=== PATIENT | female | born 1975 | race Caucasian/White ===

== ENCOUNTER 2022-03-31 12:33 | Outpatient (CLI) | payer OTHER, SELFPAY | END 2022-03-31 12:34 | disposition home or self-care (01) | LOC: NFLDREF 12:38 | PROVIDERS: PCP Family Medicine; Visit Provider Obstetrics & Gynecology | DX: Z01.419 Encounter for gynecological examination (general) (routine) without abnormal findings (principal); N39.46 Mixed incontinence; N95.2 Postmenopausal atrophic vaginitis | CPT/HCPCS: 87086 ==

== ENCOUNTER 2022-04-23 12:04 | Outpatient (CLI) | payer OTHER, SELFPAY | END 2022-04-23 12:05 | disposition home or self-care (01) | LOC: OP CLINIC 12:05 | PROVIDERS: PCP Family Medicine; Visit Provider Surgery | DX: Z12.11 Encounter for screening for malignant neoplasm of colon (principal); K63.5 Polyp of colon; Z83.71 Family history of colonic polyps | CPT/HCPCS: 45385; 88305; 99153; J1200; J2250; J2405; J3010 ==

== ENCOUNTER 2022-05-11 11:00 | Outpatient (RCR) | payer OTHER, SELFPAY | END 2022-08-24 15:25 | disposition home or self-care (01) | PROVIDERS: PCP Family Medicine; Visit Provider Obstetrics & Gynecology | DX: N39.46 Mixed incontinence (principal); Z51.89 Encounter for other specified aftercare | CPT/HCPCS: 97112; 97140; 97161; 97162; 97535 ==

== ENCOUNTER 2022-05-13 14:52 | Outpatient (CLI) | payer OTHER, SELFPAY ==
--- NOTE | 2022-05-13 15:00 | CRLHL7_ITS ---
For Patients: As a result of the Century Cures Act, medical imaging exams and procedure reports are released immediately into your electronic medical record. You may view this report before your referring provider. If you have questions, please contact your health care provider. BILATERAL SCREENING MAMMOGRAM WITH COMPUTER-AIDED DETECTION AND TOMOSYNTHESIS TECHNIQUE: CC, MLO and Implant displaced views were obtained. These mammographic images have been obtained using full-field digital technique. These mammographic images were interpreted with the benefit of computer-aided detection. Breast Tomosynthesis was used in this interpretation. COMPARISON FILM: 05/06/21, 03/28/20, 03/30/19. FINDINGS: There are scattered areas of fibroglandular density IMPRESSION: There is no radiographic evidence for malignancy. ASSESSMENT: BI-RADS Category 2: Benign RECOMMENDATION: Routine screening mammogram in 1 year. A lay language report of this examination will be provided to the patient. Han Mathis M.D. Diagnostic Radiologist [email or web address] DARNELL/Dictated by: Han Mathis MD @ 05/14/2022 12:41:00 PM (Electronically Signed)
== END 2022-05-13 14:53 | disposition home or self-care (01) ==
LOC: MAMMO 14:53
PROVIDERS: PCP Family Medicine; Visit Provider Obstetrics & Gynecology
DX: Z12.31 Encounter for screening mammogram for malignant neoplasm of breast (principal)
CPT/HCPCS: 77063; 77067

== ENCOUNTER 2022-10-16 09:45 | Outpatient (CLI) | payer OTHER, SELFPAY | END 2022-10-16 09:46 | disposition home or self-care (01) | LOC: NFLDREF 09:46 | PROVIDERS: PCP Family Medicine; Visit Provider Family Medicine | DX: I10 Essential (primary) hypertension (principal) | CPT/HCPCS: 80048 ==

== ENCOUNTER 2023-04-21 10:22 | Outpatient (CLI) | payer OTHER, SELFPAY | END 2023-04-21 10:23 | disposition home or self-care (01) | PROVIDERS: PCP Family Medicine; Visit Provider Physician Assistant | DX: Z01.419 Encounter for gynecological examination (general) (routine) without abnormal findings (principal); I10 Essential (primary) hypertension; Z13.1 Encounter for screening for diabetes mellitus; Z13.6 Encounter for screening for cardiovascular disorders | CPT/HCPCS: 80061; 82947 ==

== ENCOUNTER 2023-05-04 07:55 | Outpatient (CLI) | payer OTHER, SELFPAY ==
--- OUTSIDE RECORDS SUMMARY | 2023-05-04 07:57 | XMS_ITS | Continuity of Care Document ---
Author Name Unknown Organization [facility] Address [address] [place] [address] Phone Care Team Providers Care Php Web Developer Name Role Phone Lteicia Anne MD Unavailable Unavailable Allergies, Adverse Reactions, Alerts Substance Reaction Status Criticality PENICILLIN Rash Active No Information Medications Medication Instructions Dosage Effective Dates (start - stop) Status Comments prednisone 5 mg tablet Take 3 tablets twice daily x 5 days; take 2 tablets twice daily x 5 days; take 1 tablet twice daily x 5 days - Active LISINOPRIL (unknown strength) Not Available - Active OMEPRAZOLE (unknown strength) Not Available - Active Procedures Procedure Date Office/Outpatient Visit,Est, Mod 2021 Office/Outpatient Visit,Est, Mod 2018 Office/Outpatient Visit,Est, Mod 2018 X-Ray Exam Of Neck Spine2-3 Views Office/Outpatient Visit,Est, Mod 2017 Office/Outpatient Visit,Est, Mod 2017 X-Ray Exam Of Spine, Single View 2017 Office/Outpatient Visit,Est, Mod 2017 Office/Outpatient Visit,Est, Mod 2017 X-Ray Exam Of Neck Spine2-3 Views Postop Followup Visit X-Ray Exam Of Spine, Single View 2016 Postop Followup Visit Pa Assist Neck Spine Fusion (Cerv,Below C2) Pa Assist Insert Spine Fixation, Posteri or Neck Spine Fusion (Cerv,Below C2) Insert Spine Fixation, Posterior 2016 Allograft, Spine Surg, Morselized Autograft, Spine Surgery, Local 017 Office/Outpatient Visit,Est, Mod 2016 Office/Outpatient Visit,Est, Mod 2016 X-Ray Exam Of Neck Spine, 4+ Views Feb-08 19-2016 Office/Outpatient Visit,Est, Mod 2016 X-Ray Exam Of Spine, Single View 2016 Office/Outpatient Visit,Est, Mod 2014 X-Ray Exam Of Neck Spine2-3 Views Office/Outpatient Visit,Est, Mod 2014 X-Ray Exam Of Spine, Single View 2014 Postop Followup Visit X-Ray Exam Of Spine, Single View 2014 Postop Followup Visit X-Ray Exam Of Spine, Single View 2013 Neck Spine Fuse & Removal Addl 14 Addl Neck Spine Fusion Insert Spine Fix Dev, Ant, 2-3 Seg Allograft, Spine Surg, Structural Pa Neck Spine Fuse & Removal Addl Pa Addl Neck Spine Fusion Pa Assist Insert Spine Fix Dev, Ant, 2-3 Seg Pre Op Office/Outpatient Visit, 014 Office/Outpatient Visit,Est, Mod 2013 Office/Outpatient Visit,Est, Mod 2013 Office/Outpatient Visit,New, Mod 2013 Advance Directives Directive Yes / No Effective Date File Name No Information Encounters Encounter Description Practice Location Reason(s) For Visit Diagnoses Date Provider Providers Copied on Encounter [facility], [address], [place], [place], [id number], [place] tel:[phone] [facility] No Information 2 Omid Kelly. [facility], [address], [address], [place], [address], [place]. tel:[phone] Office/Outpa tient Visit,Est, Mod [facility], [address], [place], [place], [id number], [place] tel:[phone] [facility] Other spondylosis, cervical region 2 Omid Kelly. [facility], [address] [place] [address], [address], [place], [place], [facility], [place]. tel:[phone] Referring Provider: Thom Márquez, [facility] [address], [place], [address]. tel:[phone] Office/Outpa tient Visit,Est, Mod [facility], [address], [place], [place], [id number], [place] tel:[phone] [facility] Cervicalgia 9 Castanonlyudmila Diggsoph er. [facility] [place], [address] [place] [address], [address], [place], [place], [address] , [place]. tel:[phone] Referring Provider: Thom Márquez, [facility] [address], [place], [address]. tel:[phone] Office/Outpa tient Visit,Est, Mod [facility], [address], [place], [place], [address], [place] tel:[phone] [facility] Encounter for other specified surgical aftercare 9 Kina Mcnamara er. [facility] [place], [address] [place] [address], [address], [place], [place], [address] , [place]. tel:[phone] Referring Provider: Thom Márquez, [facility] [address], [place], [address]. [phone] Office/Outpa tient Visit,Est, Mod [facility], [address] [place] [address], [id number], [place] tel:[phone] [facility] Encounter for other specified surgical aftercare 5201 8 [facility] [place], [address] [place] [address], [address], [place], [place], [address] , [place]. tel:[phone] Referring Provider: Thom Márquez, [facility] [address], [place], [address]. tel:[phone] Office/Outpa tient Visit,Est, Mod [facility], [address] [place] [address], [id number], [place] tel:[phone] [facility] Encounter for other specified surgical aftercare 0- 8 [facility]. [facility] [place], [address], [address], [place], [place], [address] , [place]. [phone] Referring Provider: Thom Márquez, [facility] [address], [place], [address]. tel:[phone] Office/Outpa tient Visit,Est, Mod [facility], [address] [place] [address], [id number], [place] tel:[phone] [facility] - [facility] Encounter for other specified surgical aftercareLow back pain 2 8 [facility]. [facility], [address], [address], [place], [place], [address] , [place]. [phone] Referring Provider: Thom Márquez, [facility] [address], [place], [address]. tel:[phone] Office/Outpa tient Visit,Est, Mod [facility], [address], [place], [place], [id number], [place] tel:[phone] [facility] Encounter for other specified surgical aftercare 6 8 [facility]. [facility], [address], [address], [place], [place], [address] , . [phone] Referring Provider: Thom Márquez, [facility] [address], [place], [address]. tel:[phone] [facility], [address] [place] [address], [id number], [place] tel:[phone] [facility] - [facility] Encounter for other specified surgical aftercare May-3 [facility] . [facility], [address], [address], [place], [place], [address] , [place]. tel:[phone] Referring Provider: Thom Márquez, [facility] [address], [place], [address]. tel:[phone] [facility], [address], [place], [id number], [place] tel:[phone] [facility] - [facility] Encounter for other specified surgical aftercare May-0 [facility]. [facility], [address], [address], [place], [place], [address] , [place]. tel:[phone] Referring Provider: Thom Márquez, [facility] [address], [place], [address]. tel:[phone] [facility], [address], [place], [place], [id number], [place] tel:[phone] [facility] No Information Apr- Chelsea Potter. [facility] [place], [address] [place] [address], [place], [address], [place]. [phone] Referring Provider: Thom Márquez, [facility] [address], [place], [address]. tel:[phone] [facility], [address], [place], [address], [place] tel:[phone] [facility] No Information Apr- [facility]. [facility], [address], [address], [place], [address] , [place]. tel:[phone] Referring Provider: Thom Márquez, [facility] [address], [place], [address]. 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 [facility], [address], [address], [place], [place], [address] , [place]. tel:[phone] Referring Provider: Thom Márquez, [facility] [address], [place], [address]. tel:[phone] Office/Outpa tient Visit,Est, Mod [facility], [address], [place], [place], [address], [place] tel:[phone] [facility] Spinal stenosis, cervical regionPseudar throsis after fusion or arthrodesis 7 [facility], [address], [address], [place], [place], [address] , [place]. tel:[phone] Referring Provider: Thom Márquez, [facility] [address], [place], [address]. tel:[phone] Office/Outpa tient Visit,Est, Mod [facility], [address], [place], [place], [address], [place] tel:[phone] [facility] Cervicalgia 7 [facility], [address], [address], [place], [place], [address] , [place]. tel:[phone] Referring Provider: Thom Márquez, [facility] [address], [place], [address]. tel:[phone] Office/Outpa tient Visit,Est, Mod [facility], [address], [place], [place], [address], [place] tel:[phone] [facility] Other intervertebra l disc degeneration, lumbar regionArthrod esis statusOverwei ght 5 Castanonlyudmila Mcnamara er. [facility], [address] [place] [address], [address], [place], [place], [address] , [place]. [phone] Referring Provider: Thom Márquez, [facility] [address] [facility] [address], [place], [address]. tel:[phone] Office/Outpa tient Visit,Est, Mod [facility], [address], [place], [place], [address], [place] tel:[phone] [facility] Displacement of intervertebra l disc, site unspecified, without myelopathyOVE RWEIGHTHypert ension, UnspecifiedLu mbar spondylosisLu mbar radiculopathy Shoulder joint painPatient who has had a surgical fusion of a joint 5 Kina Anders er. [facility], [address], [address], [place], [place], [address] , [place]. [phone] Referring Provider: Thom Márquez, [facility] [address] [facility] [address], [place], [address]. [phone] [facility], [address], [place], [id number], [place] [phone] [facility] - [facility] Patient who has had a surgical fusion of a joint 5 Kina Mcnamara er. [facility], [address], [address], [place], [place], [address] , [place]. [phone] Referring Provider: Pancho Castanon, [facility] [address], [address], [place], [address]. [phone] [facility], [address], [place], [id number], [place] [phone] [facility] No Information 4 Kina Mcnamara er. [facility], [address] [place] [address], [address], [place], [place], [address] , [place]. tel:[phone] Referring Provider: Pancho Castanon [facility] [address] [place], [address], [place], [address]. tel:[phone] Z [facility], [address], [place], [address], [place] tel:[phone] [facility] No Information 4 Kina Mcnamara er. [facility], [address], [address], [place], [place], [address] , [place]. tel:[phone] Referring Provider: Pancho Castanon [facility] [address] [place], [address], [place], [address]. tel:[phone] Pre Op Office/Outpa tient Visit, Z [facility] [place], [address], [place], [address], [place] tel:[phone] [facility] - [place] Hypertension, UnspecifiedDi splacement of intervertebra l disc, site unspecified, without myelopathy 4 Kina Mcnamara er. [facility], [address] [place], [address], [place], [place], [address] , [place]. tel:[phone] Referring Provider: Same As Referring. Office/Outpa tient Visit,Est, Mod Z [facility], [address], [place], [address], [place] tel:[phone] [facility] [place] No Information 4 Kina Mcnamara er. [facility], [address], [address], [place], [place], [address] , [place]. tel:[phone] Referring Provider: Pancho Castanon [facility] [address], [address], [place], [address]. tel:[phone] Office/Outpa tient Visit,Est, Mod Z [facility], [address], [place], [address], [place] tel:[phone] [facility] Neck and right arm pain (chief complaint) No Information 4 Kina Anders er. [facility], [address], [address], [place], [address] , . tel:[phone] Referring Provider: Pancho Csatanon, [facility] [address] [place], [address], [place], [address]. tel:[phone] Office/Outpa tient Visit,[facility], [facility] Z [facility], [address] [facility], [place], [facility], tel:[phone] [facility] - [facility] Cervical pain (chief complaint) No Information 4 Castanonlyudmila Mcnamara er. [facility] [place], [address] [place] [address], [address], [place], [place], [address] , . tel:[phone] Referring Provider: Pancho Castanon, [facility] [address], [address], [address]. tel:[phone] Family History Family Member Type Diagnosis Age At Onset Problem (finding) Problem (finding) Payers Payer name Insurance type Covered constitution party ID Authoriza tion(s) [employer] Family [employer] [id number] Social History Type Description Quantity Date Captured Comments Sex Female Smoking Status No Information Chief Complaint And Reason For Visit No Information Reason For Referral Reason For Referral No Information Plan Of Treatment Date Type Action Status Future Order: Radiology Order AP Lateral Cervical (APlatcerv), Ordered on: Ordered Future Order: Radiology Order F/ E Cervical (F/Ecervical), Ordered on: Ordered Future Order: Radiology Order La teral Cervical (LatCerv), Ordered on: Ordered Future Order: Radiology Order AP Lateral Cervical (APlatcerv), Ordered on: Ordered History Of Present Illness Encounter Date Complaint History Of Prese nt Illness Cervical pain Functional Status Date Functional Assessmen t No Information Instructions Date Instruction Yves coombs Weight management: R efer to Referral to General Practitioner timeframe: 1 Month. Related to Overweight Weight Management Related to Ove rweight Refer to Referral to General Practitioner timeframe: 1 Month. Related to Unspecified Essential Hypertension Exercise education Related to Un specified Essential Hypertension Assessments Type Assessment Date No Information Patient Care Teams Name Effective Dates (start - stop) Status Members No Information
--- NOTE | 2023-05-04 08:00 | CRLHL7_ITS ---
Patient: BELLE GARNICA Facility:?[facility] Patient ID:?[id number] Site Patient ID:?[id number]. Site :?[id number] Study:?CT-Abdomen/Pelvis W/ ISOVUE 370 57CC-05/04/2023 8:47:11 AM Ordering Physician:Erasto Blankenship Final Report: ADDENDUM: The endocervix remains with small nabothian cysts. The patient appears to be status post partial hysterectomy. Han Mathis M.D. Diagnostic Radiologist [employer] [employer]. [email or web address] D& Transcribed: 10:06 a.m. Indication: ABD SWELLING, LT SIDED Technique: Postcontrast CT abdomen and pelvis. 57 cc Isovue 370 intravenous contrast. Please note that all CT scans at this facility use dose modulation, iterative reconstruction, and/or weight-based dosing when appropriate to reduce radiation dose to as low as reasonably achievable. Comparison: None Findings: Mild dependent atelectasis noted within both lower lobes. No pleural effusion. Incidental calcified granuloma within the right middle lobe. No intrahepatic mass. Mild hepatic steatosis. Spleen is normal. Normal adrenal glands. Normal pancreas. The gallbladder is incompletely distended. No calcified gallstones or biliary obstruction. Kidneys are within normal limits. No aortic aneurysm. No adenopathy. Small left ovarian cysts are present measuring up to 1.6 cm. Uterus appears normal. Normal bladder. No bowel obstruction. No free air. No free fluid or abscess. There is no abdominal wall hernia or subcutaneous fluid collection/mass. The appendix is normal. No inflammatory changes. Incidental bone island in the right femoral neck. Rightward curvature lumbar spine. Disc space narrowing and spurring on the left at L1-2. Impression: No hernia defect. No fluid collection or mass. No bowel obstruction. No ascites. Please note that all CT scans at this facility use dose modulation, iterative reconstruction, and/or weight-based dosing when appropriate to reduce radiation dose to as low as reasonably achievable. Dictated by Han Mathis MD @ 05/04/2023 10:57:12 AM Signed by: Han Mathis @ 05/04/2023 10:57:12 AM (Electronic Signature) Signed by:?Han Mathis MD @05/05/2023 12:35:59 PM (Electronic Signature)
== END 2023-05-04 07:56 | disposition home or self-care (01) ==
LOC: CT 07:55
PROVIDERS: PCP Family Medicine; Visit Provider Surgery
DX: R19.00 Intra-abdominal and pelvic swelling, mass and lump, unspecified site (principal)
CPT/HCPCS: 74177; Q9967

== ENCOUNTER 2023-05-14 08:13 | Outpatient (CLI) | payer OTHER, SELFPAY ==
--- NOTE | 2023-05-14 08:15 | CRLHL7_ITS ---
For Patients: As a result of the Cures Act, medical imaging exams and procedure reports are released immediately into your electronic medical record. You may view this report before your referring provider. If you have questions, please contact your health care provider. BILATERAL SCREENING MAMMOGRAM WITH COMPUTER-AIDED DETECTION AND TOMOSYNTHESIS TECHNIQUE: CC and MLO views were obtained. These mammographic images have been obtained using full-field digital technique. These mammographic images were interpreted with the benefit of computer-aided detection. Breast Tomosynthesis was used in this interpretation. COMPARISON FILM: 05/13/22, 05/06/21, 03/28/20. FINDINGS: There are scattered areas of fibroglandular density IMPRESSION: There is no radiographic evidence for malignancy. ASSESSMENT: BI-RADS Category 2: Benign RECOMMENDATION: Routine screening mammogram in 1 year. A lay language report of this examination will be provided to the patient. Han Mathis M.D. Diagnostic Radiologist [email or web address] RAIN/day Transcribed: 6:10 p.yuni bernstein/Dictated by: Han Mathis MD @ 05/14/2023 11:51:00 AM (Electronically Signed)
--- OUTSIDE RECORDS SUMMARY | 2023-05-14 08:16 | XMS_ITS | Continuity of Care Document ---
Author Name Unknown Organization [facility] Address [address] [place] [address] Phone Care Team Providers Care Customer Facilities Supervisor Name Role Phone Leticia Anne MD Unavailable Unavailable Allergies, Adverse Reactions, Alerts Substance Reaction Status Criticality PENICILLIN Rash Active No Information Medications Medication Instructions Dosage Effective Dates (start - stop) Status Comments prednisone 5 mg tablet Take 3 tablets twice daily x 5 days; take 2 tablets twice daily x 5 days; take 1 tablet twice daily x 5 days - Active OMEPRAZOLE (unknown strength) Not Available - Active LISINOPRIL (unknown strength) Not Available - Active Procedures [...] Providers Copied on Encounter [facility], [address], [place], [place], [id number], [place] tel:[phone] [facility] No Information 2 Omid Kelly. [facility], [address], [address], [place], [address], [place]. tel:[phone] Office/Outpa tient Visit,Est, Mod [facility], [address], [place], [place], [id number], [place] tel:[phone] [facility] Other spondylosis, cervical region 2 Omid Kelly. [facility], [address] [place] [address], [address], [place], [place], [facility], [place]. tel:[phone] Referring Provider: Thom Márquez, [facility] [address], [place], [address]. tel:[phone] Office/Outpa tient Visit,Est, Mod [facility], [address], [place], [place], [id number], [place] tel:[phone] [facility] Cervicalgia 9 Castanonlyudmila Diggsoph er. [facility], [address] [place] [address], [address], [place], [place], [address] , [place]. tel:[phone] Referring Provider: Thom Márquez, [facility] [address], [place], [address]. tel:[phone] Office/Outpa tient Visit,Est, Mod [facility], [address], [place], [place], [address], [place] tel:[phone] [facility] Encounter for other specified surgical aftercare 9 Kina Mcnamara er. [facility], [address] [place] [address], [address], [place], [place], [address] , [place]. tel:[phone] Referring Provider: Thom Márquez, [facility] [address], [place], [address]. [phone] Office/Outpa tient Visit,Est, Mod [facility], [address] [place] [address], [id number], [place] tel:[phone] [facility] Encounter for other specified surgical aftercare 5201 8 [facility], [address] [place] [address], [address], [place], [place], [address] , [place]. tel:[phone] Referring Provider: Thom Márquez, [facility] [address], [place], [address]. tel:[phone] Office/Outpa tient Visit,Est, Mod [facility], [address] [place] [address], [id number], [place] tel:[phone] [facility] Encounter for other specified surgical aftercare 0- 8 [facility]. [facility], [address], [address], [place], [place], [address] , [place]. [phone] Referring Provider: Thom Márquez, [facility] [address], [place], [address]. tel:[phone] Office/Outpa tient Visit,Est, Mod [facility], [address] [place] [address], [id number], [place] tel:[phone] [facility] Encounter for other specified surgical aftercareLow back pain 2 8 [facility]. [facility], [address], [address], [place], [place], [address] , [place]. [phone] Referring Provider: Thom Márquez, [facility] [address], [place], [address]. tel:[phone] Office/Outpa tient Visit,Est, Mod [facility], [address], [place], [place], [id number], [place] tel:[phone] [facility] Encounter for other specified surgical aftercare 6 8 [facility]. [facility], [address], [address], [place], [place], [address] , . [phone] Referring Provider: Thom Márquez, [facility] [address], [place], [address]. tel:[phone] [facility], [address] [place] [address], [id number], [place] tel:[phone] [facility] - [facility] Encounter for other specified surgical aftercare May-3 [facility], [address], [address], [place], [place], [address] , [place]. tel:[phone] Referring Provider: Thom Márquez, [facility] [address], [place], [address]. tel:[phone] [facility], [address], [place], [id number], [place] tel:[phone] [facility] - [facility] Encounter for other specified surgical aftercare May-0 [facility]. [facility], [address], [address], [place], [place], [address] , [place]. tel:[phone] Referring Provider: Thom Márquez, [facility] [address], [place], [address]. tel:[phone] [facility], [address], [place], [place], [id number], [place] tel:[phone] [facility] No Information Apr- Chelsea Potter. [facility], [address], [place], [address], [place]. [phone] Referring Provider: Thom Márquez, [facility] [address], [place], [address]. tel:[phone] [facility], [address], [place], [address], [place] tel:[phone] [facility] No Information Apr- [facility]. [facility], [address], [address], [place], [address] , [place]. tel:[phone] Referring Provider: Thom Márquez, [facility] [address], [place], [address]. 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 [facility], [address], [address], [place], [place], [address] , [place]. tel:[phone] Referring Provider: Thom Márquez, [facility] [address], [place], [address]. tel:[phone] Office/Outpa tient Visit,Est, Mod [facility], [address], [place], [place], [id number], [place] tel:[phone] [facility] Spinal stenosis, cervical regionPseudar throsis after fusion or arthrodesis 7 [facility], [address], [address], [place], [place], [address] , [place]. tel:[phone] Referring Provider: Thom Márquez, [facility] [address], [place], [address]. tel:[phone] Office/Outpa tient Visit,Est, Mod [facility], [address], [place], [place], [address], [place] tel:[phone] [facility] Cervicalgia 7 [facility]. [facility], [address], [address], [place], [place], [address] , [place]. tel:[phone] Referring Provider: Thom Márquez, [facility] [address], [place], [address]. tel:[phone] Office/Outpa tient Visit,Est, Mod [facility], [address], [place], [place], [id number], [place] tel:[phone] [facility] Other intervertebra l disc degeneration, lumbar regionArthrod esis statusOverwei ght 5 Castanonlyudmila Mcnamara er. [facility], [address] [place] [address], [address], [place], [place], [address] , [place]. [phone] Referring Provider: Thom Márquez, [facility] [address], [place], [address]. tel:[phone] Office/Outpa tient Visit,Est, Mod [facility], [address], [place], [place], [address], [place] tel:[phone] [facility] Displacement of intervertebra l disc, site unspecified, without myelopathyOVE RWEIGHTHypert ension, UnspecifiedLu mbar spondylosisLu mbar radiculopathy Shoulder joint painPatient who has had a surgical fusion of a joint 5 Kina Anders er. [facility], [address], [address], [place], [place], [address] , [place]. [phone] Referring Provider: Thom Márquez, [facility] [address], [place], [address]. [phone] [facility], [address], [place], [id number], [place] [phone] [facility] Patient who has had a surgical fusion of a joint 5 Kina Mcnamara er. [facility], [address], [address], [place], [place], [address] , [place]. [phone] Referring Provider: Pancho Castanon, [facility] [address], [address], [place], [address]. [phone] [facility], [address], [place], [id number], [place] [phone] [facility] No Information 4 Kina Mcnamara er. [facility], [address] [place] [address], [address], [place], [place], [address] , [place]. tel:[phone] Referring Provider: Pancho Castanon [facility] [address], [address], [place], [address]. tel:[phone] Z [facility], [address], [place], [address], [place] tel:[phone] [facility] No Information 4 Kina Mcnamara er. [facility], [address], [address], [place], [place], [address] , [place]. tel:[phone] Referring Provider: Pancho Castanon [facility] [address] [place], [address], [place], [address]. tel:[phone] Pre Op Office/Outpa tient Visit, Z [facility], [address], [place], [address], [place] tel:[phone] [facility] [place] Hypertension, UnspecifiedDi splacement of intervertebra l disc, site unspecified, without myelopathy 4 Kina Mcnamara er. [facility], [address] [place], [address], [place], [place], [address] , [place]. tel:[phone] Referring Provider: Same As Referring. Office/Outpa tient Visit,Est, Mod [facility], [address], [place], [address], [place] tel:[phone] [facility] [place] No Information 4 Kina Mcnamara er. [facility], [address], [address], [place], [place], [address] , [place]. tel:[phone] Referring Provider: Pancho Castanon [facility] [address], [address], [place], [address]. tel:[phone] Office/Outpa tient Visit,Est, Mod [facility], [address], [place], [address], [place] tel:[phone] [facility] Neck and right arm pain (chief complaint) No Information 4 Kina Anders er. [facility], [address], [address], [place], [address] , . tel:[phone] Referring Provider: Pancho Castanon, [facility] [address] [place], [address], [place], [address]. tel:[phone] Office/Outpa tient Visit,[facility], [facility], [address] [facility], [place], [place], [facility], tel:[phone] [facility] - [facility] Cervical pain (chief complaint) No Information 4 Castanonlyudmila Mcnamara er. [facility], [address] [place] [address], [address], [place], [place], [address] , . tel:[phone] Referring Provider: Pancho Castanon, [facility] [address], [address], [address]. tel:[phone] Family History Family Member Type Diagnosis Age At Onset Problem (finding) Problem (finding) Payers Payer name Insurance type Covered libertarian ID Authoriza tion(s) [employer] Family [employer] [id number] Social History Type Description Quantity Date [...]
== END 2023-05-14 08:14 | disposition home or self-care (01) ==
LOC: MAMMO 08:14
PROVIDERS: PCP Family Medicine; Visit Provider Obstetrics & Gynecology
DX: Z12.31 Encounter for screening mammogram for malignant neoplasm of breast (principal)
CPT/HCPCS: 77063; 77067

== ENCOUNTER 2023-10-19 09:49 | Outpatient (CLI) | payer OTHER, SELFPAY | END 2023-10-19 09:50 | disposition home or self-care (01) | LOC: FBOREF 09:50 | PROVIDERS: PCP Family Medicine; Visit Provider Family Medicine | DX: I10 Essential (primary) hypertension (principal) | CPT/HCPCS: 80048 ==

== ENCOUNTER 2024-01-21 09:22 | Outpatient (CLI) | payer OTHER, SELFPAY ==
--- OUTSIDE RECORDS SUMMARY | 2024-01-21 09:26 | XMS_ITS | Encounter Summary ---
Author Organization [facility] Address [address] [place] [address] Care Team Providers Care Fire Ranger Name Role Phone Thom Ovalles MD Unavailable Han Jackson MD Primary Care Provider Ruben Frey MD Unavailable Reason for Referral * Diagnostic Imaging XR (Routine) - Pending Review Specialty Diagnoses / Procedures Referred By Contac t Referred To Contact Radiology. Diagnoses S/P fusion of sacroiliac joint Procedures XR Pelvis G/E 3 Views Ruben Frey MD [address] [place] [address] Referral ID Status Reason Start Date Expiration Date V isits Requested Visits Authorized [id number] Pending Review 01/20/2024 01/19/2025 1 1 Encounter Details Date Type Department Care Team (Late st Contact Info) Description 01/20/2024 Orders Only [facility] [id number] [facility] [address] [place] [address] Ruben Frey MD [address] [place], [place] [id number] S/P fusion of sacroiliac joint (Primary Dx) Social History Tobacco Use Types Packs/Day Years Used Date Smoking Tobacco: Never Smokeless Tobacco: Never Comments:no second hand smok e at home or work, 01/01/05 Alcohol Use Standard Drinks/Week Comments Yes 0 (1 standard drink = 0.6 oz pur e alcohol) 3-4 wk PHQ-2 Answer Date Recorded PHQ-2 Score 0 12/27/2023 Adolescent Education Answer Date Record ed Getting School Help Needed Not on file 05/11 Sex and Gender Information Value Date Recorded Sex Assigned at Not on file Gender Identity Not on file Sexual Orientation Not on file documented as of this encounter Plan of Treatment Upcoming Encounters Date Type Department Care Team (Late st Contact Info) Description 02/10/2024 2:40 PM CDT Ancillary Procedure [facility] [address] [id number] Ruben Frey MD [address] [place] [address] 02/10/2024 3:00 PM CDT Office Visit [facility] [address] [id number] Ruben Frey MD [address] [place] [address] Scheduled Orders Name Type Priority Associated Diagnoses Orde r Schedule XR Pelvis G/E 3 Views Imaging Routine S/P fusion of sacroiliac joint Expected: 01/20/2024 (Approximate), Expires: 02/19/2024 documented as of this encounter Visit Diagnoses Diagnosis S/P fusion of sacroiliac joint- Primary documented in this encounter Care Teams Fire Ranger Relationship Specialty Start Date End Date Thom Ovalles MD [address] [place] [address] PCP - Orthopaedics Orthopedics 04/08/11 Han Jackson MD [facility] [address] [facility] [place] [address] PCP - General Family Medicine 10/23/21 Ruben Frey MD [address] [facility] [address] [place] [address] Assigned Musculoskeletal Provider 04/17/23 documented as of this encounter
--- OUTSIDE RECORDS SUMMARY | 2024-01-21 09:26 | XMS_ITS | Referral Summary ---
Author Organization [facility] Address [address] [place] [address]. [place] [address] Care Team Providers Care Carbon Furnace Operator Helper Name Role Phone Thom Ovalles MD Unavailable Han Jackson MD Primary Care Provider Ruben Frey MD Unavailable Encounters Date Type Department Care Team Description 01/20/2024 Orders Only [facility] [place] [address] [facility] [address] 4[address] [place] [address] Ruben Frey MD S/P fusion of sacroiliac joint (Primary Dx) 01/19/2024 PRE VISIT [facility] Preoperative Assessment Center [place] [address] [facility] [address] 5th [place] [address] Naomi Simmons, IMPORT MANAGER HAND II TUBE BENDER 01/03/2024 Travel 01/03/2024 9:45 AM CDT - 01/03/2024 11:30 AM CDT Surgery [facility] PeriOp Services [address] [place], [place] [address] [phone] Ruben Frey MD Minimally invasive FUSION, LEFT SACROILIAC JOINT, USING OPTICAL TRACKING SYSTEM 01/03/2024 10:40 AM CDT Anesthesia Event [facility] [address] [place] [address] [place] [phone] Charles Simons DO [place], Janet E, APRN BRAILLE PROOFREADER 01/03/2024 6:56 AM CDT - 01/03/2024 3:37 PM CDT Hospital Encounter [facility] PACU [address] [place] [phone] Ruben Frey MD Sacroiliac joint pain (Primary Dx) Discharge Disposition: Home or Self Care 12/31/2023 Telephone [facility] Orthopedic [address] [phone] Ruben Frey MD Call Back (Prior auth ); Clinic Care Coordination - Follow-up 12/29/2023 Telephone [facility] Orthopedic [address] [phone] Ruben Frey MD Question about Prior Auth 12/28/2023 Travel 12/28/2023 11:30 AM CDT Office Visit [facility] Orthopedic [address] [phone] Vanessa Fierro PA-C Chronic left SI joint pain (Primary Dx); S/P fusion of sacroiliac joint 12/27/2023 Telephone [facility] Orthopedic [address] [phone] Ruben Frey MD Call Back (Pt pre op today ); Clinic Care Coordination - Follow-up 12/27/2023 PRE VISIT [facility] Preoperative Assessment Center [address] [phone] Carmela Iglesias APRN CNP 12/27/2023 1:00 PM CDT Office Visit [facility] Preoperative Assessment Center [address] [phone] Carmela Iglesias APRN CNP Pre-op evaluation (Primary Dx) 12/26/2023 Travel 12/22/2023 Telephone [facility] Orthopedic Clinic [address] [phone] Vania Murillo, MAYLIN Clinic Care Coordination - Follow-up 12/16/2023 Telephone [facility] Orthopedic Clinic [address] [phone] Ruben Frey MD Schedule Surgery (Dr. Frey ); Clinic Care Coordination - Follow-up 12/14/2023 1:00 PM CDT Virtual Visit [facility] Orthopedic Clinic [address] [phone] Ruben Frey MD Chronic left SI joint pain (Primary Dx) 12/13/2023 8:52 AM CDT - 12/13/2023 11:59 PM CDT Hospital Encounter [facility] Imaging [address] [place] [phone] Ruben Frey MD Non-Fv Credentialed Provider, Radiology Chronic left SI joint pain; S/P fusion of sacroiliac joint Discharge Disposition: Home or Self Care 12/13/2023 8:52 AM CDT - 12/13/2023 4:55 PM CDT Hospital Encounter [facility] [address] [place] [phone] Non-Fv Credentialed Provider, Radiology Xavier Richards PA-C Discharge Disposition: Home or Self Care 12/09/2023 Telephone [facility] Orthopedic Clinic [address] [phone] Ruben Frey MD Call Back (Pt records coming in from [place]); Clinic Care Coordination - Follow-up 12/08/2023 Travel 12/07/2023 Travel 12/07/2023 12:10 PM CDT Ancillary Procedure [facility] Orthopedic Xray [address] [phone] Vanessa Fierro, CHIQUITAC S/P fusion of sacroiliac joint 12/06/2023 Telephone [facility] [address] [place] [phone] Monica Deluca, RN Pt. Information/instru ction 11/29/2023 8:37 AM CDT - 11/29/2023 11:59 PM CDT Hospital Encounter [facility] [address] [place] [phone] Ruben Frey MD Non-Fv Credentialed Provider, Radiology Chronic left SI joint pain; S/P fusion of sacroiliac joint Discharge Disposition: Home or Self Care 11/29/2023 8:36 AM CDT - 11/29/2023 10:15 AM CDT Hospital Encounter [facility] [address] [place] [phone] Non-Fv Credentialed Provider, Radiology Xavier Richards PA-C Discharge Disposition: Home or Self Care 11/22/2023 Travel 11/22/2023 Telephone [facility] [address] [place] [phone] Monica Deluca, MAYLIN Pt. Information/instru ction 11/17/2023 Telephone [facility] Orthopedic [address] [phone] Ruben Frey MD Pt. Information/instru ction; Clinic Care Coordination - Follow-up 11/16/2023 Telephone [facility] Orthopedic [address] [phone] Ruben Frey MD Call Back; Clinic Care Coordination - Follow-up 11/12/2023 Orders Only [facility] Orthopedic [address] [phone] Vanessa Fierro PA-C S/P fusion of sacroiliac joint (Primary Dx) 11/12/2023 Orders Only [facility] Orthopedic [address] [phone] Vanessa Fierro PA-C S/P fusion of sacroiliac joint (Primary Dx) 11/10/2023 MyC Medical Advice [facility] Orthopedic [address] [phone] Ruben Frey MD Chronic left SI joint pain (Primary Dx); S/P fusion of sacroiliac joint 11/05/[address] [phone] Ruben Frey MD Call Back (Requesting call back RE reports findings before next appt); Clinic Care Coordination - Follow-up 11/02/2023 Travel 11/02/2023 1:44 PM CDT - 11/02/2023 1:46 PM CDT Hospital Encounter [facility] Imaging [address] [place] [phone] Sofía Kraft PA-C Chronic left SI joint pain Discharge Disposition: Home or Self Care 11/02/2023 1:47 PM CDT - 11/02/2023 11:59 PM CDT Hospital Encounter [facility] Interventional Radiology [address] [place] [phone] Non- Credentialed Provider, Radiology Discharge Disposition: Home or Self Care 10/26/2023 Travel 10/26/2023 Telephone [facility] Orthopedic [address] [phone] Ruben Frey MD 10/22/2023 Telephone [facility] Orthopedic [address] [phone] Ruben Frey MD Call Back (Per Patient requesting for care team/ nurse to call back) from Last 3 Months Allergies Active Allergy Reactions Criticality Noted Date Comments Penicillins Rash Medium 03/23/2003 Tramadol Rash Low 10/02/2021 Medications Medication Sig Dispensed Refills Start Date End Date Status SUMAtriptan (IMITREX) 100 MG tablet Take 1 tablet by mouth at onset of headache Active Multiple Vitamins-Minerals (MULTIVITAMIN PO) Take 1 tablet by mouth every morning Active omeprazole 20 MG tablet Take 20 mg by mouth every morning Active acetaminophen (TYLENOL) 325 MG tabletIndications:In stability of internal left knee prosthesis, initial encounter (H24) Take 2 tablets (650 mg) by mouth every 4 hours as needed for other (mild pain) 100 tablet 10/28/2021 Active clindamycin (CLEOCIN) 300 MG capsule Take 300 mg by mouth as needed (FOR DENTAL PROCEDURE'S) 12/30/2022 Active lisinopril (ZESTRIL) 20 MG tablet Take 20 mg by mouth every morning Active traZODone (DESYREL) 100 MG tablet Take 100 mg by mouth nightly as needed for sleep 11/16/2023 Active acetaminophen (TYLENOL) 325 MG tabletIndications:Sa croiliac joint pain Take 2 tablets (650 mg) by mouth every 4 hours as needed for mild pain 50 tablet 01/03/2024 Active oxyCODONE (ROXICODONE) 5 MG tabletIndications:Sa croiliac joint pain Take 1-2 tablets (5-10 mg) by mouth every 4 hours as needed for moderate to severe pain 20 tablet 01/03/2024 Active senna-docusate (SENOKOT-S/PERICOLAC E) 8.6-50 MG tabletIndications:Sa croiliac joint pain Take 1-2 tablets by mouth 2 times daily 30 tablet 01/03/2024 Active ondansetron (ZOFRAN ODT) 4 MG ODT tabIndications:Sacro iliac joint pain Take 1 tablet (4 mg) by mouth every 8 hours as needed for nausea 4 tablet 01/03/2024 Active Active Problems Problem Noted Date Diagnosed Date Instability of internal left knee prosthesis, 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 Problem list name updated by automated process. Provider to review Premenstrual tension syndrome 04/30/2003 Overview: Problem list name updated by automated process. Provider to review Immunizations Name Administration Dates Next Due TD,PF 7+ (Tenivac) 04/14/2002,08/16/1991 TDAP Vaccine (Adacel) 04/05/2012 Social History Tobacco Use Types Packs/Day Years [...] on file Sexual Orientation Not on file Last Filed Vital Signs Vital Sign Reading Time Taken Comments Blood Pressure 133/85 01/03/2024 3:15 PM CDT Pulse 81 01/03/2024 1:30 PM CDT Temperature 36.5 ??C (97.7 ??F) 01/03/2024 3:15 PM CD T Respiratory Rate 14 01/03/2024 3:15 PM CDT Oxygen Saturation 95% 01/03/2024 3:15 PM CDT Inhaled Oxygen Concentration - - Weight 51.5 kg (113 lb 8.6 oz) 01/03/2024 7:54 A M CDT Height 152.4 cm (5') 01/03/2024 7:54 AM CDT Body Mass Index 22.17 01/03/2024 7:54 AM CDT Plan of Treatment Upcoming Encounters Date Type Department Care Team (Late st Contact Info) Description 02/10/2024 2:40 PM CDT Ancillary Procedure [facility] Orthopedic Xray [address] 4th [place] [phone] Ruben Frey MD [address] [place] [address] 02/10/2024 3:00 PM CDT Office Visit [facility] Orth[facility] [place] [address] [facility] [address] 4th [place] [phone] Ruben Frey MD [address] [place] [address] Medical Devices Implanted Type Area Travel Attendants Device Identifier Shelf Expiration Date Model / Serial / Lot Imp Spinal Ifuse Torq [id number] Strl Lf [id number] - [id number] Implanted:Qty : 1 on 06/09/2023 by Ruben Frey MD at [facility] Metallic Hardware/An chor Right: Spine Lumbar [employer] [id number] 02/26/2028 [id number] / / [id number] Imp Spinal Ifuse Torq [id number] Strl Lf [id number] - [id number] Implanted:Qty : 1 on 06/09/2023 by Ruben Frey MD at [facility] Metallic Hardware/An chor Right: Iliac Crest [employer] [id number] 12/31/2027 [id number] / / [id number] Imp Spinal Fx Ifuse Torq [id number] Strl Lf 64870c - [id number] Implanted:Qty : 1 on 01/03/2024 by Ruben Frey MD at [facility] Metallic Hardware/An chor Left: Sacrum [employer] [id number] 12/20/2027 [id number] / / [id number] Imp Spinal Ifuse Torq [id number] Strl Lf 93766z - [id number] Implanted:Qty : 1 on 01/03/2024 by Ruben Frey MD at [facility] Metallic Hardware/An chor Left: Sacrum [employer] [id number] 05/31/2028 [id number] / / [id number] Imp Spinal Ifuse Torq [id number] Strl Lf [id number] - [id number] Implanted:Qty : 1 on 01/03/2024 by Ruben Frey MD at [facility] Metallic Hardware/An chor Left: Sacrum [employer] [id number] 08/18/2028 [id number] / / [id number] Imp Insert Jj Attune Ps Rp Sz3 7mm [id number] - [id number] Implanted:Qty : 1 on 10/28/2021 by Gary Russell MD at [facility] Total Joint Component/I nsert Left: Knee [employer]- [id number] 03/15/2026 [id number] / / [id number] 10.0mm X75mm Ifuse-Torq Implanted:Qty : 1 on 06/09/2023 by Ruben Frey MD at [facility] Right: Sacrum [employer] 02/20/2028 [id number] / / Procedures Procedure Name Priority Date/Time Associated Diagnosis Comments XR SURGERY BRADEN FLUORO LESS THAN 5 MIN Routine 01/03/2024 12:02 PM CDT ANE AIRWAY ETT PERFORMABLE Routine 01/03/2024 10:57 AM CDT FUSION, SACROILIAC JOINT, USING OPTICAL TRACKING SYSTEM 01/03/2024 10:42 AM CDT Chronic left SI joint pain Special Needs PAC 12/27/23 GLUCOSE BY METER Routine 01/03/2024 7:[address] SACROILIAC DIAGNOSTIC JOINT INJECTION Routine 12/13/2023 9:54 AM CDT Chronic left SI joint pain S/P fusion of sacroiliac joint IMAGING PROCEDURE NOTE Routine 12/13/2023 9:49 AM CDT XR PELVIS G/E 3 VIEWS Routine 12/07/2023 12:09 PM CDT S/P fusion of sacroiliac joint CT SACROILIAC DIAGNOSTIC JOINT INJECTION Routine 11/29/2023 10:12 AM CDT Chronic left SI joint pain S/P fusion of sacroiliac joint CT SACROILIAC THERAPEUTIC JOINT INJECTION Routine 11/02/2023 2:38 PM CDT Chronic left SI joint pain PAP SMEAR - HIM PATIENT REPORTED Routine 08/16/2015 ABSTRACT HPV (HIM EXTERNAL RESULT) Routine 08/29/2014 COLONOSCOPY Routine 07/12/2012 from Last 3 Months or Most Recently Relevant to Health Maintenance Results * XR Surgery BRADEN L/T 5 Min Fluoro (01/03/2024 12:02 PM CDT) Narrative RADIANT - 01/03/2024 12:04 PM CDT This exam was marked as non-reportable because it will not be read by a radiologist or a [facility] non-radiologist provider. Ruben Frey MD IMG DIAGNOSTI C IMAGING ORDERABLES [facility] * ANE AIRWAY ETT PERFORMABLE (01/03/2024 10:57 AM CDT) Narrative Nereida Gutierres APRN ORNAMENTAL IRONWORKER - 01/03/2024 10:57 AM CDT Nereida Gutierres APRN CRNA ? 01/03/2024 11:19 AM Airway ? Patient location during procedure: OR ? Procedure Start/Stop Times: 01/03/2024 10:57 AM Staff - ? ORNAMENTAL IRONWORKER: Nereida Gutierres APRN CRNA ? Performed By: ORNAMENTAL IRONWORKER Consent for Airway ? Urgency: elective Indications and Patient Condition ? Indications for airway management: zhen-procedural ? Induction type:intravenous ? Mask difficulty assessment: 1 - vent by mask Final Airway Details ? Final airway type: endotracheal airway ? Successful airway: ETT - single Endotracheal Airway Details ? ETT size (mm): 7.0 ? Cuffed: yes ? Successful intubation technique: flexible bronchoscopy (for educational purposes) ? Grade View of Cords: 1 ? Position: Right ? Measured from: gums/teeth ? Secured at (cm): 22 ? Bite block used: None Post intubation assessment ? Placement verified by: capnometry, equal breath sounds and chest rise ? Number of attempts at approach: 1 ? Number of other approaches attempted: 0 ? Secured with: tape ? Ease of procedure: easy Medication(s) Administered Medication Administration Time: 01/03/2024 10:57 AM Charles Kristyn DO [place] ANESTHESIA * Glucose by meter (01/03/2024 7:59 AM CDT) GLUCOSE BY METER POCT 97 70 - 99 mg/dL 01/03/2024 8:07 AM CDT UR LABORATORY POC Blood, Capillary BLOOD SPECIMEN / Unknown 01/03/2024 7:59 AM CDT 01/03/2024 8:07 AM CDT Ruben Frey MD [facility] POCT UR LABORATORY POC [facility] Acute Care Lab [address] [facility] [place] [phone] * CT Sacroiliac Diagnostic Joint Injection (12/13/2023 9:54 AM CDT) Only the most recent of2 resultswithin the time period is included. Anatomical Region Laterality Modality Abdomen/Pelvis, SUBRAD MSK PROCEDURE Computed Tomography Narrative 12/13/2023 4:[address] SACROILIAC DIAGNOSTIC JOINT INJECTION ? 12/13/2023 9:54 AM ?? History: ??CT guided left sacroiliac joint injection Local only NO steroid. Request for right diagnostic injection under CT guidance. Sacroiliitis. PROCEDURE: The procedure, indications, risks (including the risk of infection, bleeding, and reaction to contrast material and medications), and alternative therapies were discussed with the patient and informed consent was obtained before the procedure. ??The low back was prepped and draped in the usual sterile fashion. Lidocaine 1% was used for local anesthesia. ??Under CT guidance a #22 gauge spinal needle was advanced into posterior inferior aspect of the left SI sacroiliac joint. Small amount of contrast was injected to confirm no vascular uptake. Subsequently 2 mL of ropivacaine 0.5% was injected. The needle was removed. ??Estimated blood loss during the procedure was less than 5 mL. No specimens collected. The patient tolerated the procedure well and there were no immediate complications. ?? Total DLP: 168 mGycm Images Obtained: 11 Medications used: 10mL Lidocaine 1%, 2mL Ropivacaine 0.5%, 0.5mL IsovueM-200 The patient's pain levels (1-10 scale) are as follows: ?? PRE INJECTION ?? 7 POST INJECTION 0 FINDINGS: Technically successful right SI joint injection. Favorable initial pain relief. XAVIER RICHARDS PA-C Procedure Note Xavier Richards PA-C - 12/13/2023 CT SACROILIAC DIAGNOSTIC JOINT INJECTION 12/13/2023 9:54 AM History: CT guided left sacroiliac joint injection Local only NO steroid. Request for right diagnostic injection under CT guidance. Sacroiliitis. PROCEDURE: The procedure, indications, risks (including the risk of infection, bleeding, and reaction to contrast material and medications), and alternative therapies were discussed with the patient and informed consent was obtained before the procedure. The low back was prepped and draped in the usual sterile fashion. Lidocaine 1% was used for local anesthesia. Under CT guidance a #22 gauge spinal needle was advanced into posterior inferior aspect of the left SI sacroiliac joint. Small amount of contrast was injected to confirm no vascular uptake. Subsequently 2 mL of ropivacaine 0.5% was injected. The needle was removed. Estimated blood loss during the procedure was less than 5 mL. No specimens collected. The patient tolerated the procedure well and there were no immediate complications. Total DLP: 168 mGycm Images Obtained: 11 Medications used: 10mL Lidocaine 1%, 2mL Ropivacaine 0.5%, 0.5mL IsovueM-200 The patient's pain levels (1-10 scale) are as follows: PRE INJECTION 7 POST INJECTION 0 FINDINGS: Technically successful right SI joint injection. Favorable initial pain relief. XAVIER RICHARDS PA-C Ruben Frey MD IMG CT ORDERA BLES * Left SI joint anesthetic injection (12/13/2023 9:49 AM CDT) Narrative Xavier Richards PA-C - 12/13/2023 9:49 AM CDT Xavier Richards PA-C ? 12/13/2023 ??9:50 AM [facility] Procedure: Left SI joint anesthetic injection Date/Time: 12/13/2023 9:49 AM Performed by: Xavier Richards PA-C Authorized by: Xavier Richards PA-C ?? UNIVERSAL PROTOCOL Site Marked: Yes Prior Images Obtained and Reviewed: ??Yes Required items: Required blood products, implants, devices and special equipment available ?? Patient identity confirmed: ??Verbally with patient Patient was reevaluated immediately before administering moderate or deep sedation or anesthesia Confirmation Checklist: ??Patient's identity using two indicators, relevant allergies, procedure was appropriate and matched the consent or emergent situation and correct equipment/implants were available Time out: Immediately prior to the procedure a time out was called ?? [place] Protocol: the Joint Commission [place] Protocol was followed ?? Preparation: Patient was prepped and draped in usual sterile fashion ?? ANESTHESIA Local Anesthetic: ??Lidocaine 1% without epinephrine (ropivacaine also used) SEDATION Patient Sedated: No ?? See dictated procedure note for full details. PROCEDURE Describe Procedure: Left SI diagnostic injection Patient Tolerance: ??Patient tolerated the procedure well with no immediate complications Length of time physician/provider present for 1:1 monitoring during sedation: 0 Xavier Richards PA-C PROCEDURE/MINOR SURGICAL ORDERABLES * XR Pelvis G/E 3 Views (12/07/2023 12:09 PM CDT) Anatomical Region Laterality Modality Abdomen/Pelvis Computed Radiogr aphy Impressions 12/07/2023 12:31 PM CDT IMPRESSION: Stable postsurgical changes of fusion instrumentation at the right sacroiliac joint. FAWN HUBER MD Narrative 12/07/2023 12:31 PM CDT Exam: 3 views of the pelvis dated 12/07/2023. COMPARISON: CT. Radiographs dated 08/31/2023. CLINICAL HISTORY: Status post fusion of sacroiliac joints. FINDINGS: 3 views of the pelvis were obtained. Redemonstration of fusion instrumentation at the right sacroiliac joint with [address] The hardware appears intact and unchanged since the comparison radiographs. The left sacroiliac joint is unremarkable. No significant joint space narrowing in either hip joints. Unchanged probable bone island right femoral neck. Procedure Note Fawn Huber MD - 12/07/2023 Exam: 3 views of the pelvis dated 12/07/2023. COMPARISON: CT. Radiographs dated 08/31/2023. CLINICAL HISTORY: Status post fusion of sacroiliac joints. FINDINGS: 3 views of the pelvis were obtained. Redemonstration of fusion instrumentation at the right sacroiliac joint with [address] The hardware appears intact and unchanged since the comparison radiographs. The left sacroiliac joint is unremarkable. No significant joint space narrowing in either hip joints. Unchanged probable bone island right femoral neck. IMPRESSION: Stable postsurgical changes of fusion instrumentation at the right sacroiliac joint. FAWN HUBER MD Vanessa Fierro PA-C [facility] DIAGNOSTIC IMAGI NG ORDERABLES * CT Sacroiliac Therapeutic Joint Injection (11/02/2023 2:38 PM CDT) Anatomical Region Laterality Modality Abdomen/Pelvis, SUBRAD MSK PROCEDURE Computed Tomography, Computed Tomography Impressions 11/10/2023 8:44 AM CDT Impression: Completed CT-guided therapeutic left sacroiliac joint injection Plan: Follow-up per primary team. YENNY MCKEON PA-C Narrative 11/10/2023 8:44 AM CDT Diagnosis: Chronic left SI joint pain; Chronic left SI joint pain Procedure: CT SACROILIAC THERAPEUTIC JOINT INJECTION Indication: Chronic left SI joint pain tilting saw operator: Aziza Mckeon PA-C Anesthesia: Local only Medications: 1. 5 mL 1% lidocaine subcutaneous 2. 1 mL 0.25% bupivacaine intra-articular 3. 1 mL (40 mg) triamcinolone intra-articular Total DLP 116 mGy*cm Description: With the patient's understanding and consent, a computed tomography guided injection of the left SI joint was performed. The patient was placed in the prone position, and the skin was prepared in usual fashion. A 22-gauge 3.5 inch spinal needle was advanced into the posterior inferior aspect of the left SI joint under CT guidance. A mixture of 1 mL 0.25% bupivacaine and 1 mL (40 mg) of triamcinolone was injected with minimal resistance. The patient tolerated the procedure well, without immediate complication. Pain prior to procedure: back 8/10, left leg 5/10 Pain following procedure: back 1/10, left leg 0/10 Procedure Note Yenny Mckeon PA-C - 11/10/2023 Diagnosis: Chronic left SI joint pain; Chronic left SI joint pain Procedure: CT SACROILIAC THERAPEUTIC JOINT INJECTION Indication: Chronic left SI joint pain tilting saw operator: Aziza Mckeon PA-C Anesthesia: Local only Medications: 1. 5 mL 1% lidocaine subcutaneous 2. 1 mL 0.25% bupivacaine intra-articular 3. 1 mL (40 mg) triamcinolone intra-articular Total DLP 116 mGy*cm Description: With the patient's understanding and consent, a computed tomography guided injection of the left SI joint was performed. The patient was placed in the prone position, and the skin was prepared in usual fashion. A 22-gauge 3.5 inch spinal needle was advanced into the posterior inferior aspect of the left SI joint under CT guidance. A mixture of 1 mL 0.25% bupivacaine and 1 mL (40 mg) of triamcinolone was injected with minimal resistance. The patient tolerated the procedure well, without immediate complication. Pain prior to procedure: back 8/10, left leg 5/10 Pain following procedure: back 1/10, left leg 0/10 Impression: Completed CT-guided therapeutic left sacroiliac joint injection Plan: Follow-up per primary team. YENNY MCKEON PA-C Sofía Kraft PA-C IMG CT ORDERABLES * PAP Smear - HIM Patient Reported (08/16/2015) PAP Smear - HIM Patient Reported Negative EXTERNAL LAB 08/16/2015 Narrative EXTERNAL LAB - 08/16/2015 Please abstract the following data from this visit with this patient into the appropriate field in Epic: Pap smear done on this date: Aug 2015 (approximately), by this group: [facility], results were NIL. Patient Reported LABORATORY EXTERNAL LAB External Lab * ABSTRACT HPV-NO CHARGE (08/29/2014) HPV Abstract See Scanned Document [facility] 08/29/2014 Narrative [facility] - 08/29/2014 See Care Every Where - [facility] Provider Outside LAB - HIM EXTERNAL R ESULT [facility] [address] [phone] * COLONOSCOPY (07/12/2012) L.C. Director Dental Services PROCEDURES from Last 3 Months or Most Recently Relevant to Health Maintenance Advance Directives For more information, please contact: [phone] * Full Code (Latest Code Status on File) Date Activated Date Inactivated Comments 10/28/2021 1:39 PM 10/29/2021 3:08 PM All basic an d advanced life-sustaining interventions are performed as appropriate Question Answer Comments Code status determined by: Discussion with patie nt/ legal decision maker Care Teams Carbon Furnace Operator Helper Relationship Specialty Start Date End Date Thom Ovalles MD [facility] [place] [address] [place] [address] PCP - Orthopaedics Orthopedics 04/08/11 Han Jackson MD [facility] [place] [address] [place] [address] PCP - General Family Medicine 10/23/21 Ruben Frey MD [facility] [address] [place] [address] Assigned Musculoskeletal Provider 04/17/23
--- OUTSIDE RECORDS SUMMARY | 2024-01-21 09:26 | XMS_ITS | Continuity of Care Document ---
Author Organization [facility] Address [address] [place] [address] Phone Care Team Providers Care Grain Cleaner Name Role Phone Leticia Anne MD Unavailable [...] Providers Copied on Encounter [facility], [address], [place], [place], [id number], [place] tel:[phone] [facility] [place] No Information 2 Omid Kelly. [facility], [address], [address], [place], [address], [place]. tel:[phone] Office/Outpa tient Visit,Est, Mod [facility], [address], [place], [place], [id number], [place] tel:[phone] [facility] Other spondylosis, cervical region 2 Omid Kelly. [facility], [address] [place] [address], [address], [place], [address], [place]. tel: [phone] Referring Provider: Thom Márquez, [facility] [address], [address]. tel:[phone] Office/Outpa tient Visit,Est, Mod [facility], [address], [place], [place], [address], [place] tel:[phone] [facility] Cervicalgia 9 Kina Mcnamara . [facility], [address] [place] [address], [address], [place], [place], [address] , [place]. tel: [phone] Referring Provider: Thom Márquez, [facility] [address], [address]. tel:[phone] Office/Outpa tient Visit,Est, Mod [facility], [address], [place], [address], [place] tel:[phone] [facility] Encounter for other specified surgical aftercare 9 Castanon Anders . [facility], [address] [place] [address], [address], [place], [place], [address] , [place]. tel:[phone] Referring Provider: Thom Márquez, [facility] [address], [address]. tel:[phone] Office/Outpa tient Visit,Est, Mod [facility], [address], [place], [address], [place] tel:[phone] [facility] Encounter for other specified surgical aftercare [phone] [facility] . [facility], [address] [place] [address], [address], [place], [place], [address] , [place]. tel:[phone] Referring Provider: Thom Márquez, [facility] [address], [place], [address]. tel:[phone] Office/Outpa tient Visit,Est, Mod [facility], [address], [place], [place], [address], [place] tel:[phone] [facility] Encounter for other specified surgical aftercare 0 8 [facility] er. [facility], [address], [address], [place], [place], [address] , [place]. [phone] Referring Provider: Thom Márquez, [facility] [address], [address]. tel:[phone] Office/Outpa tient Visit,Est, Mod [facility], [address], [place], [place], [address], [place] tel:[phone] [facility] Encounter for other specified surgical aftercareLow back pain 2 8 [facility] er. [facility], [address], [address], [place], [place], [address] , . [phone] Referring Provider: Thom Márquez, [facility] [address], [place], [address]. tel:[phone] Office/Outpa tient Visit,Est, Mod [facility], [address], [place], [place], [address], [place] tel:[phone] [facility] Encounter for other specified surgical aftercare 8 [facility]. [facility], [address], [address], [place], [place], [address] , . [phone] Referring Provider: Thom Márquez, [facility] [address], [place], [address]. tel:[phone] [facility], [address], [place], [address], [place] tel:[phone] [facility] Encounter for other specified surgical aftercare May-3 [facility], [address], [address], [place], [address] , [place]. tel:[phone] Referring Provider: Thom Márquez, [facility] [address], [place], [address]. tel:[phone] [facility], [address], [place], [address], [place] tel:[phone] [facility] Encounter for other specified surgical aftercare May-0 [facility]. [facility], [address], [address], [place], [place], [address] , [place]. [phone] Referring Provider: Thom Márquez, [facility] [address], [address]. tel:[phone] [facility], [address], [place], [place], [address], [place] [phone] [facility] No Information Sep-2 7 Lance Potter. [facility], [address] [facility] [address], [place], [facility], [place]. [phone] Referring Provider: Thom Márquez, [facility] [address], [place], [address]. tel:[phone] [facility], [address], [place], [place], [address], [place] tel:[phone] [facility] No Information Sep-2 [facility]. [facility], [address], [address], [place], [address] , [place]. tel:[phone] Referring Provider: Thom Márquez, [facility] [address], [place], [address]. 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 [facility], [address], [address], [place], [place], [address] , [place]. tel:[phone] Referring Provider: Thom Márquez, [facility] [address], [place], [address]. tel:[phone] Office/Outpa tient Visit,Est, Mod [facility], [address], [place], [place], [address], [place] tel:[phone] [facility] Spinal stenosis, cervical regionPseudar throsis after fusion or arthrodesis 7 Castanon Anders er. [facility], [address], [address], [place], [place], [address] , [place]. tel:[phone] Referring Provider: Thom Márquez, [facility] [address], [place], [address]. tel:[phone] Office/Outpa tient Visit,Est, Mod [facility], [address], [place], [place], [address], [place] tel:[phone] [facility] Cervicalgia 7 Kina Mcnamara er. [facility], [address], [address], [place], [place], [address] , [place]. tel:[phone] Referring Provider: Thom Márquez, [facility] [address], [place], [address]. tel:[phone] Office/Outpa tient Visit,Est, Mod [facility], [address], [place], [place], [address], [place] tel:[phone] [facility] Other intervertebra l disc degeneration, lumbar regionArthrod esis statusOverwei ght 5 [facility]. [facility], [address], [address], [place], [place], [address] , [place]. [phone] Referring Provider: Thom Márquez, [facility] [address], [place], [address]. tel:[phone] Office/Outpa tient Visit,Est, Mod [facility], [address], [place], [place], [address], [place] [phone] [facility] Displacement of intervertebra l disc, site unspecified, without myelopathyOVE RWEIGHTHypert ension, UnspecifiedLu mbar spondylosisLu mbar radiculopathy Shoulder joint painPatient who has had a surgical fusion of a joint 5 Castanon Anders er. [facility], [address], [address], [place], [place], [address] , [place]. [phone] Referring Provider: Thom Márquez, [facility] [address] [facility] [address], [place], [address]. tel:[phone] [facility], [address], [place], [place], [address], [place] tel:[phone] [facility] Patient who has had a surgical fusion of a joint 5 [facility]. [facility], [address], [address], [place], [place], [address] , [place]. [phone] Referring Provider: Pancho Castanon, [facility] [address], [address], [place], [address]. [phone] [facility], [address], [place], [address], [place] [phone] [facility] [place] No Information 4 Castanon Anders er. [facility], [address], [address], [place], [place], [address] , [place]. tel:[phone] Referring Provider: Pancho Castanon [facility] [address], [address], [place], [address]. tel:[phone] Z [facility], [address], [place], [address], [place] tel:[phone] [facility] No Information 4 Kina Anders er. [facility], [address], [address], [place], [place], [address] , [place]. tel:[phone] Referring Provider: Pancho Castanon [facility] [address], [address], [place], [address]. tel:[phone] Pre Op Office/Outpa tient Visit, Z [facility], [address], [place], [address], [place] tel:[phone] [facility] Hypertension, UnspecifiedDi splacement of intervertebra l disc, site unspecified, without myelopathy 4 Kina Mcnamara er. [facility], [address], [address], [place], [place], [address] , [place]. tel:[phone] Referring Provider: Same As Referring. Office/Outpa tient Visit,Est, Mod Z [facility], [address], [place], [address], [place] tel:[phone] [facility] [place] No Information 4 Kina Mcnamara er. [facility], [address], [address], [place], [place], [address] , [place]. tel:[phone] Referring Provider: Pancho Castanon [facility] [address], [address], [place], [address]. tel:[phone] Office/Outpa tient Visit,Est, Mod Z [facility], [address] [facility] [place], [place], [address], [place] tel:[phone] [facility] [place] Neck and right arm pain (chief complaint) No Information Sep-2 9-201 4 Kina Diggsoph er. [facility], [address], [address], [place], [place], [address] , . tel:[phone] Referring Provider: Pancho Castanon, [facility] [address], [address], [place], [address]. tel:[phone] Office/Outpa tient Visit,[facility], [facility] Z [facility], [address], [place], [place], [facility], tel:[phone] [facility] Cervical pain (chief complaint) No Information 4 Kina Diggsoph er. [facility], [address], [address], [place], [place], [address] , [place]. tel:[phone] Referring Provider: Pancho Castanon, [facility] [address], [address], [place], [address]. tel:[phone] Family History Family Member Type Diagnosis Age At Onset Problem (finding) Problem (finding) Payers Payer name Insurance type Covered constitution party ID Authoriza tion(s) [employer] [id number] Social History Type Description Quantity Date [...] Assessmen t No Information Instructions Date Instruction Additional Infor corin Weight management: R efer to Referral to [...]
--- OUTSIDE RECORDS SUMMARY | 2024-01-21 09:26 | XMS_ITS | Encounter Summary ---
Author Organization [place] Address [address] [place] [address]. [place] [address] Care Team Providers Care Radio Tester Name Role Phone Thom Ovalles MD Unavailable Han Jackson MD Primary Care Provider Ruben Frey MD Unavailable [phone] Encounter Details Date Type Department Care Team (Late st Contact Info) Description 01/19/2024 PRE VISIT [facility] Preoperative Assessment Center [facility] [address] [facility] [address] [place] [address] Naomi Simmons, [facility] [address] [facility] [address] [place] [address] Social History Tobacco Use Types Packs/Day Years Used Date Smoking Tobacco: Never Smokeless Tobacco: Never Comments:no second hand smok e at home or work, 01/01/05 Alcohol Use Standard Drinks/Week Comments Yes 0 (1 standard drink = 0.6 oz pur e alcohol) 3-4 wk PHQ-2 Answer Date Recorded PHQ-2 Score 0 12/14/2023 Adolescent Education Answer Date Record ed Getting School Help Needed Not on file 05/11 Sex and Gender Information Value Date Recorded Sex Assigned at Not on file Gender Identity Not on file Sexual Orientation Not on file documented as of this encounter Miscellaneous Notes * Telephone Encounter - Leslie Menchaca - 12/20/2023 7:52 AM CDT FUTURE VISIT INFORMATION SURGERY INFORMATION: Date: 02/16/24 Location: ur or Surgeon: Ruben Frey MD Anesthesia Type: general Procedure: Minimally invasive FUSION, SACROILIAC JOINT, USING OPTICAL TRACKING SYSTEM Consult: virtual visit 12/14/23 RECORDS REQUESTED FROM: Primary Care Provider: [facility] Most recent EKG+ Tracin10/28/21 Most recent Cardiac Stress Test: 03/04/21 documented in this encounter Plan of Treatment Upcoming Encounters Date Type Department Care Team (Late st Contact Info) Description 02/10/2024 2:40 PM CDT Ancillary Procedure [facility] Orthopedic Xray [address] [phone] Ruben Frey MD [address] [place] [address] 02/10/2024 3:00 PM CDT Office Visit [facility] [address] [phone] Ruben Frey MD [address] [place] [address] documented as of this encounter Visit Diagnoses Not on filedocumented in this encounter Care Teams Radio Tester Relationship Specialty Start Date End Date Thom Ovalles MD [facility] [place] [address] [place] [address] PCP - Orthopaedics Orthopedics 04/08/11 Han Jackson MD [facility] [place] [address] [place] [address] PCP - General Family Medicine 10/23/21 Ruben Frey MD [id number] [place] [address] Assigned Musculoskeletal Provider 04/17/23 documented as of this encounter
--- OUTSIDE RECORDS SUMMARY | 2024-01-21 09:26 | XMS_ITS | Clinical Summary ---
Author Organization [place] Address [address] [place] [address] Care Team Providers Care Social Work Administrator Name Role Phone Thom Ovalles MD Unavailable Han [place] MD Primary Care Provider Ruben Frey MD Unavailable [phone] Allergies Active Allergy Reactions Criticality Noted Date [...] updated by automated process. Provider to review Encounters Date Type Department Care Team Description 01/20/2024 Orders Only [facility] [place] [address] [place] [address] 4th [place] [phone] Ruben Frey MD S/P fusion of sacroiliac joint (Primary Dx) 01/19/2024 PRE VISIT [facility] [place] [address] [facility] 5th [place] [phone] Naomi Simmons APRN VALET 01/03/2024 10:40 AM CDT Anesthesia Event [facility] [address] [place] [phone] Charles Simons DO [place], Janet E, APRN DIRECTOR OF SECURITIES AND REAL ESTATE 01/03/2024 9:45 AM CDT - 01/03/2024 11:30 AM CDT Surgery [facility] [address] [place] [phone] Ruben Frey MD Minimally invasive FUSION, LEFT SACROILIAC JOINT, USING OPTICAL TRACKING SYSTEM 01/03/2024 6:56 AM CDT - 01/03/2024 3:37 PM CDT Hospital Encounter [facility]U [address] [place] [phone] Ruben Frey MD Sacroiliac joint pain (Primary Dx) Discharge Disposition: Home or Self Care 01/03/2024 Travel 12/31/2023 Telephone [facility] [address] [phone] Ruben Frey MD Call Back (Prior auth ); Clinic Care Coordination - Follow-up 12/29/2023 Telephone [facility] [address] [phone] Ruben Frey MD Question about Prior Auth 12/28/2023 11:30 AM CDT Office Visit [facility] [address] [phone] Vanessa Fierro, PAJosemanuelC Chronic left SI joint pain (Primary Dx); S/P fusion of sacroiliac joint 12/28/2023 Travel 12/27/2023 1:00 PM CDT Office Visit [facility] [address] [place] [address] Carmela Iglesias APRN DIRECTOR OF SECURITIES AND REAL ESTATE Pre-op evaluation (Primary Dx) 12/27/2023 Telephone [facility] [address] [phone] Ruben Frey MD Call Back (Pt pre op today ); Clinic Care Coordination - Follow-up 12/27/2023 PRE VISIT [facility] [place] [address] [facility] [address]th [place] [phone] Carmela Iglesias APRN DIRECTOR OF SECURITIES AND REAL ESTATE 12/26/2023 Travel 12/22/2023 Telephone [facility] [address] [place] [phone] Vania Murillo RN Clinic Care Coordination - Follow-up 12/16/2023 Telephone [facility] [address] [place] [address] Ruben Frey MD Schedule Surgery (Dr. Frey ); Clinic Care Coordination - Follow-up 12/14/2023 1:00 PM CDT Virtual Visit [facility] [address] [place] [phone] Ruben Frey MD Chronic left SI joint pain (Primary Dx) 12/13/2023 8:52 AM CDT - 12/13/2023 11:59 PM CDT Hospital Encounter [facility] [address] [place] [phone] Ruben Frey MD Non-Fv Credentialed Provider, Radiology Chronic left SI joint pain; S/P fusion of sacroiliac joint Discharge Disposition: Home or Self Care 12/13/2023 8:52 AM CDT - 12/13/2023 4:55 PM CDT Hospital Encounter [facility] [address] [place] [phone] Non-Fv Credentialed Provider, Radiology Xavier Richards PA-C Discharge Disposition: Home or Self Care 12/09/2023 Telephone [facility] [address] [place] [phone] Ruben Frey MD Call Back (Pt records coming in from [place]); Clinic Care Coordination - Follow-up 12/08/2023 Travel 12/07/2023 12:10 PM CDT Ancillary Procedure [facility] [place] [address] [facility] 4th [place] [phone] Vanessa Fierro PA-C S/P fusion of sacroiliac joint 12/07/2023 Travel 12/06/2023 Telephone [facility] [address] [phone] Monica Deluca, RN Pt. Information/instru ction 11/29/2023 8:37 AM CDT - 11/29/2023 11:59 PM CDT Hospital Encounter [facility] [address] [phone] Ruben Frey MD Non-Fv Credentialed Provider, Radiology Chronic left SI joint pain; S/P fusion of sacroiliac joint Discharge Disposition: Home or Self Care 11/29/2023 8:36 AM CDT - 11/29/2023 10:15 AM CDT Hospital Encounter [facility] [address] [phone] Non-Fv Credentialed Provider, Radiology Xavier Richards, STONE Discharge Disposition: Home or Self Care 11/22/2023 Travel 11/22/2023 Telephone [facility] [address] [phone] Monica Deluca RN Pt. Information/instru ction 11/17/2023 Telephone [facility] [place] [address] [phone] Ruben Frey MD Pt. Information/instru ction; Clinic Care Coordination - Follow-up 11/16/2023 Telephone [facility] [place] [address] [facility] [address] [place] [phone] Ruben Frey MD Call Back; Clinic Care Coordination - Follow-up 11/12/2023 Orders Only [facility] [address] [phone] Vanessa Fierro PA-C S/P fusion of sacroiliac joint (Primary Dx) 11/12/2023 Orders Only [facility] [address] [phone] Vanessa Fierro PA-C S/P fusion of sacroiliac joint (Primary Dx) 11/10/2023 MyC Medical Advice [facility] [address] [phone] Ruben Frey MD Chronic left SI joint pain (Primary Dx); S/P fusion of sacroiliac joint 11/05/2023 Telephone [facility] [address] [phone] Ruben Frey MD Call Back (Requesting call back RE reports findings before next appt); Clinic Care Coordination - Follow-up 11/02/2023 1:47 PM CDT - 11/02/2023 11:59 PM CDT Hospital Encounter [facility] [address] [place] [phone] Non- Credentialed Provider, Radiology Discharge Disposition: Home or Self Care 11/02/2023 1:44 PM CDT - 11/02/2023 1:46 PM CDT Hospital Encounter [facility] [address] [place] [phone] Sofía Kraft PA-C Chronic left SI joint pain Discharge Disposition: Home or Self Care 11/02/2023 Travel 10/26/2023 Travel 10/26/2023 Telephone [facility] [address] [phone] Ruben Frey MD 10/22/2023 Telephone [facility] [address] 4th [place] [address] Ruben Frey MD Call Back (Per Patient requesting for care team/ nurse to call back) from Last 3 Months Immunizations Name Administration Dates Next Due TD,PF 7+ (Tenivac) 04/14/2002,08/16/1991 TDAP Vaccine (Adacel) 04/05/2012 Family History Medical History Relation Comments C.A.D. Father Cancer Father throat Heart Disease Father aneurysm Hypertension Father Lipids Father Respiratory Father COPD Diabetes Maternal Grandmother Cardiovascular Mother mother of a heart attack Eye Disorder Mother GLC Hypertension Mother Osteoporosis Mother osteopenia Heart Disease Other Grandparents - h eart disease Eye Disorder Sister 4 GLC Thyroid Disease Sister 5 thyroid cancer Anesthesia Reaction No family hx of Blood Disease No family hx of Breast Cancer No family hx of Neurologic Disorder No family hx of Thrombosis No family hx of Relation Status Comments Daughter 1 Alive Daughter 2 Alive Father Maternal Grandfather Maternal Grandmother Mother Other Paternal Grandfather Paternal Grandmother Sister 1 Alive 1 full Sister 2 Alive 2 1/2 sisters Sister 3 Alive Sister 4 Sister 5 Son Alive Social History Tobacco Use Types Packs/Day Years [...] Description 02/10/2024 2:40 PM CDT Ancillary Procedure [facility] [address] [place] [phone] Ruben Frey MD [address] [place] [phone] 02/10/2024 3:00 PM CDT Office Visit [facility] [address] [phone] Ruben Frey MD [address] [place] [phone] Health Maintenance Due Date Last Done Comments ADVANCE CARE PLANNING 1973 ANNUAL REVIEW OF HM ORDERS 1973 CT COLONOGRAPHY 1973 FIT 1973 FLEX SIG 1973 MAMMO SCREENING 1973 MIGRAINE ACTION PLAN 1973 sDNA (Cologuard) 1973 Pneumococcal Vaccine: Pediatrics (0 to 5 Years) and At-Risk Patients (6 to 64 Years) (1 of 2 - PCV) 12/25/1979 HIV SCREENING 1988 HEPATITIS C SCREENING 12/25/1991 HEPATITIS B IMMUNIZATION (1 of 3 - 19+ 3-dose series) 1992 ZOSTER IMMUNIZATION (1 of 2) 1992 LIPID 2013 YEARLY PREVENTIVE VISIT 03/30/2020 03/30/20 19, 03/30/2018, 07/18/2013, Additional history exists HPV TEST 08/16/2020 08/29/2014 PAP 08/16/2020 08/16/2015, 08/16, 08/29/2014, Additional history exists COVID-19 Vaccine (3 - Pfizer risk series) 01/21/2021 2020, 11/28/2020 COLONOSCOPY 07/12/2022 07/12/2012 COLORECTAL CANCER SCREENING 07/12/2022 INFLUENZA VACCINE (Season Ended) 2024 09/30/2018 GLUCOSE 01/02/2027 01/03/2024, 04/17, 10/29/2021, Additional history exists DTAP/TDAP/TD IMMUNIZATION (4 - Td or Tdap) 03/31/2032 03/31/2022, 04/05/2012, 04/14/2002, Additional history exists PHQ-2 (once per calendar year) Completed 12/27/2023, 12/14/2023, 08/31/2023, Additional history exists HPV IMMUNIZATION Aged Out No longer e ligible based on patient's age to complete this topic IPV IMMUNIZATION Aged Out No longer e ligible based on patient's age to complete this topic MENINGITIS IMMUNIZATION Aged Out No l onger eligible based on patient's age to complete this topic RSV MONOCLONAL ANTIBODY Aged Out No l onger eligible based on patient's age to complete this topic Medical Devices Implanted Type Area Package Delivery Driver Device Identifier Shelf Expiration Date Model / Serial / Lot Imp Spinal Ifuse Torq [id number] Strl Lf [id number] - [id number] Implanted:Qty : 1 on 06/09/2023 by Ruben Frey MD at [facility] Metallic Hardware/An chor Right: Spine Lumbar [employer] [id number] 02/26/2028 [id number] / / [id number] Imp Spinal Ifuse Torq 10.8rzy47pi Strl Lf 10501n - [id number] Implanted:Qty : 1 on 06/09/2023 by Ruben Frey MD at [facility] Metallic Hardware/An chor Right: Iliac Crest [employer] [id number] 12/31/2027 [id number] / / [id number] Imp Spinal Fx Ifuse Torq 10.2lql86bm Strl Lf 40622c - [id number] Implanted:Qty : 1 on 01/03/2024 by Ruben Frey MD at [facility] Metallic Hardware/An chor Left: Sacrum [employer] [id number] 12/20/2027 [id number] / / [id number] Imp Spinal Ifuse Torq 10.4otq33me Strl Lf 09926b - [id number] Implanted:Qty : 1 on 01/03/2024 by Ruben Frey MD at [facility] Metallic Hardware/An chor Left: Sacrum [employer] [id number] 05/31/2028 [id number] / / [id number] Imp Spinal Ifuse Torq 10.3gri49qu Strl Lf 11421f - [id number] Implanted:Qty : 1 on 01/03/2024 by Ruben Frey MD at [facility] Metallic Hardware/An chor Left: Sacrum [employer] [id number] 08/18/2028 [id number] / / [id number] Imp Insert Jj Attune Ps Rp Sz3 7mm [id number] - [id number] Implanted:Qty : 1 on 10/28/2021 by Gary Russell MD at [facility] Total Joint Component/I nsert Left: Knee [employer]- [id number] 03/15/2026 [id number] / / [id number] 10.0mm X75mm Ifuse-Torq Implanted:Qty : 1 on 06/09/2023 by Ruben Frey MD at [facility] Right: Sacrum [employer] 02/20/2028 [id number] / / Procedures Procedure Name Priority Date/Time [...] left SI joint pain PAP SMEAR - [facility] PATIENT REPORTED Routine 08/16/2015 ABSTRACT HPV ([facility] EXTERNAL RESULT) Routine 08/29/2014 COLONOSCOPY Routine 07/12/2012 from Last 3 Months or Most Recently Relevant to Health Maintenance Results * XR Surgery BRADEN L/T 5 Min Fluoro (01/03/2024 12:02 PM CDT) Narrative RADIANT - 01/03/2024 12:04 PM CDT This exam was marked as non-reportable because it will not be read by a radiologist or a [facility] non-radiologist provider. Ruben Frey MD IMG DIAGNOSTI C IMAGING ORDERABLES RADIANT * ANE AIRWAY ETT PERFORMABLE (01/03/2024 10:57 AM CDT) Narrative Nereida Gutierres APRN LOOM CLEANER - 01/03/2024 10:57 AM CDT Nereida Gutierres APRN LOOM CLEANER ? 01/03/2024 11:19 AM Airway ? Patient location during procedure: OR ? Procedure Start/Stop Times: 01/03/2024 10:57 AM Staff - ? LOOM CLEANER: Nereida Gutierres APRN CRNA ? Performed By: LOOM CLEANER Consent for Airway ? Urgency: elective Indications [...] Medication Administration Time: 01/03/2024 10:57 AM Charles Ibrahimkylahjarvis DO [place] ANESTHESIA * Glucose by meter (01/03/2024 7:59 AM CDT) GLUCOSE BY METER POCT 97 70 - 99 mg/dL 01/03/2024 8:07 AM CDT UR LABORATORY POC Blood, Capillary BLOOD SPECIMEN / Unknown 01/03/2024 7:59 AM CDT 01/03/2024 8:07 AM CDT Ruben KENNEDY POCT UR LABORATORY POC [facility] Acute Care Lab [address] [facility] [place] [address] * CT Sacroiliac Diagnostic Joint Injection [...] Xavier Richards PA-C ? 12/13/2023 ??9:50 AM [facility] Procedure: Left SI joint anesthetic [...] procedure a time out was called ?? [place] Protocol: the Joint Commission [place] Protocol was followed ?? Preparation: Patient was [...] right sacroiliac joint. FAWN HUBER MD Vanessa M Vadim RITTER IMG DIAGNOSTIC IMAGI NG ORDERABLES * CT Sacroiliac [...] INJECTION Indication: Chronic left SI joint pain set up operator: Aziza Mckeon PA-C Anesthesia: Local only [...] INJECTION Indication: Chronic left SI joint pain set up operator: Aziza Mckoen PA-C Anesthesia: Local only Medications: 1. 5 [...] team. YENNY MCKEON PA-C Sofía Kraft PA-C [facility] CT ORDERABLES * PAP Smear - HIM Patient Reported (08/16/2015) PAP Smear - HIM Patient Reported Negative EXTERNAL LAB 08/16/2015 Narrative EXTERNAL LAB - 08/16/2015 Please abstract the following data from this visit with this patient into the appropriate field in Epic: Pap smear done on this date: Aug 2015 (approximately), by this group: [facility], results were NIL. Patient Reported LABORATORY EXTERNAL LAB External Lab * ABSTRACT HPV-NO CHARGE (08/29/2014) HPV Abstract See Scanned Document [facility] 08/29/2014 Narrative [facility] - 08/29/2014 See Care Every Where - [facility] Provider Outside LAB - HIM EXTERNAL R ESULT [address] [address], [facility] [phone] * COLONOSCOPY (07/12/2012) [employer] PROCEDURES from Last 3 Months or Most Recently Relevant to Health Maintenance Advance Directives For more information, please contact: [phone] * Full Code (Latest Code Status on File) Date Activated Date Inactivated Comments 10/28/2021 1:39 PM 10/29/2021 3:08 PM All basic an d advanced life-sustaining interventions are performed as appropriate Question Answer Comments Code status determined by: Discussion with abdirahmane nt/ legal decision maker Care Teams Social Work Administrator Relationship Specialty Start Date End Date Thom Ovalles MD [facility] [address] [facility] [address] [place] [address] PCP - Orthopaedics Orthopedics 04/08/11 Han [place] MD [facility] [address] [facility] [address] [place] [address] PCP - General Family Medicine 10/23/21 Ruben Frey MD [facility] [facility] [address] [place] [address] Assigned Musculoskeletal Provider 04/17/23
--- OUTSIDE RECORDS SUMMARY | 2024-01-21 09:27 | XMS_ITS | Encounter Summary ---
Author Organization [place] Address [address] [place] [address]. [place] [address] Care Team Providers Care Monogram And Letter Paster Name Role Phone Thom Ovalles MD Unavailable Han [place] MD Primary Care Provider Ruben Frey MD Unavailable [phone] Encounter Details Date Type Department Care Team (Latest Contact Info) Description 01/03/2024 Travel Social History Tobacco Use Types Packs/Day Years [...] Description 02/10/2024 2:40 PM CDT Ancillary Procedure [facility] Orthopedic Xray [place] [phone] [facility] [address] [address] 4th [place] [address] Ruben Frey MD [address] [place], [place] [address] 02/10/2024 3:00 PM CDT Office Visit [facility] Orthopedic Clinic [place] [phone] [facility] [address] 4th [place] [phone] Ruben Frey MD [address] [place] [address] documented as of this encounter Visit Diagnoses Not on filedocumented in this encounter Care Teams Monogram And Letter Paster Relationship Specialty Start Date End Date Thom Ovalles MD [facility] [address] [place] [address] PCP - Orthopaedics Orthopedics 04/08/11 Han [place] MD [facility] [address] [place] [address] PCP - General Family Medicine 10/23/21 Ruben Frey MD [address] [place] [address] Assigned Musculoskeletal Provider 04/17/23 documented as of this encounter
--- OUTSIDE RECORDS SUMMARY | 2024-01-21 09:27 | XMS_ITS | Encounter Summary ---
Author Organization [place] Address [address] [place] [address]. [place] [address] Care Team Providers Care Line Maintenance Supervisor Name Role Phone Thom Ovalles MD Unavailable Han [place] MD Primary Care Provider Ruben Frey MD Unavailable Encounter Details Date Type Department Care Team (Latest Contact Info) Description 12/07/2023 Travel Social History Tobacco Use Types Packs/Day Years Used Date Smoking Tobacco: Never Smokeless Tobacco: Never Comments:no second hand smok e at home or work, 01/01/05 Alcohol Use Standard Drinks/Week Comments Yes 0 (1 standard drink = 0.6 oz pur e alcohol) 3-4 wk PHQ-2 Answer Date Recorded PHQ-2 Score 0 08/31/2023 Adolescent Education Answer Date Record ed Getting School Help Needed Not on file 05/11 Sex and Gender Information Value Date Recorded Sex Assigned at Not on file Gender Identity Not on file Sexual Orientation Not on file documented as of this encounter Plan of Treatment Upcoming Encounters Date Type Department Care Team (Late st Contact Info) Description 02/10/2024 2:40 PM CDT Ancillary Procedure [facility] Orthopedic Xray [place] [id number] [facility] [address] 4th [place] [address] Ruben Frey MD [address] [place] [address] 02/10/2024 3:00 PM CDT Office Visit [facility] [place] [address] [facility] [address] 4th [place] [phone] Ruben Frey MD [address] [place] [address] documented as of this encounter Visit Diagnoses Not on filedocumented in this encounter Care Teams Line Maintenance Supervisor Relationship Specialty Start Date End Date Thom Ovalles MD [facility] [place] [address] [place] [address] PCP - Orthopaedics Orthopedics 04/08/11 Han [place] MD [facility] [place] [address] [place] [address] PCP - General Family Medicine 10/23/21 Ruben Frey MD [address] [place] [address] Assigned Musculoskeletal Provider 04/17/23 documented as of this encounter
--- OUTSIDE RECORDS SUMMARY | 2024-01-21 09:27 | XMS_ITS | Encounter Summary ---
Author Organization [place] Address [address] [place] [address]. [place] [address] Care Team Providers Care Panel Beater Name Role Phone Thom Ovalles MD Unavailable Han [place] MD Primary Care Provider [phone] Ruben Frey MD Unavailable Encounter Details Date Type Department Care Team (Latest Contact Info) Description 12/26/2023 Travel Social History Tobacco Use Types Packs/Day [...] Description 02/10/2024 2:40 PM CDT Ancillary Procedure [facility] Orth[facility] Xray [place] [address] [facility] [address] 4th [place] [address] Ruben Frey MD [address] [place], [place] [address] 02/10/2024 3:00 PM CDT Office Visit [facility] [place] [address] [facility] [address] 4th [place] [phone] Ruben Frey MD [address] [place] [address] documented as of this encounter Visit Diagnoses Not on filedocumented in this encounter Care Teams Panel Beater Relationship Specialty Start Date End Date Thom Ovalles MD [facility] [place] [address] [place] [address] PCP - Orthopaedics Orthopedics 04/08/11 Han [place] MD [facility] [place] [address] [place] [address] PCP - General Family Medicine 10/23/21 Ruben Frey MD [address] [place] [address] Assigned Musculoskeletal Provider 04/17/23 documented as of this encounter
--- OUTSIDE RECORDS SUMMARY | 2024-01-21 09:27 | XMS_ITS | Encounter Summary ---
Author Organization [place] Address [address] [place] [address] Care Team Providers Care Hooker Laster Name Role Phone Thom Ovalles MD Unavailable Han [place] MD Primary Care Provider Ruben Frey MD Unavailable [phone] Reason for Visit * Reason Onset Date Comments Call Back 12/09/2023 Pt records comin g in from [facility] Care Coordination - Follow-up 12/09/2023 Encounter Details Date Type Department Care Team (Late st Contact Info) Description 12/09/2023 [facility] [address] [facility] [address] 4th [place] [address] Ruben Frey MD [facility] [place], [place] [phone] Call Back (Pt records coming in from [facility]); Clinic Care Coordination - Follow-up Social History Tobacco Use Types Packs/Day Years [...] encounter Miscellaneous Notes * Telephone Encounter - Vania Murillo RN - 12/09/2023 12:24 PM CDT See phone message from pt. I called pt back & told pt that the PT notes from [facility] were received & scanned into chart & confirmed pt will be keeping RTN appt next week 12-14-23 after injection Wednesday. Call back prn. Pt agreed. Vania Murillo RN. * Telephone Encounter - Sylwia Madera - 12/09/2023 9:14 AM CDT Other: Patient is calling in with and fyi for Dr Frey - Patient's therapy records are coming infrom [facility] via fax and patient is having her last injection on Wednesday. Patient doesn'tneed call back unless anything else is needed to be discussed. Could we send this information to you in [facility] or would you prefer to receive a phone call?: Patient would prefer a phone call Okay to leave a detailed message?: Yes at Cell number on file: Telephone Information: documented in this encounter Plan of Treatment Upcoming Encounters Date Type Department Care Team (Late st Contact Info) Description 02/10/2024 2:40 PM CDT Ancillary Procedure [facility] Orthopedic Xray [address] [phone] Ruben Frey MD [address] [place] [phone] 02/10/2024 3:00 PM CDT Office Visit [facility] Clinic [address] [phone] Ruben Frey MD [address] [place] [address] documented as of this encounter Visit Diagnoses Not on filedocumented in this encounter Care Teams Hooker Laster Relationship Specialty Start Date End Date Thom Ovalles MD [facility] [place] [address] [place] [address] PCP - Orthopaedics Orthopedics 04/08/11 Han [place] MD [facility] [place] [address] [place] [address] PCP - General Family Medicine 10/23/21 Ruben Frey MD [address] [facility] [address] [place] [address] Assigned Musculoskeletal Provider 04/17/23 documented as of this encounter
--- OUTSIDE RECORDS SUMMARY | 2024-01-21 09:27 | XMS_ITS | Encounter Summary ---
Author Organization [facility] Address [address] [place] [address]. [place] [address] Care Team Providers Care Skiving Machine Operator Name Role Phone Thom Ovalles MD Unavailable Han Jackson MD Primary Care Provider Ruben Frey MD Unavailable Reason for Visit * Reason Onset Date Comments Question about Prior Auth 12/29/2023 Encounter Details Date Type Department Care Team (Late st Contact Info) Description 12/29/2023 Telephone [facility] [place] [address] [facility] [address] [place] [address] Ruben Frey MD [address] [place] [address] Question about Prior Auth Social History Tobacco Use Types Packs/Day Years [...] encounter Miscellaneous Notes * Telephone Encounter - Russel Corey MA - 12/29/2023 4:10 PM CDT Called Pt and told her that Vanessa submitted yesterdays visit to the [facility] dept and that we wouldalso know soon and let her know, also told she could call her insurance company. Pt is good with this. Russel Mcduffie * Telephone Encounter - Leia Swenson - 12/29/2023 3:55 PM CDT Other: Pt needs to know if she has received the clearance from her insurance company for this procedure next week. Could we send this information to you in [employer] or would you prefer to receive a phone call?: Patient would prefer a phone call Okay to leave a detailed message?: Yes at Cell number on file: Telephone Information: documented in this encounter Plan of Treatment Upcoming Encounters Date Type Department Care Team (Late st Contact Info) Description 02/10/2024 2:40 PM CDT Ancillary Procedure [facility] [address] [phone] Rubne Frey MD [address] [place] [phone] 02/10/2024 3:00 PM CDT Office Visit [facility] [address] [phone] Ruben Frey MD [address] [place] [phone] documented as of this encounter Visit Diagnoses Not on filedocumented in this encounter Care Teams Skiving Machine Operator Relationship Specialty Start Date End Date Thom Ovalles MD [facility] [place] [address] [facility] [address] [place] [address] PCP - Orthopaedics Orthopedics 04/08/11 Han Jackson MD [facility] [place] [address] [facility] [address] [place] [address] PCP - General Family Medicine 10/23/21 Ruben Frey MD [address] [place] [address] Assigned Musculoskeletal Provider 04/17/23 documented as of this encounter
--- OUTSIDE RECORDS SUMMARY | 2024-01-21 09:27 | XMS_ITS | Encounter Summary ---
Author Organization [facility] Address [address] [place] [address]. [place] [address] Care Team Providers Care Fisher Net Name Role Phone Thom Ovalles MD Unavailable Han Jackson MD Primary Care Provider Ruben Frey MD Unavailable Encounter Details Date Type Department Care Team (Latest Contact Info) Description 12/08/2023 Travel Social History Tobacco Use Types Packs/Day [...] Description 02/10/2024 2:40 PM CDT Ancillary Procedure [facility] [place] [address] [facility] [address] 4th [place] [address] Ruben Frey MD [address] [place] [address] 02/10/2024 3:00 PM CDT Office Visit [facility] [place] [address] [facility] [address] 4th [place] [phone] Ruben Frey MD [address] [place] [address] documented as of this encounter Visit Diagnoses Not on filedocumented in this encounter Care Teams Fisher Net Relationship Specialty Start Date End Date Thom Ovalles MD [facility] [place] [address] [place] [address] PCP - Orthopaedics Orthopedics 04/08/11 Han Jackson MD [facility] [place] [address] [place] [address] PCP - General Family Medicine 10/23/21 Ruben Frey MD [address] [place] [address] Assigned Musculoskeletal Provider 04/17/23 documented as of this encounter
--- OUTSIDE RECORDS SUMMARY | 2024-01-21 09:27 | XMS_ITS | Encounter Summary ---
Author Organization [facility] Address [address] [place] [address]. [place] [address] Care Team Providers Care City Carrier Name Role Phone Thom Ovalles MD Unavailable Han Jackson MD Primary Care Provider [phone] Ruben Frey MD Unavailable Encounter Details Date Type Department Care Team (Latest Contact Info) Description 12/28/2023 Travel Social History Tobacco Use Types Packs/Day [...] Description 02/10/2024 2:40 PM CDT Ancillary Procedure [facility] [place] [address] [facility] [address] 4[address] [place] [address] Ruben Frey MD [address] [place], [place] [phone] 02/10/2024 3:00 PM CDT Office Visit [facility] [place] [address] [facility] [address] 4[address] [place] [phone] Ruben Frey MD [address] [place] [address] documented as of this encounter Visit Diagnoses Not on filedocumented in this encounter Care Teams City Carrier Relationship Specialty Start Date End Date Thom Ovalles MD [facility] [place] [address] [place] [address] PCP - Orthopaedics Orthopedics 04/08/11 Han Jackson MD [facility] [place] [address] [place] [address] PCP - General Family Medicine 10/23/21 Ruben Frey MD [address] [place] [address] Assigned Musculoskeletal Provider 04/17/23 documented as of this encounter
--- OUTSIDE RECORDS SUMMARY | 2024-01-21 09:27 | XMS_ITS | Encounter Summary ---
Author Organization [facility] Address [address] [place] [address]. [place] [address] Care Team Providers Care Nailing Machine Feeder Name Role Phone Thom Ovalles MD Unavailable [phone] Han Jackson MD Primary Care Provider Ruben Frey MD Unavailable [phone] Reason for Visit * Auth/Cert Specialty Diagnoses / Procedures Referred By Contac t Referred To Contact Surgery Diagnoses Chronic left SI joint pain Chronic left SI joint pain [M53.3, G89.29] Procedures C COMPUTER ASSISTED MUSCULOSKELETAL SURGICAL NAVIGATIONAL ORTHO PROC, IMAGE-GUIDED, FLUORO C COMPUTER ASSISTED MUSCULOSKELETAL SURGICAL NAVIGATIONAL ORTHO PROC, IMAGE-GUIDED, CT/MRI OH CPTR-ASST SURGICAL NAVIGATION IMAGE-LESS OH ARTHRODESIS SI JT, PRQ W/O TRANSFIX DEVICE OH ARTHRODESIS SACROILIAC JOINT PERCUTANEOUS OH ARTHRODESIS SACROILIAC JOINT W/OBTAINING GRAFT Minimally invasive FUSION, SACROILIAC JOINT, USING OPTICAL TRACKING SYSTEM Ur [facility] [address] [facility] [place] [address] Referral ID Status Reason Start Date Expiration Date Visits Re quested Visits Authorized [id number] 1 1 Encounter Details Date Type Department Care Team (Late st Contact Info) Description 01/03/2024 10:40 AM CDT Anesthesia Event [facility] [address] [facility] [place] [address] Charles Simons, DO [address] [place] [address] Nereida Gutierres APRN [facility] [id number] [place] [address] Anesthesia Record Procedure Summary Procedure Name Responsible Anesthesiologist Anesthesia Start Time Anesthesia Stop Time Minimally invasive FUSION, LEFT SACROILIAC JOINT, USING OPTICAL TRACKING SYSTEM (Left: Sacrum) Charles Simons, 01/03/24 1040 01/03/24 1222 Events Date Time Event Comment 01/03/2024 1027 PROPERTY COORDINATOR Ready for Procedure 1040 An Start 1042 An Start Data 1043 AN REASSESS I attest that I have identified and re-evaluated the patient immediately before the induction of anesthesia and I am satisfied that the anesthetic plan is suitable for the patient's condition and procedure. The first vital signs recorded are pre- induction. Nereida Gutierres APRN PROPERTY COORDINATOR 1054 An Induction 1057 An Intubation 1111 Anesthesia Ready for Procedu re 1210 AN Extubation All extubation criteria met prior to removal. 1214 an stop data 1222 An Stop Electronically signed by Nereida Gutierres APRN CRNA on January 03, 2024 12:22 PM Meds Name Total midazolam 1 mg/mL 2 mg fentaNYL 50 mcg/mL 100 mcg HYDROmorphone 1 mg/mL 0.5 mg ketorolac 30 mg/mL 15 mg lidocaine 2% 100 mg propofol 10 mg/mL 150 mg propofol drip mcg/kg/min 61.8 mg ketamine 10 mg/mL 50 mg rocuronium 10 mg/mL 50 mg phenylephrine (MADHAVI-SYNEPHRINE) injection 600 mcg dexamethasone (DECADRON) 4 mg/mL 8 mg ondansetron 2 mg/mL 4 mg sugammadex (BRIDION) 200mg/2mL 100 mg ceFAZolin Sodium (ANCEF) injection 2 g 2 g dexmedeTOMIDine (PRECEDEX) 4 mcg/mL bolu s 8 mcg LR 1,100 mL * Agents Name O2 N2O Air Exp Sevoflurane Exp Isoflurane Exp Desflurane Ins Sevoflurane Ins Isoflurane Ins Desflurane * Blood No blood administrations on file. Lines, Drains, and Airways Type Details Placement Removal Incision/Surgical Site 10/28/21; 1240; L eft; Knee; EXOFIN, CRINKLE AND RON WRAP 10/28/21 1240 by Caren Cast RN Incision/Surgical Site 01/03/24; 1128; R ight, Lower; Back; Pin Site 01/03/24 1128 by Esteban Meng RN Incision/Surgical Site 01/03/24; 1128; L eft, Lower; Back; Pin Site 01/03/24 1128 by Esteban Meng RN Incision/Surgical Site 01/03/24; 1129; L eft, Lateral; Buttocks 01/03/24 1129 by Esteban Meng RN Peripheral IV 01/03/24; 0825; 20 G ; Right; Lower forearm; Chlorhexidine; 2; Tolerated well 01/03/24 0825 by Vania Blair RN 01/03/24 1536 by Halle Phillips RN ETT Placement Date: 12/15 ; Placement Time: 1057 (created via procedure documentation); Mask Ventilation: 1; Induction Type: Intravenous; Ease of Intubation: Easy; Technique: Flexible bronchoscopy (for educational purposes); Tube Size: 7 mm; Grade View: 1; Placement Person: PROPERTY COORDINATOR; Attempts: 1 01/03/24 1057 by Nereida Gutierres APRN PROPERTY COORDINATOR 01/03/24 1213 by Nereida Gutierres APRN PROPERTY COORDINATOR Gastric Tube 01/03/24; 1100; Decompression 01/03/24 1100 by Nereida Gutierres APRN PROPERTY COORDINATOR 01/03/24 1102 by Nereida Gutierres APRN PROPERTY COORDINATOR documented in this encounter Social History Tobacco Use Types Packs/Day Years [...] on file documented as of this encounter OR Notes * Anesthesia Postprocedure Evaluation - Charles Simons DO - 01/03/2024 12:59 PM CDT Patient: Kristie Kirkland Procedure: Procedure(s): Minimally invasive FUSION, SACROILIAC JOINT, USING OPTICAL TRACKING SYSTEM Anesthesia Type: General Note: Postop Pain Control: Uneventful Sign Out: Well controlled pain PONV: No Neuro/Psych: Uneventful Sign Out: Acceptable/Baseline neuro status Airway/Respiratory: Uneventful Sign Out: Acceptable/Baseline resp. status CV/Hemodynamics: Uneventful Sign Out: Acceptable CV status; No obvious hypovolemia; No obvious fluid overload Other NRE: NONE DID A NON-ROUTINE EVENT OCCUR? No Last vitals: Vitals Value Taken Time BP 129/83 01/03/24 1251 Temp Pulse 78 01/03/24 1259 Resp 9 01/03/24 1259 SpO2 98 % 01/03/24 1259 Vitals shown include unfiled device data. Electronically Signed By: Charles Simons DO January 03, 2024 12:59 PM * Anesthesia Procedure Notes - Nereida Gutierres APRN PROPERTY COORDINATOR - 01/03/2024 11:18 AM CDTAssociated Order(s): Airway Airway Patient location during procedure: OR Procedure Start/Stop Times: 01/03/2024 10:57 AM Staff - PROPERTY COORDINATOR: Nereida Gutierres APRN PROPERTY COORDINATOR Performed By: PROPERTY COORDINATOR Consent for Airway Urgency: elective Indications and Patient Condition Indications for airway management: zhen-procedural Induction type:intravenous Mask difficulty assessment: 1 - vent by mask Final Airway Details Final airway type: endotracheal airway Successful airway: ETT - single Endotracheal Airway Details ETT size (mm): 7.0 Cuffed: yes Successful intubation technique: flexible bronchoscopy (for educational purposes) Grade View of Cords: 1 Position: Right Measured from: gums/teeth Secured at (cm): 22 Bite block used: None Post intubation assessment Placement verified by: capnometry, equal breath sounds and chest rise Number of attempts at approach: 1 Number of other approaches attempted: 0 Secured with: tape Ease of procedure: easy Medication(s) Administered Medication Administration Time: 01/03/2024 10:57 AM * Anesthesia Preprocedure Evaluation - Charles Simons, - 01/03/2024 9:16 AM CDT Anesthesia Pre-Procedure Evaluation Patient: Kristie Kirkland : 1975 Procedure : Procedure(s): Minimally invasive FUSION, SACROILIAC JOINT, USING OPTICAL TRACKING SYSTEM Past Medical History: Diagnosis Date Arthritis Chronic constipation Heart murmur, systolic Hypertension Leukopenia 07/10-07/12/12 mild and thrombocytopenia following IV hydration Migraines Other ascites Pneumonia, organism unspecified(486) 06/17 Post term , delivered with or without mention of antepartum condition Childbirth X 3 Rectal ulcer 07/10-07/12/12 @ [facility], causing hematochezia with acute blood loss anemia leading to syncopal episode Unspecified intestinal obstruction 07/20/11 Hospitalized Past Surgical History: Procedure Laterality Date EXCHANGE POLY COMPONENT ARTHROPLASTY KNEE Left 10/28/2021 Procedure: LEFT TOTAL KNEE REVISION, POLYETHYLENE EXCHANGE; Surgeon: Gary Russell MD; Location: [facility] Main OR EXC BENIGN SKIN LESION FACE/EARS 0.6-1.0 CM 1997 Cyst removed under chin HC HYSTEROSCOPY, SURGICAL; W/ ENDOMETRIAL ABLATION, ANY METHOD 01/28/10 KNEE SCOPE,MED/LAT MENISECTOMY 10/22/10 LT HC LAP,FULGURATE/EXCISE LESIONS 10/15/04 HC LAP,TUBAL CAUTERY 01/19/01 Tubal ligation, laparoscopic HC REMOVAL OF TONSILS,12+ Y/O HC REVISE MEDIAN N/CARPAL TUNNEL SURG 08/13/11 RT HC STRABISUMS RECESS/RESECT 1 HORIZ MUSCLE 1989 Eye muscle resection, strabismus, one horizontal muscle OPTICAL TRACKING SYSTEM FUSION SACRAL ILIAC Right 06/09/2023 Procedure: FUSION, SACROILIAC JOINT, USING OPTICAL TRACKING SYSTEM RIGHT; Surgeon: Ruben Frey MD; Location: OR [facility] AFF NECK/CHEST PROCEDURE UNLISTED 1991 Neck cyst surgery Z LAP, SUPRACERVIAL HYSTERECTOMY, <250G 07/02/11 Allergies Allergen Reactions Penicillins Rash Tramadol Rash Social History Tobacco Use Smoking status: Never Smokeless tobacco: Never Tobacco comments: no second hand smoke at home or work, 01/01/05 Substance Use Topics Alcohol use: Yes Comment: 3-4 wk Wt [place] from Last 1 Encounters: 01/03/24 51.5 kg (113 lb 8.6 oz) Anesthesia Evaluation ROS/MED HX ENT/Pulmonary: Neurologic: (+) migraines, Cardiovascular: (+) hypertension- - - - - valvular problems/murmurs METS/Exercise Tolerance: Hematologic: Musculoskeletal: GI/Hepatic: Renal/Genitourinary: Endo: Psychiatric/Substance Use: Infectious Disease: Malignancy: Other: Physical Exam Airway Mallampati: II TM distance: > 3 FB Neck ROM: full Respiratory Devices and Support Dental (+) Modest Abnormalities - crowns, retainers, 1 or 2 missing teeth Cardiovascular cardiovascular exam normal Rhythm and rate: regular and normal Pulmonary pulmonary exam normal OUTSIDE LABS: CBC: Lab Results Component Value Date WBC 6.5 05/12/2023 WBC 5.1 07/21/2012 HGB 13.4 05/12/2023 HGB 11.4 (L) 10/29/2021 HCT 39.1 05/12/2023 HCT 32.0 (L) 07/21/2012 PLT 343 05/12/2023 PLT 260 07/21/2012 BMP: Lab Results Component Value Date NA 137 05/12/2023 NA 137 07/10/2012 POTASSIUM 3.7 05/12/2023 POTASSIUM 3.8 07/10/2012 CHLORIDE 97 (L) 05/12/2023 CHLORIDE 110 (H) 07/10/2012 CO2 29 05/12/2023 CO2 22 07/10/2012 BUN 12.4 05/12/2023 BUN 18 07/10/2012 CR 0.69 05/12/2023 CR 0.76 10/29/2021 GLC 97 01/03/2024 GLC 100 (H) 05/12/2023 COAGS: Lab Results Component Value Date PTT 24 07/10/2012 INR 1.24 (H) 07/10/2012 POC: No results found for: BGM, HCG, HCGS HEPATIC: Lab Results Component Value Date ALBUMIN 2.6 (L) 07/10/2012 PROTTOTAL 4.6 (L) 07/10/2012 ALT 35 07/10/2012 AST 19 07/10/2012 ALKPHOS 46 07/10/2012 BILITOTAL <0.1 (L) 07/10/2012 OTHER: Lab Results Component Value Date JESSICA 9.3 05/12/2023 LIPASE 78 04/14/2012 AMYLASE 54 07/18/2011 TSH 2.58 04/14/2012 Anesthesia Plan ASA Status: 2 Anesthesia Type: General. - Airway: ETT Induction: Intravenous. Maintenance: Balanced. Consents Anesthesia Plan(s) and associated risks, benefits, and realistic alternatives discussed. Questions answered and patient/healthcare sales representative(s) expressed understanding. - Discussed: - Discussed with: Patient Postoperative Care Pain management: IV analgesics, Oral pain medications. PONV prophylaxis: Ondansetron (or other 5HT-3), Dexamethasone or Solumedrol Comments: Chalres Simons DO I have reviewed the pertinent notes and labs in the chart from the past 30 days and (re)examined the patient. Any updates or changes from those notes are reflected in this note. documented in this encounter Miscellaneous Notes * Anesthesia Care Transfer Note - Nereida Gutierres, CABLE INSPECTOR PROPERTY COORDINATOR - 01/03/2024 12:22 PM CDT Patient: Kristie Kirkland Procedure: Procedure(s): Minimally invasive FUSION, SACROILIAC JOINT, USING OPTICAL TRACKING SYSTEM Diagnosis: Chronic left SI joint pain [M53.3, G89.29] Diagnosis Additional Information: No value filed. Anesthesia Type: General Note: Oropharynx: oropharynx clear of all foreign objects Level of Consciousness: drowsy Oxygen Supplementation: face mask Level of Supplemental Oxygen (L/min / FiO2): 6 Independent Airway: airway patency satisfactory and stable Dentition: dentition unchanged Vital Signs Stable: post-procedure vital signs reviewed and stable Report to RN Given: handoff report given Patient transferred to: PACU Handoff Report: Identifed the Patient, Identified the Reponsible Provider, Reviewed the pertinent medical history, Discussed the surgical course, Reviewed Intra-OP anesthesia mangement and issues during anesthesia, Set expectations for post-procedure period and Allowed opportunity for questions andacknowledgement of understanding Vitals: Vitals Value Taken Time BP Temp Pulse 84 01/03/24 1221 Resp 0 01/03/24 1221 SpO2 100 % 01/03/24 1221 Vitals shown include unfiled device data. Electronically Signed By: Nereida Gutierres APRN CRNA January 03, 2024 12:22 PM documented in this encounter Plan of Treatment Upcoming Encounters Date Type Department Care Team (Late st Contact Info) Description 02/10/2024 2:40 PM CDT Ancillary Procedure [facility] Orthopedic Xray [address] [phone] Ruben Frey MD [address] [place] [phone] 02/10/2024 3:00 PM CDT Office Visit [facility] [address] [phone] Ruben Frey MD [address] [place] [address] documented as of this encounter Procedures Procedure Name Priority Date/Time Associated Diagnosis Comments ANE AIRWAY ETT PERFORMABLE Routine 01/03/2024 10:57 AM CDT documented in this encounter Results * ANE AIRWAY ETT PERFORMABLE (01/03/2024 10:57 AM CDT) Narrative Nereida Gutierres APRN CRNA - 01/03/2024 10:57 AM CDT Nereida Gutierres APRN CRNA ? 01/03/2024 11:19 AM Airway ? Patient location during procedure: OR ? Procedure Start/Stop Times: 01/03/2024 10:57 AM Staff - ? PROPERTY COORDINATOR: Nereida Gutierres APRN CRNA ? Performed By: PROPERTY COORDINATOR Consent for Airway ? Urgency: elective Indications [...] Medication Administration Time: 01/03/2024 10:57 AM Charles Simons DO [place] ANESTHESIA documented in this encounter Visit Diagnoses Not on filedocumented in this encounter Administered Medications Inactive Administered Medications - up to 3 most recent administrations Medication Order MAR Action Action Date Dose Rate Site ceFAZolin Sodium (ANCEF) injection 2 g Routine, 2 g, Intravenous, PRE-OP/PRE-PROCEDURE, Starting on Wed01/03/24 at 0823, For 1 dose, Give first dose within 1 hour PRIOR to incision. If patient weight is greater than or equal to 120 kg increase dose to 3 g., Indications: Perioperative Pharmacoprophylaxis, Pre-procedure $Given 01/03/2024 11:13 AM CDT 2 g dexAMETHasone (DECADRON) injection Intravenous, PRN, Administer over 1 Minutes, Starting on Wed01/03/24 at 1113, Anesthesia Intra-op $Given 01/03/2024 11:13 AM CDT 8 mg dexmedeTOMIDine (PRECEDEX) 4 mcg/mL bolus Intravenous, CONTINUOUS PRN, Starting on Wed01/03/24 at 1129, Anesthesia Intra-op $New Bag 01/03/2024 11:29 AM CDT 8 mcg fentaNYL (PF) (SUBLIMAZE) injection Intravenous, PRN, Administer over 3-5 Minutes, Starting on Wed01/03/24 at 1054, Anesthesia Intra-op $Given 01/03/2024 10:54 AM CDT 100 mcg HYDROmorphone (DILAUDID) injection Intravenous, PRN, Starting on Wed01/03/24 at 1129, Anesthesia Intra-op $Given 01/03/2024 11:29 AM CDT 0.5 mg ketamine (KETALAR) injection Intravenous, PRN, Administer over 2-5 Minutes, Starting on Wed01/03/24 at 1113, Anesthesia Intra-op $Given 01/03/2024 11:13 AM CDT 50 mg ketorolac (TORADOL) injection Intravenous, PRN, Administer over 2 Minutes, Starting on Wed01/03/24 at 1153, Anesthesia Intra-op $Given 01/03/2024 11:53 AM CDT 15 mg lactated ringers infusion Intravenous, CONTINUOUS PRN, Anesthesia Intra-op, Starting on Wed01/03/24 at 1040, Until Wed01/03/24 at 1222 $New Bag 01/03/2024 11:54 AM CDT $New Bag 01/03/2024 10:40 AM CDT lidocaine 2% injection (MDV) Intravenous, PRN, Starting on Wed01/03/24 at 1054, Anesthesia Intra-op $Given 01/03/2024 10:54 AM CDT 100 mg midazolam (VERSED) injection Intravenous, Administer over 2 Minutes, PRN, Starting on Wed01/03/24 at 1040, Anesthesia Intra-op $Given 01/03/2024 10:40 AM CDT 2 mg ondansetron (ZOFRAN) injection Intravenous, PRN, Administer over 2-5 Minutes, Starting on Wed01/03/24 at 1040, Anesthesia Intra-op $Given 01/03/2024 10:40 AM CDT 4 mg phenylephrine (MADHAVI-SYNEPHRINE) injection Intravenous, CONTINUOUS PRN, Starting on Wed01/03/24 at 1107, Anesthesia Intra-op $Bolus 01/03/2024 11:56 AM CDT 200 mcg $Bolus 01/03/2024 11:43 AM CDT 150 mcg $Bolus 01/03/2024 11:37 AM CDT 100 mcg propofol (DIPRIVAN) infusion Intravenous, CONTINUOUS PRN, Starting on Wed01/03/24 at 1113, Anesthesia Intra-op $New Bag 01/03/2024 11:13 AM CDT 30 mcg/kg/min 9.27 mL/hr propofol (DIPRIVAN) injection 10 mg/mL vial Intravenous, PRN, Starting on Wed01/03/24 at 1054, Anesthesia Intra-op $Given 01/03/2024 10:54 AM CDT 150 mg rocuronium injection Intravenous, PRN, Starting on Wed01/03/24 at 1054, Anesthesia Intra-op $Given 01/03/2024 10:54 AM CDT 50 mg sugammadex (BRIDION) injection Intravenous, PRN, Starting on Wed01/03/24 at 1154, Anesthesia Intra-op $Given 01/03/2024 11:54 AM CDT 100 mg documented in this encounter Care Teams Nailing Machine Feeder Relationship Specialty Start Date End Date Thom Ovalles MD [address] [address] PCP - Orthopaedics Orthopedics 04/08/11 Han Jackson MD [address] [address] PCP - General Family Medicine 10/23/21 Ruben Frey MD [facility] [address] [place] [address] Assigned Musculoskeletal Provider 04/17/23 documented as of this encounter
--- OUTSIDE RECORDS SUMMARY | 2024-01-21 09:27 | XMS_ITS | Encounter Summary ---
Author Organization [facility] Address [address] [place] [id number] Care Team Providers Care Varsity Baseball Coach Name Role Phone Thom Ovalles MD Unavailable Han Jackson MD Primary Care Provider Ruben Frey MD Unavailable Reason for Visit * Reason Onset Date Comments Schedule Surgery 12/16/2023 Dr[facility] Care Coordination - Follow-up 12/16/2023 Encounter Details Date Type Department Care Team (Late st Contact Info) Description 12/16/2023 [facility] [place] [address] [place] [address] Ruben Frey MD [address] [place] [address] Schedule Surgery (Dr. Frey ); Clinic Care Coordination - Follow-up Social History [...] Telephone Encounter - Vania Murillo RN - 12/21/2023 2:53 PM CDT [facility] POP appt. Vania Murillo RN,. * Telephone Encounter - Namrata Morales I - 12/21/2023 1:14 PM CDT Rescheduled Patient is scheduled for surgery with Dr. Frey Spoke with: Kristie Date of Surgery: 01/03/24 Location: [facility] OR Informed patient they will need an adult cart driver Yes Pre op with Provider PAC Additional imaging/appointments: Unable to reschedule; no post ops available. Will route to team. Additional comments: Rescheduled per cancellation list; from 02/16/24 to 01/03/24. Namrata Morales on 12/21/2023 at 1:14 PM * Telephone Encounter - Namrata Morales I - 12/17/2023 12:51 PM CDT Patient is scheduled for surgery with Dr. Frey Spoke with: Kristie Date of Surgery: 02/16/24 Location: [facility] OR Informed patient they will need an adult cart driver Yes Pre op with Provider PAC, 01/19/24 at 9AM Additional imaging/appointments: PO Made Surgery packet: Mailed Additional comments: Added to waiting list per patient. Namrata Morales on 12/17/2023 at 12:51 PM' * Telephone Encounter - Yennifer Weber - 12/16/2023 3:04 PM CDT Other: Patient would like to schedule surgery with Dr. Frey. Please call back. Could we send this information to you in [employer] or would you prefer to receive a phone call?: Patient would prefer a phone call Okay to leave a detailed message?: Yes at Cell number on file: Telephone Information: documented in this encounter Plan of Treatment Upcoming Encounters Date Type Department Care Team (Late st Contact Info) Description 02/10/2024 2:40 PM CDT Ancillary Procedure [facility] Orthopedic Xray [address] [phone] Ruben Frey MD [address] [place] [address] [id number] 02/10/2024 3:00 PM CDT Office Visit [facility] [address] [phone] Ruben Frey MD [address] [place] [address] documented as of this encounter Visit Diagnoses Not on filedocumented in this encounter Care Teams Varsity Baseball Coach Relationship Specialty Start Date End Date Thom Ovalles MD [facility] [place] [address] [place] [address] PCP - Orthopaedics Orthopedics 04/08/11 Han Jackson MD [facility] [place] [address] [place] [address] PCP - General Family Medicine 10/23/21 Ruben Frey MD [address] [place] [address] Assigned Musculoskeletal Provider 04/17/23 documented as of this encounter
--- OUTSIDE RECORDS SUMMARY | 2024-01-21 09:27 | XMS_ITS | Encounter Summary ---
Author Organization [facility] Address [address] [place] [address] Care Team Providers Care Aerial Photograph Interpreter Name Role Phone Thom Ovalles MD Unavailable Han Jackson MD Primary Care Provider Ruben Frey MD Unavailable Reason for Visit * Reason Onset Date Comments Call Back 12/27/2023 Pt pre op today Clinic Care Coordination - Follow-up 12/27/2023 Encounter Details Date Type Department Care Team (Late st Contact Info) Description 12/27/2023 [facility]opedic [facility] [place] [address] [facility] [address] 4[address] [place] [address] Ruben Frey MD [address] [place] [address] Call Back (Pt pre op today ); Clinic Care Coordination - Follow-up Social [...] Miscellaneous Notes * Telephone Encounter - Vania Murillo, MAYLIN - 12/27/2023 3:52 PM CDT See phone message from pt. Russel NATHALIE called pt this am & advised to keep todays preop appt. Jessi CARLISLE. * Telephone Encounter - Sylwia Madera - 12/27/2023 9:42 AM CDT Other: Patient is calling in because she has a pre op today at 12:30, but is wondering if surgery is being rescheduled due to insurance and when that would be, or if she should still attend pre op appointment. Please call patient as soon as able. Could we send this information to you in [facility] or would you prefer to receive a phone call?: Patient would prefer a phone call Okay to leave a detailed message?: Yes at Cell number on file: Telephone Information: documented in this encounter Plan of Treatment Upcoming Encounters Date Type Department Care Team (Late st Contact Info) Description 02/10/2024 2:40 PM CDT Ancillary Procedure [facility] Orthopedic Xray [address] [phone] Ruben Frey MD [address] [place] [address] 02/10/2024 3:00 PM CDT Office Visit [facility] [address] [phone] Ruben Frey MD [address] [place] [address] documented as of this encounter Visit Diagnoses Not on filedocumented in this encounter Care Teams Aerial Photograph Interpreter Relationship Specialty Start Date End Date Thom Ovalles MD [facility] [place] [address] [place] [address] PCP - Orthopaedics Orthopedics 04/08/11 Han Jackson MD [facility] [place] [address] [place] [address] PCP - General Family Medicine 10/23/21 Ruben Frey MD [facility] [address] [place] [address] Assigned Musculoskeletal Provider 04/17/23 documented as of this encounter
--- OUTSIDE RECORDS SUMMARY | 2024-01-21 09:27 | XMS_ITS | Encounter Summary ---
Author Organization [facility] Address [address] [place] [address]. [place] [address] Care Team Providers Care College Athlete Name Role Phone Thom Ovalles MD Unavailable [phone] Han Jackson MD Primary Care Provider Ruben Frey MD Unavailable Reason for Referral * Diagnostic Imaging CT Scan (Routine) - Closed Specialty Diagnoses / Procedures Referred By Hussein t Referred To Contact Radiology. Diagnoses Chronic left SI joint pain S/P fusion of sacroiliac joint Procedures CT Sacroiliac Diagnostic Joint Injection Ruben Frey MD [address] [facility] [address] [place] [address] Referral ID Status Reason Start Date Expiration Date Visits Re quested Visits Authorized [id number] Closed 11/15/2023 11/14/2024 1 1 Reason for Visit * Auth/Cert Specialty Diagnoses / Procedures Referred By Hussein t Referred To Contact Med Surg Diagnoses UNKNOWN [facility] [address] [facility] [place] [phone] Referral ID Status Reason Start Date Expiration Date Visits Re quested Visits Authorized [id number] 1 1 Encounter Details Date Type Department Care Team ([facility] st Contact Info) Description 12/13/2023 8:52 AM CDT - 12/13/2023 11:59 PM CDT Hospital Encounter [facility] [address] [place] [phone] Ruben rFey MD [address] [place] [address] Non-Fv Credentialed Provider, Radiology Chronic left SI joint pain; S/P fusion of sacroiliac joint Discharge Disposition: Home or Self Care Social History Tobacco Use Types Packs/Day Years [...] on file documented as of this encounter Last Filed Vital Signs Vital Sign Reading Time Taken Comments Blood Pressure 122/88 12/13/2023 9:00 AM CDT Pulse - - Temperature - - Respiratory Rate - - Oxygen Saturation 99% 12/13/2023 9:00 AM CDT Inhaled Oxygen Concentration - - Weight - - Height - - Body Mass Index - - documented in this encounter Discharge Instructions * Discharge Instructions* Stephanie Tapia - 12/13/2023 9:56 AM CDT Orthopedic Discharge Instructions: After Your Injection or Aspiration Patient Name: Kristie Kirkland Today's Date: December 13, 2023 The doctor who performed your Joint Injection was Xavier Richards PA-C at [facility]) in the CT Department Care of needle site If you have new numbness down your leg, this may last up to 6 hours, but it should go away. You mayneed help with walking until your leg feels normal. Over the next 24 to 48 hours, pain at the needle site may increase before it gets better. For the next 48 hours, use ice packs for 15 minutes, three to four times a day for pain. If you have a bandage, you may remove it the next morning. No tub baths, hot tubs or swimming for 48 hours. You may shower the next day. Activity Do not drive until morning. Limit your activity based on your pain level. Follow your doctor???s orders for activity. You may eat a normal diet. If you had sedation, - You may feel sleepy, forgetful or unsteady. - Do not drink alcohol for 24 hours. Medicines If you take aspirin or platelet inhibitors, you can restart them tomorrow. Restart all other medicines today at your regular dose, including Coumadin (warfarin). If you are restarting Coumadin, talk to your doctor about having your INR checked. If you had a steroid shot The medicine should help reduce swelling and pain. This may take from 7 to 10 days. Side effects from the shot will be mild and go away in 2 to 3 days. Common side effects may include: - Insomnia (trouble sleeping). - Heartburn. - Flushed face. - Water retention (bloating or fluid build-up). - Increased appetite (feeling more hungry than usual). - Increased blood sugar. If you have diabetes, watch your blood sugar closely. If needed, call your doctor to help you control your blood sugar. Some patients will get lasting relief from a single shot. Others may require up to three shots to get results. If you have more than one steroid shot, they should be given two weeks apart. Some patients do not have relief of symptoms. Follow-up: No follow-up needed Call your doctor or go to the Emergency Room if you have severe pain, fever or problems with bowel or bladder control. 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, initial encounter (H24) Take 2 tablets (650 mg) by mouth every 4 hours as needed for other (mild pain) 100 tablet 10/28/2021 clindamycin (CLEOCIN) 300 MG capsule Take 300 mg by mouth as needed (FOR DENTAL PROCEDURE'S) 12/30/2022 lisinopril (ZESTRIL) 20 MG tablet Take 20 mg by mouth every morning Multiple Vitamins-Minerals (MULTIVITAMIN PO) Take 1 tablet by mouth every morning omeprazole 20 MG tablet Take 20 mg by mouth every morning SUMAtriptan (IMITREX) 100 MG tablet Take 1 tablet by mouth at onset of headache traZODone (DESYREL) 100 MG tablet Take 100 mg by mouth nightly as needed for sleep 11/16/2023 documented as of this encounter Procedure Notes * Xavier Richards PA-C - 12/13/2023 9:50 AM CDTAssociated Order(s): Left SI joint anesthetic injection [facility] Procedure: Left SI joint anesthetic injection Date/Time: 12/13/2023 9:49 AM Performed by: Xavier Richards PA-C Authorized by: Xavier Richards PA-C [employer] Site Marked: Yes Prior Images Obtained and Reviewed: Yes Required items: Required blood products, implants, devices and special equipment available Patient identity confirmed: Verbally with patient Patient was reevaluated immediately before administering moderate or deep sedation or anesthesia Confirmation Checklist: Patient's identity using two indicators, relevant allergies, procedure was appropriate and matched the consent or emergent situation and correct equipment/implants were available Time out: Immediately prior to the procedure a time out was called Pengilly Protocol: the Joint Commission Peng[place] Protocol was followed Preparation: Patient was prepped and draped in usual sterile fashion ANESTHESIA Local Anesthetic: Lidocaine 1% without epinephrine (ropivacaine also used) SEDATION Patient Sedated: No See dictated procedure note for full details. PROCEDURE Describe Procedure: Left SI diagnostic injection Patient Tolerance: Patient tolerated the procedure well with no immediate complications Length of time physician/provider present for 1:1 monitoring during sedation: 0 documented in this encounter Plan of Treatment Upcoming Encounters Date Type Department Care Team (Late st Contact Info) Description 02/10/2024 2:40 PM CDT Ancillary Procedure [facility] Orthopedic Xray [address] [place] [phone] Ruben Frey MD [address] [place] [address] 02/10/2024 3:00 PM CDT Office Visit [facility] [place] [address] [phone] Ruben Frey MD [address] [place] [address] documented as of this encounter Procedures Procedure Name Priority Date/Time Associated Diagnosis Comments CT SACROILIAC DIAGNOSTIC JOINT INJECTION Routine 12/13/2023 9:54 AM CDT Chronic left SI joint pain S/P fusion of sacroiliac joint IMAGING PROCEDURE NOTE Routine 12/13/2023 9:49 AM CDT documented in this encounter Results * CT Sacroiliac Diagnostic Joint Injection (12/13/2023 9:54 AM CDT) Anatomical Region Laterality Modality Abdomen/Pelvis, SUBRAD [...] Xavier Richards PA-C ? 12/13/2023 ??9:50 AM [facility] Procedure: Left SI joint anesthetic injection Date/Time: [...] procedure a time out was called ?? Pengilly Protocol: the Joint Commission [place] Protocol was followed ?? Preparation: Patient was [...] 0 Xavier Richards PA-C PROCEDURE/MINOR SURGICAL ORDERABLES documented in this encounter Visit Diagnoses Diagnosis Chronic left SI joint pain Disorders of sacrum S/P fusion of sacroiliac joint documented in this encounter Administered Medications Inactive Administered Medications - up to 3 most recent administrations Medication Order MAR Action Action Date Dose Rate Site iopamidol (ISOVUE-M 200) solution 10 mL 10 mL, INTRA-ARTICULAR, ONCE, On Wed12/13/23 at 1000, For 1 dose $Given 12/13/2023 9:51 AM CDT 0.5 mLs lidocaine (PF) (XYLOCAINE) 1 % injection 10 mL 10 mL, Intradermal, ONCE, On Wed12/13/23 at 1000, For 1 dose $Given 12/13/2023 9:52 AM CDT 10 mLs ropivacaine (NAROPIN) injection 0.5% 2 mL, Other, ONCE, On 12/13/23 at 1000, For 1 dose, Intra-articular $Given 12/13/2023 9:51 AM CDT 2 mLs documented in this encounter Care Teams College Athlete Relationship Specialty Start Date End Date Thom Ovalles MD [facility] [address] [place] [address] [address] [place] [address] PCP - Orthopaedics Orthopedics 04/08/11 Han Jackson MD [facility] [address] [facility] [place] [address] PCP - General Family Medicine 10/23/21 Ruben Frey MD [address] [place] [address] [address] [place] [address] Assigned Musculoskeletal Provider 04/17/23 documented as of this encounter
--- OUTSIDE RECORDS SUMMARY | 2024-01-21 09:27 | XMS_ITS | Encounter Summary ---
Author Organization [facility] Address [address] [place] [address]. [place] [address] Care Team Providers Care Shipsmith Name Role Phone Thom Ovalles MD Unavailable Han Jackson MD Primary Care Provider Ruben Frey MD Unavailable Reason for Visit * Auth/Cert Specialty Diagnoses / Procedures Referred By Contshahzad t Referred To Contact Surgery Diagnoses Chronic left SI joint pain Chronic left SI joint pain [M53.3, G89.29] Procedures C COMPUTER ASSISTED MUSCULOSKELETAL SURGICAL NAVIGATIONAL ORTHO PROC, IMAGE-GUIDED, FLUORO C COMPUTER ASSISTED MUSCULOSKELETAL SURGICAL NAVIGATIONAL ORTHO PROC, IMAGE-GUIDED, CT/MRI NV CPTR-ASST SURGICAL NAVIGATION IMAGE-LESS NV ARTHRODESIS SI JT, PRQ W/O TRANSFIX DEVICE NV ARTHRODESIS SACROILIAC JOINT PERCUTANEOUS NV ARTHRODESIS SACROILIAC JOINT W/OBTAINING GRAFT Minimally invasive FUSION, SACROILIAC JOINT, USING OPTICAL TRACKING SYSTEM Ur Periop [address] [facility] [place] [id number] Referral ID Status Reason Start Date Expiration Date Visits Re quested Visits Authorized [id number] 1 1 Encounter Details Date Type Department Care Team (Late st Contact Info) Description 01/03/2024 9:45 AM CDT - 01/03/2024 11:30 AM CDT Surgery [facility] [address] [facility] [phone] Ruben Frey MD [address] [place] [address] Minimally invasive FUSION, LEFT SACROILIAC JOINT, USING OPTICAL TRACKING SYSTEM Surgery Details Date/Time Status Location OR Service Patient Class Case Class Case Type Trauma Case? 01/03/24 9:45 AM Posted UR OR UR OR 17 Orthopedics Surgery Admit Elective Panel 1 Procedure LRB Anes Op Region Wound Class Comments Minimally invasive FUSION, L EFT SACROILIAC JOINT, USING OPTICAL TRACKING SYSTEM Left General Sacrum I-Clean Surgeon Surgeon Role Service Panel Mc Adkins MD Fellow - Assisting Orthopedics 1 Ruben Frey MD Primary Orthopedics 1 Special Needs PAC 12/27/23 documented in this encounter Social History Tobacco [...] Sign Reading Time Taken Comments Blood Pressure 125/78 01/03/2024 7:54 AM CDT Pulse 65 01/03/2024 7:54 AM CDT Temperature 36.6 ??C (97.9 ??F) 01/03/2024 7:54 AM CD T Respiratory Rate 16 01/03/2024 7:54 AM CDT Oxygen Saturation 100% 01/03/2024 7:54 AM CDT Inhaled Oxygen Concentration - - Weight 51.5 kg (113 lb 8.6 oz) 01/03/2024 7:54 A M CDT Height 152.4 cm (5') 01/03/2024 7:54 AM CDT Body Mass Index 22.17 01/03/2024 7:54 AM CDT documented in this encounter Discharge Instructions * Discharge Instructions* Fabiano Girard RN - 01/03/2024 12:44 PM CDT * Attachments The following attachments cannot be sent through Care Everywhere. * (s) After Anesthesia (Sleep Medicine) ([place]) documented in this encounter Medications at Time of Discharge Medication Sig Dispensed Refills Start Date End Date acetaminophen (TYLENOL) 325 MG tabletIndications:Sacro iliac joint pain Take 2 tablets (650 mg) by mouth every 4 hours as needed for mild pain 50 tablet 01/03/2024 acetaminophen (TYLENOL) 325 MG tabletIndications:Insta bility of [...] Take 20 mg by mouth every morning ondansetron (ZOFRAN ODT) 4 MG ODT tabIndications:Sacroili ac joint pain Take 1 tablet (4 mg) by mouth every 8 hours as needed for nausea 4 tablet 01/03/2024 oxyCODONE (ROXICODONE) 5 MG tabletIndications:Sacro iliac joint pain Take 1-2 tablets (5-10 mg) by mouth every 4 hours as needed for moderate to severe pain 20 tablet 01/03/2024 senna-docusate (SENOKOT-S/PERICOLACE) 8.6-50 MG tabletIndications:Sacro iliac joint pain Take 1-2 tablets by mouth 2 times daily 30 tablet 01/03/2024 SUMAtriptan (IMITREX) 100 MG tablet Take 1 tablet by mouth at onset of headache traZODone (DESYREL) 100 MG tablet Take 100 mg by mouth nightly as needed for sleep 11/16/2023 documented as of this encounter Progress Notes * Halle Phillips RN - 01/03/2024 3:[address] Simons arrived to bedside to assess patient readiness for discharge. It was decided upon by Dr. Levy and patient/patient's that she is ready to safely discharge home. Patient is now satting 89-90% on room air when asleep and 97% when awake. * Halle Phillips RN - 01/03/2024 2:30 PM CDT 1430: Patient satting 83%-86% on room air while asleep. Upon arousing patient, she would sat 99% onroom air. Pulse oximeter probe was repositioned to a different finger. RN gave patient an incentivespirometer and educated them on how to properly use it. She was given coffee to try to help with arousal. 1435: Dr. Simons was notified and arrived to bedside. He would like her to stay with us in phase 2 until she is closer to her baseline. documented in this encounter Miscellaneous Notes * Op Note - uRben Frey MD - 01/03/2024 11:13 AM CDT Date of Service: 01/03/2024 Surgeon: Ruben Frey MD Assistants: (1) Mc Adkins MD, Spine Fellow. No qualified resident available. Dr. Adkins's assistance was deemed necessary given case complexity, and for all parts of the procedure, including positioning, exposure, performing the surgical procedure, and closure. (2) Cristofer Flower MS4. Preoperative Diagnosis: 1. 6 mos s/p MIS R SIJ fusion (06/09/23), doing well. 2. Left sacroiliac joint pain, with positive response to CT-guided Left SIJ dxtic injections x2 (11/29/23 and 12/13/23 Xavier Richards PA-C) and CT-guided Left SIJ injection with steroid (11/02/23 Franchesca DORSEY. Postoperative Diagnosis: Same Procedure: 1. Minimally-invasive left sacroiliac joint fusion using ingrowth titanium implants. 2. Computer navigation using O-arm and Stealth. Anesthesia: General endotracheal. Local anesthetic: 0.25% marcaine + epinephrine = 60 mL. Estimated Blood Loss: 10 mL. Complications: None apparent. Implants: SI-Bone iFuse Torq screws: Superior implant = 10 x 65 mm Middle implant = 10 x 45 mm Inferior implant = 10 x 45 mm Indications: 48 year old female who presented with chronic left buttock pain. Physical examination findings suggestive of sacroiliac joint pain. Intra- articular SI joint injection provided significant temporary symptom relief. Had tried and failed nonoperative treatment. I thus offered surgery in form of MIS SI joint fusion. Consented after thorough discussion of rationale, risks, benefits and alternatives. Details: Properly identified in preop area, site marked, informed consent signed. Wheeled to OR. Brief earlier performed. General anesthesia administered. Antibiotic given: Ancef IV. No Ell[place]. Positioned prone on Trios table with combo hip-thigh pads. Squared off left buttock region, prepped with chlorhexidine scrub, ChloraPrep and draped in sterile fashion. Surgical timeout performed. Right PSIS palpated, stab incision made, short perc pin inserted into bone, attached navigation frame. O-arm brought in. 3D scan obtained. Using giuseppe probe, I marked ideal skin entry points for 3 implant fixation of the left SI joint. Local anesthetic injected. Stab skin incisions made. I pierced through fascia and muscle using giuseppe drill guide, docked against lateral ilium. Using Stealth navigation, I selected trajectory for 1st (superior) implant - directed medially and anteriorly into S1 vertebral body, like a transiliac S1 pedicle screw; drilled Steinmann pin thru the guide. Selected trajectory for 2nd (middle) implant - directed medially at level of S1 foramen; drilled pin thru guide. Santa ected trajectory for 3rd (inferior) implant - directed medially between S1 and S2 foramina, similartrajectory to an S2 transiliac transsacral screw; drilled pin thru guide. Used Stealth to select implant lengths. Checked pin position on outlet view image; noted acceptable pin placement. Inserted pins deeper. I elected to use ingrowth titanium screws for implants. Passed dilator and protective sheath over the first Steinmann pin. Drilled over the pin using navigation, to a depth just beyond the SI joint. Screw inserted over the pin using giuseppe lokie driver. This sequence was repeated for the 2nd and 3rd implants. Final inlet, outlet, and lateral x-rays and check 3D scan showed good placement of all three implants. Giuseppe frame removed. Layered closure: deep fascia with 2-0 Vicryl and 3-0 Monocryl. Skin glue and sterile dressing applied. Tolerated procedure well. Turned supine, taken off general anesthetic, transferred to recovery in satisfactory condition. Postoperative: Plan for same day discharge after short PACU observation. 50% partial weightbearing on affected LE using crutches or walker x 4 weeks. No lifting > 10 pounds, no excessive bending or twisting activities. Return to clinic in 6 weeks with pelvis inlet, outlet, and lateral x-rays. documented in this encounter Plan of Treatment Upcoming Encounters Date Type Department Care Team (Late st Contact Info) Description 02/10/2024 2:40 PM CDT Ancillary Procedure [facility] Orthopedic Xray [address] [phone] Ruben Frey MD [address] [place] [phone] 02/10/2024 3:00 PM CDT Office Visit [facility] [address] [phone] Ruben Frey MD [address] [place] [phone] documented as of this encounter Procedures Procedure Name Priority Date/Time Associated Diagnosis Comments XR SURGERY BRADEN FLUORO LESS THAN 5 MIN Routine 01/03/2024 12:02 PM CDT FUSION, SACROILIAC JOINT, USING OPTICAL TRACKING SYSTEM 01/03/2024 10:42 AM CDT Chronic left SI joint pain Special Needs PAC 5/13/24 GLUCOSE BY METER Routine 01/03/2024 7:59 AM CDT documented in this encounter Results * XR Surgery BRADEN L/T 5 Min Fluoro (01/03/2024 12:02 PM CDT) Narrative RADIANT - 01/03/2024 12:04 PM CDT This exam was marked as non-reportable because it will not be read by a radiologist or a [facility] non-radiologist provider. Ruben Frey MD IMG DIAGNOSTI C IMAGING ORDERABLES RADIANT * Glucose by meter (01/03/2024 7:59 AM CDT) GLUCOSE BY METER POCT 97 70 - 99 mg/dL 01/03/2024 8:07 AM CDT UR LABORATORY POC Blood, Capillary BLOOD SPECIMEN / Unknown 01/03/2024 7:59 AM CDT 01/03/2024 8:07 AM CDT Ruben Frey MD LAB - BEAKER POCT UR LABORATORY POC [facility] Acute [facility] Lab [address] [facility] [place] [phone] documented in this encounter Visit Diagnoses Diagnosis Sacroiliac joint pain- Primary Disorders of sacrum Chronic left SI joint pain Disorders of sacrum documented in this encounter Administered Medications Inactive Administered Medications - up to 3 most recent administrations Medication Order MAR Action Action Date Dose Rate Site acetaminophen (TYLENOL) tablet 650 mg 650 mg, Oral, ONCE PRN, mild pain, to moderate pain, Starting on Wed01/03/24 at 1222, One time prior to discharge. Maximum acetaminophen dose from all sources = 75 mg/kg/day not to exceed 4 grams/day., PACU/Phase II acetaminophen (TYLENOL) tablet 975 mg 975 mg, Oral, ONCE, On Wed01/03/24 at 0830, For 1 dose, Maximum acetaminophen dose from all sources = 75 mg/kg/day not to exceed 4 grams/day., Pre-procedure $Given 01/03/2024 8:46 AM CDT 975 mg BUPivacaine 0.5 % - EPINEPHrine 1:200,000 injection PRN, Starting on Wed01/03/24 at 1127, Intra-procedure $Given 01/03/2024 11:27 AM CDT 30 mLs Operative Site/Surgical Site dexAMETHasone (DECADRON) injection 4 mg 4 mg, Intravenous, ONCE PRN, vomiting, nausea, Administer over 1 Minutes, Starting on Wed01/03/24 at 1222, For 1 dose, Administer ONLY if dexamethasone (DECADRON) NOT given in the OR. This is Step 2 of nausea and vomiting management. IF nausea vomiting NOT resolved within 30 minutes or dexamethasone (DECADRON) was given in the OR go to Step 3 prochlorperazine (COMPAZINE)., PACU fentaNYL (PF) (SUBLIMAZE) injection 25 mcg 25 mcg, Intravenous, EVERY 5 MIN PRN, moderate pain, Give fentaNYL (SUBLIMAZE) first if HYDROmorphone (DILAUDID) also ordered., Starting on Wed01/03/24 at 1222, Administer fentaNYL (SUBLIMAZE) for acute pain control. Move to HYDROmorphone (DILAUDID): - IF patient has received up to 200 mcg of fentaNYL (SUBLIMAZE) OR - IF patient has received 2 doses of fentaNYL (SUBLIMAZE) AND continues to have pain score greater than or equal to six (6) or is unable to participate in post op recovery due to pain. Wait 5 minutes AFTER last fentaNYL (SUBLIMAZE) dose before administering HYDROmorphone (DILADUDID). Postop Anesthesia Phase I only. Notify Provider to assess for uncontrolled pain or analgesic side effects. DO NOT revert back to fentanyl (SUBLIMAZE) after administering HYDROmorphone (DILAUDID)., PACU fentaNYL (PF) (SUBLIMAZE) injection 50 mcg 50 mcg, Intravenous, EVERY 5 MIN PRN, severe pain, Give fentaNYL (SUBLIMAZE) first if HYDROmorphone (DILAUDID) also ordered., Starting on Wed01/03/24 at 1222, Administer fentaNYL (SUBLIMAZE) for acute pain control. Move to HYDROmorphone (DILAUDID): - IF patient has received up to 200 mcg of fentaNYL (SUBLIMAZE), OR - IF patient has received 2 doses of fentaNYL (SUBLIMAZE) AND continues to have severe pain (pain score greater than or equal to seven (7) or is unable to participate in post op recovery due to pain. Wait 5 minutes AFTER last fentaNYL (SUBLIMAZE) dose before administering HYDROmorphone (DILADUDID). Postop Anesthesia Phase I only. Notify Provider to assess for uncontrolled pain or analgesic side effects. DO NOT revert back to fentanyl (SUBLIMAZE) after administering HYDROmorphone (DILAUDID)., PACU $Given 01/03/2024 12:40 PM CDT 50 mcg $Given 01/03/2024 12:25 PM CDT 50 mcg HYDROmorphone (PF) (DILAUDID) injection 0.2 mg 0.2 mg, Intravenous, EVERY 5 MIN PRN, moderate pain, Starting on Wed01/03/24 at 1250, MAX dose OF 2 MG including the 0.4 mg doses, PACU HYDROmorphone (PF) (DILAUDID) injection 0.4 mg 0.4 mg, Intravenous, EVERY 5 MIN PRN, severe pain, Starting on Wed01/03/24 at 1250, MAX dose of 2 mg including 0.2 mg doses, PACU $Given 01/03/2024 1:02 PM CDT 0. 4 mg $Given 01/03/2024 12:51 PM CDT 0.4 mg lactated ringers infusion at 100 mL/hr, Intravenous, CONTINUOUS, Continue until IV catheter is weaned, PACU, Starting on Wed01/03/24 at 1230, Until Wed01/03/24 at 1737 methocarbamol (ROBAXIN) tablet 750 mg 750 mg, Oral, ONCE PRN, muscle spasms, Starting on Wed01/03/24 at 1222, For 1 dose, One time prior to discharge., PACU/Phase II naloxone (NARCAN) injection 0.1 mg 0.1 mg, Intravenous, EVERY 2 MIN PRN, opioid reversal, Starting on Wed01/03/24 at 1222, Notify Anesthesia Provider when administering naloxone (NARCAN) for unintended sedation or respiratory depression IF all three of the following criteria are met: 1. Respiratory rate LESS than or EQUAL to 8. 2. SaO2 is LESS than 92% and/or end-tidal CO2 is GREATER than 50. 3. Patient is receiving an opioid, has unintended sedation assessed as RASS (-4) or (-5) and patient is NOT currently on mechanical ventilation. RASS scale (-4) is deep sedation with no response to voice but movement or eye opening to physical stimulation. RASS scale (-5) is unarousable. Notify Anesthesia Provider PRIOR to administering additional opioids if naloxone (NARCAN) given. Monitor in Phase I for 2 hours after last naloxone (NARCAN) dose PRIOR to transfer to Patient Care Unit or Phase II., PACU ondansetron (ZOFRAN ODT) ODT tab 4 mg 4 mg, Oral, EVERY 30 MIN PRN, nausea, Starting on Wed01/03/24 at 1222, For 2 doses, Administer if NO vascular access present. This is Step 1 of nausea and vomiting management. If nausea/vomiting not resolved in 15 minutes, go to Step 2 dexamethasone (DECADRON) IV. MAX total dose = 8 mg, including OR dosing. With dry hands, peel back foil backing and gently remove tablet. Do not push oral disintegrating tablet through foil backing. Administer immediately on tongue and oral disintegrating tablet dissolves in seconds, then swallow with saliva. Liquid not required., PACU ondansetron (ZOFRAN ODT) ODT tab 4 mg 4 mg, Oral, ONCE PRN, nausea, vomiting, post-operative, Starting on Wed01/03/24 at 1222, For 1 dose, One time prior to discharge. With dry hands, peel back foil backing and gently remove tablet. Do not push oral disintegrating tablet through foil backing. Administer immediately on tongue and oral disintegrating tablet dissolves in seconds, then swallow with saliva. Liquid not required., PACU/Phase II ondansetron (ZOFRAN) injection 4 mg 4 mg, Intravenous, EVERY 30 MIN PRN, nausea, Administer over 2-5 Minutes, Starting on Wed01/03/24 at 1222, For 2 doses, This is Step 1 of nausea and vomiting management. If nausea/vomiting not resolved in 15 minutes, then go to Step 2 dexamethasone (DECADRON) IV. MAX total dose = 8 mg, including OR dosing. Irritant., PACU oxyCODONE (ROXICODONE) tablet 5 mg 5 mg, Oral, ONCE, On Wed01/03/24 at 1330, For 1 dose, PACU/Phase II $Given 01/03/2024 1:10 PM CDT 5 mg oxyCODONE IR (ROXICODONE) tablet 10 mg 10 mg, Oral, ONCE PRN, other, pain control or improvement in physical function.??, Starting on Wed01/03/24 at 1222, For 1 dose, Notify provider to assess for uncontrolled pain or analgesic side effects., PACU/Phase II documented in this encounter Active and Recently Administered Medications Times are shown in CDT. Scheduled Medication Order 01/01/2024 01/02/2024 01/03/2024 acetaminophen (TYLENOL) tablet 975 mg (COMPLETED) 975 mg, Oral, ONCE, On Wed01/03/24 at 0830, For 1 dose, Maximum acetaminophen dose from all sources = 75 mg/kg/day not to exceed 4 grams/day., Pre-procedure 0846 ($Given - Provi carlie: Jocelyn Tejeda RN) ceFAZolin Sodium (ANCEF) injection 2 g (COMPLETED) Routine, 2 g, Intravenous, PRE-OP/PRE-PROCEDURE, Starting on Wed01/03/24 at 0823, For 1 dose, Give first dose within 1 hour PRIOR to incision. If patient weight is greater than or equal to 120 kg increase dose to 3 g., Indications: Perioperative Pharmacoprophylaxis, Pre-procedure 1113 ($Given - Provi carlie: Nereida Gutierres, STOCK COUNTER PREP MANAGER) oxyCODONE (ROXICODONE) tablet 5 mg (COMPLETED) 5 mg, Oral, ONCE, On Wed01/03/24 at 1330, For 1 dose, PACU/Phase II 1310 ($Given - Provi carlie: Fabiano Girard RN) Continuous Medication Order 01/01/2024 01/02/2024 01/03/2024 lactated ringers infusion at 100 mL/hr, Intravenous, CONTINUOUS, Continue until IV catheter is weaned, PACU, Starting on Wed01/03/24 at 1230, Until Wed01/03/24 at 1737 1230 (Canceled Entry - Provider: Orders Generic Provider - Comment: Automatically canceled at discontinue of medication order) PRN Medication Order 01/01/2024 01/02/2024 01/03/2024 acetaminophen (TYLENOL) tablet 650 mg 650 mg, Oral, ONCE PRN, mild pain, to moderate pain, Starting on Wed01/03/24 at 1222, One time prior to discharge. Maximum acetaminophen dose from all sources = 75 mg/kg/day not to exceed 4 grams/day., PACU/Phase II BUPivacaine 0.5 % - EPINEPHrine 1:200,000 injection (CANCELED) PRN, Starting on Wed01/03/24 at 1127, Intra-procedure 1127 ($Given - Provi carlie: Ruben Frey MD - Comment: Dilute with 30mL of 0.9% NaCllot [id number] 09/15/2026) dexAMETHasone (DECADRON) injection 4 mg 4 mg, Intravenous, ONCE PRN, vomiting, nausea, Administer over 1 Minutes, Starting on Wed01/03/24 at 1222, For 1 dose, Administer ONLY if dexamethasone (DECADRON) NOT given in the OR. This is Step 2 of nausea and vomiting management. IF nausea vomiting NOT resolved within 30 minutes or dexamethasone (DECADRON) was given in the OR go to Step 3 prochlorperazine (COMPAZINE)., PACU fentaNYL (PF) (SUBLIMAZE) injection 25 mcg 25 mcg, Intravenous, EVERY 5 MIN PRN, moderate pain, Give fentaNYL (SUBLIMAZE) first if HYDROmorphone (DILAUDID) also ordered., Starting on Wed01/03/24 at 1222, Administer fentaNYL (SUBLIMAZE) for acute pain control. Move to HYDROmorphone (DILAUDID): - IF patient has received up to 200 mcg of fentaNYL (SUBLIMAZE) OR - IF patient has received 2 doses of fentaNYL (SUBLIMAZE) AND continues to have pain score greater than or equal to six (6) or is unable to participate in post op recovery due to pain. Wait 5 minutes AFTER last fentaNYL (SUBLIMAZE) dose before administering HYDROmorphone (DILADUDID). Postop Anesthesia Phase I only. Notify Provider to assess for uncontrolled pain or analgesic side effects. DO NOT revert back to fentanyl (SUBLIMAZE) after administering HYDROmorphone (DILAUDID)., PACU fentaNYL (PF) (SUBLIMAZE) injection 50 mcg 50 mcg, Intravenous, EVERY 5 MIN PRN, severe pain, Give fentaNYL (SUBLIMAZE) first if HYDROmorphone (DILAUDID) also ordered., Starting on Wed01/03/24 at 1222, Administer fentaNYL (SUBLIMAZE) for acute pain control. Move to HYDROmorphone (DILAUDID): - IF patient has received up to 200 mcg of fentaNYL (SUBLIMAZE), OR - IF patient has received 2 doses of fentaNYL (SUBLIMAZE) AND continues to have severe pain (pain score greater than or equal to seven (7) or is unable to participate in post op recovery due to pain. Wait 5 minutes AFTER last fentaNYL (SUBLIMAZE) dose before administering HYDROmorphone (DILADUDID). Postop Anesthesia Phase I only. Notify Provider to assess for uncontrolled pain or analgesic side effects. DO NOT revert back to fentanyl (SUBLIMAZE) after administering HYDROmorphone (DILAUDID)., PACU 1225 ($Given - Provi carlie: Fabiano Girard RN)1240 ($Given - Provider: Fabiano Girard RN) HYDROmorphone (PF) (DILAUDID) injection 0.2 mg 0.2 mg, Intravenous, EVERY 5 MIN PRN, moderate pain, Starting on Wed01/03/24 at 1250, MAX dose OF 2 MG including the 0.4 mg doses, PACU HYDROmorphone (PF) (DILAUDID) injection 0.4 mg 0.4 mg, Intravenous, EVERY 5 MIN PRN, severe pain, Starting on Wed01/03/24 at 1250, MAX dose of 2 mg including 0.2 mg doses, PACU 1251 ($Given - Provi carlie: Fabiano Girard RN)1302 ($Given - Provider: Fabiano Girard RN) methocarbamol (ROBAXIN) tablet 750 mg 750 mg, Oral, ONCE PRN, muscle spasms, Starting on Wed01/03/24 at 1222, For 1 dose, One time prior to discharge., PACU/Phase II naloxone (NARCAN) injection 0.1 mg 0.1 mg, Intravenous, EVERY 2 MIN PRN, opioid reversal, Starting on Wed01/03/24 at 1222, Notify Anesthesia Provider when administering naloxone (NARCAN) for unintended sedation or respiratory depression IF all three of the following criteria are met: 1. Respiratory rate LESS than or EQUAL to 8. 2. SaO2 is LESS than 92% and/or end-tidal CO2 is GREATER than 50. 3. Patient is receiving an opioid, has unintended sedation assessed as RASS (-4) or (-5) and patient is NOT currently on mechanical ventilation. RASS scale (-4) is deep sedation with no response to voice but movement or eye opening to physical stimulation. RASS scale (-5) is unarousable. Notify Anesthesia Provider PRIOR to administering additional opioids if naloxone (NARCAN) given. Monitor in Phase I for 2 hours after last naloxone (NARCAN) dose PRIOR to transfer to Patient Care Unit or Phase II., PACU ondansetron (ZOFRAN ODT) ODT tab 4 mg(Linked Group 1) 4 mg, Oral, EVERY 30 MIN PRN, nausea, Starting on Wed01/03/24 at 1222, For 2 doses, Administer if NO vascular access present. This is Step 1 of nausea and vomiting management. If nausea/vomiting not resolved in 15 minutes, go to Step 2 dexamethasone (DECADRON) IV. MAX total dose = 8 mg, including OR dosing. With dry hands, peel back foil backing and gently remove tablet. Do not push oral disintegrating tablet through foil backing. Administer immediately on tongue and oral disintegrating tablet dissolves in seconds, then swallow with saliva. Liquid not required., PACU ondansetron (ZOFRAN ODT) ODT tab 4 mg 4 mg, Oral, ONCE PRN, nausea, vomiting, post-operative, Starting on Wed01/03/24 at 1222, For 1 dose, One time prior to discharge. With dry hands, peel back foil backing and gently remove tablet. Do not push oral disintegrating tablet through foil backing. Administer immediately on tongue and oral disintegrating tablet dissolves in seconds, then swallow with saliva. Liquid not required., PACU/Phase II ondansetron (ZOFRAN) injection 4 mg(Linked Group 1) 4 mg, Intravenous, EVERY 30 MIN PRN, nausea, Administer over 2-5 Minutes, Starting on Wed01/03/24 at 1222, For 2 doses, This is Step 1 of nausea and vomiting management. If nausea/vomiting not resolved in 15 minutes, then go to Step 2 dexamethasone (DECADRON) IV. MAX total dose = 8 mg, including OR dosing. Irritant., PACU oxyCODONE IR (ROXICODONE) tablet 10 mg 10 mg, Oral, ONCE PRN, other, pain control or improvement in physical function.??, Starting on Wed01/03/24 at 1222, For 1 dose, Notify provider to assess for uncontrolled pain or analgesic side effects., PACU/Phase II Linked Groups Order Group 1: ondansetron (ZOFRAN ODT) ODT tab 4 mgJump to med 4 mg, Oral, EVERY 30 MIN PRN, nausea, Starting on Wed01/03/24 at 1222, For 2 doses, Administer if NO vascular access present. This is Step 1 of nausea and vomiting management. If nausea/vomiting not resolved in 15 minutes, go to Step 2 dexamethasone (DECADRON) IV. MAX total dose = 8 mg, including OR dosing. With dry hands, peel back foil backing and gently remove tablet. Do not push oral disintegrating tablet through foil backing. Administer immediately on tongue and oral disintegrating tablet dissolves in seconds, then swallow with saliva. Liquid not required., PACU Or ondansetron (ZOFRAN) injection 4 mgJump to med 4 mg, Intravenous, EVERY 30 MIN PRN, nausea, Administer over 2-5 Minutes, Starting on Wed01/03/24 at 1222, For 2 doses, This is Step 1 of nausea and vomiting management. If nausea/vomiting not resolved in 15 minutes, then go to Step 2 dexamethasone (DECADRON) IV. MAX total dose = 8 mg, including OR dosing. Irritant., PACU documented in this encounter Care Teams Shipsmith Relationship Specialty Start Date End Date Thom Ovalles MD [facility] [place] [address] [place] [address] PCP - Orthopaedics Orthopedics 04/08/11 Han Jackson MD [facility] [place] [address] [place] [address] PCP - General Family Medicine 10/23/21 Ruben Frey MD [address] [place], [place] [id number] [place] [address] Assigned Musculoskeletal Provider 04/17/23 documented as of this encounter
--- OUTSIDE RECORDS SUMMARY | 2024-01-21 09:27 | XMS_ITS | Encounter Summary ---
Author Organization [place] Address [address] [place] [address] Care Team Providers Care Post Secondary Professional Name Role Phone Thom Ovalles MD Unavailable [phone] Han Jackson MD Primary Care Provider Ruben Frey MD Unavailable Reason for Visit * Reason Onset Date Comments Call Back 12/31/2023 Prior auth Clinic Care Coordination - Follow-up 12/31/2023 Encounter Details Date Type Department Care Team (Late st Contact Info) Description 12/31/2023 Telephone [facility] Orthopedic [facility] [place] [address] 4th [place] [address] Ruben Frey MD [address] [place] [address] Call Back (Prior auth ); Clinic Care Coordination - Follow-up Social [...] Telephone Encounter - Vania Murillo RN - 12/31/2023 3:05 PM CDT See previous message & reply. I called pt back again & told pt that [place] dept just replied surgery is approved for Wed. Pt stated PA dept did just call her. Vania Murillo RN. * Telephone Encounter - Vania Murillo RN - 12/31/2023 2:52 PM CDT See phone message from pt. I called back & pt stated was checking to see if we heard if surgery is approved for Wednesday? See dictation of appt by Vanessa GASTELUM & I told pt that PA dept had sent a message on 12-28-23 that they submitted dictation to insurance. I told pt I sent message to our PA dept to review & I also asked pt to call her insurance to verify & advised pt to check again upon arrival Mon am & not to do surgery if not approved & pt agreed. Call back prn. Vania Murillo RN. * Telephone Encounter - Dragan Starkey - 12/31/2023 1:28 PM CDT Other: Pt is calling again regarding the prior auth wanting to know if it been approved, please call regarding this Could we send this information to you in [facility] or would you prefer to receive a phone call?: Patient would prefer a phone call Okay to leave a detailed message?: Yes at Cell number on file: Telephone Information: documented in this encounter Plan of Treatment Upcoming Encounters Date Type Department Care Team (Late st Contact Info) Description 02/10/2024 2:40 PM CDT Ancillary Procedure [facility] Orthopedic [address] 4th [place] [address] Ruben Frey MD [address] [place] [address] 02/10/2024 3:00 PM CDT Office Visit [facility] Orthopedic [place] [address] [facility] [address] 4th [place] [phone] Ruben Frey MD [address] [place] [address] documented as of this encounter Visit Diagnoses Not on filedocumented in this encounter Care Teams Post Secondary Professional Relationship Specialty Start Date End Date Thom Ovalles MD [facility] [place] [address] [place] [address] PCP - Orthopaedics Orthopedics 04/08/11 Han Jackson MD [facility] [place] [address] [place] [address] PCP - General Family Medicine 10/23/21 Ruben Frey MD [address] [place] [address] Assigned Musculoskeletal Provider 04/17/23 documented as of this encounter
--- OUTSIDE RECORDS SUMMARY | 2024-01-21 09:27 | XMS_ITS | Encounter Summary ---
Author Organization [place] Address [address] [place] [address]. [place] [address] Care Team Providers Care [facility] Office Supervisor Name Role Phone Thom Ovalles MD Unavailable Han Jackson MD Primary Care Provider Ruben Frey MD Unavailable Reason for Visit * Reason Comments RECHECK RETURN SURGICAL SPIN E Encounter Details Date Type Department Care Team (Late st Contact Info) Description 12/28/2023 11:30 AM CDT Office Visit [facility] Orthopedic Clinic [address] [place] [address] Vanessa Fierro, PA-C [address] [place] [address] Chronic left SI joint pain (Primary Dx); S/P fusion of sacroiliac joint Social History Tobacco Use Types Packs/Day Years [...] on file documented as of this encounter Progress Notes * Vanessa Fierro PA-C - 12/28/2023 11:30 AM CDT Spine Surgical Hx: 06/09/2023 - MIS Right SIJ fusion (Kar[place]). [Implants: SI-Bone TORQ screws x3]. I have reviewed and updated the patient's Past Medical History, Social History, Family History and Medication List. ALLERGIES Penicillins and Tramadol Spine Surgery Follow Up REFERRING PHYSICIAN: No ref. provider found PRIMARY CARE PHYSICIAN: Han Jackson Chief Complaint: No chief complaint on file. History of Present Illness: Symptom Profile Including: location of symptoms, onset, severity, exacerbating/alleviating factors,previous treatments: Kristie Kirkland is a 47 year old female who presents today for routine follow up on left SI joint pain. She is now > 6 months s/p R MIS SI joint fusion (DOS 06/09/[address] Frey). Today, patient presents for follow-up on left sacroiliac joint pain. Please see previous note for full details. Pain continues to be debilitating for patient. She is limping due to the pain. She is still interested in pursuing the left MIS SI joint fusion. She has had 3 SI joint injections on the left. 2 diagnostic injections both provided her with almost 100% relief for 2 hours each. The steroid injection also provided temporary relief but no long-term effects from the steroid. She has also already undergone left SI joint focused physical therapy at [facility]. At this time, she could already be considered to have failed at least 6 months of conservative treatment, including physical therapy, injections, anti- inflammatory medication, home exercises, activity modification, etc. SAVANNA Scores: Oswestry (SAVANNA) Questionnaire 12/13/2023 1:52 PM OSWESTRY DISABILITY INDEX Count 10 Sum 18 Oswestry Score (%) 36 % SAVANNA preop 44% 6wk 22% 3mo 20% 6mo 36% Physical Exam: Constitutional - Patient is healthy, well-nourished and appears stated age Respiratory - Patient is breathing normally and in no respiratory distress. Skin - No suspicious rashes or lesions. Psychiatric - Normal mood and affect. Cardiovascular - Extremities warm and well perfused. Eyes - Visual acuity is normal to the written word. ENT - Hearing intact to the spoken word. GI - No abdominal distention. Musculoskeletal -antalgic gait without use of assistive devices. Lumbar Spine: Appearance - Normal. Localizes pain to left PSIS Palpation - nontender to palpation quadratus lumborum, piriformis, greater trochanters, midline right PSIS. Tender to palpation of left PSIS, ROM - limited, painful flexion and extension Motor - LOWER EXTREMITY Left Right Hip flexion 5/5 5/5 Knee flexion 5/5 5/5 Knee extension 5/5 5/5 Ankle dorsiflexion 5/5 5/5 Ankle plantarflexion 5/5 5/5 Great toe extension 5/5 5/5 Special tests - Straight leg raise - negative ELVIA - positive left Pain with hip ROM - negative Neurologic - Sensation intact to light touch bilaterally. SI provocation tests: Right Left Fabienne Finger Test - + ELVIA - + Thigh Thrust: + left PSIS pain + Pelvic Compression Test - + Palpation - + Pelvic Gapping - + Gaenslen???s Test - + Sacral Thrust (SI) - - Imaging: No new imaging reviewed today. Assessment and Plan: Assessment: 47 year old female with 1. 6 mos s/p MIS R SIJ fusion (06/09/23), doing well. 2. Left sacroiliac joint pain, with positive response to CT-guided Left SIJ dxtic injections x2 (11/29/23 and 12/13/23 Xavier Richards PA-C) and CT-guided Left SIJ injection with steroid (11/02/23 Franchesca RITTER); Positive physical exam findings (+ fabienne finger, + palpation left PSIS, and 5/5 positive provocative maneuvers) Plan: Patient today again presenting with signs and symptoms of left sacroiliac joint pain with significant debilitation on her usual quality of life. She has exhausted nonoperative treatment options as previously noted in previous clinic notes. Positive response to diagnostic injections x 2 and therapeutic injection. Positive Fabienne finger test, positive pain with palpation of left PSIS, +5/5 sacroiliac provocative maneuvers today. We will continue with plan for left MIS SI joint fusion as previously requested by Dr. Frey. - continue with plan for upcoming surgery: Left MIS SI joint fusion Respectfully, Vanessa Fierro (a.k.fabian Ocasio PA-C Orthopaedic Spine Surgery Dept Orthopaedic Surgery, [facility] 10 minutes spent on the date of the encounter doing chart review, review of outside records, reviewof test results, my own interpretation of tests, documentation, patient history, physical exam & discussion of plan with patient and family. Dictation Disclaimer: Some of this Note has been completed with voice- recognition dictation software. Although errors are generally corrected real- time, there is the potential for a rare error to be present in the completed chart. documented in this encounter Plan of Treatment Upcoming Encounters Date Type Department Care Team (Late st Contact Info) Description 02/10/2024 2:40 PM CDT Ancillary Procedure [facility] Orthopedic Xray [address] [phone] Ruben Frey MD [address] [place] [address] 02/10/2024 3:00 PM CDT Office Visit [facility] Orthopedic Clinic [address] [phone] Ruben Frey MD [address] [place] [address] documented as of this encounter Visit Diagnoses Diagnosis Chronic left SI joint pain- Primary Disorders of sacrum S/P fusion of sacroiliac joint documented in this encounter Care Teams [facility] Office Supervisor Relationship Specialty Start Date End Date Thom Ovalles MD [facility] [place] [address] [place] [address] PCP - Orthopaedics Orthopedics 04/08/11 Han Jackson MD [facility] [place] [address] [place] [address] PCP - General Family Medicine 10/23/21 Ruben Frey MD [address] [address] Assigned Musculoskeletal Provider 04/17/23 documented as of this encounter
--- OUTSIDE RECORDS SUMMARY | 2024-01-21 09:27 | XMS_ITS | Encounter Summary ---
Author Organization [facility] Address [address] [place] [address] Care Team Providers Care Pricing Coordinator Name Role Phone hTom Ovalles MD Unavailable Han Jackson MD Primary Care Provider Ruben Frey MD Unavailable Reason for Visit * Diagnostic Imaging XR (Routine) - Pending Review Specialty Diagnoses / Procedures Referred By Contac t Referred To Contact Radiology. Diagnoses S/P fusion of sacroiliac joint Procedures XR Pelvis G/E 3 Views Vanessa Fierro PA-C [address] [place] [address] Referral ID Status Reason Start Date Expiration Date V isits Requested Visits Authorized [id number] Pending Review 11/12/2023 11/11/2024 1 1 Encounter Details Date Type Department Care Team (Latest Contact Info) Description 12/07/2023 12:10 PM CDT Ancillary Procedure [facility] Orthopedic Xray [address] 4th [place] [address] Vanessa Fierro PA-C [address] [place] [address] S/P fusion of sacroiliac joint Social History [...] Description 02/10/2024 2:40 PM CDT Ancillary Procedure [facility] Orthopedic Xray [address] [phone] Ruben Frey MD [address] [place] [address] 02/10/2024 3:00 PM CDT Office Visit [facility] Orthopedic Clinic [address] [phone] Ruben Frey MD [address] [place] [phone] documented as of this encounter Procedures Procedure Name Priority Date/Time Associated Diagnosis Comments XR PELVIS G/E 3 VIEWS Routine 12/07/2023 12:09 PM CDT S/P fusion of sacroiliac joint documented in this encounter Results * XR Pelvis G/E 3 Views (12/07/2023 12:09 PM CDT) Anatomical Region Laterality Modality Abdomen/Pelvis Computed Radiogr aphy Impressions 12/07/2023 12:31 PM CDT IMPRESSION: Stable postsurgical changes of fusion instrumentation at the right sacroiliac joint. FAWN ALFARO MD Narrative 12/07/2023 12:31 PM CDT Exam: [...] island right femoral neck. Procedure Note Fawn Alfaro MD - 12/07/2023 Exam: 3 views of [...] instrumentation at the right sacroiliac joint. FAWN ALFARO MD Vanessa Fierro PA-C IMG DIAGNOSTIC IMAGI NG ORDERABLES documented in this encounter Visit Diagnoses Diagnosis S/P fusion of sacroiliac joint documented in this encounter Care Teams Pricing Coordinator Relationship Specialty Start Date End Date Thom Ovalles MD [facility] [address] [place] [address] PCP - Orthopaedics Orthopedics 04/08/11 Han Jackson MD [facility] [place] [address] [place] [address] PCP - General Family Medicine 10/23/21 Ruben Frey MD [address] [place] [address] Assigned Musculoskeletal Provider 9/2/23 documented as of this encounter
--- OUTSIDE RECORDS SUMMARY | 2024-01-21 09:27 | XMS_ITS | Encounter Summary ---
Author Organization [facility] Address [address] [place] [address]. [place] [address] Care Team Providers Care Signal Maintainer Name Role Phone Thom Ovalles MD Unavailable [...] MUSCULOSKELETAL SURGICAL NAVIGATIONAL ORTHO PROC, IMAGE-GUIDED, CT/MRI ME CPTR-ASST SURGICAL NAVIGATION IMAGE-LESS ME ARTHRODESIS SI JT, PRQ W/O TRANSFIX DEVICE ME ARTHRODESIS SACROILIAC JOINT PERCUTANEOUS ME ARTHRODESIS SACROILIAC JOINT W/OBTAINING GRAFT Minimally invasive FUSION, SACROILIAC JOINT, USING OPTICAL TRACKING SYSTEM [facility] [address] [place] [address] Referral ID Status Reason Start Date Expiration Date Visits Re quested Visits Authorized [id number] 1 1 Encounter Details Date Type Department Care Team (Latest Contact Info) Description 01/03/2024 6:56 AM CDT - 01/03/2024 3:37 PM CDT Hospital Encounter [facility] PACU [address] [place] [address] Ruben Frey MD [address] [facility] [address] [place] [address] Sacroiliac joint pain (Primary Dx) Discharge Disposition: Home or Self Care Social [...] Everywhere. * (s) After Anesthesia (Sleep Medicine) (Lao) documented in this encounter Medications at Time [...] encounter Miscellaneous Notes * Op Note - Ruben Frey MD - 01/03/2024 11:13 AM CDT [...] Left SIJ injection with steroid (11/02/23 Franchesca RITTER). Postoperative Diagnosis: Same Procedure: 1. Minimally-invasive left [...] Screw inserted over the pin using giuseppe electric screw driver operator. This sequence was repeated for the 2nd [...] Description 02/10/2024 2:40 PM CDT Ancillary Procedure [facility] Orthopedic Xray [address] [phone] Ruben Frey MD [address] [place] [address] 02/10/2024 3:00 PM CDT Office Visit [facility] Orthopedic Clinic [address] [phone] Ruben Frey MD [address] [place] [address] documented as of this encounter Procedures Procedure [...] be read by a radiologist or a [facility] non-radiologist provider. Ruben Frey MD IMG DIAGNOSTI [...] [facility] Acute Care Lab [address] [facility], [address] [place] [address] documented in this encounter Visit Diagnoses Diagnosis Sacroiliac joint pain- Primary Disorders of sacrum documented in this encounter [...] $Given 01/03/2024 8:46 AM CDT 975 mg dexAMETHasone (DECADRON) injection 4 mg 4 mg, [...] Pre-procedure 0846 ($Given - Provi carlie: Jocelyn Tejeda, RN) ceFAZolin Sodium (ANCEF) injection 2 g (COMPLETED) Routine, 2 g, Intravenous, PRE-OP/PRE-PROCEDURE, Starting on Wed01/03/24 at 0823, For 1 dose, Give first dose within 1 hour PRIOR to incision. If patient weight is greater than or equal to 120 kg increase dose to 3 g., Indications: Perioperative Pharmacoprophylaxis, Pre-procedure 1113 ($Given - Provi carlie: Nereida Gutierres, ELECTRICAL PARTS RECONDITIONER CONSTRUCTION TECH) oxyCODONE (ROXICODONE) tablet 5 mg (COMPLETED) 5 [...] Comment: Dilute with 30mL of 0.9% NaCllot [id number] 09/15/2026) dexAMETHasone (DECADRON) injection 4 mg 4 [...] PACU documented in this encounter Care Teams Signal Maintainer Relationship Specialty Start Date End Date Thom Ovalles MD [facility] [address] [place] [address] PCP - Orthopaedics Orthopedics 04/08/11 Han Jackson MD [facility] [place] [address] [place] [address] PCP - General Family Medicine 10/23/21 Ruben Frey MD [facility] [address] [place] [address] Assigned Musculoskeletal Provider 04/17/23 documented as of this encounter
--- OUTSIDE RECORDS SUMMARY | 2024-01-21 09:27 | XMS_ITS | Encounter Summary ---
Author Organization [facility] Address [address] [place] [address]. [place] [address] Care Team Providers Care Physical Therapy Coordinator Name Role Phone Thom Ovalles MD Unavailable Han Jackson MD Primary Care Provider [phone] Ruben Frey MD Unavailable Reason for Visit * Reason Onset Date Comments Clinic Care Coordination - Follow-up 12/22/2023 Encounter Details Date Type Department Care Team (Late st Contact Info) Description 12/22/2023 Telephone [facility] Orthopedic Clinic [address] 4th [place] [address] Vania Murillo RN Clinic Care Coordination - Follow-up Social History [...] Telephone Encounter - Vania Murillo RN - 12/22/2023 2:37 PM CDT I called & told pt that we got referral message from Do in [place] dept. Trying to get insurance approval for SI Joint Fusion scheduled for 01-03-24. I had Bishop GASTELUM review chart who ordered pt needs RTN appt in person to document provacative exam for the LEFT side. I called pt & offered appt tomorrow but pt is in [place] so I scheduled for 12-28-23. I informed pt there is a possibility that surgery date might have to be changed if there is not enough time to hear about approval from Insurance. Call back prn. Pt agreed. Vania Murillo RN. documented in this encounter Plan of Treatment Upcoming Encounters Date Type Department Care Team (Late st Contact Info) Description 02/10/2024 2:40 PM CDT Ancillary Procedure [facility] Orthopedic Xray [address] [phone] Ruben Frey MD [address] [place] [address] 02/10/2024 3:00 PM CDT Office Visit [facility] Orthopedic Clinic [address] [phone] Ruben Frey MD [address] [place] [address] documented as of this encounter Visit Diagnoses Not on filedocumented in this encounter Care Teams Physical Therapy Coordinator Relationship Specialty Start Date End Date Thom Ovalles MD [facility] [place] [address] [place] [address] PCP - Orthopaedics Orthopedics 04/08/11 Han Jackson MD [facility] [place] [address] [place] [address] PCP - General Family Medicine 10/23/21 Ruben Frey MD [address] [address] Assigned Musculoskeletal Provider 04/17/23 documented as of this encounter
--- OUTSIDE RECORDS SUMMARY | 2024-01-21 09:27 | XMS_ITS | Encounter Summary ---
Author Organization [place] Address [address] [place] [address]. [place] [address] Care Team Providers Care Ship'S Cook Name Role Phone Thom Ovalles MD Unavailable Han Jackson MD Primary Care Provider Ruben Frey MD Unavailable Encounter Details Date Type Department Care Team (Late st Contact Info) Description 12/27/2023 PRE VISIT [facility] Preoperative Assessment Center [address] 5th [place] [address] Carmela Iglesias APRN [address] [address] Social History Tobacco Use Types Packs/Day [...] * Telephone Encounter - Leslie Menchaca - 12/21/2023 2:13 PM CDT FUTURE VISIT INFORMATION SURGERY INFORMATION: Date: 01/03/24 Location: ur or Surgeon: Ruben Frey MD Anesthesia Type: general Procedure: Minimally invasive FUSION, SACROILIAC JOINT, USING OPTICAL TRACKING SYSTEM Consult: virtual visit 12/14/23 RECORDS REQUESTED FROM: Primary Care Provider: MHealzoey Most recent EKG+ Tracin10/28/21 Most recent Cardiac Stress Test: 03/04/21 documented in this encounter Plan of Treatment Upcoming Encounters Date Type Department Care Team (Late st Contact Info) Description 02/10/2024 2:40 PM CDT Ancillary Procedure [facility] Orthopedic Xray [address] [phone] Ruben Frey MD [address] [place] [address] 02/10/2024 3:00 PM CDT Office Visit [facility] Orthopedic Clinic [address] [phone] Ruben Frey MD [address] [place] [address] documented as of this encounter Visit Diagnoses Not on filedocumented in this encounter Care Teams Ship'S Cook Relationship Specialty Start Date End Date Thom Ovalles MD [facility] [place] [address] [place] [address] PCP - Orthopaedics Orthopedics 04/08/11 Han Jackson MD [facility] [place] [address] [place] [address] PCP - General Family Medicine 10/23/21 Ruben Frey MD [address] [place] [address] [place] [address] Assigned Musculoskeletal Provider 04/17/23 documented as of this encounter
--- OUTSIDE RECORDS SUMMARY | 2024-01-21 09:27 | XMS_ITS | Encounter Summary ---
Author Organization [facility] Address [address] [place] [address] Care Team Providers Care Principal Administrative Clerk Name Role Phone Thom Ovalles MD Unavailable [phone] Han Jackson MD Primary Care Provider Ruben Frey MD Unavailable Reason for Visit * Reason Comments Pre-Op Exam Encounter Details Date Type Department Care Team (Latest Contact Info) Description 12/27/2023 1:00 PM CDT Office Visit [facility] [address] [place] [address] Carmela Iglesias APRN [address] [address] Pre-op evaluation (Primary Dx) Anesthesia Record Procedure Summary Procedure Name Responsible Anesthesiologist Anesthesia Start Time Anesthesia Stop Time Minimally invasive FUSION, LEFT SACROILIAC JOINT, USING OPTICAL TRACKING SYSTEM (Left: Sacrum) Charles Simons, DO 01/03/24 1040 01/03/24 1222 Events Date Time Event Comment 01/03/2024 1027 RENAL CASE MANAGER Ready for Procedure 1040 An Start 1042 An Start Data 1043 AN REASSESS I attest that I have identified and re-evaluated the patient immediately before the induction of anesthesia and I am satisfied that the anesthetic plan is suitable for the patient's condition and procedure. The first vital signs recorded are pre- induction. Nereida M Shirilla, STATEMENT REQUEST CLERK RENAL CASE MANAGER 1054 An Induction 1057 An Intubation 1111 Anesthesia Ready for Procedu re 1210 AN Extubation All extubation criteria met prior to removal. 1214 an stop data 1222 An Stop Electronically signed by Nereida Gutierres APRN CRNA on January 03, 2024 12:22 PM Meds * Agents No agents on file. * Blood No blood administrations on file. [...] 7 mm; Grade View: 1; Placement Person: CLAUDIA; Attempts: 1 01/03/24 1057 by Nereida Gutierres APRN CRNA 01/03/24 1213 by Nereida Gutierres APRN CRNA Gastric Tube 01/03/24; 1100; Decompression 01/03/24 1100 by Nereida Gutierres APRN CRNA 01/03/24 1102 by Nereida Gutierres APRN CRNA documented in this encounter Social History Tobacco [...] Sign Reading Time Taken Comments Blood Pressure 134/88 12/27/2023 12:44 PM CDT Pulse 85 12/27/2023 12:44 PM CDT Temperature 36.6 ??C (97.9 ??F) 12/27/2023 12:44 PM C DT Respiratory Rate 16 12/27/2023 12:44 PM CDT Oxygen Saturation 98% 12/27/2023 12:44 PM CDT Inhaled Oxygen Concentration - - Weight 51.7 kg (114 lb) 12/27/2023 12:44 PM CDT Height 152.4 cm (5') 12/27/2023 12:44 PM CDT Body Mass Index 22.26 12/27/2023 12:44 PM CDT documented in this encounter Patient Instructions * Patient Instructions* Vania Davis RN - 12/27/2023 1:00 PM CDT Preparing for Your Surgery Name: Kristie Kirkland : 1975 Today's Date: 12/27/2023 Arriving for surgery: Surgery date: 01/03/2024 Arrival time: 7:15 AM Please come to: Please come to: [facility] [address] [place], [place] [address]. [place] [address] The Green Ramp for patients and visitors is beneath the [facility]. The parking facility entrance is at the intersection of [address] [place] [address] [address] [place] [address]. Patients and visitors who self-park will receive the reduced hospital parking rate (no ticket v alidation needed). [employer] parking, located at the [facility] main entrance on [address] [place] [address], is available Wednesday - Wednesday from 7 am to 3:30 pm. Discounted parking pass options can be purchased from personal financial counselor attendants during business hours. -Check in at the security desk in the [facility]'s [facility] ([facility]) Lobby. They willdirect you to the correct elevators. -Proceed to the 3rd floor, Adult Surgery Waiting Lounge. [phone] If you need directions, a wheelchair or escort please stop at the Information Desk in the lobby. Inform the information person you are here for surgery; a wheelchair and escort to [address] will be provided. An escort to the Adult Surgery Waiting Lounge will be provided. . What can I eat or drink? - You may eat and drink normally up to 8 hours prior to arrival time. (Until 11:15 PM 01/01) - You may have clear liquids until 2 hours prior to arrival time. (Until 5:15 AM) Examples of clear liquids: Water Clear broth Juices (apple, white grape, white cranberry and cider) without pulp Noncarbonated, powder based beverages (lemonade and Adolph-Aid) Sodas (Sprite, 7-Up, taya guicho and seltzer) Coffee or tea (without milk or cream) Gatorade - No Alcohol or cannabis products for at least 24 hours before surgery. Which medicines can I take? Hold Aspirin for 7 days before surgery. Hold Multivitamins for 7 days before surgery. Hold Supplements for 7 days before surgery. Hold Ibuprofen (Advil, Motrin) for 3 day(s) before surgery--unless otherwise directed by surgeon. Hold Naproxen (Aleve) for 4 days before surgery. Hold Imitrex for 24 hours before surgery. - DO NOT take these medications the day of surgery: Lisinopril - PLEASE TAKE these medications the day of surgery: Tylenol if needed Omeprazole if needed Can take evening medications as scheduled. (Trazadone) How do I prepare myself? - Please take 2 showers (one the night prior to surgery and one the morning of surgery) using Scrubcare or Hibiclens soap. Use this soap only from the neck to your toes. Leave the soap on your skin for one minute--then rinse thoroughly. You may use your own shampoo and conditioner. No other hair products. - Please remove all jewelry and body piercings. - No lotions, deodorants or fragrance. - No makeup or fingernail tamazight. - Bring your ID and insurance card. -If you use a CPAP machine, please bring the CPAP machine, tubing, and mask to hospital. -If you have a Deep Brain Stimulator, Spinal Cord Stimulator, or any Neuro Stimulator device---you must bring the remote control to the hospital. ALL PATIENTS GOING HOME THE SAME DAY OF SURGERY ARE REQUIRED TO HAVE A RESPONSIBLE ADULT TO DRIVE AND BE IN ATTENDANCE WITH THEM FOR 24 HOURS FOLLOWING SURGERY. Covid testing policy as of 07/21/2022 Your surgeon will notify and schedule you for a COVID test if one is needed before surgery--please direct any questions or COVID symptoms to your surgeon Questions or Concerns: - For any questions regarding the day of surgery or your hospital stay, please contact the Pre Admission Nursing Office at [phone]. - If you have health changes between today and your surgery, please call your surgeon. - For questions after surgery, please call your surgeons office. Current Visitor Guidelines You may have 2 visitors in the pre op area. Visiting hours: 8 a.m. to 8:30 p.m. Patients confirmed or suspected to have symptoms of COVID 19 or flu: No visitors allowed for adult patients. Children (under age 18) can have 1 named visitor. People who are sick or showing symptoms of COVID 19 or flu: Are not allowed to visit patients--we can only make exceptions in special situations. Please follow these guidelines for your visit: Please maintain social distance Masking is optional--however at times you may be asked to wear a mask for the safety of yourself and others Clean your hands with alcohol hand cafeteria helper. Do this when you arrive at and leave the building andpatient room, And again after you touch your mask or anything in the room. Go directly to and from the room you are visiting. Stay in the patient???s room during your visit. Limit going to other places in the hospital as muchas possible Leave bags and jackets at home or in the car. For everyone???s health, please don???t come and go during your visit. That includes for smoking during your visit. documented in this encounter H&P Notes * Carmela Iglesias APRN INSTRUMENTATION CHEMIST - 12/27/2023 1:00 PM CDT Images from the original note were not included. Pre-Operative H & P CC: Preoperative exam to assess for increased cardiopulmonary risk while undergoing surgery and anesthesia. Date of Encounter: 12/27/2023 Primary Care Physician: Han Jackson Reason for visit: Pre-operative evaluation HPI Kristie Kirkland is a 48 year old female who presents for pre-operative H & P in preparation for Procedure Information Case: [id number] Date/Time: 01/03/24 0945 Procedure: Minimally invasive FUSION, SACROILIAC JOINT, USING OPTICAL TRACKING SYSTEM (Left: Sacrum) Anesthesia type: General Diagnosis: Chronic left SI joint pain [M53.3, G89.29] Pre-op diagnosis: Chronic left SI joint pain [M53.3, G89.29] Location: [facility] OR 15 / [facility] OR Providers: Ruben Frey MD Kristie Kirkland is a 48-year-old female with hypertension, migraines and GERD that has bilateral chronic SI joint pain. She is 6 months post-op Right MIS SI joint fusion with Dr. Frey and doing well. Her left SIJ has continued to give her ongoing pain, and she feels has gotten even more painful.As before she has attempted several non-surgical interventions that have only given her limited relief. She has consulted with Dr. Frey and the above-listed procedure has been recommended for treatment. History is obtained from the patient and chart review Hx of abnormal bleeding or anti-platelet use: denies Menstrual history: Patient's last menstrual period was 11/14/2009.: Past Medical History Past Medical History: Diagnosis Date Arthritis Chronic constipation Heart murmur, systolic Hypertension Leukopenia 07/10-07/12/12 mild and thrombocytopenia following IV hydration Migraines Other ascites Pneumonia, organism unspecified(486) 06/17 Post term , delivered with or without mention of antepartum condition Childbirth X 3 Rectal ulcer 07/10-07/12/12 @ [place], causing hematochezia with acute blood loss anemia leading to syncopal episode Unspecified intestinal obstruction 07/20/11 Hospitalized Past Surgical History Past Surgical History: Procedure Laterality Date EXCHANGE POLY COMPONENT ARTHROPLASTY KNEE Left 10/28/2021 Procedure: LEFT TOTAL KNEE REVISION, POLYETHYLENE EXCHANGE; Surgeon: Gary Russell MD; Location: [facility] Main OR HC EXC BENIGN SKIN LESION FACE/EARS 0.6-1.0 CM 1997 Cyst removed under chin HC HYSTEROSCOPY, SURGICAL; W/ ENDOMETRIAL ABLATION, ANY METHOD 01/28/10 HC KNEE SCOPE,MED/LAT MENISECTOMY 10/22/10 LT HC LAP,FULGURATE/EXCISE [...] SYSTEM RIGHT; Surgeon: Ruben Frey MD; Location: [facility] OR [facility] AFF NECK/CHEST PROCEDURE UNLISTED 1991 Neck cyst surgery [facility] LAP, SUPRACERVIAL HYSTERECTOMY, <250G 07/02/11 Prior to Admission Medications Current Outpatient Medications Medication Sig Dispense Refill acetaminophen (TYLENOL) 325 MG tablet Take 2 tablets (650 mg) by mouth every 4 hours as needed for other (mild pain) 100 tablet 0 clindamycin (CLEOCIN) 300 MG capsule Take 300 mg by mouth as needed (FOR DENTAL PROCEDURE'S) lisinopril (ZESTRIL) 20 MG tablet Take 20 mg by mouth every morning Multiple Vitamins-Minerals (MULTIVITAMIN PO) Take 1 tablet by mouth every morning omeprazole 20 MG tablet Take 20 mg by mouth every morning SUMAtriptan (IMITREX) 100 MG tablet Take 1 tablet by mouth at onset of headache traZODone (DESYREL) 100 MG tablet Take 100 mg by mouth nightly as needed for sleep Allergies Allergies Allergen Reactions Penicillins Rash Tramadol Rash Social History Social History Socioeconomic History Marital status: Spouse name: Kip Number of children: 3 Years of education: Not on file Highest education level: Not on file Occupational History 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 Employer: [employer] Tobacco Use Smoking status: Never Smokeless tobacco: Never Tobacco comments: no second hand smoke at home or work, 5/19/05 Substance and Sexual Activity Alcohol use: Yes Comment: 3-4 wk Drug use: No Sexual activity: Yes Partners: Male control/protection: Female Surgical Comment: tubal ligation Other Topics Concern Service Not Asked Blood Transfusions No Caffeine Concern Yes Comment: 5 coffee q week Occupational Exposure Not Asked Hobby Hazards Not Asked Sleep Concern No Stress Concern No Weight Concern No Special Diet No Back Care Not Asked Exercise Yes Bike Helmet Not Asked Seat Belt Yes Self-Exams Yes Comment: once in awhile Parent/sibling w/ CABG, [place] or angioplasty before 65F 55M? Not Asked Social History Narrative Not on file Social Determinants of Health Financial Resource Strain: Not on file Food Insecurity: Not on file Transportation Needs: Not on file Physical Activity: Not on file Stress: Not on file Social Connections: Not on file Interpersonal Safety: Not on file Housing Stability: Not on file Family History Family History Problem Relation Age of Onset Eye Disorder Mother GLC Hypertension Mother Osteoporosis Mother osteopenia Cardiovascular Mother mother of a heart attack Cancer Father throat Heart Disease Father aneurysm Hypertension Father Lipids Father C.A.D. Father Respiratory Father COPD Eye Disorder Sister GLC Thyroid Disease Sister thyroid cancer Diabetes Maternal Grandmother Heart Disease Other Grandparents - heart disease Blood Disease No family hx of Neurologic Disorder No family hx of Breast Cancer No family hx of Anesthesia Reaction No family hx of Thrombosis No family hx of Review of Systems The complete review of systems is negative other than noted in the HPI or here. Anesthesia Evaluation Pt has had prior anesthetic. No history of anesthetic complications ROS/MED HX ENT/Pulmonary: - neg pulmonary ROS (-) tobacco use Neurologic: (+) migraines, Cardiovascular: (+) hypertension- - - - - Previous cardiac testing Echo: Date: Results: Stress Test: Date: 2020 Results: Final Impressions: 1. Maximum stress test with 89.1% of age predicted maximum heart rate achieved. 2. See separate report for EKG interpretation. 3. During stress exam the patient developed no significant symptoms. 4. Negative stress echo for ischemia. 5. Post stress, normal left ventricular size, normal global systolic function with an estimated EF of 65 to 70%. ECG Reviewed: Date: 2021 Results: Sinus bradycardia Cath: Date: Results: (-) ROBLES and orthopnea/PND METS/Exercise Tolerance: >4 METS Comment: Walks on her treadmill for 2 miles 6 days per week - moderate pace. Hematologic: - neg hematologic ROS Musculoskeletal: Comment: Bilateral chronic SI joint pain s/p Right MIS SI joint fusion 05/2023 left Total knee revision, polyethylene exchange 2020 C5-6 and C6-7 levels with intact anterior plate and screws. Bilateral posterior spinal fixation hardware at the C6-7 level.(2012) GI/Hepatic: (+) GERD, Asymptomatic on medication, Renal/Genitourinary: - neg Renal ROS Endo: - neg endo ROS Psychiatric/Substance Use: - neg psychiatric ROS Infectious Disease: - neg infectious disease ROS Malignancy: - neg malignancy ROS Other: - neg other ROS (+) , H/O Chronic Pain, BP 134/88 (BP Location: Right arm, Patient Position: Sitting, Cuff Size: Adult Regular) Pulse 85 Temp 97.9 ??F (36.6 ??C) (Oral) Resp 16 Ht 1.524 m (5') Wt 51.7 kg (114 lb) LMP 11/14/2009 SpO2 98% No BMI 22.26 kg/m?? Physical Exam Constitutional: Awake, alert, cooperative, no apparent distress, and appears stated age. Eyes: Pupils equal, round and reactive to light, extra ocular muscles intact, sclera clear, conjunctiva normal. HENT: Normocephalic, oral pharynx with moist mucus membranes, good dentition. No goiter appreciated. Respiratory: Clear to auscultation bilaterally, no crackles or wheezing. Cardiovascular: Regular rate and rhythm, normal S1 and S2, and no murmur noted. Carotids +2, no bruits. No edema. Palpable pulses to radial DP and PT arteries. GI: Normal bowel sounds, soft, non-distended, non-tender, no masses palpated, no hepatosplenomegaly. Surgical scars: healed Lymph/Hematologic: No cervical lymphadenopathy and no supraclavicular lymphadenopathy. Genitourinary: deferred Skin: Warm and dry. No rashes at anticipated surgical site. Musculoskeletal: limited ROM of neck. There is no redness, warmth, or swelling of the joints. Grossmotor strength is normal. Neurologic: Awake, alert, oriented to name, place and time. Cranial nerves II- XII are grossly intact. Gait is normal. Neuropsychiatric: Calm, cooperative. Normal affect. Prior Labs/Diagnostic Studies All labs and imaging personally reviewed Lab Results Component Value Date WBC 6.5 05/12/2023 WBC 5.1 07/21/2012 Lab Results Component Value Date RBC 4.14 05/12/2023 RBC 3.31 07/21/2012 Lab Results Component Value Date HGB 13.4 05/12/2023 HGB 13.0 02/14/2018 Lab Results Component Value Date HCT 39.1 05/12/2023 HCT 32.0 07/21/2012 No components found for: MCT Lab Results Component Value Date MCV 94 05/12/2023 MCV 97 07/21/2012 Lab Results Component Value Date MCH 32.4 05/12/2023 MCH 32.0 07/21/2012 Lab Results Component Value Date MCHC 34.3 05/12/2023 MCHC 33.1 07/21/2012 Lab Results Component Value Date RDW 12.0 05/12/2023 RDW 12.7 07/21/2012 Lab Results Component Value Date PLT 343 05/12/2023 PLT 260 07/21/2012 Last Comprehensive Metabolic Panel: Lab Results Component Value Date NA 137 05/12/2023 POTASSIUM 3.7 05/12/2023 CHLORIDE 97 (L) 05/12/2023 CO2 29 05/12/2023 ANIONGAP 11 05/12/2023 GLC 100 (H) 05/12/2023 BUN 12.4 05/12/2023 CR 0.69 05/12/2023 GFRESTIMATED >90 05/12/2023 JESSICA 9.3 05/12/2023 Lab Results Component Value Date AST 19 07/10/2012 Lab Results Component Value Date ALT 35 07/10/2012 Lab Results Component Value Date BILICONJ 0.0 04/14/2012 Lab Results Component Value Date BILITOTAL <0.1 07/10/2012 Lab Results Component Value Date ALBUMIN 2.6 07/10/2012 Lab Results Component Value Date PROTTOTAL 4.6 07/10/2012 Lab Results Component Value Date ALKPHOS 46 07/10/2012 EKG/ stress test - if available please see in ROS above No results found. The patient's records and results personally reviewed by this provider. Outside records reviewed from: Care Everywhere LAB/DIAGNOSTIC STUDIES TODAY: none Assessment Kristie Kirkland is a 48 year old female seen as a PAC referral for risk assessment and optimization for anesthesia. Plan/Recommendations Pt will be optimized for the proposed procedure. See below for details on the assessment, risk, andpreoperative recommendations NEUROLOGY - No history of TIA, CVA or seizure - Chronic Pain On chronic opiates, morphine equivilant = None -Post Op delirium risk factors: No risk identified - hx of migraines occurs in episodes of 2-3 in 1 week and then not again for months. ENT - No current airway concerns. Will need to be reassessed day of surgery. Mallampati: I TM: > 3 CARDIAC - No history of CAD and Afib No anginal symptoms, Denies palpitations, PND, dizziness or syncope. - Hypertension will hold lisinopril DOS Well controlled - METS (Metabolic Equivalents) Patient performs 4 or more METS exercise without symptoms Total Score: 0 RCRI-Very low risk: Class 1 0.4% complication rate Total Score: 0 PULMONARY Never smoked, denies SOB or any other pulmonary history. COMPA Low Risk Total Score: 1 COMPA: Hypertension - Denies asthma or inhaler use - Tobacco History History Smoking Status Never Smokeless Tobacco Never Comment: no second hand smoke at home or work, 01/01/05 GI - GERD Controlled on medications: Proton Pump Inhibitor PONV Medium Risk Total Score: 2 1 AN PONV: Pt is Female 1 AN PONV: Patient is not a current smoker /RENAL - Baseline Creatinine WNL ENDOCRINE - BMI: Estimated body mass index is 22.26 kg/m?? as calculated from the following: Height as of this encounter: 1.524 m (5'). Weight as of this encounter: 51.7 kg (114 lb). Healthy Weight (BMI 18.5-24.9) - No history of Diabetes Mellitus HEME VTE Low Risk 0.26% Total Score: 0 - No history of abnormal bleeding or antiplatelet use. MSK Patient is NOT Frail Total Score: 0 -Bilateral chronic SI joint pain Procedure scheduled as above. s/p Right MIS SI joint fusion 05/2023 -left Total knee revision, polyethylene exchange 2020 -C5-6 and C6-7 levels with intact anterior plate and screws. Bilateral posterior spinal fixation hardware at the C6-7 level.(2013) Different anesthesia methods/types have been discussed with the patient, but they are aware that the final plan will be decided by the assigned anesthesia provider on the date of service. The patient is optimized for their procedure. AVS with information on surgery time/arrival time, meds and NPO status given by nursing staff. No further diagnostic testing indicated. On the day of service: Prep time: 15 minutes Visit time: 15 minutes Documentation time: 10 minutes Total time: 40 minutes Carmela Iglesias APRN CNP Preoperative Assessment Center [facility] documented in this encounter Plan of Treatment Upcoming Encounters Date Type Department Care Team (Late st Contact Info) Description 02/10/2024 2:40 PM CDT Ancillary Procedure [facility] [address] [phone] Ruben Frey MD [facility] [address] [address] 02/10/2024 3:00 PM CDT Office Visit [facility] [address] [phone] Ruben Frey MD [address] [place] [phone] documented as of this encounter Visit Diagnoses Diagnosis Pre-op evaluation- Primary Preoperative examination, unspecified documented in this encounter Care Teams Principal Administrative Clerk Relationship Specialty Start Date End Date Thom Ovalles MD [facility] [address] [place] [address] PCP - Orthopaedics Orthopedics 04/08/11 Han Jackson MD [facility] [place] [address] [place] [address] PCP - General Family Medicine 10/23/21 Ruben Frey MD [address] [address] Assigned Musculoskeletal Provider 04/17/23 documented as of this encounter
--- OUTSIDE RECORDS SUMMARY | 2024-01-21 09:27 | XMS_ITS | Encounter Summary ---
Author Organization [facility] Address [address] [place] [address]. [place] [address] Care Team Providers Care Television Reporter Name Role Phone Thom Ovalles MD Unavailable [phone] Han Jackson MD Primary Care Provider Ruben Frey MD Unavailable Reason for Visit * Auth/Cert Specialty Diagnoses / Procedures Referred By Hussein t Referred To Contact Med Surg Diagnoses UNKNOWN Care Suit[facility] [phone] [phone] Referral ID Status Reason Start Date Expiration Date Visits Re quested Visits Authorized [id number] 1 1 Encounter Details Date Type Department Care Team (Late st Contact Info) Description 12/13/2023 8:52 AM CDT - 12/13/2023 4:55 PM CDT Hospital Encounter [facility] [address] [phone] Non-Fv Credentialed Provider, Radiology Xavier Richards PA-C [facility] RADIOLOGIC CONS [phone] [phone] Discharge Disposition: Home or Self Care Social [...] on file documented as of this encounter Medications at Time of Discharge [...] sleep 11/16/2023 documented as of this encounter Plan of Treatment Upcoming Encounters Date Type Department Care Team (Late st Contact Info) Description 02/10/2024 2:40 PM CDT Ancillary Procedure [facility] [address] [phone] Ruben Frey MD [address] [place] [address] 02/10/2024 3:00 PM CDT Office Visit [facility] [address] [phone] Ruben Frey MD [address] [place] [address] documented as of this encounter Visit Diagnoses Not on filedocumented in this encounter Care Teams Television Reporter Relationship Specialty Start Date End Date Thom Ovalles MD [facility] [place] [address] [place] [address] PCP - Orthopaedics Orthopedics 04/08/11 Han Jackson MD [facility] [place] [address] [place] [address] PCP - General Family Medicine 10/23/21 Ruben Frey MD [facility] [address] [place] [address] Assigned Musculoskeletal Provider 04/17/23 documented as of this encounter
--- OUTSIDE RECORDS SUMMARY | 2024-01-21 09:27 | XMS_ITS | Encounter Summary ---
Author Organization [facility] Address [address] [place] [address]. [place] [address] Care Team Providers Care Cash Crop Farmer Name Role Phone Thom Ovalles MD Unavailable Han Jackson MD Primary Care Provider Ruben Frey MD Unavailable [phone] Reason for Referral * Consultation (Routine) - Pending Review Specialty Diagnoses / Procedures Referred By Contac t Referred To Contact Diagnoses Chronic left SI joint pain Ruben Frey MD [address] [place] [address] Referral ID Status Reason Start Date Expiration Date V isits Requested Visits Authorized [id number] Pending Review 12/14/2023 12/13/2024 1 1 Question Answer Patient Has a History of: preivous R SIJ fusion Scheduling Instructions: [facility] will call you to coordinate your care as prescribed by your provider. If you don't hear from a patient registration representative within 2 business days, please call . Comments Does this visit require an Anesthesia consult? Procedure: MIS Left SIJ fusion NOT ERAS H&P done by: PAC Please be aware that coverage of these services is subject to the terms and limitations of your health insurance plan. Call member services at your health plan with any benefit or coverage questions. Please bring the following to your appointment: >> Any x-rays, CTs or MRIs which have been performed. Contact the facility where they were done to arrange for belt picker prior to your scheduled appointment. Any new CT, MRI or other procedures ordered by your specialist must be performed at a [facility] facility or coordinated by your clinic's referral office. >> List of current medications >> This referral request >> Any documents/labs given to you for this referral [facility] will call you to coordinate your care as prescribed by your provider. If you don't hear from a patient registration representative within 2 business days, please call . Reason for Visit * Reason Comments RECHECK Encounter Details Date Type Department Care Team (Late st Contact Info) Description 12/14/2023 1:00 PM CDT Virtual Visit [facility] [place] [address] 4th [place] [address] Ruben Frey MD [address] [place] [address] Chronic left SI joint pain (Primary Dx) Social History Tobacco Use Types [...] Reading Time Taken Comments Blood Pressure 122/88 12/14/2023 12:17 PM CDT Pulse - - Temperature - - Respiratory Rate - - Oxygen Saturation - - Inhaled Oxygen Concentration - - Weight 51.7 kg (114 lb) 12/14/2023 12:17 PM CDT Height 152.4 cm (5') 12/14/2023 12:17 PM CDT Body Mass Index 22.26 12/14/2023 12:17 PM CDT documented in this encounter Progress Notes * Ruben Frey MD - 12/14/2023 1:00 PM CDT Spine Surgical Hx: 06/09/2023 - MIS Right SIJ fusion ([place]). [Implants: SI-Bone TORQ screws x3]. VIRTUAL VISIT: Patient is evaluated today via billable virtual visit. The patient has been notified of following: This virtual visit will be conducted via a call between you and your physician/provider. We have found that certain health care needs can be provided without the need for an in-person physical exam.This service lets us provide the care you need with a virtual conversation. If a prescription is necessary we can send it directly to your pharmacy. If lab work is needed we can place an order for that and you can then stop by our lab to have the test done at a later time. If during the course of the call the physician/provider feels a virtual visit is not appropriate, you will not be charged for this service. Physician has received verbal consent for a Virtual Visit from the patient. Platform used: [employer] Video Time: 1:19pm to 1:28pm Originating Location (pt. Location): Home Distant Location (provider location): [facility] Chief Complaint Patient presents with RECHECK Last Visit Date: 08/31/23 (c/o Vanessa Fierro PA-C) Previous Impression: 47 year old female 3 months s/p right MIS SI joint fusion; progressing as expected. Previous Plan: - Follow up in 3 months with repeat XR pelvis inlet/outlet/lateral views. S> 47 year old female, 6 mos postop; last seen at 3 mos. Doing well from her MIS R SIJ fusion; however, reported that left side starting to become more sxtic. Per patient, her Left SIJ had always bothered, except that before her right side was hurting more. Thus, she had the R side treated first. Now, however, the left ahs continued to be a problem, and may have gotten even more bothersome/painful. Recent injections: 11/02/23 - CT-guided Left SIJ injection with steroid (Yenny Mckeon PA-C). Per report, back painimproved from 8/10 to 1; left leg pain improvedc from 5/10 to 0. Per patient, hit the right spot; however, no long-term relief. 11/29/23 - CT-guided Left SIJ dxtic injection, ropivacaine only (Xavier Vergara). Per report, painsignificantly improved from 7/10 to 1. Per patient, relieved ~90% of her pain, but only for ~ 2 hours. 12/13/23 - CT-guided Left SIJ dxtic injection, ropivacaine only (Xavier Vergara). Per report, paincompletely relieved from 7/10 to 0. Per patient, relieved ~100% of her pain but again only for ~ 2 hours. Had done PT both before and after her R SIJ fusion surgery. Has also recently done PT focusing mainly on the Left SIJ pain; at [facility] in [place].. Oswestry (SAVANNA) Questionnaire 12/13/2023 1:52 PM OSWESTRY DISABILITY INDEX Count 10 Sum 18 Oswestry Score (%) 36 % SAVANNA preop 44% 6wk 22% 3mo 20% 6mo 36% PROMIS-10 Scores Global Mental Health Score: (P) 14 Global Physical Health Score: (P) 11 PROMIS TOTAL - SUBSCORES: (P) 25 Physical Examination: This was a virtual visit, so very limited exam could be performed. Patient seemed alert, oriented x3, cooperative, with coherent speech, and not in distress. Able to respond to questions appropriately and follow instructions. Imaging: Pelvis Assessment: 1. 6 mos s/p MIS R SIJ fusion (06/09/23), doing well. 2. Left sacroiliac joint pain, with positive response to CT-guided Left SIJ dxtic injections x2 (11/29/23 and 12/13/23 Xavier Richards PA-C) and CT-guided Left SIJ injection with steroid (11/02/23 Franchesca RITTER). Plan: I do long discussion with patient. She feels that her current pain is again coming from her sacroiliac joint, but this time more on the left side. She has been quite happy with the SI joint fusion beperformed on her right side 6 months ago. She now would like to undergo the same procedure on her left side. She has had 3 SI joint injections on the left. 2 diagnostic injections both provided her with almost 100% relief for 2 hours each. The steroid injection also provided temporary relief but no long-term effects from the steroid. She has also already undergone left SI joint focused physical therapy at [facility]. At this time, she could already be considered to have failed at least 6 months of conservative treatment, including physical therapy, injections, anti- inflammatory medication, home exercises, activity modification, etc. We discussed surgery in the form of minimally invasive SI joint fusion using ingrowth implants. This is the same procedure she underwent on her right side. She is aware of the postoperative course and restrictions. Surgery will be approximately 1 hour, under general anesthesia. 50% partial weightbearing on the left lower extremity using bilateral axillary crutches for the next 4 weeks. - Case request: MIS left SI joint fusion using ingrowth implants. - PAC referral. The patient does not have any untreated, underlying mental health conditions or issues which are a major contributor to their chronic pain. Nonsmoker. 25 minutes spent on the date of the encounter doing chart review/review of outside records/review of test results/interpretation of tests/patient visit/documentation/discussion with other provider(s)/discussion with patient and family. Ruben Frey MD [facility] Sp[facility] Surgery Dept Orthopaedic Surgery, [facility] [phone] office, pager [email or web address] * Vania Murillo RN - 12/14/2023 1:00 PM CDT Teaching Flowsheet Relevant Diagnosis: SPINE Teaching Topic: PREOP Person(s) involved in teaching: Patient Motivation Level: Asks Questions: Yes Eager to Learn: Yes Cooperative: Yes Receptive (willing/able to accept information): Yes Any cultural factors/yazidism beliefs that may influence understanding or compliance? Patient demonstrates understanding of the following: Reason for the appointment, diagnosis and treatment plan: Yes Knowledge of proper use of medications and conditions for which they are ordered (with special attention to potential side effects or drug interactions): Yes Which situations necessitate calling provider and whom to contact: Yes Teaching Concerns Addressed: over phone Proper use and care of meds (medical equip, care aids, etc.): Yes Nutritional needs and diet plan: Yes Pain management techniques: Yes Wound Care: Yes How and/when to access community resources: Yes Instructional Materials Used/Given: preop pkt Time spent with patient: 15 minutes. documented in this encounter Nursing Notes * Yudy Lee - 12/14/2023 1:00 PM CDT Is the patient currently in the state of [place]? YES Visit mode:VIDEO If the visit is dropped, the patient can be reconnected by: VIDEO VISIT: Text to cell phone: Telephone Information: Will anyone else be joining the visit? NO (If patient encounters technical issues they should call [phone] :[phone]) How would you like to obtain your AVS? MyChart Are changes needed to the allergy or medication list? Pt stated no changes to allergies and Pt stated no med changes Are refills needed on medications prescribed by this physician? NO Reason for visit: RECHECK Yuyd Lee VVF documented in this encounter Plan of Treatment Upcoming Encounters Date Type Department Care Team (Late st Contact Info) Description 02/10/2024 2:40 PM CDT Ancillary Procedure [facility] Orthopedic Xray [address] [phone] Ruben Frey MD [address] [place] [address] 02/10/2024 3:00 PM CDT Office Visit [facility] [address] [phone] Ruben Frey MD [address] [place] [address] Scheduled Referrals Name Type Priority Associated Diagnoses Orde r Schedule Adult PAC Visit Referral Referral Routine Chronic left SI joint pain Ordered: 12/14/2023 documented as of this encounter Visit Diagnoses Diagnosis Chronic left SI joint pain- Primary Disorders of sacrum documented in this encounter Care Teams Cash Crop Farmer Relationship Specialty Start Date End Date Thom Ovalles MD [facility] [place] [address] [place] [address] PCP - Orthopaedics Orthopedics 04/08/11 Han Jackson MD [facility] [place] [address] [place] [address] PCP - General Family Medicine 10/23/21 Ruben Frey MD [address] [facility] [address] [place] [address] Assigned Musculoskeletal Provider 04/17/23 documented as of this encounter
--- OUTSIDE RECORDS SUMMARY | 2024-01-21 09:28 | XMS_ITS | Encounter Summary ---
Author Organization [facility] Address [address] [place] [address]. [place] [address] Care Team Providers Care Ladle Cleaner Name Role Phone Thom Ovalles MD Unavailable Han Jackson MD Primary Care Provider Ruben Frey MD Unavailable Reason for Referral * Diagnostic Imaging CT Scan (Routine) - Closed Specialty Diagnoses / Procedures Referred By Hussein t Referred To Contact Radiology. Diagnoses Chronic left SI joint pain S/P fusion of sacroiliac joint Procedures CT Sacroiliac Diagnostic Joint Injection Ruben Frey MD [address] [place] [address] Referral ID Status Reason Start Date Expiration Date Visits Re quested Visits Authorized [id number] Closed 11/15/2023 11/14/2024 1 1 Reason for Visit * Auth/Cert Specialty Diagnoses / Procedures Referred By Hussein t Referred To Contact Med Surg Diagnoses unknown Care [address] [facility] [place] [phone] Referral ID Status Reason Start Date Expiration Date Visits Re quested Visits Authorized [id number] 1 1 Encounter Details Date Type Department Care Team ([facility] st Contact Info) Description 11/29/2023 8:37 AM CDT - 11/29/2023 11:59 PM CDT Hospital Encounter [facility] [address] [place] [phone] Ruben Frey MD [address] [place] [address] Non-Fv Credentialed Provider, Radiology Chronic left SI [...] on file documented as of this encounter Discharge Instructions * Discharge Instructions* Carter Maloney, ARRT - 11/29/2023 9:57 AM CDT Orthopedic Discharge Instructions: After Your Injection or Aspiration Patient Name: Kristie Kirkland Today's Date: November 29, 2023 The doctor who performed your Joint Injection was Xavier Richards PA-C at [facility]) in the CT Department Care of needle [...] Description 02/10/2024 2:40 PM CDT Ancillary Procedure [facility] Orthopedic Xray [address] [phone] Ruben Frey MD [address] [place] [address] 02/10/2024 3:00 PM CDT Office Visit [facility] [address] [phone] Ruben Frey MD [address] [place] [address] documented as of this encounter Procedures Procedure Name Priority Date/Time Associated Diagnosis Comments CT SACROILIAC DIAGNOSTIC JOINT INJECTION Routine 11/29/2023 10:12 AM CDT Chronic left SI joint pain S/P fusion of sacroiliac joint documented in this encounter Results * CT Sacroiliac Diagnostic Joint Injection (11/29/2023 10:12 AM CDT) Anatomical Region Laterality Modality Abdomen/Pelvis, SUBRAD MSK PROCEDURE Computed Tomography Narrative 11/29/2023 10:[address] SACROILIAC DIAGNOSTIC JOINT INJECTION ? 11/29/2023 10:12 AM ?? History: ??CT guided left sacroiliac joint injection Local only NO steroid. Must be by at least 1 week from 2nd separate order; Chronic left SI joint pain; S/P right fusion of sacroiliac joint. Request for right diagnostic injection under CT [...] were no immediate complications. ?? Total DLP: 569 mGycm Images Obtained: 11 Medications used: 10 mL 1% lidocaine, 1 mL of Isovue-M 200, 2 mL of Marcaine 0.5% The patient's pain levels (1-10 scale) are as follows: ?? PRE INJECTION ?? 7 POST INJECTION 1 FINDINGS: Technically successful right SI joint injection. Favorable initial pain relief. XAVIER RICHARDS PA-C Procedure Note Xavier Richards PA-C - 11/29/2023 CT SACROILIAC DIAGNOSTIC JOINT INJECTION 11/29/2023 10:12 AM History: CT guided left sacroiliac joint injection Local only NO steroid. Must be by at least 1 week from 2nd separate order; Chronic left SI joint pain; S/P right fusion of sacroiliac joint. Request for right diagnostic injection under CT [...] there were no immediate complications. Total DLP: 569 mGycm Images Obtained: 11 Medications used: 10 mL 1% lidocaine, 1 mL of Isovue-M 200, 2 mL of Marcaine 0.5% The patient's pain levels (1-10 scale) are as follows: PRE INJECTION 7 POST INJECTION 1 FINDINGS: Technically successful right SI joint injection. Favorable initial pain relief. XAVIER RICHARDS PA-C Ruben Frey MD IMG CT ORDERA BLES documented in this encounter Visit Diagnoses Diagnosis Chronic left SI joint pain Disorders of sacrum S/P fusion of sacroiliac joint documented in this encounter Administered Medications Inactive Administered Medications - up to 3 most recent administrations Medication Order MAR Action Action Date Dose Rate Site (MARCAINE 0.5% 150 mg (30 mL), INTRA-ARTICULAR, ONCE, On Wed11/29/23 at 1000, For 1 dose $Given 11/29/2023 9:54 AM CDT 3 mg iopamidol (ISOVUE-M 200) solution 3 mL 3 mL, Intravenous, ONCE, On Wed11/29/23 at 1000, For 1 dose, Supplied and administered by Radiology. $Given 11/29/2023 9:53 AM CDT 3 mLs Left Hip lidocaine 1 % 3 mL 3 mL, INTRA-ARTICULAR, ONCE, On Wed11/29/23 at 1000, For 1 dose $Given 11/29/2023 9:53 AM CDT 3 mLs documented in this encounter Care Teams Ladle Cleaner Relationship Specialty Start Date End Date Thom Ovalles MD [facility] [place] [address] [place] [address] PCP - Orthopaedics Orthopedics 04/08/11 Han Jackson MD [facility] [place] [address] [facility] [place] [address] PCP - General Family Medicine 10/23/21 Ruben Frey MD [address] [facility] [address] [place] [address] Assigned Musculoskeletal Provider 04/17/23 documented as of this encounter
--- OUTSIDE RECORDS SUMMARY | 2024-01-21 09:28 | XMS_ITS | Encounter Summary ---
Author Organization [facility] Address [address] [place] [address]. [place] [address] Care Team Providers Care Director Of Architecture Name Role Phone Thom Ovalles MD Unavailable Han Jackson MD Primary Care Provider [phone] Ruben Frey MD Unavailable Reason for Visit * Auth/Cert Specialty Diagnoses / Procedures Referred By Hussein t Referred To Contact Med Surg Diagnoses unknown [address] [place] [phone] Referral ID Status Reason Start Date Expiration Date Visits Re quested Visits Authorized [id number] 1 1 Encounter Details Date Type Department Care Team (Late st Contact Info) Description 11/29/2023 8:36 AM CDT - 11/29/2023 10:15 AM CDT Hospital Encounter [facility] [address] [place] [phone] Non-Fv Credentialed Provider, Radiology Xavier Richards PA-C [facility] RADIOLOGIC CONS [address] [...] 2:40 PM CDT Ancillary Procedure [facility] Orthopedic Xray [address] [phone] Ruben Frey MD [address] [place] [address] 02/10/2024 3:00 PM CDT Office Visit [facility] [address] [phone] Ruben Frey MD [address] [place] [address] documented as of this encounter Visit Diagnoses Not on filedocumented in this encounter Care Teams Director Of Architecture Relationship Specialty Start Date End Date Thom Ovalles MD [facility] [place] [address] [place] [address] PCP - Orthopaedics Orthopedics 04/08/11 Han Jackson MD [facility] [place] [address] [place] [address] PCP - General Family Medicine 10/23/21 Ruben Frey MD [address] [place] [address] Assigned Musculoskeletal Provider 04/17/23 documented as of this encounter
--- OUTSIDE RECORDS SUMMARY | 2024-01-21 09:28 | XMS_ITS | Encounter Summary ---
Author Organization [facility] Address [address] [place] [address]. [place] [address] Care Team Providers Care Unified Communications Engineer Name Role Phone Thom Ovalles MD Unavailable Han Jackson MD Primary Care Provider [phone] Ruben Frey MD Unavailable Reason for Visit * Reason Onset Date Comments Pt. Information/instruction 12/06/2023 Encounter Details Date Type Department Care Team (Late st Contact Info) Description 12/06/2023 [facility] [address] [facility] [place] [address] Monica Deluca RN Pt. Information/instruction Social History Tobacco Use Types Packs/Day Years [...] encounter Miscellaneous Notes * Telephone Encounter - Monica Deluca RN - 12/06/2023 9:10 AM CDT Has CSE, no blood thinners in med list, no pertinent allergies. documented in this encounter Plan of Treatment Upcoming Encounters Date Type Department Care Team (Late st Contact Info) Description 02/10/2024 2:40 PM CDT Ancillary Procedure [facility] Orthopedic Xray [address] [phone] Ruben Frey MD [address] [place] [address] 02/10/2024 3:00 PM CDT Office Visit [facility] [address] [phone] Ruben Frey MD [address] [place] [phone] documented as of this encounter Visit Diagnoses Not on filedocumented in this encounter Care Teams Unified Communications Engineer Relationship Specialty Start Date End Date Thom Ovalles MD [facility] [address] [place] [address] PCP - Orthopaedics Orthopedics 04/08/11 Han Jackson MD [facility] [place] [address] [place] [address] PCP - General Family Medicine 10/23/21 Ruben Frey MD [address] [place] [phone] Assigned Musculoskeletal Provider 04/17/23 documented as of this encounter
--- OUTSIDE RECORDS SUMMARY | 2024-01-21 09:28 | XMS_ITS | Encounter Summary ---
Author Organization [facility] Address [address] [place] [address]. [place] [address] Care Team Providers Care Payroll Processor Name Role Phone Thom Ovalles MD Unavailable Han Jackson MD Primary Care Provider Rubne Frey MD Unavailable Encounter Details Date Type Department Care Team (Late st Contact Info) Description 10/26/2023 Telephone [facility] [address] 4th [place] [phone] Ruben Frey MD [facility] [place] [address] Social History Tobacco Use Types Packs/Day Years [...] Description 02/10/2024 2:40 PM CDT Ancillary Procedure [facility] Orthopedic Xray [address] [place] [phone] Ruben Frey MD [address] [place] [address] 02/10/2024 3:00 PM CDT Office Visit [facility] [address] [place] [phone] Ruben Frey MD [address] [place] [address] documented as of this encounter Visit Diagnoses Not on filedocumented in this encounter Care Teams Payroll Processor Relationship Specialty Start Date End Date Thom Ovalles MD [facility] [address] [place] [address] PCP - Orthopaedics Orthopedics 04/08/11 Han Jackson MD [facility] [address] [place] [address] PCP - General Family Medicine 10/23/21 Ruben Frey MD [address] [place] [address] Assigned Musculoskeletal Provider 04/17/23 documented as of this encounter
--- OUTSIDE RECORDS SUMMARY | 2024-01-21 09:28 | XMS_ITS | Encounter Summary ---
Author Organization [place] Address [address] [place] [address] Care Team Providers Care Distributor Operator Name Role Phone Ye Babb Charbel OD Unavailable Thom Ovalles MD Unavailable Frw, None Primary Care Provider Unavailabl Bri Rao MD Unavailable [phone] Ref-Primary, Physician Primary Care Provider José Miguel-Yasmine Antonio APRN VP CARE MANAGEMENT Unavailable José Miguel-Yasmine Antonio APRN VP CARE MANAGEMENT Unavailable Han Jackson MD Primary Care Provider [phone] Ruben Frey MD Unavailable Encounter Details Date Type Department Care Team (Late st Contact Info) Description 08/11/2013 MyC Medical Advice [facility] [place] GUIDE DOG INSTRUCTOR [address] [place] [address] Feli Pinto MD [facility] [address] [place] [address] Social History Tobacco Use Types Packs/Day Years Used Date Smoking Tobacco: Never Smokeless Tobacco: Never Comments:no second hand smok e at home or work, 01/01/05 Alcohol Use Standard Drinks/Week Comments Yes 0 (1 standard drink = 0.6 oz pur e alcohol) rare Sex and Gender Information Value Date Recorded Sex Assigned at Not on file Gender Identity Not on file Sexual Orientation Not on file documented as of this encounter Plan of Treatment Upcoming Encounters Date Type Department Care Team (Late st Contact Info) Description 02/10/2024 2:40 PM CDT Ancillary Procedure [facility] [address] [place] [phone] Ruben Frey MD [address] [place] [address] 02/10/2024 3:00 PM CDT Office Visit [facility] [address] [phone] Ruben Frey MD [address] [place] [address] documented as of this encounter Visit Diagnoses Not on filedocumented in this encounter Care Teams Distributor Operator Relationship Specialty Start Date End Date Ye Babb OD [facility] [address] [place] [address] PCP - Ophthalmology 06/29/05 10/29/21 Thom Ovalles MD [facility] [address] [facility] [address] [place] [address] PCP - Orthopaedics Orthopedics 04/08/11 Frw, None PCP - General Family Practice 04/28/11 04/15/17 [place] [address] PCP - Obstetrics/Gynecology power plant engineer 05/27/11 1 08/19/14 No Ref-Primary, Physician PCP - General 6/18/18 3/9/22 Yasmine Esqueda APRN VP CARE MANAGEMENT [address] [place] [address] [place]OW[place] [address] PCP - Assigned PCP 02/20/18 10/18/18 Han Jackson MD [address] [place] [address] [place] [address] PCP - General Family Medicine 10/23/21 Yasmine Esqueda APRN [facility] CARE MANAGEMENT [address] [place] [address] [place] [address] Assigned PCP 01/21/18 02/15/21 Ruben Frey MD [address] [place] [address] [address] [place] [address] Assigned Musculoskeletal Provider 04/17/23 documented as of this encounter
--- OUTSIDE RECORDS SUMMARY | 2024-01-21 09:28 | XMS_ITS | Encounter Summary ---
Author Organization [place] Address [address] [place] [address]. [place] [address] Care Team Providers Care Roofer Metal Name Role Phone Thom Ovalles MD Unavailable Han Jackson MD Primary Care Provider Ruben Frey MD Unavailable Encounter Details Date Type Department Care Team (Late st Contact Info) Description 07/01/2023 MyC Medical Advice [facility] [address] 4th [place] [address] Ruben Frey MD [facility] [place] [address] Social History Tobacco Use Types Packs/Day Years Used Date Smoking Tobacco: Never Smokeless Tobacco: Never Comments:no second hand smok e at home or work, 01/01/05 Alcohol Use Standard Drinks/Week Comments Yes 0 (1 standard drink = 0.6 oz pur e alcohol) 3-4 wk PHQ-2 Answer Date Recorded PHQ-2 Score 0 05/12/2023 Adolescent Education Answer Date Record ed Getting School Help Needed Not on file 05/11 Sex and Gender Information Value Date Recorded Sex Assigned at Not on file Gender Identity Not on file Sexual Orientation Not on file documented as of this encounter Plan of Treatment Upcoming Encounters Date Type Department Care Team (Late st Contact Info) Description 02/10/2024 2:40 PM CDT Ancillary Procedure [facility] Orthopedic Xray [address] [place] [phone] Ruben Frey MD [address] [place] [address] 02/10/2024 3:00 PM CDT Office Visit [facility] [address] [place] [phone] Ruben Frey MD [address] [place] [address] documented as of this encounter Visit Diagnoses Not on filedocumented in this encounter Care Teams Roofer Metal Relationship Specialty Start Date End Date Thom Ovalles MD [facility] [address] [place] [address] PCP - Orthopaedics Orthopedics 04/08/11 Han Jackson MD [facility] [address] [place] [address] PCP - General Family Medicine 10/23/21 Ruben Frey MD [address] [place] [address] Assigned Musculoskeletal Provider 04/17/23 documented as of this encounter
--- OUTSIDE RECORDS SUMMARY | 2024-01-21 09:28 | XMS_ITS | Encounter Summary ---
Author Organization [place] Address [address] [place] [address]. [place] [address] Care Team Providers Care Laser Beam Color Scanner Operator Name Role Phone Thom Ovalles MD Unavailable Han Jackson MD Primary Care Provider Ruben Frey MD Unavailable Reason for Visit * Diagnostic Imaging CT Scan (Routine) - Closed Specialty Diagnoses / Procedures Referred By Contshahzad t Referred To Contact Radiology. Diagnoses Chronic left SI joint pain Procedures CT Sacroiliac Therapeutic Joint Injection Sofía Kraft PA-C [address] [place] [address] Referral ID Status Reason Start Date Expiration Date Visits Re quested Visits Authorized [id number] Closed 10/22/2023 10/21/2024 1 1 Encounter Details Date Type Department Care Team (Late st Contact Info) Description 11/02/2023 1:44 PM CDT - 11/02/2023 1:46 PM CDT Hospital Encounter [facility] [address] [place] [phone] Sofía Kraft PA-C [address] [place] [address] Chronic left SI joint pain Discharge Disposition: Home or Self Care Social [...] this encounter Discharge Instructions * Discharge Instructions* Aura Martinez RN - 11/02/2023 3:00 PM CDT * Attachments The following attachments cannot be sent through Care Everywhere. * DC INSTRUCTIONS IR ORTHOPEDIC DISCHARGE INSTRUCTIONS documented in this encounter Medications at Time [...] tablet by mouth at onset of headache documented as of this encounter Plan of Treatment Upcoming Encounters Date Type Department Care Team (Late st Contact Info) Description 02/10/2024 2:40 PM CDT Ancillary Procedure [facility] Orthopedic Xray [address] [phone] Ruben Frey MD [address] [facility] [address] [place] [address] 02/10/2024 3:00 PM CDT Office Visit [facility] [address] [place] [address] Ruben Frey MD [address] [place] [address] documented as of this encounter Procedures Procedure Name Priority Date/Time Associated Diagnosis Comments CT SACROILIAC THERAPEUTIC JOINT INJECTION Routine 11/02/2023 2:38 PM CDT Chronic left SI joint pain documented in this encounter Results * CT Sacroiliac Therapeutic Joint Injection (11/02/2023 2:38 PM CDT) Anatomical Region Laterality Modality Abdomen/Pelvis, SUBRAD MSK PROCEDURE Computed Tomography, Computed Tomography Impressions 11/10/2023 8:44 AM CDT Impression: Completed CT-guided therapeutic left sacroiliac joint injection Plan: Follow-up per primary team. LETI MCKEON PA-C Narrative 11/10/2023 8:44 AM CDT Diagnosis: Chronic left SI joint pain; Chronic left SI joint pain Procedure: CT SACROILIAC THERAPEUTIC JOINT INJECTION Indication: Chronic left SI joint pain power plant operator: Aziza Mckeon PA-C Anesthesia: Local only [...] back 1/10, left leg 0/10 Procedure Note Leti Mckeon PA-C - 03/27/2024 Diagnosis: Chronic left SI joint pain; Chronic left SI joint pain Procedure: CT SACROILIAC THERAPEUTIC JOINT INJECTION Indication: Chronic left SI joint pain power plant operator: Aziza Mckeon PA-C Anesthesia: Local only [...] joint injection Plan: Follow-up per primary team. LETI MCKEON PA-C Sofía Kraft PA-C Gracy CT ORDERABLES documented in this encounter Visit Diagnoses Diagnosis Chronic left SI joint pain Disorders of sacrum documented in this encounter Administered Medications Inactive Administered Medications - up to 3 most recent administrations Medication Order MAR Action Action Date Dose Rate Site BUPivacaine (MARCAINE) 0.25 % injection 25 mg 25 mg (10 mL), INTRA-ARTICULAR, ONCE, On Wed11/02/23 at 1400, For 1 dose $Given 11/02/2023 2:18 PM CDT 1 mL lidocaine (PF) (XYLOCAINE) 1 % injection 5 mL 5 mL, Intradermal, ONCE, On Wed11/02/23 at 1400, For 1 dose $Given 11/02/2023 2:31 PM CDT 5 mLs triamcinolone (KENALOG-40) injection 40 mg 40 mg, INTRA-ARTICULAR, ONCE, On Wed11/02/23 at 1400, For 1 dose $Given 11/02/2023 2:18 PM CDT 40 mg documented in this encounter Care Teams Laser Beam Color Scanner Operator Relationship Specialty Start Date End Date Thom Ovalles MD [facility] [place] [address] [place] [address] PCP - Orthopaedics Orthopedics 04/08/11 Han Jackson MD [facility] [place] [address] [place] [address] PCP - General Family Medicine 10/23/21 Ruben Frey MD [facility] [address] [place] [address] Assigned Musculoskeletal Provider 04/17/23 documented as of this encounter
--- OUTSIDE RECORDS SUMMARY | 2024-01-21 09:28 | XMS_ITS | Encounter Summary ---
Author Organization [place] Address [address] [place] [address]. [place] [address] Care Team Providers Care Ice Guard Inspector Name Role Phone Thom Ovalles MD Unavailable Han Jackson MD Primary Care Provider Ruben Frey MD Unavailable Reason for Visit * Reason Onset Date Comments Call Back 11/16/2023 Clinic Care Coordination - Follow-up 11/16/2023 Encounter Details Date Type Department Care Team (Late st Contact Info) Description 11/16/2023 Telephone [facility] [place] [address] [facility] SE 4th [place] [address] Ruben Frey MD [address] [place] [address] Call Back; Clinic Care Coordination - Follow-up Social History [...] Telephone Encounter - Vania Murillo, MAYLIN - 11/16/2023 3:14 PM CDT See phone message from pt. I called & told pt that appt can be virtual sooner & pt agreed. Appt changed. Call back prn. Vania Murillo RN., * Telephone Encounter - Leia Swenson - 11/16/2023 11:21 AM CDT Appointment: Patient is scheduled for her CT guided SI joint injections on 11/28 and 12/12, she is supposed to talk with Dr. Shante flynn after the second injection. She is scheduled for the first available on 01/03. She would like to know if she can see one of Dr. Frey's associates on the team or if the appt has to be with him? She has been wait listed. Please call her to advise. Thank you. Could we send this information to you in [employer] or would you prefer to receive a phone call?: Patient would prefer a phone call Okay to leave a detailed message?: Yes at Cell number on file: Telephone Information: documented in this encounter Plan of Treatment Upcoming Encounters Date Type Department Care Team (Late st Contact Info) Description 02/10/2024 2:40 PM CDT Ancillary Procedure [facility] [address] [phone] Ruben Frey MD [address] [place] [address] 02/10/2024 3:00 PM CDT Office Visit [facility] [address] [phone] Ruben Frey MD [address] [place] [address] documented as of this encounter Visit Diagnoses Not on filedocumented in this encounter Care Teams Ice Guard Inspector Relationship Specialty Start Date End Date Thom Ovalles MD [facility] [place] [address] [place] [address] PCP - Orthopaedics Orthopedics 04/08/11 Han Jackson MD [facility] [place] [address] [place] [address] PCP - General Family Medicine 10/23/21 Ruben Frey MD [address] [place] [address] Assigned Musculoskeletal Provider 04/17/23 documented as of this encounter
--- OUTSIDE RECORDS SUMMARY | 2024-01-21 09:28 | XMS_ITS | Encounter Summary ---
Author Organization [place] Address [address] [place] [address]. [place] [address] Care Team Providers Care Lap Grinder Name Role Phone Thom Ovalles MD Unavailable [phone] Hna Jackson MD Primary Care Provider [phone] Ruben Frey MD Unavailable Encounter Details Date Type Department Care Team (Latest Contact Info) Description 11/22/2023 Travel Social History Tobacco Use Types Packs/Day [...] 02/10/2024 2:40 PM CDT Ancillary Procedure [facility] Orthopedic Xray [place] [address] [facility] SE 4th [place] [address] Ruben Frey MD [address] [place] [address] 02/10/2024 3:00 PM CDT Office Visit [facility] [place] [address] [facility] [address] 4th [place] [phone] Ruben Frey MD [address] [place] [address] documented as of this encounter Visit Diagnoses Not on filedocumented in this encounter Care Teams Lap Grinder Relationship Specialty Start Date End Date Thom Ovalles MD [facility] [place] [address] [place] [address] PCP - Orthopaedics Orthopedics 04/08/11 Han Jackson MD [facility] [place] [address] [place] [address] PCP - General Family Medicine 10/23/21 Ruben Frey MD [address] [place] [address] Assigned Musculoskeletal Provider 04/17/23 documented as of this encounter
--- OUTSIDE RECORDS SUMMARY | 2024-01-21 09:28 | XMS_ITS | Encounter Summary ---
Author Organization [place] Address [address] [place] [address] Care Team Providers Care Aerospace Project Manager Name Role Phone HolleyKei barronshar Barger OD Unavailable Thom Ovalles MD Unavailable No Ref-Primary, Physician Primary Care Provider Han Jackson MD Primary Care Provider Ruben Frey MD Unavailable Encounter Details Date Type Department Care Team (Late st Contact Info) Description 09/13/2021 Documentation Only INTERFACED REPORT Unknown, Provider Social History Tobacco Use Types Packs/Day Years Used Date Smoking Tobacco: Never Smokeless Tobacco: Never Comments:no second hand smok e at home or work, 01/01/05 Alcohol Use Standard Drinks/Week Comments Yes 0 (1 standard drink = 0.6 oz pur e alcohol) rare - less than 1 per month PHQ-2 Answer Date Recorded PHQ-2 Score 0 08/24/2018 Sex and Gender Information Value Date Recorded Sex Assigned at Not on file Gender Identity Not on file Sexual Orientation Not on file documented as of this encounter Plan of Treatment Upcoming Encounters Date Type Department Care Team (Late st Contact Info) Description 02/10/2024 2:40 PM CDT Ancillary Procedure [facility] Orthopedic Xray [place] [address] [facility] [address] 4th [place] [address] Ruben Frey MD [address] [place] [address] 02/10/2024 3:00 PM CDT Office Visit [facility] [place] [address] [facility] [address] 4th [place] [phone] Ruben Frey MD [address] [place] [address] documented as of this encounter Visit Diagnoses Not on filedocumented in this encounter Care Teams Aerospace Project Manager Relationship Specialty Start Date End Date Ye Babb OD [facility] [place] [address] [place] [address] PCP - Ophthalmology 06/29/05 10/29/21 Thom Ovalles MD [facility] [place] [address] [place] [address] PCP - Orthopaedics Orthopedics 04/08/11 No Ref-Primary, Physician PCP - General 01/31/18 10/22/21 Han Jackson MD PCP - General Family Medicine 10/23/21 Ruben Frey MD [address] [place], [place] [address] [place] [address] Assigned Musculoskeletal Provider 04/17/23 documented as of this encounter
--- OUTSIDE RECORDS SUMMARY | 2024-01-21 09:28 | XMS_ITS | Encounter Summary ---
Author Organization [place] Address [address] [place] [address] Care Team Providers Care Collection Development Librarian Name Role Phone Thom Ovalles MD Unavailable [phone] Han Jackson MD Primary Care Provider [phone] Ruben Frey MD Unavailable Reason for Referral * Diagnostic Imaging CT Scan (Routine) - Closed Specialty Diagnoses / Procedures Referred By Contac t Referred To Contact Radiology. Diagnoses Chronic left SI joint pain S/P fusion of sacroiliac joint Procedures CT Sacroiliac Diagnostic Joint Injection Ruben Frey MD [address] [place] [address] Referral ID Status Reason Start Date Expiration Date Visits Re quested Visits Authorized [id number] Closed 11/15/2023 11/14/2024 1 1 * Diagnostic Imaging CT Scan (Routine) - Closed Specialty Diagnoses / Procedures Referred By Contac t Referred To Contact Radiology. Diagnoses Chronic left SI joint pain S/P fusion of sacroiliac joint Procedures CT Sacroiliac Diagnostic Joint Injection Ruben Frey MD [address] [place] [address] Referral ID Status Reason Start Date Expiration Date Visits Re quested Visits Authorized [id number] Closed 11/15/2023 11/14/2024 1 1 Encounter Details Date Type Department Care Team (Late st Contact Info) Description 11/10/2023 MyC Medical Advice [facility] [address] [phone] Ruben Frey MD [address] [place] [address] [phone] Chronic left SI joint pain (Primary Dx); [...] CDT Ancillary Procedure [facility] [address] [phone] Ruben Frey MD [address] [place] [address] 02/10/2024 3:00 PM CDT Office Visit [facility] [address] [phone] Ruben Frey MD [address] [place] [address] documented as of this encounter Results * CT Sacroiliac Diagnostic [...] Frey MD IMG CT ORDERA BLES * CT Sacroiliac Diagnostic Joint Injection (11/29/2023 [...] of sacrum S/P fusion of sacroiliac joint Chronic left SI joint pain Disorders of sacrum S/P fusion of sacroiliac joint Chronic left SI joint pain Disorders of sacrum S/P fusion of sacroiliac joint documented in this encounter Care Teams Collection Development Librarian Relationship Specialty Start Date End Date Thom Ovalles MD [facility] [address] [place] [address] PCP - Orthopaedics Orthopedics 04/08/11 Han Jackson MD [facility] [address] [place] [address] PCP - General Family Medicine 10/23/21 Ruben Frey MD [address] [place] [address] Assigned Musculoskeletal Provider 04/17/23 documented as of this encounter
--- OUTSIDE RECORDS SUMMARY | 2024-01-21 09:28 | XMS_ITS | Encounter Summary ---
Author Organization [place] Address [address] [place] [address]. [place] [address] Care Team Providers Care School Cleaner Name Role Phone Thom Ovalles MD Unavailable Han Jackson MD Primary Care Provider Ruben Frey MD Unavailable Reason for Visit * Reason Onset Date Comments Pt. Information/instruction 11/17/2023 Clinic Care Coordination - Follow-up 11/17/2023 Encounter Details Date Type Department Care Team (Late st Contact Info) Description 11/17/2023 [facility] [place] [address] [facility] SE 4th [place] [address] Ruben Frey MD [address] [place] [address] Pt. Information/instruction ; Clinic Care Coordination - Follow-up Social History [...] Telephone Encounter - Vania Murillo, MAYLIN - 11/17/2023 4:21 PM CDT See phone message from pt just MAKENNA. Vania Murillo RN. * Telephone Encounter - Makenna Guerra - 11/17/2023 3:51 PM CDT [facility] Call Center Phone Message May a detailed message be left on voicemail: yes Reason for Call: Other: FYI - patient just wanted to give a heads up that more physical therapy records will be coming in from [facility]. No call back needed. Action Taken: Message routed to: [facility] Orthopedics Travel Screening: Not Applicable documented in this encounter Plan of Treatment Upcoming Encounters Date Type Department Care Team (Late st Contact Info) Description 02/10/2024 2:40 PM CDT Ancillary Procedure [facility] Orthopedic Xray [address] [phone] Ruben Frey MD [address] [place] [address] 02/10/2024 3:00 PM CDT Office Visit [facility] [address] [phone] Ruben Frey MD [address] [place] [address] documented as of this encounter Visit Diagnoses Not on filedocumented in this encounter Care Teams School Cleaner Relationship Specialty Start Date End Date Thom Ovalles MD [facility] [address] [facility] [address] [place] [address] PCP - Orthopaedics Orthopedics 04/08/11 Han Jackson MD [facility] [address] [facility] [address] [place] [address] PCP - General Family Medicine 10/23/21 Ruben Frey MD [address] [place], [place] [address] [place] [address] Assigned Musculoskeletal Provider 04/17/23 documented as of this encounter
--- OUTSIDE RECORDS SUMMARY | 2024-01-21 09:28 | XMS_ITS | Encounter Summary ---
Author Organization [place] Address [address] [place] [address]. [place] [address] Care Team Providers Care Concrete Puddler Name Role Phone Thom Ovalles MD Unavailable [phone] Han Jackson MD Primary Care Provider Ruben Frey MD Unavailable Reason for Visit * Reason Onset Date Comments Pt. Information/instruction 11/22/2023 Encounter Details Date Type Department Care Team (Late st Contact Info) Description 11/22/2023 [facility] [address] [facility] [facility] [place] [address] Monica Deluca RN Pt. Information/instruction [...] Telephone Encounter - Monica Deluca RN - 11/22/2023 9:05 AM CDT Has CSE no pertinent allergies, no blood thinners listed in med list. documented in this encounter Plan of Treatment Upcoming Encounters Date Type Department Care Team (Late st Contact Info) Description 02/10/2024 2:40 PM CDT Ancillary Procedure [facility] Xray [address] [phone] Ruben Frey MD [address] [place] [address] 02/10/2024 3:00 PM CDT Office Visit [facility] Clinic [address] [phone] Ruben Frey MD [address] [place] [phone] documented as of this encounter Visit Diagnoses Not on filedocumented in this encounter Care Teams Concrete Puddler Relationship Specialty Start Date End Date Thom Ovalles MD [facility] [address] [place] [address] PCP - Orthopaedics Orthopedics 04/08/11 Han Jackson MD [facility] [place] [address] [place] [address] PCP - General Family Medicine 10/23/21 Ruben Frey MD [address] [place] [address]424 Assigned Musculoskeletal Provider 04/17/23 documented as of this encounter
--- OUTSIDE RECORDS SUMMARY | 2024-01-21 09:28 | XMS_ITS | Encounter Summary ---
Author Organization [place] Address [address] [place] [address]. [place] [address] Care Team Providers Care Chief Maintenance Supervisor Name Role Phone Thom Ovalles MD Unavailable Han Jackson MD Primary Care Provider Ruben Frey MD Unavailable Encounter Details Date Type Department Care Team (Latest Contact Info) Description 11/02/2023 Travel Social History Tobacco Use Types Packs/Day [...] Description 02/10/2024 2:40 PM CDT Ancillary Procedure [facility] Orthopedic Xray [place] [id number] [facility] SE 4th [place] [address] Ruben Frey MD [address] [place] [address] 02/10/2024 3:00 PM CDT Office Visit [facility] Orthopedic Clinic [place] [id number] [facility] [address] 4th [place] [phone] Ruben Frey MD [address] [place] [address] documented as of this encounter Visit Diagnoses Not on filedocumented in this encounter Care Teams Chief Maintenance Supervisor Relationship Specialty Start Date End Date Thom Ovalles MD [facility] [place] [address] [place] [address] PCP - Orthopaedics Orthopedics 04/08/11 Han Jackson MD [facility] [place] [address] [place] [address] PCP - General Family Medicine 10/23/21 Ruben Frey MD [address] [place] [address] Assigned Musculoskeletal Provider 04/17/23 documented as of this encounter
--- OUTSIDE RECORDS SUMMARY | 2024-01-21 09:28 | XMS_ITS | Encounter Summary ---
Author Organization [place] Address [address] [place] [address]. [place] [address] Care Team Providers Care Blister Pack Operator Name Role Phone Thom Ovalles MD Unavailable Han Jackson MD Primary Care Provider Ruben Frey MD Unavailable [phone] Reason for Visit * (Routine) - Pending Review Specialty Diagnoses / Procedures Referred By Hussein winters Referred To Contact Radiology. [facility] Interventional Rad [address] [place] [phone] Referral ID Status Reason Start Date Expiration Date V isits Requested Visits Authorized [id number] Pending Review 10/26/2023 10/25/2024 2 2 Encounter Details Date Type Department Care Team (Late st Contact Info) Description 11/02/2023 1:47 PM CDT - 11/02/2023 11:59 PM CDT Hospital Encounter [facility] Interventional Radiology [address] [place] [phone] Non-Fv Credentialed Provider, Radiology Discharge Disposition: Home or Self Care Social [...] Description 02/10/2024 2:40 PM CDT Ancillary Procedure [facility] Orthopedic Xray [address] [phone] Ruben Frey MD [address] [place] [address] 02/10/2024 3:00 PM CDT Office Visit [facility] Orthopedic Clinic [address] [phone] Ruben Frey MD [address] [place] [address] documented as of this encounter Visit Diagnoses Not on filedocumented in this encounter Care Teams Blister Pack Operator Relationship Specialty Start Date End Date Thom Ovalles MD [facility] [address] [place] [address] PCP - Orthopaedics Orthopedics 04/08/11 Han Jackson MD [facility] [place] [address] [facility] [address] [place] [address] PCP - General Family Medicine 10/23/21 Ruben Frey MD [facility] [address] [place] [address] Assigned Musculoskeletal Provider 04/17/23 documented as of this encounter
--- OUTSIDE RECORDS SUMMARY | 2024-01-21 09:28 | XMS_ITS | Encounter Summary ---
Author Organization [place] Address [address] [place] [address] Care Team Providers Care Build Engineer Name Role Phone Thom Ovalles MD Unavailable [phone] Han Jackson MD Primary Care Provider [phone] Ruben Frey MD Unavailable Reason for Referral * Diagnostic Imaging XR (Routine) - Pending Review Specialty Diagnoses / Procedures Referred By Contac t Referred To Contact Radiology. Diagnoses S/P fusion of sacroiliac joint Procedures XR Pelvis G/E 3 Views Vanessa Fierro PA-C [address] [place] [address] Referral ID Status Reason Start Date Expiration Date V isits Requested Visits Authorized [id number] Pending Review 11/12/2023 11/11/2024 1 1 Encounter Details Date Type Department Care Team (Late st Contact Info) Description 11/12/2023 Vane Guillory [facility] Orthopedic Clinic [address] 4th [place] [address] Vanessa Fierro PA-C [address] [place] [address] S/P fusion of sacroiliac joint (Primary Dx) [...] Description 02/10/2024 2:40 PM CDT Ancillary Procedure [facility] Orthopedic Xray [address] [phone] Ruben Frey MD [address] [place] [address] 02/10/2024 3:00 PM CDT Office Visit [facility] Orth[facility] Clinic [address] [phone] Ruben Frey MD [address] [place] [phone] documented as of this encounter Results * XR Pelvis G/E [...] Diagnosis S/P fusion of sacroiliac joint- Primary S/P fusion of sacroiliac joint documented in this encounter Care Teams Build Engineer Relationship Specialty Start Date End Date Thom Ovalles MD [facility] [place] [address] [place] [address] PCP - Orthopaedics Orthopedics 04/08/11 Han Jackson MD [facility] [place] [address] [place] [address] PCP - General Family Medicine 10/23/21 Ruben Frey MD [address] [place] [address] Assigned Musculoskeletal Provider 04/17/23 documented as of this encounter
--- OUTSIDE RECORDS SUMMARY | 2024-01-21 09:28 | XMS_ITS | Encounter Summary ---
Author Organization [place] Address [address] [place] [address]. [place] [address] Care Team Providers Care Antique Dealer Name Role Phone Thom Ovalles MD Unavailable [phone] Han Jackson MD Primary Care Provider Ruben Christianson MD Unavailable Reason for Visit * Reason Onset Date Comments therapy reports 05/05/2023 Patient is reque sting a call back to confirm when they received therapy notes from [facility] Encounter Details Date Type Department Care Team (Late st Contact Info) Description 05/05/2023 [facility] Orthopedic Clinic [place] [id number] [facility] SE 4th [place] [address] Ruben Christianson MD [address] [place] [address] therapy reports (Patient is requesting a call back to confirm when they received therapy notes from [facility]) Social History Tobacco Use Types Packs/Day Years Used Date Smoking Tobacco: Never Smokeless Tobacco: Never Comments:no second hand smok e at home or work, 01/01/05 Alcohol Use Standard Drinks/Week Comments Yes 0 (1 standard drink = 0.6 oz pur e alcohol) 3-4 wk PHQ-2 Answer Date Recorded PHQ-2 Score 0 04/27/2023 Sex and Gender Information Value Date Recorded Sex Assigned at Not on file Gender Identity Not on file Sexual Orientation Not on file COVID-19 Exposure Response Date Recorded In the last 10 days, have yo u been in contact with someone who was confirmed or suspected to have Coronavirus/COVID-19? No / Unsure 04/29/2023 7:43 AM CDT documented as of this encounter Miscellaneous Notes * Telephone Encounter - Thom Mckinney ATC - 05/07/2023 12:58 PM CDT ATC returned patient call to let them know that PT notes from [place] were received on 05/05/23 and scanned into patient's chart. ATC will notify Vania Levy RN and send message to Prior Auth for follow up. Thom Mckinney ATC * Telephone Encounter - Kay Ontiveros - 05/05/2023 12:51 PM CDT [facility] Phone Message May a detailed message be left on voicemail: yes Reason for Call: Other: Patient is requesting a call back to confirm when they received therapy notes from [facility] Action Taken: Message routed to: [facility] abhijit christianson Travel Screening: Not Applicable documented in this encounter Plan of Treatment Upcoming Encounters Date Type Department Care Team (Late st Contact Info) Description 02/10/2024 2:40 PM CDT Ancillary Procedure [facility] Orthopedic Xray [address] [phone] Ruben Christianson MD [address] [facility] [address] [address] 02/10/2024 3:00 PM CDT Office Visit [facility] Orthopedic Clinic [address] [phone] Ruben Christianson MD [address] [place] [phone] documented as of this encounter Visit Diagnoses Not on filedocumented in this encounter Care Teams Antique Dealer Relationship Specialty Start Date End Date Thom Ovalles MD [facility] [address] [facility] [address] [place] [address] PCP - Orthopaedics Orthopedics 04/08/11 Han Jackson MD [facility] [address] [place] [address] [address] [place] [address] PCP - General Family Medicine 10/23/21 Ruben Christianson MD [address] [place] [address] Assigned Musculoskeletal Provider 04/17/23 documented as of this encounter
--- OUTSIDE RECORDS SUMMARY | 2024-01-21 09:28 | XMS_ITS | Encounter Summary ---
Author Organization [place] Address [address] [place] [address]. [place] [address] Care Team Providers Care Crane Engineer Name Role Phone Thom Ovalles MD Unavailable Han Jackson MD Primary Care Provider Ruben Frey MD Unavailable Encounter Details Date Type Department Care Team (Late st Contact Info) Description 11/12/2023 [facility] Orthopedic Clinic [address] 4th [place] [address] Vanessa Fierro PA-C [address] [place] [address] S/P fusion of sacroiliac joint (Primary [...] 02/10/2024 2:40 PM CDT Ancillary Procedure [facility] Orthopedic Xray [address] [place] [phone] Ruben Frey MD [address] [place] [address] 02/10/2024 3:00 PM CDT Office Visit [facility] Orthopedic Clinic [address] [phone] Ruben Frey MD [address] [place] [phone] documented as of this encounter Visit Diagnoses Diagnosis S/P fusion of sacroiliac joint- Primary documented in this encounter Care Teams Crane Engineer Relationship Specialty Start Date End Date Thom Ovalles MD [facility] [place] [address] [place] [address] PCP - Orthopaedics Orthopedics 04/08/11 Han Jackson MD [facility] [place] [address] [place] [address] PCP - General Family Medicine 10/23/21 Ruben Frey MD [address] [place] [address] Assigned Musculoskeletal Provider 04/17/23 documented as of this encounter
--- OUTSIDE RECORDS SUMMARY | 2024-01-21 09:28 | XMS_ITS | Encounter Summary ---
Author Organization [place] Address [address] [place] [address]. [place] [address] Care Team Providers Care Bath Mix Operator Name Role Phone Thom Ovallse MD Unavailable Han Jackson MD Primary Care Provider Ruben Frey MD Unavailable [phone] Encounter Details Date Type Department Care Team (Latest Contact Info) Description 10/26/2023 Travel Social History Tobacco Use Types Packs/Day [...] 02/10/2024 2:40 PM CDT Ancillary Procedure [facility] Orthopedic Xray [place] [address] [facility] SE 4th [place] [address] Ruben Frey MD [address] [place] [address] 02/10/2024 3:00 PM CDT Office Visit [facility] Orthopedic Clinic [place] [address] [facility] SE 4th [place] [phone] Ruben Frey MD [address] [place] [address] documented as of this encounter Visit Diagnoses Not on filedocumented in this encounter Care Teams Bath Mix Operator Relationship Specialty Start Date End Date Thom Ovalles MD [facility] [place] [address] [place] [address] PCP - Orthopaedics Orthopedics 04/08/11 Han Jackson MD [facility] [place] [address] [place] [address] PCP - General Family Medicine 10/23/21 Ruben Frey MD [address] [place] [address] Assigned Musculoskeletal Provider 04/17/23 documented as of this encounter
--- OUTSIDE RECORDS SUMMARY | 2024-01-21 09:28 | XMS_ITS | Encounter Summary ---
Author Organization [place] Address [address] [place] [address] Care Team Providers Care Activities Director Name Role Phone Thom Ovalles MD Unavailable Han Jackson MD Primary Care Provider Ruben Frey MD Unavailable Reason for Visit * Reason Onset Date Comments Call Back 11/05/2023 Requesting call back RE reports findings before next appt Clinic Care Coordination - Follow-up 11/05/2023 Encounter Details Date Type Department Care Team (Late st Contact Info) Description 11/05/2023 [facility] Orthopedic [facility] [address] [facility] [address] 4th [place] [address] Ruben Frey MD [facility] [place], [place] [phone] Call Back (Requesting call back RE reports findings before next appt); Clinic Care Coordination - Follow-up Social History [...] Telephone Encounter - Vania Murillo RN - 11/08/2023 3:16 PM CDT See phone message from Fri late 11-05-23 from pt. I called pt back today 11-08-23 & told pt that I called radiology IR staff this AM because report is not completed yet from CT Guided Left SI Joint injection done 11-02-23. They sent message toRadiologist to see if there is a computer issue to be able to read or complete report before RTC appt 12-07-23. . Pt stated was a very difficult injection taking 45 mins. Because it was difficult to get needle into correct area because space was small. I asked about pain response & pt stated got 100% relief of pain while numbing agent working immediately after & then pain returned after ride home same day. Rates pain 10 before & 1 after. Call back prn. Pt agreed. Vania Murillo RN. * Telephone Encounter - Mary Morton - 11/05/2023 3:20 PM CDT [facility] Call Center Phone Message May a detailed message be left on voicemail: yes Reason for Call: Other: Patient requesting a call back to discuss whether the care team will be able to see the report on the last injection before next appt scheduled on 12/06. Action Taken: Message routed to: [facility] ortho Travel Screening: Not Applicable documented in this encounter Plan of Treatment Upcoming Encounters Date Type Department Care Team (Late Contact Info) Description 02/10/2024 2:40 PM CDT Ancillary Procedure [facility] Orthopedic Xray [place] [address] [facility] [address] 4th [place] [address] Ruben Frey MD [address] [place], [place] [address] 02/10/2024 3:00 PM CDT Office Visit [facility] Orthopedic Clinic [address] 4th [place] [phone] Ruben Frey MD [address] [place] [address] documented as of this encounter Visit Diagnoses Not on filedocumented in this encounter Care Teams Activities Director Relationship Specialty Start Date End Date Thom Ovalles MD [facility] [place] [address] [place] [address] PCP - Orthopaedics Orthopedics 04/08/[address] [facility] [place] [address] [place] [address] PCP - General Family Medicine 10/23/21 Ruben Frey MD [facility] [place] [address] Assigned Musculoskeletal Provider 04/17/23 documented as of this encounter
--- OUTSIDE RECORDS SUMMARY | 2024-01-21 09:28 | XMS_ITS | Encounter Summary ---
Author Organization [place] Address [address] [place] [address]. [place] [address] Care Team Providers Care Nursing Unit Coordinator Name Role Phone Thom Ovalles MD Unavailable Han Jackson MD Primary Care Provider Ruben Frey MD Unavailable [phone] Reason for Referral * Diagnostic Imaging CT Scan (Routine) - Closed Specialty Diagnoses / Procedures Referred By Contshahzad t Referred To Contact Radiology. Diagnoses Chronic left SI joint pain Procedures CT Sacroiliac Therapeutic Joint Injection Sofía Kraft PA-C [address] [place] [address] Referral ID Status Reason Start Date Expiration Date Visits Re quested Visits Authorized [id number] Closed 10/22/2023 10/21/2024 1 1 R DELIVERY RN Reason for Visit * Reason Onset Date Comments Call Back 10/22/2023 Per Patient requ esting for care team/ nurse to call back Encounter Details Date Type Department Care Team (Late st Contact Info) Description 10/22/2023 Telephone [facility] [place] [address] [facility] [address] 4th [place] [address] Ruben Frey MD [address] [place] [address] Call Back (Per Patient requesting for care team/ nurse to call back) Social History Tobacco Use Types Packs/Day Years [...] encounter Miscellaneous Notes * Telephone Encounter - Sofía Kraft PA-C - 10/22/2023 2:46 PM CST Called patient, she is having increased L SI joint pain and discussed getting an injection with Vanessa at last appt. Feels similar to symptoms she had from R SI joint. Will place order for CT guided L SI joint injection with steroids. R DELIVERY RN * Telephone Encounter - Wilfrido Salazar - 10/22/2023 12:43 PM CST [facility] Call Center Phone Message May a detailed message be left on voicemail: yes Reason for Call: Other: Per Patient she is requesting care team/nurse to call her back Per Patient:I want to schedule an injection for my back soon before my f/up appt with Dr. Vanessa Fierro on 12-07-23. Can I do that and have it done. Please call me at [phone] ok lvm Action Taken: Other: [facility]opedics[facility] [[id number]] Travel Screening: Not Applicable R DELIVERY RN documented in this encounter Plan of Treatment Upcoming Encounters Date Type Department Care Team (Late st Contact Info) Description 02/10/2024 2:40 PM CDT Ancillary Procedure [facility] Orthopedic Xray [address] 4th [place] [address] Ruben Frey MD [address] [place] [address] 02/10/2024 3:00 PM CDT Office Visit [facility] [place] [address] [facility] [address] 4th [place] [phone] Ruben Frey MD [address] [place] [address] documented as of this encounter Results * CT Sacroiliac Therapeutic [...] INJECTION Indication: Chronic left SI joint pain blow mold operator: Aziza Mckeon PA-C Anesthesia: Local only [...] 0/10 Procedure Note Leti Mckeon PA-C - 11/10/2023 Diagnosis: Chronic left SI joint pain; Chronic left SI joint pain Procedure: CT SACROILIAC THERAPEUTIC JOINT INJECTION Indication: Chronic left SI joint pain blow mold operator: Aziza Mckeon PA-C Anesthesia: Local only [...] team. LETI MCKEON PA-C Sofía Kraft PA-C IM CT ORDERABLES documented in this encounter Visit Diagnoses Diagnosis Chronic left SI joint pain- Primary Disorders of sacrum Chronic left SI joint pain Disorders of sacrum documented in this encounter Care Teams Nursing Unit Coordinator Relationship Specialty Start Date End Date Thom Ovalles MD [facility] [place] [address] [place] [address] PCP - Orthopaedics Orthopedics 04/08/11 Han Jackson MD [facility] [place] [address] [place] [address] PCP - General Family Medicine 10/23/21 Ruben Frey MD [address] [facility] [address] [place] [address] Assigned Musculoskeletal Provider 04/17/23 documented as of this encounter
--- OUTSIDE RECORDS SUMMARY | 2024-01-21 09:29 | XMS_ITS | Encounter Summary ---
Author Organization [place] Address [address] [place] [address] Care Team Providers Care Vice Provost Name Role Phone Felix Hill MD Primary Care Provider [phone] Gely Taveras MD Unavailable [phone] Ye Babb OD Unavailable [phone] Encounter Details Date Type Department Care Team (Late st Contact Info) Description 01/02/2009 10:56 AM CDT [facility] in [address] [phone] Jesse May MD [address] [phone] Social History Tobacco Use Types Packs/Day Years Used Date Smoking Tobacco: Never Smokeless Tobacco: Never Comments:no second hand smok e at home or work, 01/01/05 Alcohol Use Standard Drinks/Week Comments Yes 0 (1 standard drink = 0.6 oz pur e alcohol) 3-4 wk Sex and Gender Information Value Date Recorded Sex Assigned at Not on file Gender Identity Not on file Sexual Orientation Not on file documented as of this encounter Progress Notes * Jesse May MD - 01/02/2009 2:10 PM CDT PROCEDURE/OPERATIVE REPORT Date of Procedure: 01/02/2009 PREOPERATIVE DIAGNOSES: Left knee lateral meniscus tear. POSTOPERATIVE DIAGNOSES: Left knee lateral meniscus tear. OPERATION: Left knee arthroscopy and partial lateral meniscectomy. SURGEON: Jesse May M.D. ANESTHESIA: Spinal anesthesia. ESTIMATED BLOOD LOSS: Minimal. INDICATIONS: Kristie is a 33-year-old woman who sustained an injury to her knee and subsequently had problems with persistent pain laterally. We discussed risks, benefits and alternatives to knee arthroscopy and meniscectomy was indicated with her. She understands these and desires to proceed with surgery. OPERATIVE SUMMARY: The patient was brought to the operating room and placed on the operating table in the seated position. Spinal anesthesia was smoothly induced. She was then placed in the supine position. A tourniquet was placed around her left thigh followed by a leg richards. The left leg was then prepped and draped in a sterile fashion. The leg was then exsanguinated. Tourniquet inflated to 300 millimeters of mercury. Injection of 1% Lidocaine with epinephrine was placed in the medial lateral joint line. A small incision was made laterally. A trocar was advanced through the incision into the knee joint. The knee joint was then filled with saline. The patellofemoral joint was first visualized and showed no significant degenerative changes. The patellofemoral joint at the medial compartment was then visualized. She was noted to have no significant degenerative changes. A small incision was made medially. There was no meniscal tearing seen medially. The notch was visualized. Her ACL and PCL were noted to be intact. The lateral compartment was then visualized. She was noted to have a radial and horizontal tear to the lateral and anterior aspect of the lateral meniscus. Once that was visualized, a punch was then used to remove this portion of the meniscus followed by a shaver to shave it to a smooth transition. We then used a back biter through the lateral portal as well to remove the anterior portion of the meniscus that appeared to be torn. This was followed by a shaver as well. Once that was completed, she was noted to have only some minimal early degenerative changes to the lateral femoral condyle and lateral tibial plateau. The knee was then suctioned out. The lateral gutter was visualized and there was no loose body seen. The knee was then suctioned out and filled with Marcaine. The incision was then closed using 4-0 Monocryl in an interrupted fashion followed by Steri-Strips, nonadherent dressing and an Tahir bandage. The tourniquet was let down. The patient was then transferred to the recovery room in good condition. Needle and sponge counts correct at the end of the case. Jesse May M.D. [facility]/claire cc: documented in this encounter Plan of Treatment Upcoming Encounters Date Type Department Care Team (Late st Contact Info) Description 02/10/2024 2:40 PM CDT Ancillary Procedure [facility] Orthopedic Xray [address] [phone] Ruben Frey MD [address] [place] [address] 02/10/2024 3:00 PM CDT Office Visit [facility] [address] [phone] Ruben Frey MD [address] [place] [address] documented as of this encounter Visit Diagnoses Not on filedocumented in this encounter Care Teams Vice Provost Relationship Specialty Start Date End Date Felix Hill MD [facility] [place] [address] [place] [address] PCP - General 11/27/08 04/27/11 Gely Taveras MD [facility] [address] [place] [address] PCP - Obstetrics/Gynecology 02/28/03 1 Ye Babb OD [facility] [place] [address] [place] [address] PCP - Ophthalmology 06/29/05 10/29/21 documented as of this encounter
--- OUTSIDE RECORDS SUMMARY | 2024-01-21 09:29 | XMS_ITS | Encounter Summary ---
Author Organization [place] Address [address] [place] [address] Care Team Providers Care All Round Logger Name Role Phone Ye Babb Charbel BUTLER Unavailable [phone] Thom Ovalles MD Unavailable Frw, None Primary Care Provider Unavailabl e Bri Valentine MD Unavailable [phone] Encounter Details Date Type Department Care Team (Late st Contact Info) Description 08/13/2011 1:35 PM RELIEF OPERATOR [facility] in [facility] [address] [place] [phone] Thom Ovalles MD [address] [place] [address] Social History Tobacco Use Types [...] as of this encounter Progress Notes * Thom Ovalles MD - 09/02/2011 10:16 AM RELIEF OPERATOR PROCEDURE/OPERATIVE REPORT Date of Procedure: 08/13/2011 PREOPERATIVE DIAGNOSES: Right carpal tunnel syndrome. POSTOPERATIVE DIAGNOSES: Right carpal tunnel syndrome. OPERATION: Right mini open carpal tunnel release. SURGEON: Thom Ovalles M.D. CHAIN HOOKER: Leola Armstrong PA-C. ANESTHESIA: Local only. ESTIMATED BLOOD LOSS: 5 cubic centimeters. TOURNIQUET TIME: 8 minutes. COMPLICATIONS: None. FINDINGS: The patient did have a thickened and completely released transverse carpal ligament on the right wrist. 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 Subsequently we discussed options of treatment. She desired a carpal tunnel injection initially which gave her about 3 months of relief. Subsequently she wanted to have her carpal tunnel released. We discussed risks and benefits of the procedure and she desired to proceed with the operative procedure. PROCEDURE: The patient was identified in the preoperative holding area. All of her questions were answered. Her right wrist was marked with an indelible marking pen. She was brought back to the operating theater where she was pre-prepped with Chlorhexidine and alcohol and then surgical time-out was done to identify the correct patient, correct limb and correct procedure. I then injected a total of 7 cubic centimeters of local analgesia into the proposed incision in the palm. The patient tolerated the injection well. We then placed a tourniquet on her right forearm and prepped and draped her in normal sterile fashion. Prior to surgical incision, a time-out was done once again. Pinch testing was done to make sure the patient was appropriately anesthetized and subsequently I made a standard palmar incision for a mini open carpal tunnel release. This was taken down through the palmar fascia. The transverse carpal ligament was identified. It was incised to allow for placement of a [place] elevator. This was placed proximal to distal and the residual distal ligament was incised under direct visualization. The deep palmar arch was identified but not cut. Then I moved proximally on the transverse carpal ligament with the [place] elevator in place again and incised through the transverse carpal ligament and finished the dissection of the transverse carpal ligament with a tenotomy scissors. The patient tolerated this well. The transverse carpal ligament was released in its entirety to both visual inspection as well as palpation. Subsequently, the wound was copiously irrigated with sterile saline and tourniquet was deflated. Superficial bleeding was cauterized with bipolar cautery. 4-0 nylon sutures were placed in the skin to close the incision in an interrupted fashion. Adaptic, 4 x 4's, Webril and a volar cock-up wrist splint was placed. She was then transferred to the PACU in stable condition. DISPOSITION: The patient will be discharged home with oral pain medications. She will keep her arm elevated over the next few days. A splint will remain in place for the next 48 - 72 hours. This can be removed at that point in time and Band-Aid to cover the incision to be placed. She will follow up with macie Leong PA, in about 7 days for suture removal and wound evaluation. All of her questions were answered and if she has any further concerns prior to that visit she can feel free to contact the clinic at any point in time. Thom Ovalles M.D. [facility]/claire cc: EF OPERATOR documented in this encounter Plan of Treatment Upcoming Encounters Date Type Department Care Team (Late st Contact Info) Description 02/10/2024 2:40 PM CDT Ancillary Procedure [facility] Orthopedic Xray [address] [phone] Ruben Frey MD [address] [place] [address] 02/10/2024 3:00 PM CDT Office Visit [facility] [address] [phone] Ruben Frey MD [address] [place] [address] documented as of this encounter Visit Diagnoses Not on filedocumented in this encounter Care Teams All Round Logger Relationship Specialty Start Date End Date Ye Babb OD [facility] [address] [facility] [address] [place] [address] PCP - Ophthalmology 06/29/05 10/29/21 Thom Ovalles MD [facility] [address] [facility] [address] [place] [address] PCP - Orthopaedics Orthopedics 04/08/11 Frw, None PCP - General Family Practice 04/28/11 04/15/17 [place] [address] PCP - Obstetrics/Gynecology jig and fixture repairer 05/27/11 1 08/19/14 documented as of this encounter
--- OUTSIDE RECORDS SUMMARY | 2024-01-21 09:29 | XMS_ITS | Encounter Summary ---
Author Organization [place] Address [address] [place] [address] Care Team Providers Care Poly Area Supervisor Name Role Phone Gely Taveras MD Unavailable [phone] Ye Babb OD Unavailable [phone] Thom Ovalles MD Unavailable Frw, None Primary Care Provider Unavailabl e Bri Valentine MD Unavailable [phone] Oralia Lozano Unavailable No Ref-Primary, Physician Primary Care Provider Yasmine Esqueda APRN BILL HIKER Unavailable José Miguel-Yasmine Antonio APRN BILL HIKER Unavailable Han Jackson MD Primary Care Provider Ruben Frey MD Unavailable [phone] Encounter Details Date Type Department Care Team (Late st Contact Info) Description 05/01/2011 MyC Medical Advice [facility] in [place] MASTER LAY OUT SPECIALIST [address] [place] [phone] Kerry Jackson Social History Tobacco Use Types Packs/Day Years [...] 02/10/2024 2:40 PM CDT Ancillary Procedure [facility] Orthopedic Xray [address] [place] [phone] Ruben Frey MD [address] [place] [address] [phone] 02/10/2024 3:00 PM CDT Office Visit [facility] Orth[facility] Clinic [address] [phone] Ruben Frey MD [address] [place] [address] documented as of this encounter Visit Diagnoses Not on filedocumented in this encounter Care Teams Poly Area Supervisor Relationship Specialty Start Date End Date Gely Taveras MD [facility] [address] [place] [address] PCP - Obstetrics/Gynecology 02/28/03 1 Ye Babb OD [facility] [address] [place] [address] PCP - Ophthalmology 06/29/05 10/29/21 Thom Ovalles MD [facility] [address] [place] [address] PCP - Orthopaedics Orthopedics 04/08/11 Frw, None PCP - General Family Practice 04/28/11 04/15/17 [place] [address] PCP - Obstetrics/Gynecology global supply chain director 05/27/11 1 08/19/14 Oralia Lozano [facility] [place] [address] [place] [address] PCP - Audiology Audiology 12/15/12 12/15/12 No Ref-Primary, Physician PCP - General 01/31/18 10/22/21 Yasmine Esqueda APRN BILL HIKER [address] [place] [address] [place] [address] PCP - Assigned PCP 02/20/18 10/18/18 Han Jackson MD [address] [place] [address] [place] [address] PCP - General Family Medicine 10/23/21 Yasmine Esqueda APRN BILL HIKER [address] [place] [address] [place] [address] Assigned PCP 01/21/18 02/15/21 Ruben Frey MD [facility] [facility] [address] [place] [address] Assigned Musculoskeletal Provider 04/17/23 documented as of this encounter
--- OUTSIDE RECORDS SUMMARY | 2024-01-21 09:29 | XMS_ITS | Encounter Summary ---
Author Organization [facility] Address [address] [place] [address] Care Team Providers Care Music Arranger Name Role Phone HolleyYe OD Unavailable [phone] Thom Ovalles MD Unavailable Frw, None Primary Care Provider Unavailabl Bri Rao MD Unavailable [phone] Oralia Lozano Unavailable No Ref-Primary, Physician Primary Care Provider Yasmine Esqueda APRN RN FIELD CASE MANAGER Unavailable Yasmine Esqueda APRN RN FIELD CASE MANAGER Unavailable Han Jackson MD Primary Care Provider Ruben Frey MD Unavailable Encounter Details Date Type Department Care Team (Late st Contact Info) Description 07/18/2011 [facility] in [place] Inpatient Dept [address] [place] [address] Frw, Inpatient Provider Pain following surgery or procedure (Primary Dx) Social History Tobacco Use Types [...] as of this encounter Progress Notes * Jason Veliz MD - 07/19/2011 1:18 PM CST SUBJECTIVE: Kristie is feeling about the same with nausea and vomiting at times and crampy abdominal pain. OBJECTIVE: BP 117/69 O2 Sat % 99.0% Pulse 60 Resp 16 Temp 98.0 Lungs: clear CVS: RRR no murmur Abd: bowel sounds absent, tender diffusely. ASSESSMENT: SBO PLAN: Per surgery. BURNER OPERATOR * Jason Veliz MD - 07/18/2011 10:04 AM CST ADMISSION HISTORY & PHYSICAL Kristie Kirkland : 1975 MR #: [id number] CC: Abdominal pain and bloating HPI: Kristie is a 35 year old female who presents with sudden onset abdominal pain and bloating associatedwith nausea and vomiting. The patient is 2 weeks post op from Laparoscopic supracervical hysterectomy with intraoperative cystoscopy. She had been recovering well and hasn't required any narcotic pain meds for 5 days. Her bowel movements were back to normal until 24 hours ago when they stopped. She denies any fever, bleeding or dysuria. She denies any cough or dyspnea. She is normally very healthy with few problems. She no prior history of abdominal surgery. . Location: abdomen all over Quality: cramping Severity: moderate Duration: 24 hours Timing: sudden onset Modifying Factors: a little better since NG placement. Associated Symptoms: nausea and vomiting. Patient Active Problem List Diagnoses Code ??? PREMENSTRUAL TENSION 625.4 ??? COMMON MIGRAINE W/O MENTN INTRACT 346.10 ??? EXCESSIVE MENSTRUATION 626.2 Past Medical History Diagnosis Date ??? Pneumonia, organism unspecified 06/17 ??? Post term -delivered Childbirth X 3 ??? Migraines Past Surgical History Procedure Date ??? Hc strabisums recess/resect 1 horiz muscle 1990 Eye muscle resection, strabismus, one horizontal muscle ??? Hc lap,tubal cautery 01/19/01 Tubal ligation, laparoscopic ??? Hc removal of tonsils,10+ y/o ??? C neck/chest procedure unlisted 1991 Neck cyst surgery ??? Hc exc benign skin lesion face/ears 0.6-1.0 cm 1997 Cyst removed under chin ??? Hc lap,fulgurate/excise lesions 10/15/04 ??? Hc hysteroscopy, surgical; w/ endometrial ablation, any method 01/28/10 ??? Hc knee scope,med/lat menisectomy 10/22/10 LT ? ? C lap, supracervial hysterectomy, <250g 07/02/11 Current outpatient prescriptions Medication Sig ??? sumatriptan (IMITREX) 50 MG tablet Take 1 tablet by mouth at onset of headache for migraine. May repeat dose in 2 hours. Do not exceed 200 mg in 24 hours History Substance Use Topics ??? Smoking status: Never Smoker ??? Smokeless tobacco: Never Used Comment: no second hand smoke at home or work, 01/01/05 ??? Alcohol Use: Yes rare Family History Problem Relation Age of Onset ??? Eye Mother GLC ??? Eye Sister GLC ??? Cancer Father throat ??? Heart Father aneurysm ??? Hypertension Mother ??? Hypertension Father ??? Osteoporosis Mother osteopenia ??? Blood Disease No family hx of ??? Neurological No family hx of ??? Diabetes Maternal Grandmother ??? Heart Grandparents - heart disease ??? Breast CA No family hx of ??? Lipids Father ??? Cardiovascular Mother mother of a heart attack ??? C.A.D. Father ??? Respiratory Father COPD ??? Thyroid Sister thyroid cancer ??? Anesthesia No family hx of REVIEW OF SYSTEMS: CONSTITUTIONAL: NEGATIVE for fever, chills, change in weight INTEGUMENTARY/SKIN: NEGATIVE for worrisome rashes, moles or lesions EYES: NEGATIVE for vision changes or irritation ENT/MOUTH: NEGATIVE for ear, mouth and throat problems RESP: NEGATIVE for significant cough or SOB CARDIOVASCULAR: NEGATIVE for chest pain, palpitations or peripheral edema GI: as above : NEGATIVE for frequency, dysuria, or hematuria MUSCULOSKELETAL: NEGATIVE for significant arthralgias or myalgia NEURO: NEGATIVE for weakness, dizziness or paresthesias HEME/ALLERGY/IMMUNE: NEGATIVE for bleeding problems PHYSICAL EXAM: There were no vitals taken for this visit. BP: 102/63 PULSE: 46 RESP: 16 TEMP: 97.4 SATS: 97 % GENERAL APPEARANCE: healthy, alert and no distress EYES: EOMI, fundi benign- PERRL HENT: head appears grossly normal, ear canals and TM's normal and nose and mouth without ulcers or lesions RESP: lungs clear to auscultation - no rales, rhonchi or wheezes CV: regular rates and rhythm, normal S1 S2, no S3 or S4 and no murmur, click or rub - ABDOMEN: not distended, bowel sounds absent, tender all over but no peritoneal signs or masses. MUSCULOSKELETAL: extremities normal- no gross deformities noted, no evidence of inflammation in joints, FROM in all extremities. SKIN: no suspicious lesions or rashes NEURO: Normal strength and tone, sensory exam grossly normal, mentation intact and speech normal DIAGNOSTICS: Component Latest Ref Rn 07/18/2011 07/18/2011 07/18/2011 2:50 AM 2:51 AM 2:51 AM Color Urine Yellow Appearance Urine Clear Glucose Urine Low: NEG mg/dL Negative Bilirubin Urine Low: NEG Negative Ketones Urine Low: NEG mg/dL Negative Specific [place] Urine 1.003 - 1.035 1.020 Blood Urine Low: NEG Trace (A) pH Urine 5.0 - 7.0 pH 5.0 Protein Albumin Urine Low: NEG mg/dL 10 (A) Urobilinogen mg/dL 0.0 - 2.0 mg/dL Normal Nitrite Urine Low: NEG Negative Leukocyte Esterase Urine Low: NEG Negative Source Midstream Urine WBC Urine 0 - 2 /HPF 1 RBC Urine 0 - 2 /HPF 1 Bacteria Urine Low: NEG /HPF Few (A) Squamous Epithelial /HPF Urine 0 - 1 /HPF 1 Mucous Urine Low: NEG /LPF Present (A) Amylase 30 - 110 U/L 54 Lipase 20 - 250 U/L 51 Component Latest Ref Rn 07/18/2011 2:51 AM WBC 4.0 - 11.0 10e9/L 14.1 (H) RBC Count 3.8 - 5.2 10e12/L 4.49 Hemoglobin 11.7 - 15.7 g/dL 14.5 Hematocrit 35.0 - 47.0 % 41.5 MCV 78 - 100 fl 92 MCH 26.5 - 33.0 pg 32.3 MCHC 31.5 - 36.5 g/dL 34.9 RDW 10.0 - 15.0 % 13.1 Platelet Count 150 - 450 10e9/L 219 Diff Method Automated Method % Neutrophils 40 - 75 % 83.3 (H) % Lymphocytes 20 - 48 % 7.4 (L) % Monocytes 0 - 12 % 8.6 % Eosinophils 0 - 6 % 0.4 % Basophils 0 - 2 % 0.2 % Immature Granulocytes 0 - 0.4 % 0.1 Absolute Neutrophil 1.6 - 8.3 10e9/L 11.8 (H) Absolute Lymphocytes 0.8 - 5.3 10e9/L 1.1 Absolute Monoctyes 0.0 - 1.3 10e9/L 1.2 Absolute Eosinophils 0.0 - 0.7 10e9/L 0.1 Absolute Basophils 0.0 - 0.2 10e9/L 0.0 Abs Immature Granulocytes 0 - 0.03 10e9/L 0.0 Component Latest Ref Rng 07/18/2011 2:51 AM Sodium 133 - 144 mmol/L 140 Potassium 3.4 - 5.3 mmol/L 4.3 Chloride 94 - 109 mmol/L 110 (H) Carbon Dioxide 20 - 32 mmol/L 19 (L) Anion Gap 6 - 17 mmol/L 11 Glucose 60 - 99 mg/dL 125 (H) Urea Nitrogen 5 - 24 mg/dL 12 Creatinine 0.52 - 1.04 mg/dL 0.74 GFR Estimate Low: >60 mL/min/1.7m2 88 GFR Estimate If Black Low: >60 mL/min/1.7m2 >90 Calcium 8.5 - 10.4 mg/dL 9.7 Bilirubin Total 0.2 - 1.3 mg/dL 0.9 Albumin 3.9 - 5.1 g/dL 4.7 Protein Total 6.8 - 8.8 g/dL 7.5 Alkaline Phosphatase 40 - 150 U/L 66 ALT 0 - 50 U/L 14 AST 0 - 45 U/L 19 CT abdomen showed dilated small bowel loops and some ascites. ASSESSMENT: 1. SBO postop hyterectomy PLAN: 1. Admit 2. General surgery consult and COMPUTER AIDE surgery consult. 3. NG as needed 4. NPO 5. IV pain medication and fluid support. Signed Electronically by: JASON VELIZ July 18, 2011 BURNER OPERATOR documented in this encounter Plan of Treatment Upcoming Encounters Date Type Department Care Team (Late st Contact Info) Description 02/10/2024 2:40 PM CDT Ancillary Procedure [facility] Orthopedic Xray [place] [address] [place] [address] [address] [place] [phone] Ruben Frey MD [address] [place] [address] [id number] 02/10/2024 3:00 PM CDT Office Visit [facility] Orthopedic Clinic [address] [place] [address] [place] [phone] Ruben Frey MD [address] [place] [phone] documented as of this encounter Visit Diagnoses Diagnosis Pain following surgery or procedure- Primary Other acute postoperative pain documented in this encounter Care Teams Music Arranger Relationship Specialty Start Date End Date Ye Babb OD [facility] [place] [address] [place] [address] PCP - Ophthalmology 06/29/05 10/29/21 Thom Ovalles MD [facility] [place] [address] [place] [address] PCP - Orthopaedics Orthopedics 04/08/11 Frw, None PCP - General Family Practice 04/28/11 04/15/17 Bri Valentine [place] [address] PCP - Obstetrics/Gynecology crown ceramist 05/27/11 1 08/19/14 Oralia Lozano [facility] [place] [address] [place] [address] PCP - Audiology Audiology 12/15/12 12/15/12 No Ref-Primary, Physician PCP - General 01/31/18 10/22/21 Yasmine Esqueda APRN RN FIELD CASE MANAGER [address] [place] [address] [place] [address] PCP - Assigned PCP 02/20/18 10/18/18 Han Jackson MD [address] [place] [address] [place] [address] PCP - General Family Medicine 10/23/21 Yasmine Esqueda APRN RN FIELD CASE MANAGER [address] [place] [address] [place] [address] Assigned PCP 01/21/18 02/15/21 Ruben rFey MD [facility] [address] [place] [address] Assigned Musculoskeletal Provider 04/17/23 documented as of this encounter
--- OUTSIDE RECORDS SUMMARY | 2024-01-21 09:29 | XMS_ITS ---
Author Organization [facility] Address [address] [place] [address] Care Team Providers Care Arc Cutter Name Role Phone Thom Ovalles MD Unavailable [phone] Han Jackson MD Primary Care Provider Ruben Frey MD Unavailable Transitional Care Management Status:Closed (Closed) Start date:01/04/2024 Enrollment date:01/04/2024 End date:01/18/2024 Close reason:Goals met Continued Care and Services Coordination
--- OUTSIDE RECORDS SUMMARY | 2024-01-21 09:29 | XMS_ITS | Encounter Summary ---
Author Organization [place] Address [address] [place] [address] Care Team Providers Care Log Check Scaler Name Role Phone Kei BabbSudha BUTLER Unavailable [phone] Thom Ovalles MD Unavailable Frw, None Primary Care Provider Unavailabl Bri Rao MD Unavailable [phone] Oralia Lozano Unavailable No Ref-Primary, Physician Primary Care Provider Yasmine Esqueda APRN SECONDARY SPANISH TEACHER Unavailable Yasmine Esqueda APRN SECONDARY SPANISH TEACHER Unavailable Han Jackson MD Primary Care Provider Ruben Frey MD Unavailable Encounter Details Date Type Department Care Team (Late st Contact Info) Description 07/12/2012 MyC Medical Advice [facility] in [place] [facility] [address] [place] [address] Aaliyah Navarrete, MAYLIN [address] [facility] [address] [place] [address] Social History Tobacco Use Types [...] 02/10/2024 2:40 PM CDT Ancillary Procedure [facility] Orthopedic Xray [address] [place] [phone] Ruben Frey MD [address] [place], [place] [id number] [place], [place] [address] 02/10/2024 3:00 PM CDT Office Visit [facility] [address] [phone] Ruben Frey MD [address] [place] [address] documented as of this encounter Visit Diagnoses Not on filedocumented in this encounter Care Teams Log Check Scaler Relationship Specialty Start Date End Date Ye Babb OD [facility] [place] [address] [place] [address] PCP - Ophthalmology 06/29/05 10/29/21 Thom Ovalles MD [facility] [place] [address] [place] [address] PCP - Orthopaedics Orthopedics 04/08/11 Frw, None PCP - General Family Practice 04/28/11 04/15/17 Bri [place] [address] PCP - Obstetrics/Gynecology greenhouse instructor 05/27/11 1 08/19/14 Oralia Lozano [facility] [place] [address] [place] [address] PCP - Audiology Audiology 12/15/12 12/15/12 No Ref-Primary, Physician PCP - General 01/31/18 10/22/21 Yasmine Esqueda APRN SECONDARY SPANISH TEACHER [address] [place] [address] [place] [address] PCP - Assigned PCP 02/20/18 10/18/18 Han Jackson MD [address] [place] [address] [place] [address] PCP - General Family Medicine 10/23/21 Yasmine Esqueda APRN SECONDARY SPANISH TEACHER [address] [place] [address] [place] [address] Assigned PCP 01/21/18 02/15/21 Ruben Frey MD [facility] [address] [place] [address] Assigned Musculoskeletal Provider 04/17/23 documented as of this encounter
--- OUTSIDE RECORDS SUMMARY | 2024-01-21 09:29 | XMS_ITS | Encounter Summary ---
Author Organization [place] Address [address] [place] [address] Care Team Providers Care Supervisor [employer] Name Role Phone Ye Babb OD Unavailable [phone] Thom Ovalles MD Unavailable Frw, None Primary Care Provider Unavailabl e Bri Valentine MD Unavailable [phone] Encounter Details Date Type Department Care Team (Late st Contact Info) Description 07/18/2011 5:00 AM [facility] in [facility] [address] [place] [phone] Daniela Robles MD [address] [place] [address] Social History Tobacco Use Types [...] as of this encounter Progress Notes * Fatimah Herbert MD - 07/27/2011 1:27 PM CSTCONSULTATION Date: 07/18/11 Reason for consult: I was asked to evaluate the patient by Dr. Maxwell for bloating, possible bowel obstruction. HISTORY OF PRESENT ILLNESS: 35 year old female who underwent a laparoscopic supracervical hysterectomy with intraoperative cystoscopy by Dr. Valentine on 07/02. She was assisted by Dr. Lockwood. The patient underwent the procedure as an outpatient procedure and went home that day feeling generally well. 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 Around Wednesday of this week, she began to notice some degree of bloating and spoke with Dr. Valentine about this on her postop. She then developed bloating and cramping mostly in the lower abdomen. This progressed quite a bit on Wednesday and she was unable to work. She had bilateral lower quadrant crampy abdominal pain that would comes in waves lasting about 5 minutes. Her appetite has generally been reasonable although depressed since surgery. She developed some nausea and vomiting yesterday and eventually came in to the emergency department around 2 in the morning. She had an NG tube on reaching the floor and this has helped quite a bit with her nausea. Her bowel movements are irregular and she normally has bowel movements every other day or so. She thinks she has been having intermittent bowel movements since surgery, but probably hasn't had a bowel movement or passed gas since Wednesday. She was not having any urinary symptoms until she had some bladder spasms yesterday while urinating. No hematuria. No previous bowel obstructions. PAST MEDICAL HISTORY: Migraine headaches. PAST SURGICAL HISTORY: Laparoscopic tubal ligation, laparoscopic cyst removal, neck cyst surgery, a panniculectomy and breast augmentation. CHRONIC MEDICATIONS: Imitrex. ALLERGIES: Penicillin. SOCIAL HISTORY: The patient lives in [place]; she is with 3 children ages 13, 12 and 10. She is a nonsmoker. She does use some alcohol socially. 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 FAMILY HISTORY: Reviewed in [place]. REVIEW OF SYSTEMS: Generally the patient has had good exercise tolerance since surgery. No fevers or chills. All other systems were reviewed by me and unremarkable. PHYSICAL EXAM: Awake, alert female, appropriate mood and affect in no acute distress currently. Temp: 97.4. Blood pressure: 102/63. Pulse: 46. Oxygen saturation: 97%. HEENT: Anicteric sclerae. Extraocular motions are intact. No jugular venous distention or cervical lymphadenopathy. No obvious thyromegaly. Lungs: Clear to auscultation bilaterally. Heart: Regular rate and rhythm without murmurs. Abdomen: Patient is thin, she is nondistended. There are hypoactive bowel sounds. There is diffuse tenderness to palpation more so in the lower quadrants bilaterally with some localized guarding. The incisions are healing well without erythema or infection. There is no evidence of hernia. She has a well healed panniculectomy incision. Extremities: No cyanosis, clubbing for edema. LABORATORY STUDIES included a mildly white blood cell count of 14.1 with a left shift. Hemoglobin was 14.5. Electrolytes were normal with a mildly elevated chloride of 110. BUN and creatinine were normal at 12/0.7. Amylase and lipase were normal. I personally reviewed the patient's CT scan. I would call it a moderate amount of acetic fluid in the abdomen and it does travel up from the pelvis to the right upper quadrant and around the liver. It doesn't appear to be blood by Hounsfield units. Other bowel is dilated without a clear transition zone. It is difficult to see the terminal ileum per se, but this does appear relatively more decompressed and there are some decompressed loops of bowel on the left side of the abdomen. IMPRESSION: Acetic fluid 2 weeks post laparoscopic supracervical hysterectomy with a degree of bowel dilation that could be ileus versus a mechanical obstruction. PLAN: I am most concerned about the acetic fluid which is present now in the abdomen. In my opinion, this is more than I would expect 2 weeks out from surgery. I would be worried about a possible urine leak from a ureter side injury. I will wait for the on-call overnight babysitter to see the patient, but I am leaning towards getting an IVP to rule out a ureter injury. I would then follow bowel dilation to see whether this goes on to progress to improve with conservative management. It may be reactive to the acetic fluid which is present. These above processes were discussed with the patient. All of her questions were answered. Will continue to follow along in her care. Thank you for allowing me to participate in her care. ADDENDUM: I have in the interim spoken with the covering overnight babysitter Dr. Lockwood and spoke with the radiologist on two occasions. In speaking with the radiologist project construction manager initially, we decided it would be a good idea to do a repeat CT of her abdomen and pelvis to look at the ureters and collecting system more closely as well as the bladder. We felt like we may be able to detect a ureter injury by seeing some change in the signal intensity of the fluid in the pelvis to suggest contrast was extravasating. So a repeat CT was done and I spoke with the radiologist. There does not seem to be any evidence of a urine or ureter leak by contrast extravasation. I am still not sure what this fluid is from. It seems to be a moderate amount of fluid, a water-type density. It is more than what I would expect from bowel transudate but with a relatively normal CT we are going to watch her and see how she does over the next day or so. I then may consider tapping the fluid to characterize it better over the next couple of days. NOTE: I spent over one hour with the patient in terms of speaking with the physicians, coordinating her care and reviewing studies. Fatimah Herbert M.D. JSS/mp2 cc: Sylvie Dhillon M.D. ISTRY LECTURER * Severino, Rojas Haney - 07/20/2011 1:55 PM CSTPROGRESS NOTES DATE OF VISIT: 07/20/2011 SUBJECTIVE: Patient says she is feeling better. Less abdominal pain and nausea. NG is out. She's drinking clear fluids. She's passed gas, not a bowel movement yet. OBJECTIVE: No distress, seen walking in the bliss and examined in her hospital bed. VITAL SIGNS: Blood pressure: 122/73. Pulse: 52. Temperature: 99.5 which is her maximum. 99% room air sat. Weight is down a few pounds at 110. LUNGS: Clear to auscultation. No respiratory distress. CARDIAC EXAM: Without murmur. ABDOMEN: Positive bowel sounds, mild right lower quadrant tenderness, but overall benign. LABORATORY DATA: Labs today show white count down to 7.7 from 14 on admission. Hemoglobin is stable actually improved a little bit at 12.6. Platelets 230, creatinine 0.8, potassium 4.1, glucose 60. Ultrasound today showed ascites and a hemorrhagic right ovarian follicle. ASSESSMENT AND PLAN: 1. Small bowel obstruction, clinically improving. I've advanced her diet a little further, Dr. Leon conferred. 2. Hemorrhagic ovarian follicle. I wonder if this could explain some of her pain, ileus and maybe even pelvic fluid. 3. Dr. Valentine has seen the patient today but I have not been able to speak with her yet. 4. Dr. Roman consulted regarding the pelvic fluid. I await his consult but with the patient getting better it was not thought that a urologic procedure would be needed to rule out perforation of bladder at this time. Dr. Leon had consulted from Surgery, since she is getting better he had decided today that the benefit/risk ratio of sampling the fluid was not favorable. 5. If patient continues to improve hopefully she might be able to be discharged home as soon as tomorrow. I'll coordinate this with the three consulting surgeons and I'll try to coordinate our care so that we can get her home when she is doing better. Rojas Severino M.D. ROBBIE/claire cc: ISTRY LECTURER * Oscar Roman MD - 07/20/2011 1:31 PM CSTCONSULTATION INPATIENT UROLOGY CONSULT I requested to see Mrs. Kirkland by Bri Valentine M.D., for evaluation of abdominal fluid collection. HISTORY OF PRESENT ILLNESS: Kristie is an extremely pleasant 35-year-old woman who underwent a laparoscopic supraclavicular hysterectomy by Dr. Valentine on 07/02/2011. This was performed on an outpatient basis, the patient went home later that day feeling generally well. She had an appropriate amount of incisional pain postoperatively and made a full recovery and went back to work. About 1 week ago, she noted some abdominal discomfort and bloating, this progressed to Wednesday of last week, and she was unable to work, and she presented to the emergency room very early on Wednesday morning with nausea and vomiting. A CT scan of the abdomen with contrast was obtained on 07/18/2011 at 4:00 in the morning. This showed distended small bowel consistent with possible partial small bowel obstruction. The colon was relatively decompressed at that time. IV contrast was utilized and contrast was in the nephrogram phase as far as the kidneys were concerned. There was some free fluid in the abdomen seen. There was a suspicion that possibly the free ascites fluid in the abdomen could have been from a urine leak. A repeat CT scan with IV contrast and oral contrast was obtained on 07/18/2011 at about 11:30 in the morning. This was actually done in the late expiratory phase. The bladder was filled with contrast. There is a scant contrast in bilateral intrarenal collecting symptoms and some contrasting to the proximal and midureter on the right as well. There is no evidence of hydronephrosis. There is no evidence of urinary system extravasation or communication to the ascites fluid. There was no evidence of bladder leak. The patient's small bowel obstruction was managed with nasogastric tube decompression, and this was removed within the last 24 hours, and she now is reporting less abdominal discomfort, resolution of her nausea this morning, she is passing small amounts of flatus and taking ice chips per mouth. I should also note that a flatplate of the abdomen on 07/18 and 07/19 did not show any extravasating contrast either. An ultrasound of the abdomen was obtained on 07/20/2011, this shows a relatively small amount of abdominal ascites fluid, normal appearing bilateral kidneys with very trace pelviectasis on the each side, consistent with a normal variant. PAST MEDICAL HISTORY: Significant for migraine headaches. PAST SURGICAL HISTORY: 1. Laparoscopic tubal ligation. 2. Laparoscopic cyst removal. 3. Neck cyst surgery. 4. Panniculectomy. 5. Breast augmentation. CHRONIC MEDICATIONS: Imitrex. ALLERGIES: PENICILLIN. SOCIAL HISTORY: The patient lives in [place], she is with 3 children between the ages of 10 and 13. She does not smoke, she does drink alcohol, no suspicion of abuse. 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 FAMILY HISTORY: Significant for a mother with osteoporosis, cardiovascular issues and hypertension. Her father had coronary artery disease, hypertension, chronic obstructive pulmonary disease, and throat cancer. There is no history of urologic issues in the family. REVIEW OF SYSTEMS: The patient has not had any vaginal fluid leakage or bleeding, she feels that her abdominal distention and discomfort are resolving, she has resolved her nausea. She has no fevers or chills, no flank pain. The remainder of systems are normal. ON EXAM: This is a very pleasant 35-year-old female in no apparent distress. Mood and affect are normal. Respiratory effort is normal and nonlabored. VITAL SIGNS: Respirations 18 ,T-current is 99.5, pulse 54, blood pressure 127/62, saturations 99% on room air. HEENT: Anicteric sclerae, extraocular muscles are intact, no jugular venous distention. NECK: Supple. ABDOMEN: Thin, nondistended, mildly uncomfortable. She moves all extremities, no lower extremity edema. LABORATORY: Reviewed her basic metabolic panel from today, this shows a creatinine of 0.76, which is normal, and her baseline. A CBC is reviewed that shows a normal white count and hemoglobin. ASSESSMENT: Postoperative ileus/partial small bowel obstruction of uncertain etiology. There is some free fluid in the abdomen, which I think that there is a relatively low suspicion that this could be urine, I would estimate that the CT scan would be about 90% sensitive for a urine leak, especially given the degree of fluid that was seen. PLAN: I discussed these findings with Dr. Valentine, as well as the patient. At this point, we certainly could perform other invasive tests to evaluate for urinary system injury, but as she is clinically improving and she had [address] scans recently, I think the risk for this is low and further studies to look for ureteral extravasation are not indicated necessarily at this point. The test of choice would be to perform cystoscopy with bilateral retrograde pyelograms. In discussion with the patient and Dr. Valentine, we will plan on holding off on further invasive studies as she is clinically improving, and the general suspicion is low, as stated above. If she were to get worse now that her nasogastric is out and persists with a prolonged ileus, especially with nausea and vomiting, then I think that we should proceed at that point with retrogrades. Oscar Roman M.D. MICHAEL/olivia cc: Bri Valentine M.D. ISTRY LECTURER documented in this encounter Plan of Treatment Upcoming Encounters Date Type Department Care Team (Late st Contact Info) Description 02/10/2024 2:40 PM CDT Ancillary Procedure [facility] ay [address] 4th [place] [address] Ruben Frey MD [address] [place] [address] 02/10/2024 3:00 PM CDT Office Visit [facility] Orthopedic [address] 4[address] [place] [phone] Ruben Frey MD [address] [place] [address] documented as of this encounter Visit Diagnoses Not on filedocumented in this encounter Care Teams Supervisor [employer] Relationship Specialty Start Date End Date Ye Babb OD [facility] [place] [address] [place] [address] PCP - Ophthalmology 06/29/05 10/29/21 Thom Ovalles MD [facility] [place] [address] [place] [address] PCP - Orthopaedics Orthopedics 04/08/11 Frw, None PCP - General Family Practice 04/28/11 04/15/17 Bri Valentine [place] [address] PCP - Obstetrics/Gynecology home day care provider 05/27/11 1 08/19/14 documented as of this encounter
--- OUTSIDE RECORDS SUMMARY | 2024-01-21 09:29 | XMS_ITS | Encounter Summary ---
Author Organization [place] Address [address] [place] [address] Care Team Providers Care Director Pharmacy Services Name Role Phone Felix Hill MD Primary Care Provider [phone] Gely Taveras MD Unavailable [phone] Ye Babb OD Unavailable [phone] Encounter Details Date Type Department Care Team (Late st Contact Info) Description 01/28/2010 6:33 AM CDT [facility] in [address] [phone] Bri Valentine [place] [address] Social History Tobacco Use Types Packs/Day Years [...] as of this encounter Progress Notes * Bri Valentine MD - 01/29/2010 9:17 AM CDT PROCEDURE/OPERATIVE REPORT Date of Procedure: 01/28/10 PREOPERATIVE DIAGNOSES: Menorrhagia. POSTOPERATIVE DIAGNOSES: Menorrhagia with an arcuate-shaped uterus. OPERATION: Hysteroscopy and hydrothermal endometrial ablation SURGEON: Dr. Valentine. ANESTHESIA: MAC and paracervical block. ESTIMATED BLOOD LOSS: 5 mL or less. DRAINS: None. COMPLICATIONS: None. FINDINGS: An arcuate shape to the uterus, otherwise normal endometrium and tubal ostia. INDICATIONS: Kristie is a 34-year-old 3, para 3, status post tubal ligation. She has had gradually increasing problems with menorrhagia. She had been on oral contraceptives without success and now would like treatment but would rather not have a hysterectomy at this time. We discussed the risks, benefits and alternatives and consents were obtained. PROCEDURE: The patient was taken to the operating room where she received IV sedation. She was then placed in lithotomy position using candy cane stirrups and prepped and draped in the usual fashion. Another pause was taken to identify the patient, date of , medical record number, allergy to penicillin and the procedure. A weighted speculum was placed in the posterior fourchette. A right angle retractor was used to expose the cervix. Approximately 3 cc of 1% Carbocaine was injected into the anterior lip of the cervix which was then grasped with a vulsellum tenaculum. Paracervical block was placed at the 3 and 9 o'clock position approximately 10 mL of the 1% Carbocaine was injected. The cervix was sounded to approximately 8 to 9 cm and was dilated to 8 mm. Hysteroscopy was performed with the above noted findings. At this point the hydrothermal ablation was undertaken, 90 degrees for a 10 minute period. Photodocumentation was obtained before and after the procedure. The hysteroscope was removed. The tenaculum was removed. Good hemostasis was noted. Bleeding was minimal. The vagina was inspected and was noted to be empty. All sponge, needle and instrument counts were correct. At this point the patient was undraped, awoke and transferred to recovery in good condition. Bri Valentine M.D. CHRISTIANO/john cc: documented in this encounter Plan of Treatment Upcoming Encounters Date Type Department Care Team (Late st Contact Info) Description 02/10/2024 2:40 PM CDT Ancillary Procedure [facility] Orthopedic [address] [phone] Ruben Frey MD [address] [place] [address] 02/10/2024 3:00 PM CDT Office Visit [facility] [place] [id number] [facility] [address] [place] [phone] Ruben Frey MD [address] [place] [address] documented as of this encounter Visit Diagnoses Not on filedocumented in this encounter Care Teams Director Pharmacy Services Relationship Specialty Start Date End Date Felix Hill MD [facility] [place] [address] [place] [address] PCP - General 11/27/08 04/27/[address] [facility] [address] [place] [address] PCP - Obstetrics/Gynecology 02/28/03 1 Ye Babb OD [facility] [place] [address] [place] [address] PCP - Ophthalmology 06/29/05 10/29/21 documented as of this encounter
--- OUTSIDE RECORDS SUMMARY | 2024-01-21 09:29 | XMS_ITS | Encounter Summary ---
Author Organization [place] Address [address] [place] [address] Care Team Providers Care Bag Making Machine Operator Name Role Phone Holley YeSudha BUTLER Unavailable [phone] Thom Ovalles MD Unavailable Frw, None Primary Care Provider Unavailabl Bri Rao MD Unavailable [phone] Oralia Lozano Unavailable No Ref-Primary, Physician Primary Care Provider Yasmine Esqueda APRN TOMOGRAPHIC TECH Unavailable Yasmine Esqueda APRN TOMOGRAPHIC TECH Unavailable Han Jackson MD Primary Care Provider Ruben Frey MD Unavailable Encounter Details Date Type Department Care Team (Late st Contact Info) Description 07/02/2011 [facility] [place] Inpatient Dept [address] [place] [address] Frw, Inpatient Provider Social History Tobacco Use Types Packs/Day [...] 02/10/2024 2:40 PM CDT Ancillary Procedure [facility] Orthopedic Xray [address] [place] [phone] Ruben Frey MD [address] [place] [address] 02/10/2024 3:00 PM CDT Office Visit [facility] Clinic [address] [place] [phone] Ruben Frey MD [address] [place] [address] documented as of this encounter Visit Diagnoses Not on filedocumented in this encounter Care Teams Bag Making Machine Operator Relationship Specialty Start Date End Date Ye Babb OD [facility] [place] [address] [place] [address] PCP - Ophthalmology 06/29/05 10/29/21 Thom Ovalles MD [facility] [place] [address] [place] [address] PCP - Orthopaedics Orthopedics 04/08/11 Frw, None PCP - General Family Practice 04/28/11 04/15/17 Bri [place] [address] PCP - Obstetrics/Gynecology battery loader 05/27/11 1 08/19/14 Oralia Lozano [facility] [place] [address] [place] [address] PCP - Audiology Audiology 12/15/12 12/15/12 No Ref-Primary, Physician PCP - General 01/31/18 10/22/21 Yasmine Esqueda APRN TOMOGRAPHIC TECH [facility] [place] [address] PCP - Assigned PCP 02/20/18 10/18/18 Han Jackson MD [address] [place] [address] [place] [address] PCP - General Family Medicine 10/23/21 Yasmine Esqueda APRN TOMOGRAPHIC TECH [address] [place] [address] [place] [address] Assigned PCP 01/21/18 02/15/21 Ruben Frey MD [facility] [place] [address] Assigned Musculoskeletal Provider 04/17/23 documented as of this encounter
--- OUTSIDE RECORDS SUMMARY | 2024-01-21 09:29 | XMS_ITS | Encounter Summary ---
Author Organization [place] Address [address] [place] [address] Care Team Providers Care Box Nailer Name Role Phone Felix Hill MD Primary Care Provider [phone] Gely Taveras MD Unavailable [phone] Ye Babb OD Unavailable [phone] Thom Ovalles MD Unavailable Frw, None Primary Care Provider Unavailabl e Bri Valentine MD Unavailable [phone] Oralia Lozano Unavailable No Ref-Primary, Physician Primary Care Provider Yasmine Esqueda APRN TRAFFIC OPERATIONS ENGINEER Unavailable José MiguelYasmine Antonio APRN TRAFFIC OPERATIONS ENGINEER Unavailable Han Jackson MD Primary Care Provider Ruben Frey MD Unavailable Encounter Details Date Type Department Care Team (Late st Contact Info) Description 01/28/2010 [facility] in [place] Inpatient Dept [address] [place] [address] Frw, Inpatient Provider Surgery Aftercare (Primary Dx) Social History Tobacco Use Types [...] Description 02/10/2024 2:40 PM CDT Ancillary Procedure [facility] Orthopedic Xray [address] [phone] Ruben Frey MD [address] [place] [address] 02/10/2024 3:00 PM CDT Office Visit [facility] Orth[facility] Clinic [address] [phone] Ruben Frey MD [address] [place] [address] documented as of this encounter Visit Diagnoses Diagnosis Surgery aftercare- Primary Other specified aftercare following surgery documented in this encounter Care Teams Box Nailer Relationship Specialty Start Date End Date Felix Hill MD [facility] [place] [address] [employer] [address] [place] [address] PCP - General 11/27/08 04/27/11 Gely Taveras MD [facility] [address] [place] [address] PCP - Obstetrics/Gynecology 02/28/03 1 Ye Babb OD [facility] [place] [address] [place] [address] PCP - Ophthalmology 06/29/05 10/29/21 Thom Ovalles MD [facility] [place] [address] [place] [address] PCP - Orthopaedics Orthopedics 04/08/11 Frw, None PCP - General Family Practice 04/28/11 04/15/17 Bri Valentine [place] [address] PCP - Obstetrics/Gynecology product manager 05/27/11 1 08/19/14 Oralia Lozano [facility] [place] [address] [place] [address] PCP - Audiology Audiology 12/15/12 12/15/12 No Ref-Primary, Physician PCP - General 01/31/18 10/22/21 José MiguelYasmine Antonio, RN LICENSED PRACTICAL TRAFFIC OPERATIONS ENGINEER [facility] [place] [id number] PCP - Assigned PCP 02/20/18 10/18/18 Han Jackson MD [facility] [place] [address] PCP - General Family Medicine 10/23/21 [facility] APRN TRAFFIC OPERATIONS ENGINEER [facility] [place] [address] Assigned PCP 01/21/18 02/15/21 Ruben Frey MD [facility] [address] [facility] [address] [place] [address] Assigned Musculoskeletal Provider 04/17/23 documented as of this encounter
--- OUTSIDE RECORDS SUMMARY | 2024-01-21 09:29 | XMS_ITS | Encounter Summary ---
Author Organization [place] Address [address] [place] [address] Care Team Providers Care Latin American Studies Professor Name Role Phone Felix Hill MD Primary Care Provider [phone] Gely Taveras MD Unavailable [phone] Ye Babb OD Unavailable [phone] Encounter Details Date Type Department Care Team (Late st Contact Info) Description 10/22/2010 11:46 AM [facility] in [address] [address] Jesse May MD [address] [phone] Social History Tobacco Use Types Packs/Day Years [...] Progress Notes * Jesse May MD - 10/22/2010 3:55 PM NEON INSTALLER PROCEDURE/OPERATIVE REPORT Date of Procedure: 10/22/2010 PREOPERATIVE DIAGNOSIS: Left knee lateral meniscus tear. POSTOPERATIVE DIAGNOSIS: Left knee lateral meniscus tear. OPERATION: Left knee arthroscopy, partial lateral meniscectomy. SURGEON: Jesse May M.D. ANESTHESIA: Spinal anesthesia. ESTIMATED BLOOD LOSS: Minimal. INDICATIONS: Kristie is a 34-year-old woman who has been suffering with lateral sided knee pain. An MRI was obtained which demonstrated a lateral meniscal tear. She is status post a previous knee arthroscopy and lateral meniscectomy. OPERATIVE SUMMARY: The patient was brought to the operating room and placed on the operating table in the seated position. Spinal anesthesia was smoothly induced. She was placed in the supine position. A tourniquet was placed around her left thigh followed by a leg richards. The left leg was then prepped and draped in a sterile fashion. The leg was then exsanguinated and tourniquet inflated to 275 mmHg. An injection of 1% lidocaine with epinephrine was placed in the medial lateral joint line. A small incision was made laterally. Trocar was advanced through this incision to the knee joint. The knee joint was then filled with saline. Patellofemoral joint was then visualized. She was noted to have no significant degenerative changes to the patellofemoral joint. The medial gutter was visualized and there were no loose bodies seen. The medial compartment was then visualized and she was noted to have no meniscal tearing and no degenerative changes. Medial incision was made. The notch was visualized. The ACL and PCL were noted to be intact. The lateral compartment was then visualized. She was noted to have horizontal tear to the far lateral and anterior aspect of the lateral meniscus. No significant degenerative changes, although very mild degenerative changes were noted. A punch was then used to remove this portion of the meniscus followed by a shaver to shave it to a smooth transition. Once that was completed notably the far lateral aspect of the meniscus did appear to be somewhat degenerative, but not further torn. The knee was then suctioned out and filled with Marcaine. The incision was then closed using 4-0 Monocryl in an interrupted fashion followed by Steri-Strips and a nonadherent dressing and Tahir bandage. Tourniquet was let down. The patient was then transferred to the recovery room in good condition. Needle and sponge counts were correct at the end of the case. Sylvie Pereira/dann cc: INSTALLER documented in this encounter Plan of Treatment Upcoming Encounters Date Type Department Care Team (Late st Contact Info) Description 02/10/2024 2:40 PM CDT Ancillary Procedure [facility] Orthopedic Xray [address] [place] [phone] Ruben Frey MD [address] [place], [place] [address] 02/10/2024 3:00 PM CDT Office Visit [facility] Orth[facility] Clinic [address] [place] [phone] Ruben Frey MD [address] [place] [address] documented as of this encounter Visit Diagnoses Not on filedocumented in this encounter Care Teams Latin American Studies Professor Relationship Specialty Start Date End Date Felix Hill MD [facility] [place] [address] [place] [address] PCP - General 11/27/08 04/27/11 Gely Taveras MD [facility] [address] [place] [address] PCP - Obstetrics/Gynecology 02/28/03 1 Ye Babb OD [facility] [place] [address] [place] [address] PCP - Ophthalmology 06/29/05 10/29/21 documented as of this encounter
--- OUTSIDE RECORDS SUMMARY | 2024-01-21 09:29 | XMS_ITS | Encounter Summary ---
Author Organization [place] Address [address] [place] [address] Care Team Providers Care Exhaust Machine Operator Name Role Phone Felix Hill MD Primary Care Provider [phone] Gely Taveras MD Unavailable [phone] Ye Babb OD Unavailable [phone] Encounter Details Date Type Department Care Team (Late st Contact Info) Description 09/30/2010 8:00 AM [facility] in [facility] [address] [place] [address] Manish Fisher PA-C [place] 701 [facility] [address] [place] [address] Social History Tobacco Use Types [...] Description 02/10/2024 2:40 PM CDT Ancillary Procedure [facility] Orthopedic Xray [address] 4th [place] [address] Ruben Frey MD [address] [place] [address] 02/10/2024 3:00 PM CDT Office Visit [facility] [place] [address] [facility] [address] 4th [place] [address] Ruben Frey MD [address] [place] [address] documented as of this encounter Visit Diagnoses Not on filedocumented in this encounter Care Teams Exhaust Machine Operator Relationship Specialty Start Date End Date Felix Hill MD [facility] [place] [address] [place] [address] PCP - General 11/27/08 04/27/11 Gely Taveras MD [facility] [address] [place] [address] PCP - Obstetrics/Gynecology 02/28/03 1 Ye Babb OD [facility] [place] [address] [place] [address] PCP - Ophthalmology 06/29/05 10/29/21 documented as of this encounter
--- OUTSIDE RECORDS SUMMARY | 2024-01-21 09:29 | XMS_ITS | Encounter Summary ---
Author Organization [place] Address [address] [place] [address] Care Team Providers Care Analysis Lead Name Role Phone Felix Hill MD Primary Care Provider Frw, None Primary Care Provider UnavailGely Goodwin MD Unavailable Ye Babb OD Unavailable [phone] Thom Ovalles MD Unavailable Frw, None Primary Care Provider UnavailBri [place] MD Unavailable [phone] Oralia Lozano Unavailable No Ref-Primary, Physician Primary Care Provider Yasmine Esqueda APRN PULL THROUGH HOOKER Unavailable Yasmine Esqueda APRN PULL THROUGH HOOKER Unavailable Han Jackson MD Primary Care Provider [phone] Ruben Frey MD Unavailable [phone] Encounter Details Date Type Department Care Team (Late st Contact Info) Description 06/17/2008 [facility] in [facility] [address] [place] [address] Gely Taveras MD [facility] [address] [place] [address] Social History Tobacco Use Types [...] Ancillary Procedure [facility] Orthopedic Xray [address] [place] [phone] Ruben Frey MD [address] [place] [address] 02/10/2024 3:00 PM CDT Office Visit [facility] Orthopedic Clinic [address] [phone] Ruben Frey MD [address] [place] [address] documented as of this encounter Visit Diagnoses Not on filedocumented in this encounter Care Teams Analysis Lead Relationship Specialty Start Date End Date Felix Hill MD [facility] [address] [place] [address] [address] [place] [address] PCP - General 11/27/08 04/27/11 Frw, None PCP - General 09/07/00 11/26/08 Gely Taveras MD [facility] 701 [facility] [address] PCP - Obstetrics/Gynecology 02/28/03 1 Ye Babb OD [facility] [place] [address] [place] [address] PCP - Ophthalmology 06/29/05 10/29/21 Thom Ovalles MD [facility] [place] [address] [place] [address] PCP - Orthopaedics Orthopedics 04/08/11 Frw, None PCP - General Family Practice 04/28/11 04/15/17 Bri [place] [address] PCP - Obstetrics/Gynecology coreroom foundry laborer 05/27/11 1 08/19/14 Oralia Lozano [facility] [place] [address] [place] [address] PCP - Audiology Audiology 12/15/12 12/15/12 No Ref-Primary, Physician PCP - General 01/31/18 10/22/21 José MiguelYasmine Antonio APRN PULL THROUGH HOOKER [address] [place] [address] [place] [address] PCP - Assigned PCP 02/20/18 10/18/18 Han Jackson MD [address] [place] [address] [place] [address] PCP - General Family Medicine 10/23/21 Yasmine Esqueda APRN PULL THROUGH HOOKER [address] [place] [address] [place] [address] Assigned PCP 01/21/18 02/15/21 Ruben Frey MD [address] [address] Assigned Musculoskeletal Provider 04/17/23 documented as of this encounter
--- OUTSIDE RECORDS SUMMARY | 2024-01-21 09:29 | XMS_ITS | Encounter Summary ---
Author Organization [place] Address [address] [place] [address] Care Team Providers Care Lead Material Handler Name Role Phone Felix Hill MD Primary Care Provider [phone] Gely Taveras MD Unavailable [phone] Ye Babb OD Unavailable [phone] Thom Ovalles MD Unavailable Frw, None Primary Care Provider Unavailabl e Bri Valentine MD Unavailable [phone] Oralia Lozano Unavailable No Ref-Primary, Physician Primary Care Provider Yasmine Esqueda APRN CERTIFIED TECHNICIAN SPECIALIST Unavailable José MiguelYasmine Antonio APRN CERTIFIED TECHNICIAN SPECIALIST Unavailable Han Jackson MD Primary Care Provider Ruben Frey MD Unavailable Encounter Details Date Type Department Care Team (Late st Contact Info) Description 10/22/2010 [facility] in [place] Inpatient Dept [address] [place] [address] Frw, Inpatient Provider Social History Tobacco Use [...] CDT Ancillary Procedure [facility] Orthopedic Xray [address] [place] [phone] Ruben Frey MD [address] [place] [address] 02/10/2024 3:00 PM CDT Office Visit [facility] Orth[facility] Clinic [address] [phone] Ruben Frey MD [address] [place] [address] documented as of this encounter Visit Diagnoses Not on filedocumented in this encounter Care Teams Lead Material Handler Relationship Specialty Start Date End Date Felix Hill MD [facility] [address] [facility] [address] [place] [address] PCP - General 11/27/08 04/27/11 Gely Taveras MD [facility] [address] [place] [address] PCP - Obstetrics/Gynecology 02/28/03 1 Ye Babb OD [facility] [place] [address] [facility] [address] [place] [address] PCP - Ophthalmology 06/29/05 10/29/21 Thom Ovalles MD [facility] [place] [address] [place] [address] PCP - Orthopaedics Orthopedics 04/08/11 Frw, None PCP - General Family Practice 04/28/11 04/15/17 Bri Valentine [place] [address] PCP - Obstetrics/Gynecology quality tester 05/27/11 1 08/19/14 Oralia Lozano [facility] [place] [address] [place] [address] PCP - Audiology Audiology 12/15/12 12/15/12 No Ref-Primary, Physician PCP - General 01/31/18 10/22/21 Yasmine Esqueda APRN CERTIFIED TECHNICIAN SPECIALIST [address] [facility] [place] [address] PCP - Assigned PCP 02/20/18 10/18/18 Han Jackson MD [facility] [place] [address] PCP - General Family Medicine 10/23/21 Yasmine Esqueda APRN CERTIFIED TECHNICIAN SPECIALIST [address] [facility] [place] [address] Assigned PCP 01/21/18 02/15/21 Ruben Frey MD [address] [place] [address] Assigned Musculoskeletal Provider 04/17/23 documented as of this encounter
--- OUTSIDE RECORDS SUMMARY | 2024-01-21 09:29 | XMS_ITS | Encounter Summary ---
Author Organization [place] Address [address] [place] [address] Care Team Providers Care Sludge Mill Operator Name Role Phone HolleyYe OD Unavailable hTom Ovalles MD Unavailable Frw, None Primary Care Provider Unavailabl e Mya Valentine MD Unavailable [phone] Encounter Details Date Type Department Care Team (Late st Contact Info) Description 07/02/2011 12:29 PM ELECTRONICS ASSEMBLER [facility] in [address] [address] Mya Valentine [place] [address] Social History Tobacco Use Types Packs/Day Years [...] as of this encounter Progress Notes * Mya Valentine MD - 07/07/2011 5:24 PM CSTQuick Note: We will review the results at her next visit. TRONICS ASSEMBLER * Mya Valentine MD - 07/06/2011 10:29 AM ELECTRONICS ASSEMBLER PROCEDURE/OPERATIVE REPORT Date of Procedure: 07/02/11 PREOPERATIVE DIAGNOSES: Menometrorrhagia. Arcuate-shaped uterus. Status post endometrial ablation. POSTOPERATIVE DIAGNOSES: Menometrorrhagia. Arcuate-shaped uterus. Status post endometrial ablation. OPERATION: Laparoscopic supracervical hysterectomy with intraoperative cystoscopy. SURGEON: Dr. Valentine. SECTION LEADER SCREEN PRINTING: Dr. Lockwood. ANESTHESIA: General. ESTIMATED BLOOD LOSS: 25 milliliters. DRAINS include Ellsworth Catheter. COMPLICATIONS: None. FINDINGS include irregular-shaped uterus without specifically heart-shape noted externally. Normal appearing ovaries with previously ligated tubes. Normal appearing appendix. TISSUES: Uterus. HISTORY: Kristie is a 35 year old with a previous tubal ligation. She also had a previous endometrial oblation and treatment of her menometrorrhagia. She this lasted for about 5 months but then continued to bleed quite heavily and now wants definitive treatment. We discussed the risks, benefits and alternatives to surgery prior to obtaining consent. PROCEDURE: The patient was taken to the operating room where she received general anesthesia. She was then placed in a lithotomy position using yellow fin stirrups, arms were tucked safely at the patient's side and shoulder bolsters were then placed. Pause was then taken at this point to identify the patient by date of and medical record number; medications, allergy and procedure was reviewed. The vaginal portion began by placing a bivalve speculum into the vagina. The cervix was then grasped with a single-toothed tenaculum and uterus sounded and a Airpoweredlka uterine manipulator was placed. The tenaculum and speculum was then able to be removed and the uterine manipulator was sterilely wrapped. The abdominal portion began by injecting 0.5% Marcaine laterally on the umbilicus as well as inferiorly. Approximately 10-12 millimeters incision was made, curvilinear, under the umbilicus and a Verres needle was placed. Intraabdominal status was confirmed using saline free flow and handing drop technique. Pneumoperitoneum as then created using C02. Once this was accomplished a 10 millimeter trocar was placed. Again intraabdominal status confirmed using laparoscopy. The patient was then placed in deep Trendelenburg position and the sites for the lateral trocars were located approximately 4 cm and 5 cm inferior and lateral to the umbilicus. Five millimeter ports were placed in a similar fashion using 0.5% Marcaine followed by a small stab incision with an 11 blade and trocars were placed under direct visualization. At this point the hysterectomy began after exploring the pelvis. The left cornu of the uterus was grasped and the halo cutting forceps for the Gyrus was used to ligate the round ligament, uteroovarian ligament and the fallopian tube. Anteriorly for the broad ligament was taken down using the halo and this was continued towards the midline over the lower uterine segment creating the left side of the bladder flap. The posterior leaf of the broad ligament was taken down until uterine vasculature could be isolated. This was then ligated X4 and cut. Approximately a 1 cm portion was then taken down along the cardinal ligament on this side. Good exposure of the cervicovaginal junction was noted. The bladder flap was taken down so this could be addressed directly. A similar procedure then carried out on the patient's right side using the halo cutting forceps to ligate the round ligament, fallopian tube, uteroovarian ligament, broad ligament and create the right side of the bladder flap. Uterine vasculature was also cross clamped, ligated and cut. An approximately 1 cm segment of the cardinal ligament was also taken down. The plasma spatula for the Gyrus was then used to cross cut between the lower uterine segment and the surgical stump. The uterus was tucked into the cul-de-sac and all pedicles were inspected. Any bleeding points were stopped with electrocautery and the cervical stump was also cauterized for hemostasis. The uterine manipulator was removed and the endocervical canal was cauterized. Bleeding was noted at the right corner of the cervical junction and vasculature. This had to be cross clamped and ligated several times. At this point good hemostasis was noted throughout. Indigo carmine was then given IV. The 10 millimeter trocar was removed from the umbilicus and the sword uterine manipulator was placed into the umbilical site. The Gyrus was then hooked up and the uterus was able to be morcellated and removed and sent for permanent sectioning. The pelvis was inspected and any remaining particles of the uterus were removed. It was irrigated and all pedicles were inspected and good hemostasis noted. Pneumoperitoneum was released and the patient was taken out of Trendelenburg position. Cystoscopy was performed and the bladder mucosa all appeared normal. There was brisk flow from the patient's left ureter orifice, however, none was noted on the right side. At this point, the patient was given IV Lasix and pneumoperitoneum was re-instilled. Using blunt probe, pressure was placed on the ureter intraabdominally and cystoscopy was continued. After approximately 2 to 3 minutes a brisk flow of blue urine was noted from the patient's right ureter orifice. The pressure against the left ureter was removed and there was brisk flow from both ureter orifices at this point. The cystoscopy was able to be concluded and the bladder was drained. The abdomen was again deflated and pneumoperitoneum released. The 10 millimeter trocar site infraumbilically was closed using 0 Vicryl in a runny locked stitch. Any subcutaneous tissue was inspected and electrocautery used for hemostasis. The 5 millimeters trocars were also removed and good hemostasis was noted. The skin edges of the umbilical site was closed using a 4-0 Vicryl in a subcuticular stitch and all skin edges were closed over using Dermabond skin glue. All sponge, needle and instrument counts were correct throughout the entire procedure. Nothing was retained in either the vaginal or abdominal operative field. At this point patient was undraped, washed, taken out of lithotomy position, awoke and transferred to recovery in good condition. Sylvie Soto/yeimi cc: TRONICS ASSEMBLER documented in this encounter Plan of Treatment Upcoming Encounters Date Type Department Care Team (Late st Contact Info) Description 02/10/2024 2:40 PM CDT Ancillary Procedure [facility] Orthopedic Xray [address] [phone] Ruben Frey MD [address] [place] [address] 02/10/2024 3:00 PM CDT Office Visit [facility] [address] [phone] Ruben Frey MD [address] [facility] [address] [place] [address] documented as of this encounter Procedures Procedure Name Priority Date/Time Associated Diagnosis Comments SURGICAL PATHOLOGY EXAM Routine 07/02/2011 4:10 PM ELECTRONICS ASSEMBLER documented in this encounter Results * Surgical pathology exam (07/02/2011 4:10 PM ELECTRONICS ASSEMBLER) Copath Report Patient Name: KRISTIE KIRKLAND MR#: [id number] Specimen #: [id number] Collected: 07/02/2011 Received: 07/03/2011 Reported: 07/07/2011 16:43 Ordering Phy(s): MYA VALENTINE SPECIMEN(S): Uterus FINAL DIAGNOSIS: Uterus, resected tissue: ? - ??Cervix: ??Not identified. ? - ??Endometrium: ??Benign inactive-weakly proliferative endometrium. ? - ??Myometrium: ??Intramural leiomyomas. ? - ??Benign fallopian tubes, one with an endometrial lining. Electronically signed out by: Keenan Meyer M.D. CLINICAL HISTORY: Specimen, uterus, menorrhagia. GROSS: The container is labeled with the patient's name, medical record number, date of , and is designated as uterus. ??The 71 gm specimen is multiple irregular morcellated fragments of gonzalez tissue aggregated to approximately 80 x 50 x 20 mm. ??Two portions of cylindrical tissue attached to gonzalez tissue appear to be proximal fallopian tubes. ??The tissues range from about 10 mm up to a maximum of 95 x 15 x 15 mm. ?? No cervix is identified. ??Sections of the two fallopian tubes are in blocks 1 and 2. ??The tissues are serially sectioned and where there appears to be endometrium it is flat, thin, and gonzalez. ??Calculus Professor sections in seven blocks. ??Two small apparent myomas that are considered intramural by default are submitted in block 7. (Keenan Meyer MD/ro ??07/06/2011) MICROSCOPIC: Slide 1 shows fallopian tube, and almost all of the lining is endometrium, and the lumen is somewhat dilated. ??These features can be seen with previous interruption. ??Slide 2 shows fallopian tube with a dilated lumen, and most of the lining appears tubal. ??There are focal small papillary structures, and these features can also be seen with previous interruption. ??Atypical features are not identified. ??The endometrium is inactive to weakly proliferative with no evidence of hyperplasia or malignancy. ??The myometrium shows focal endometrium, but I think this may represent intrauterine fallopian tube, and not adenomyosis. ??The two small myomas appear benign. Keenan Meyer MD/tv 07/07/2011 TESTING LAB LOCATION: [facility] [address] [place] [address] [place] [address] [place] [address] COLLECTION SITE: Client: [facility] Location: [facility] (W) COPATH 07/02/2011 4:10 PM ELECTRONICS ASSEMBLER 07/03/2011 8:37 AM ELECTRONICS ASSEMBLER Mya Valentine MD [facility] Organization Address City/State/[place]UST Co [facility] documented in this encounter Visit Diagnoses Not on filedocumented in this encounter Care Teams Sludge Mill Operator Relationship Specialty Start Date End Date Ye Babb OD [facility] [address] [place] [address] PCP - Ophthalmology 06/29/05 10/29/21 Thom Ovalles MD [facility] [address] [place] [address] PCP - Orthopaedics Orthopedics 04/08/11 Frw, None PCP - General Family Practice 04/28/11 04/15/17 [place] [address] PCP - Obstetrics/Gynecology breakdown person 05/27/11 1 08/19/14 documented as of this encounter
--- OUTSIDE RECORDS SUMMARY | 2024-01-21 09:29 | XMS_ITS | Encounter Summary ---
Author Organization [facility] Address [address] [place] [address] Care Team Providers Care Wet Wash Assembler Name Role Phone Gely Taveras MD Unavailable [phone] Ye Babb OD Unavailable Thom Ovalles MD Unavailable Frw, None Primary Care Provider Unavailabl e Encounter Details Date Type Department Care Team (Late st Contact Info) Description 05/04/2011 9:30 AM CDT [facility] in [facility] [address] [place] [address] Yudy Colón, PAJosemanuelC [facility] [address] [facility] [address] [place], [place] [id number] Social History Tobacco Use Types Packs/Day Years [...] 02/10/2024 2:40 PM CDT Ancillary Procedure [facility] Orthopedic Xray [address] [place] [address] Ruben Frey MD [address] [place] [address] 02/10/2024 3:00 PM CDT Office Visit [facility] [place] [address] [facility] [address] [place] [phone] Ruben Frey MD [address] [place] [address] documented as of this encounter Visit Diagnoses Not on filedocumented in this encounter Care Teams Wet Wash Assembler Relationship Specialty Start Date End Date Gely Taveras MD [facility] [address] [place] [address] PCP - Obstetrics/Gynecology 02/28/03 1 Ye Babb OD [facility] [place] [address] [place] [address] PCP - Ophthalmology 06/29/05 10/29/21 Thom Ovalles MD [facility] [place] [address] [place] [address] PCP - Orthopaedics Orthopedics 04/08/11 Frw, None PCP - General Family Practice 04/28/11 04/15/17 documented as of this encounter
== END 2024-01-21 09:23 | disposition home or self-care (01) ==
LOC: FBOREF 09:23
PROVIDERS: PCP Family Medicine; Visit Provider Family Medicine
DX: Z01.818 Encounter for other preprocedural examination (principal); I10 Essential (primary) hypertension
CPT/HCPCS: 80048; 85025

== ENCOUNTER 2024-05-05 09:06 | Outpatient (CLI) | payer OTHER, SELFPAY ==
--- OUTSIDE RECORDS SUMMARY | 2024-05-05 09:09 | XMS_ITS | Encounter Summary ---
Author Organization [place] Address [address] [place] [address]. [place] [address] Care Team Providers Care Boomboat Operator Name Role Phone Thom Ovalles MD Unavailable [phone] Han Jackson MD Primary Care Provider Ruben Frey MD Unavailable Encounter Details Date Type Department Care Team (Late st Contact Info) Description 04/21/2024 [facility] [address] 4[address] [place] [address] [place]an [place] Social History Tobacco Use Types Packs/Day Years [...] as of this encounter Plan of Treatment Not on file documented as of this encounter Visit Diagnoses Not on filedocumented in this encounter Care Teams Boomboat Operator Relationship Specialty Start Date End Date Thom Ovalles MD PCP - Orthopaedics Orthopedics 04/08/11 Han Jackson MD PCP - General Family Medicine 10/23/21 Ruben Frey MD [id number] [place] [address] Assigned Musculoskeletal Provider 04/17/23 documented as of this encounter
--- OUTSIDE RECORDS SUMMARY | 2024-05-05 09:09 | XMS_ITS | Referral Summary ---
Author Organization [facility] [facility] Address [address] [place] [address] Care Team Providers Care Boring And Filling Machine Operator Name Role Phone Thom Ovalles MD Unavailable [phone] Han Jackson MD Primary Care Provider Ruben Frey MD Unavailable Encounters Date Type Department Care Team Description 04/21/2024 Telephone [facility] Orthopedic [address] [phone] Vanessa Fierro PA-C 04/21/2024 MyC Medical Advice [facility] Orthopedic [address] [phone] Mychart, [place] 04/19/2024 Telephone [facility] Orthopedic [address] [phone] Vanessa Fierro PA-C 04/19/2024 MyC Medical Advice [facility] Orthopedic [address] [phone] Mychart, [place] 04/12/2024 Telephone [facility] Orthopedic [address] [phone] Vanessa Fierro PA-C 04/12/2024 MyC Medical Advice [facility] Clinic [address] [phone] Jay Wolff 03/21/2024 Travel 03/21/2024 1:40 PM CDT Ancillary Procedure [facility] Orthopedic Xray [address] [phone] Vanessa Fierro PA-C S/P fusion of sacroiliac joint 03/21/2024 2:00 PM CDT Office Visit [facility] [address] [phone] Vanessa Fierro PA-C S/P fusion of sacroiliac joint (Primary Dx) 02/29/2024 Orders Only [facility] [address] [phone] Vanessa Fierro PAJosemanuelC S/P fusion of sacroiliac joint (Primary Dx) 02/12/2024 Orders Only [facility] Eye Clinic - [address] [phone] Robyn Mendez MD Postoperative eye state (Primary Dx) 02/10/2024 Travel 02/10/2024 2:40 PM CDT Ancillary Procedure [facility] Orthopedic Xray [address] [phone] Ruben Frey MD S/P fusion of sacroiliac joint 02/10/2024 3:00 PM CDT Office Visit [facility] [address] [phone] Ruben Frey MD S/P fusion of sacroiliac joint (Primary Dx) 02/08/2024 Travel from Last 3 Months Allergies Active Allergy [...] every morning Active acetaminophen (TYLENOL) 325 MG tabletIndications:I nstability of internal left knee prosthesis, initial encounter [...] sleep 11/16/2023 Active acetaminophen (TYLENOL) 325 MG tabletIndications:S acroiliac joint pain Take 2 tablets (650 mg) by mouth every 4 hours as needed for mild pain 50 tablet 01/03/2024 Active oxyCODONE (ROXICODONE) 5 MG tabletIndications:S acroiliac joint pain Take 1-2 tablets (5-10 mg) by mouth every 4 hours as needed for moderate to severe pain 20 tablet 01/03/2024 Active senna-docusate (SENOKOT-S/PERICOLA CE) 8.6-50 MG tabletIndications:S acroiliac joint pain Take 1-2 tablets by mouth 2 times daily 30 tablet 01/03/2024 Active ondansetron (ZOFRAN ODT) 4 MG ODT tabIndications:Sacr oiliac joint pain Take 1 tablet (4 mg) by mouth every 8 hours as needed for nausea 4 tablet 01/03/2024 Active neomycin-polymixin- dexAMETHasone (MAXITROL) 0.1 % ophthalmic suspensionIndicatio ns:Postoperative eye state Please instill one drop into the operative eye(s) four times daily until the bottle is finished. 5 mL 02/12/2024 Active erythromycin (ROMYCIN) 5 MG/GM ophthalmic ointmentIndications :Postoperative eye state Apply antibiotic ointment to all sutures three times a day, and 1/2 inch strip into the operated eye(s) at night. Use until follow up. 3.5 g 1 02/12/2024 Active Active Problems Problem Noted Date Diagnosed [...] CDT Inhaled Oxygen Concentration - - Weight 50.8 kg (112 lb) 02/10/2024 2:43 PM CDT Height 154.9 cm (5' 1) 02/10/2024 2:43 PM CDT Body Mass Index 21.16 02/10/2024 2:43 PM CDT Plan of Treatment Not on file Medical Devices Implanted Type Area Doctor Of Medicine Device Identifier Shelf Expiration Date Model / Serial / Lot Imp Spinal Ifuse Torq [id number] Strl Lf [id number] - [id number] Implanted:Qty : 1 on 06/09/2023 by Ruben Frey MD at [facility] Metallic Hardware/An chor Right: Spine Lumbar [employer] [id number] 02/26/2028 [id number] / / [id number] Imp Spinal Ifuse Torq 10.1hfx10vz Strl Lf 33505d - [id number] Implanted:Qty : 1 on 06/09/2023 by Ruben Frey MD at [facility] Metallic Hardware/An chor Right: Iliac Crest [employer] [id number] 12/31/2027 [id number] / / [id number] Imp Spinal Fx Ifuse Torq 10.2jsa32hg Strl Lf 87695h - [id number] Implanted:Qty : 1 on 01/03/2024 by Ruben Frey MD at [facility] Metallic Hardware/An chor Left: Sacrum [employer] [id number] 12/20/2027 [id number] / / [id number] Imp Spinal Ifuse Torq 10.2kiq69xv Strl Lf 25087k - [id number] Implanted:Qty : 1 on 01/03/2024 by Ruben Frey MD at [facility] Metallic Hardware/An chor Left: Sacrum [employer] [id number] 05/31/2028 [id number] / / [id number] Imp Spinal Ifuse Torq 10.9ykk26ap Strl Lf 87834g - [id number] Implanted:Qty : 1 on 01/03/2024 by Ruben Frey MD at [facility] Metallic Hardware/An chor Left: Sacrum [employer] [id number] 08/18/2028 [id number] / / [id number] Imp Insert Jj Attune Ps Rp Sz3 7mm [id number] - [id number] Implanted:Qty : 1 on 10/28/2021 by Gary Russell MD at [facility] Total Joint Component/I nsert Left: Knee [employer]- [id number] 03/15/2026 [id number] / / [id number] 10.0mm X75mm Ifuse-Torq Implanted:Qty : 1 on 06/09/2023 by Ruben Frey MD at [facility] Right: Sacrum [employer] 02/20/2028 [id number] / / Procedures Procedure Name Priority Date/Time Associated Diagnosis Comments XR PELVIS G/E 3 VIEWS Routine 03/21/2024 2:39 PM CDT S/P fusion of sacroiliac joint XR PELVIS G/E 3 VIEWS Routine 02/10/2024 2:44 PM CDT S/P fusion of sacroiliac joint GLUCOSE BY METER Routine 01/03/2024 7:59 AM CDT BASIC METABOLIC PANEL Routine 05/12/2023 12:50 PM CDT Preop examination PAP SMEAR - HIM PATIENT REPORTED Routine 08/16/2015 ABSTRACT HPV (HIM EXTERNAL RESULT) Routine 08/29/2014 COLONOSCOPY Routine 07/12/2012 from Last 3 Months or Most Recently Relevant to Health Maintenance Results * XR Pelvis G/E 3 Views (03/21/2024 2:39 PM CDT) Only the most recent of2 resultswithin the time period is included. Anatomical Region Laterality Modality Abdomen/Pelvis Computed Radiogr aphy Impressions 03/21/2024 3:43 PM CDT IMPRESSION: Bilateral SI joint fusion instrumentation without complication. I have personally reviewed the examination and initial interpretation and I agree with the findings. ODELL MEYER Narrative 03/21/2024 3:43 PM CDT 3 views pelvis radiograph(s) 03/21/2024 2:39 PM History: S/P fusion of sacroiliac joint Comparison: Pelvis x-ray 02/10/2024, CT pelvis 12/12/2021 Findings: Outlet, inlet, and lateral views of the pelvis obtained. 3 fusion devices across the right and left SI joint. No evidence of hardware complication. Hip joint spaces are relatively preserved. Soft tissues unremarkable. Sclerosis of the right femoral neck, likely bone island. Pelvic phlebolith. Procedure Note Odell Meyer MD - 03/21/2024 3 views pelvis radiograph(s) 03/21/2024 2:39 PM History: S/P fusion of sacroiliac joint Comparison: Pelvis x-ray 02/10/2024, CT pelvis 12/12/2021 Findings: Outlet, inlet, and lateral views of the pelvis obtained. 3 fusion devices across the right and left SI joint. No evidence of hardware complication. Hip joint spaces are relatively preserved. Soft tissues unremarkable. Sclerosis of the right femoral neck, likely bone island. Pelvic phlebolith. IMPRESSION: Bilateral SI joint fusion instrumentation without complication. I have personally reviewed the examination and initial interpretation and I agree with the findings. ODELL MEYER Vanessa Fierro PA-C IMG DIAGNOSTIC IMAGI NG ORDERABLES * Glucose by meter (01/03/2024 7:59 AM CDT) GLUCOSE BY METER POCT 97 70 - 99 mg/dL 01/03/2024 8:07 AM CDT UR LABORATORY POC Blood, Capillary BLOOD SPECIMEN / Unknown 01/03/2024 7:59 AM CDT 01/03/2024 8:07 AM CDT Ruben VERNON - MARCIA POCT UR LABORATORY POC [facility] [address] [facility], [address] [place] [address]RUST * (ABNORMAL) Basic metabolic panel (05/12/2023 12:50 PM CDT) Sodium 137 135 - 145 mmol/L 05/12/2023 1:15 PM CDT [facility] Comment:Reference intervals for this test were updated on 05/11/2023 to more accurately reflect our healthy population. There may be differences in the flagging of prior results with similar values performed with this method. Interpretation of those prior results can be made in the context of the updated reference intervals. Potassium 3.7 3.4 - 5.3 mmol/L 05/12/2023 1:15 PM CDT [facility] Chloride 97(L) 98 - 107 mmol/L 05/12/2023 1:15 PM CDT [facility] Carbon Dioxide (CO2) 29 22 - 29 mmol/L 05/12/2023 1:15 PM CDT [facility] Anion Gap 11 7 - 15 mmol/L 05/12/2023 1:15 PM CDT [facility] Urea Nitrogen 12.4 6.0 - 20.0 mg/dL 05/12/2023 1:15 PM CDT [facility] Creatinine 0.69 0.51 - 0.95 mg/dL 05/12/2023 1:15 PM CDT [facility] GFR Estimate >90 >60 mL/min/1. 73m2 05/12/2023 1:15 PM CDT [facility] Calcium 9.3 8.6 - 10.0 mg/dL 05/12/2023 1:15 PM CDT [facility] Glucose 100(H) 70 - 99 mg/dL 05/12/2023 1:15 PM CDT [facility] Blood STRUCTURE OF LEFT UPPER LIMB / Unknown Venipuncture / Unknown 05/12/2023 12:50 PM CDT 05/12/2023 12:50 PM CDT Pattie Ovalles APRN BLOOD BANK LABORATORY TECHNOLOGIST LAB - BLOO D ORDERABLES [facility] [place] [address] [place] [address] 1st [place] [address] * PAP Smear - HIM Patient Reported (08/16/2015) PAP Smear - HIM Patient Reported Negative EXTERNAL LAB 08/16/2015 Narrative EXTERNAL LAB - 08/16/2015 Please abstract the following data from this visit with this patient into the appropriate field in Epic: Pap smear done on this date: Aug 2015 (approximately), by this group: [facility] [place], results were NIL. Patient Reported LABORATORY EXTERNAL LAB External Lab * ABSTRACT HPV-NO CHARGE (08/29/2014) HPV Abstract See Scanned Document [facility] 08/29/2014 Narrative [facility] - 08/29/2014 See Care Every Where - [facility] Provider Outside LAB - HIM EXTERNAL R ESULT [facility] [address] [phone] * COLONOSCOPY (07/12/2012) L.C. Aviation Survival Technician PROCEDURES from Last 3 Months or Most Recently Relevant to Health Maintenance Advance Directives For more information, please contact: [phone] * Full Code (Latest Code Status on File) Date Activated Date Inactivated Comments 10/28/2021 1:39 PM 10/29/2021 3:08 PM All basic an d advanced life-sustaining interventions are performed as appropriate Question Answer Comments Code status determined by: Discussion with patie nt/ legal decision maker Care Teams Boring And Filling Machine Operator Relationship Specialty Start Date End Date Thom Ovalles MD PCP - Orthopaedics Orthopedics 04/08/11 Han Jackson MD PCP - General Family Medicine 10/23/21 Ruben Frey MD [address] [address] Assigned Musculoskeletal Provider 04/17/23
--- OUTSIDE RECORDS SUMMARY | 2024-05-05 09:09 | XMS_ITS | Encounter Summary ---
Author Organization [facility] Address [address] [place] [address]. [place] [address] Care Team Providers Care Edge Cutter Name Role Phone Thom Ovalles MD Unavailable [phone] Han Jackson MD Primary Care Provider Ruben Frey MD Unavailable Encounter Details Date Type Department Care Team (Late st Contact Info) Description 04/19/[address] [facility] Clinic [address] 4th [place] [address] Vanessa Fierro PA-C [address] [place] [phone] Social History Tobacco Use Types Packs/Day Years [...] encounter Miscellaneous Notes * Telephone Encounter - Alessandra Jarquin P - 04/19/2024 10:12 AM CDT Left Voicemail (2nd Attempt) and Sent Mychart (2nd Attempt) for the patient to call back and schedule the following: Appointment type: POST OP MSK Provider: Vanessa Fierro Return date: 06/27/24 Reschedule to Next Available MAX attempts made to schedule documented in this encounter Plan of Treatment Not on file documented as of this encounter Visit Diagnoses Not on filedocumented in this encounter Care Teams Edge Cutter Relationship Specialty Start Date End Date Thom Ovalles MD PCP - Orthopaedics Orthopedics 04/08/11 Han Jackson MD PCP - General Family Medicine 10/23/21 Ruben Frey MD [facility] [address] [address] Assigned Musculoskeletal Provider 04/17/23 documented as of this encounter
--- OUTSIDE RECORDS SUMMARY | 2024-05-05 09:09 | XMS_ITS | Clinical Summary ---
Author Organization [facility] Address [address] [place] [address] Care Team Providers Care Store Hand Name Role Phone Thom Ovalles MD Unavailable [phone] Han Jackson MD Primary Care Provider Ruben Frey MD Unavailable Allergies Active Allergy Reactions Criticality Noted Date [...] Type Department Care Team Description 04/21/2024 Telephone [facility] Orthopedic [address] [phone] Vanessa Fierro PA-C 04/21/2024 MyC Medical Advice [facility] Orthopedic [address] [phone] Mychart, [place] 04/19/2024 Telephone [facility] Orthopedic [address] [phone] Vanessa Fierro PA-C 04/19/2024 MyC Medical Advice [facility] Orthopedic [address] [phone] Mychart, [place] 04/12/2024 Telephone [facility] Orthopedic [address] [phone] Vanessa Fierro PA-C 04/12/2024 MyC Medical Advice [facility] Orthopedic [address] [phone] Mychart, [place] 03/21/2024 2:00 PM CDT Office Visit [facility] Orthopedic [address] [phone] Vanessa Fierro, PA-C S/P fusion of sacroiliac joint (Primary Dx) 03/21/2024 1:40 PM CDT Ancillary Procedure [facility] Orthopedic [address] [phone] Vanessa Fierro, PA-C S/P fusion of sacroiliac joint 03/21/2024 Travel 02/29/2024 Orders Only [facility] Orthopedic [address] [phone] Vanessa Fierro, PA-C S/P fusion of sacroiliac joint (Primary Dx) 02/12/2024 Orders Only [facility] Clinic - [address] [phone] Robyn Mendez MD Postoperative eye state (Primary Dx) 02/10/2024 3:00 PM CDT Office Visit [facility] Orthopedic [address] [place] [phone] Ruben Frey MD S/P fusion of sacroiliac joint (Primary Dx) 02/10/2024 2:40 PM CDT Ancillary Procedure [facility] Orthopedic Xray [address] 4th [place] [phone] Ruben Frey MD S/P fusion of sacroiliac joint 02/10/2024 Travel 02/08/2024 Travel from Last 3 Months Immunizations Name Administration [...] 02/10/2024 2:43 PM CDT Plan of Treatment Health Maintenance Due Date Last Done Comments [...] 07/12/2012 COLORECTAL CANCER SCREENING 07/12/2022 INFLUENZA VACCINE (#1) 2024 09/30/2018 BMP 05/12/2024 05/12/2023, 06/17, 07/20/2011, Additional history exists GLUCOSE 01/02/2027 01/03/2024, 04/17, 10/29/2021, Additional history [...] this topic Medical Devices Implanted Type Area Tank Truck Milk Receiver Device Identifier Shelf Expiration Date Model / Serial / Lot Imp Spinal Ifuse Torq [id number] Strl Lf [id number] - [id number] Implanted:Qty : 1 on 06/09/2023 by Ruben Frey MD at [facility] Metallic Hardware/An chor Right: Spine Lumbar [employer] [id number] 02/26/2028 [id number] / / [id number] Imp Spinal Ifuse Torq 10.8nky30fb Strl Lf 91631g - [id number] Implanted:Qty : 1 on 06/09/2023 by Ruben Frey MD at [facility] Metallic Hardware/An chor Right: Iliac Crest [employer] [id number] 12/31/2027 [id number] / / [id number] Imp Spinal Fx Ifuse Torq 10.6abp74tc Strl Lf 62247e - [id number] Implanted:Qty : 1 on 01/03/2024 by Ruben Frey MD at [facility] Metallic Hardware/An chor Left: Sacrum [employer] [id number] 12/20/2027 [id number] / / [id number] Imp Spinal Ifuse Torq 10.8ywr03ab Strl Lf 88014h - [id number] Implanted:Qty : 1 on 01/03/2024 by Ruben Frey MD at [facility] Metallic Hardware/An chor Left: Sacrum [employer] [id number] 05/31/2028 [id number] / / [id number] Imp Spinal Ifuse Torq 10.7wva40uz Strl Lf 94502a - [id number] Implanted:Qty : 1 on 01/03/2024 by Ruben Frey MD at [facility] Metallic Hardware/An chor Left: Sacrum [employer] [id number] 08/18/2028 [id number] / / [id number] Imp Insert Jj Attune Ps Rp Sz3 7mm [id number] - [id number] Implanted:Qty : 1 on 10/28/2021 by Gary Russell MD at [facility] Total Joint Component/I nsert Left: Knee [employer]- [id number] 03/15/2026 [id number] / / [id number] 10.0mm X75mm Ifuse-Torq Implanted:Qty : 1 on 06/09/2023 by Ruben Frey MD at [facility] Right: Sacrum [employer] 02/20/2028 [id number] / / Procedures Procedure Name Priority Date/Time [...] 01/03/2024 8:07 AM CDT [facility] UR LAB[facility] POC [facility] Acute Care Lab [address] [facility], [address] [place] [address], [facility] * (ABNORMAL) Basic metabolic panel (05/12/2023 12:50 PM CDT) [facility] Sodium 137 135 - 145 mmol/L 05/12/2023 1:15 PM CDT [facility] Comment:Reference intervals for this test were updated on 05/11/2023 to more accurately reflect our healthy population. There may be differences in the flagging of prior results with similar values performed with this method. Interpretation of those prior results can be made in the context of the updated reference intervals. Potassium 3.7 3.4 - 5.3 mmol/L 05/12/2023 1:15 PM CDT [facility] Chloride 97(L) 98 - 107 mmol/L 05/12/2023 1:15 PM CDT [facility] Carbon Dioxide (CO2) 29 22 - 29 mmol/L 05/12/2023 1:15 PM CDT [facility] Anion Gap 11 7 - 15 mmol/L 05/12/2023 1:15 PM CDT [facility] Urea Nitrogen 12.4 6.0 - 20.0 mg/dL 05/12/2023 1:15 PM CDT [facility] Creatinine 0.69 0.51 - 0.95 mg/dL 05/12/2023 1:15 PM CDT [facility] GFR Estimate >90 >60 mL/min/1. 73m2 05/12/2023 1:15 PM CDT [facility] Calcium 9.3 8.6 - 10.0 mg/dL 05/12/2023 1:15 PM CDT [facility] Glucose 100(H) 70 - 99 mg/dL 05/12/2023 1:15 PM CDT [facility] Blood STRUCTURE OF LEFT UPPER LIMB / Unknown Venipuncture / Unknown 05/12/2023 12:50 PM CDT 05/12/2023 12:50 PM CDT Pattie Ovalles APRN HOSPICE CARE TRANSITIONS COORDINATOR LAB - BLOO D ORDERABLES [facility] - [address] 1st [place] [address] * PAP Smear - HIM Patient Reported (08/16/2015) PAP Smear - HIM Patient Reported Negative EXTERNAL LAB 08/16/2015 Narrative EXTERNAL LAB - 08/16/2015 Please abstract the following data from this visit with this patient into the appropriate field in Epic: Pap smear done on this date: Aug 2015 (approximately), by this group: [facility] [place], results were NIL. Patient Reported LABORATORY EXTERNAL LAB External Lab * ABSTRACT HPV-NO CHARGE (08/29/2014) HPV Abstract See Scanned Document [facility] 08/29/2014 Narrative [facility] - 08/29/2014 See Care Every Where - [facility] Provider Outside LAB - HIM EXTERNAL R ESULT [place] [id number] [place], [place] [address] [phone] * COLONOSCOPY (07/12/2012) L.C. Inspector Bullet Slugs PROCEDURES from Last 3 Months or Most Recently Relevant to Health Maintenance Advance Directives For more information, please contact: [phone] * Full Code (Latest Code Status on File) Date Activated Date Inactivated Comments 10/28/2021 1:39 PM 10/29/2021 3:08 PM All basic an d advanced life-sustaining interventions are performed as appropriate Question Answer Comments Code status determined by: Discussion with patie nt/ legal decision maker Care Teams Store Hand Relationship Specialty Start Date End Date Thom Ovalles MD PCP - Orthopaedics Orthopedics 04/08/11 Han Jackson MD PCP - General Family Medicine 10/23/21 Ruben Frey MD [address] [facility] [address] [place] [address] Assigned Musculoskeletal Provider 04/17/23
--- OUTSIDE RECORDS SUMMARY | 2024-05-05 09:09 | XMS_ITS | Encounter Summary ---
Author Organization [facility] Address [address] [place] [address]. [place] [address] Care Team Providers Care Striper Spray Gun Name Role Phone Thom Ovalles MD Unavailable [phone] Han Jackson MD Primary Care Provider Ruben Frey MD Unavailable Encounter Details Date Type Department Care Team (Late st Contact Info) Description 04/12/2024 Telephone [facility] [address] 4th [place] [address] Vanessa Fierro PA-C [address] [place] [address] [phone] Social History Tobacco Use Types Packs/Day Years [...] encounter Miscellaneous Notes * Telephone Encounter - Alexia Khan - 04/12/2024 8:09 AM CDT Left Voicemail (1st Attempt) and Sent Mychart (1st Attempt) for the patient to call back and reschedule the following: Appointment type: Return surgical spine Provider: Vanessa Fierro Return date: 06/27 r/s to next available documented in this encounter Plan of Treatment Not on file documented as of this encounter Visit Diagnoses Not on filedocumented in this encounter Care Teams Striper Spray Gun Relationship Specialty Start Date End Date Thom Ovalles MD PCP - Orthopaedics Orthopedics 04/08/11 Han Jackson MD PCP - General Family Medicine 10/23/21 Ruben Frey MD [facility] [address] [address] Assigned Musculoskeletal Provider 04/17/23 documented as of this encounter
--- OUTSIDE RECORDS SUMMARY | 2024-05-05 09:09 | XMS_ITS | Encounter Summary ---
Author Organization [facility] Address [address] [place] [address]. [place] [address] Care Team Providers Care Family Counselor Name Role Phone Thom Ovalles MD Unavailable [phone] Han Jackson MD Primary Care Provider Ruben Frey MD Unavailable Encounter Details Date Type Department Care Team (Late st Contact Info) Description 04/19/2024 [facility] [address]th [place] [address] Charan [place] Social History Tobacco [...] on filedocumented in this encounter Care Teams Family Counselor Relationship Specialty Start Date End Date Thom Ovalles MD PCP - Orthopaedics Orthopedics 04/08/11 Han Jackson MD PCP - General Family Medicine 10/23/21 Ruben Frey MD [address] [id number] [place] [address] Assigned Musculoskeletal Provider 04/17/23 documented as of this encounter
--- OUTSIDE RECORDS SUMMARY | 2024-05-05 09:09 | XMS_ITS | Encounter Summary ---
Author Organization [facility] Address [address] [place] [address]. [place] [address] Care Team Providers Care Md Allergy Immunology Name Role Phone Thom Ovalles MD Unavailable [phone] Han Jackson MD Primary Care Provider Ruben Frey MD Unavailable Encounter Details Date Type Department Care Team (Late st Contact Info) Description 04/12/2024 [facility] [address] 4th [place] [address] [place] Social History Tobacco Use Types Packs/Day Years [...] on filedocumented in this encounter Care Teams Md Allergy Immunology Relationship Specialty Start Date End Date Thom Ovalles MD PCP - Orthopaedics Orthopedics 04/08/11 Han Jackson MD PCP - General Family Medicine 10/23/21 Ruebn Frey MD [address] [place] [address] Assigned Musculoskeletal Provider 04/17/23 documented as of this encounter
--- OUTSIDE RECORDS SUMMARY | 2024-05-05 09:09 | XMS_ITS | Continuity of Care Document ---
Author Organization [facility] Address [address] [place] [address] Phone Care Team Providers Care Linoleum Mechanic Name Role Phone Leticia Anne MD Unavailable [...] Copied on Encounter [facility], [address], [place], [place], [address], [place] tel:[phone] [facility] No Information 2 Omid Kelly. [facility], [address], [address], [place], [address], [place]. tel:[phone] Office/Outpa tient Visit,Est, Mod [facility], [address], [place], [place], [address], [place] tel:[phone] [facility] Other spondylosis, cervical region 2 Omid Kelly. [facility], [address] [place] [address], [address], [place], [address], [place]. tel: [phone] Referring Provider: Thom Márquez, [facility] [address], [place], [address]. tel:[phone] Office/Outpa tient Visit,Est, Mod [facility], [address], [place], [place], [address], [place] tel:[phone] [facility] Cervicalgia 9 Kina Mcnamara . [facility], [address] [place] [address], [address], [place], [place], [address] , [place]. tel: [phone] Referring Provider: Thom Márquez, [facility] [address], [place], [address]. tel:[phone] Office/Outpa tient Visit,Est, Mod [facility], [address], [place], [address], [place] tel:[phone] [facility] Encounter for other specified surgical aftercare 9 Castanon Anders . [facility], [address] [place] [address], [address], [place], [place], [address] , [place]. tel:[phone] Referring Provider: Thom Márquez, [facility] [address], [place], [address]. tel:[phone] Office/Outpa tient Visit,Est, Mod [facility], [address], [place], [address], [place] tel:[phone] [facility] Encounter for other specified surgical aftercare [phone] [facility] . [facility], [address] [place] [address], [address], [place], [place], [address] , [place]. tel:[phone] Referring Provider: Thom Márquez, [facility] [address], [place], [address]. tel:[phone] Office/Outpa tient Visit,Est, Mod [facility], [address], [place], [place], [address], [place] tel:[phone] [facility] - Encounter for other specified surgical aftercare 0 8 [facility] er. [facility], [address], [address], [place], [place], [address] , [place]. [phone] Referring Provider: Thom Márquez, [facility] [address], [place], [address]. tel:[phone] Office/Outpa tient Visit,Est, Mod [facility], [address], [place], [place], [address], [place] tel:[phone] [facility] - Encounter for other specified surgical aftercareLow back pain 2 8 [facility] er. [facility], [address], [address], [place], [place], [address] , . [phone] Referring Provider: Thom Márquez, [facility] [address], [place], [address]. tel:[phone] Office/Outpa tient Visit,Est, Mod [facility], [address], [place], [place], [address], [place] tel:[phone] [facility] Encounter for other specified surgical aftercare 8 [facility]. [facility], [address], [address], [place], [place], [address] , . [phone] Referring Provider: Thom Márquez, [facility] [address], [place], [address]. tel:[phone] [facility], [address], [place], [address], [place] tel:[phone] [facility] Encounter for other specified surgical aftercare May-3 [facility], [address], [address], [place], [address] , [place]. tel:[phone] Referring Provider: Thom Márquez, [facility] [address], [place], [address]. tel:[phone] [facility], [address], [place], [address], [place] tel:[phone] [facility] Encounter for other specified surgical aftercare May-0 [facility]. [facility], [address], [address], [place], [place], [address] , [place]. [phone] Referring Provider: Thom Márquez, [facility] [address], [place], [address]. tel:[phone] [facility], [address], [place], [place], [address], [place] [phone] [facility] No Information Sep-2 7 Lance Potter. [facility], [address], [place], [facility], [place]. [phone] Referring Provider: Thom Márquez, [facility] [address], [place], [address]. tel:[phone] [facility], [address], [place], [place], [address], [place] tel:[phone] [facility] No Information Sep-2 [facility]. [facility], [address], [address], [place], [address] , [place]. tel:[phone] Referring Provider: Thom Márquez, [facility] [address], [place], [address]. 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 [facility], [address], [address], [place], [place], [address] , [place]. tel:[phone] Referring Provider: Thom Márquez, [facility] [address], [place], [address]. tel:[phone] Office/Outpa tient Visit,Est, Mod [facility], [address], [place], [place], [address], [place] tel:[phone] [facility] Spinal stenosis, cervical regionPseudar throsis after fusion or arthrodesis 7 Castanon Anders er. [facility], [address], [address], [place], [place], [address] , [place]. tel:[phone] Referring Provider: Thom Márquez, [facility] [address], [place], [address]. tel:[phone] Office/Outpa tient Visit,Est, Mod [facility], [address], [place], [place], [address], [place] tel:[phone] [facility] Cervicalgia 7 Kina Mcnamara er. [facility], [address], [address], [place], [place], [address] , [place]. tel:[phone] Referring Provider: Thom Márquez, [facility] [address], [place], [address]. tel:[phone] Office/Outpa tient Visit,Est, Mod [facility], [address], [place], [place], [address], [place] tel:[phone] [facility] Other intervertebra l disc degeneration, lumbar regionArthrod esis statusOverwei ght 5 [facility]. [facility], [address], [address], [place], [place], [address] , [place]. [phone] Referring Provider: Thom Márquez, [facility] [address] [facility] [address], [place], [address]. tel:[phone] Office/Outpa tient Visit,Est, Mod [facility], [address], [place], [place], [address], [place] [phone] [facility] Displacement of intervertebra l disc, site unspecified, without myelopathyOVE RWEIGHTHypert ension, UnspecifiedLu mbar spondylosisLu mbar radiculopathy Shoulder joint painPatient who has had a surgical fusion of a joint 5 Castanon Anders er. [facility], [address], [address], [place], [place], [address] , [place]. [phone] Referring Provider: Thom Márquez, [facility] [address] [facility] [address], [place], [address]. tel:[phone] [facility], [address], [place], [place], [address], [place] tel:[phone] [facility] - Patient who has had a surgical fusion of a joint 5 [facility]. [facility], [address], [address], [place], [place], [address] , [place]. [phone] Referring Provider: Pancho Castanon, [facility] [address], [address], [place], [address]. [phone] [facility], [address], [place], [address], [place] [phone] [facility] No Information 4 Castanon Anders er. [facility], [address], [address], [place], [place], [address] , [place]. tel:[phone] Referring Provider: Pancho Castanon [facility] [address], [address], [place], [address]. tel:[phone] Z [facility], [address], [place], [address], [place] tel:[phone] [facility] No Information 4 Kina Anders er. [facility], [address], [address], [place], [place], [address] , [place]. tel:[phone] Referring Provider: Pancho Castanon [facility] [address], [address], [place], [address]. tel:[phone] Pre Op Office/Outpa tient Visit, Z [facility], [address], [place], [address], [place] tel:[phone] [facility] Hypertension, UnspecifiedDi splacement of intervertebra l disc, site unspecified, without myelopathy 4 Kina Mcnamara er. [facility], [address], [address], [place], [place], [address] , [place]. tel:[phone] Referring Provider: Same As Referring. Office/Outpa tient Visit,Est, Mod Z [facility], [address], [place], [address], [place] tel:[phone] [facility] No Information 4 Kina Mcnamara er. [facility], [address], [address], [place], [place], [address] , [place]. tel:[phone] Referring Provider: Pancho Castanon [facility] [address], [address], [place], [address]. tel:[phone] Office/Outpa tient Visit,Est, Mod Z [facility], [address] [facility], [place], [address], [place] tel:[phone] [facility] Neck and right arm pain (chief complaint) No Information Sep-2 9-201 4 Kina Mcnamara er. [facility], [address], [address], [place], [place], [address] , . tel:[phone] Referring Provider: Pancho Castanon, [facility] [address], [address], [place], [address]. tel:[phone] Office/Outpa tient Visit,[facility], [facility] Z [facility], [address], [place], [place], [facility], tel:[phone] [facility] - [facility] Cervical pain (chief complaint) No Information 4 Kina Mcnamara er. [facility], [address], [address], [place], [place], [address] , [place]. tel:[phone] Referring Provider: Pancho Castanon, [facility] [address] [place] [address], [address], [place], [address]. tel:[phone] Family History Family Member Type Diagnosis Age At Onset Problem (finding) Problem (finding) Payers Payer name Insurance type Covered libertarian ID Authoriza tion(s) [employer] [id number] Social History Type Description Quantity Date [...] Instructions Date Instruction Additional Infor corin Weight Management Related to [facility] Weight management: R efer to Referral to General Practitioner timeframe: 1 Month. Related to Overweight Refer to Referral to General Practitioner timeframe: 1 Month. Related to Unspecified Essential Hypertension Exercise education Related to Un specified Essential Hypertension Assessments Type Assessment Date No Information Patient Care Teams Name Effective Dates (start - stop) Status Members No Information
--- OUTSIDE RECORDS SUMMARY | 2024-05-05 09:09 | XMS_ITS | Encounter Summary ---
Author Organization [facility] Address [address] [place] [address]. [place] [address] Care Team Providers Care Warehouse Assembly Worker Name Role Phone Thom Ovalles MD Unavailable [phone] Han Jackson MD Primary Care Provider [phone] Ruben Frey MD Unavailable Encounter Details Date Type Department Care Team (Late st Contact Info) Description 04/21/[address] [facility] [address] 4th [place] [address] Vanessa Fierro PA-C [address] [place] [id number] Social History Tobacco Use Types Packs/Day Years [...] Telephone Encounter - Alessandra Jarquin P - 04/21/2024 2:19 PM CDT Mailbox full. Unable to LVM. Sent Mychart (2nd Attempt) for the patient to call back and schedule the following: Appointment type: POST OP SPINE Provider: Vanessa Fierro Return date: Next Available MAX attempts reached to schedule documented in this encounter Plan of Treatment Not on file documented as of this encounter Visit Diagnoses Not on filedocumented in this encounter Care Teams Warehouse Assembly Worker Relationship Specialty Start Date End Date Thom Ovalles MD PCP - Orthopaedics Orthopedics 04/08/11 Han Jackson MD PCP - General Family Medicine 10/23/21 Ruben Frey MD [address] [address] Assigned Musculoskeletal Provider 04/17/23 documented as of this encounter
--- OUTSIDE RECORDS SUMMARY | 2024-05-05 09:09 | XMS_ITS | Encounter Summary ---
Author Organization [facility] Address [address] [place] [address] Care Team Providers Care Person Investigator Name Role Phone Thom Ovalles MD Unavailable [phone] Han Jackson MD Primary Care Provider Ruben Frey MD Unavailable Encounter Details Date Type Department Care Team (Latest Contact Info) Description 03/21/2024 Travel Social History Tobacco Use Types Packs/Day [...] on filedocumented in this encounter Care Teams Person Investigator Relationship Specialty Start Date End Date Thom Ovalles MD PCP - Orthopaedics Orthopedics 04/08/11 Han Jackson MD PCP - General Family Medicine 10/23/21 Ruben Frey MD [address] [address] Assigned Musculoskeletal Provider 04/17/23 documented as of this encounter
--- OUTSIDE RECORDS SUMMARY | 2024-05-05 09:10 | XMS_ITS | Encounter Summary ---
Author Organization [facility] Address [address] [place] [address] Care Team Providers Care Internet Architect Name Role Phone Thom Ovalles MD Unavailable [phone] Han Jackson MD Primary Care Provider Ruben Frey MD Unavailable Reason for Visit * Diagnostic Imaging XR (Routine) - Pending Review Specialty Diagnoses / Procedures Referred By Contac t Referred To Contact Radiology. Diagnoses S/P fusion of sacroiliac joint Procedures XR Pelvis G/E 3 Views Vanessa Fierro PA-C [address] [place] [address] Referral ID Status Reason Start Date Expiration Date V isits Requested Visits Authorized [id number] Pending Review 02/29/2024 02/28/2025 1 1 Encounter Details Date Type Department Care Team (Latest Contact Info) Description 03/21/2024 1:40 PM CDT Ancillary Procedure [facility] Orthopedic Xray [address] 4th [place] [address] Vanessa Fierro PA-C [address] [place] [address] S/P fusion of sacroiliac joint Social [...] on file documented as of this encounter Procedures Procedure Name Priority Date/Time Associated Diagnosis Comments XR PELVIS G/E 3 VIEWS Routine 03/21/2024 2:39 PM CDT S/P fusion of sacroiliac joint documented in this encounter Results * XR Pelvis G/E 3 Views (03/21/2024 2:39 PM CDT) Anatomical Region Laterality Modality Abdomen/Pelvis [...] agree with the findings. ODELL MEYER Vanessa Barger Vadim RITTER IMG DIAGNOSTIC IMAGI NG ORDERABLES documented in this encounter Visit Diagnoses Diagnosis S/P fusion of sacroiliac joint documented in this encounter Care Teams Internet Architect Relationship Specialty Start Date End Date Thom Ovalles MD PCP - Orthopaedics Orthopedics 04/08/11 Han Jackson MD PCP - General Family Medicine 10/23/21 Ruben Frey MD [address] [place] [address] Assigned Musculoskeletal Provider 04/17/23 documented as of this encounter
--- OUTSIDE RECORDS SUMMARY | 2024-05-05 09:10 | XMS_ITS | Encounter Summary ---
Author Organization [facility] Address [address] [place] [address] Care Team Providers Care Program Scheduler Name Role Phone Thom Ovalles MD Unavailable [phone] Han Jackson MD Primary Care Provider Ruben Frey MD Unavailable Reason for Referral * Diagnostic Imaging XR (Routine) - Pending Review Specialty Diagnoses / Procedures Referred By Contac t Referred To Contact Radiology. Diagnoses S/P fusion of sacroiliac joint Procedures XR Pelvis G/E 3 Views Vanessa Fierro PA-C [address] [place] [address] Referral ID Status Reason Start Date Expiration Date V isits Requested Visits Authorized [id number] Pending Review 02/29/2024 02/28/2025 1 1 Encounter Details Date Type Department Care Team (Late st Contact Info) Description 02/29/2024 Vane Guillory [facility] [address] 4th [place] [address] Vanessa Fierro PA-C [address] [place] [phone] S/P fusion of sacroiliac joint (Primary Dx) [...] on file documented as of this encounter Results * [...] joint documented in this encounter Care Teams Program Scheduler Relationship Specialty Start Date End Date Thom Ovalles MD PCP - Orthopaedics Orthopedics 04/08/11 Han Jackson MD PCP - General Family Medicine 10/23/21 Ruben Frey MD [address] [place], [place] [address] [place] [address] Assigned Musculoskeletal Provider 04/17/23 documented as of this encounter
--- OUTSIDE RECORDS SUMMARY | 2024-05-05 09:10 | XMS_ITS | Encounter Summary ---
Author Organization [facility] Address [address] [place] [address]. [place] [address] Care Team Providers Care Manager Behavior Name Role Phone Thom Ovalles MD Unavailable [phone] Han Jackson MD Primary Care Provider [phone] Ruben Frey MD Unavailable Encounter Details Date Type Department Care Team (Late st Contact Info) Description 02/12/2024 Orders Only [facility] [place] [address] [facility] [address] [place] [address] Robyn Mendez MD [address] [place] [address] Postoperative eye state (Primary Dx) Social History Tobacco Use Types [...] as of this encounter Visit Diagnoses Diagnosis Postoperative eye state- Primary Other states following surgery of eye and adnexa documented in this encounter Care Teams Manager Behavior Relationship Specialty Start Date End Date Thom Ovalles MD PCP - Orthopaedics Orthopedics 04/08/11 Han Jackson MD PCP - General Family Medicine 10/23/21 Ruben Frey MD [facility] [address] [address] Assigned Musculoskeletal Provider 04/17/23 documented as of this encounter
--- OUTSIDE RECORDS SUMMARY | 2024-05-05 09:10 | XMS_ITS | Encounter Summary ---
Author Organization [facility] Address [address] [place] [address] Care Team Providers Care Environmental Field Office Manager Name Role Phone HolleyYe OD Unavailable [phone] Thom Ovalles MD Unavailable [phone] Frw, None Primary Care Provider Unavailabl Bri Rao MD Unavailable [phone] Encounter Details Date Type Department Care Team (Late st Contact Info) Description 07/18/2011 5:00 AM [facility] [address] [place] [address] Daniela Robles MD [address] [place], [place] [id number] Social History Tobacco Use Types Packs/Day Years [...] Penicillin. SOCIAL HISTORY: The patient lives in [place]; she is with 3 children ages 13, 12 and 10. She is a nonsmoker. She does use some alcohol socially. 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 FAMILY HISTORY: Reviewed in [facility]. REVIEW OF SYSTEMS: Generally the patient has [...] injury. I will wait for the on-call asphalt paver operator to see the patient, but I am [...] in the interim spoken with the covering asphalt paver operator Dr. Lockwood and spoke with the radiologist on two occasions. In speaking with the radiologist magician/illusionist initially, we decided it would be a [...] Herbert M.D. JSS/mp2 cc: Sylvie Dhillon M.D. DATABASE DEVELOPER * Severino, Rojas Haney - 07/20/2011 1:55 [...] doing better. Rojas Severino M.D. ROBBIE/claire cc: DATABASE DEVELOPER * Oscar Roman MD - 07/20/2011 1:31 [...] PENICILLIN. SOCIAL HISTORY: The patient lives in [place], she is with 3 children between the ages of 10 and 13. She does not smoke, she does drink alcohol, no suspicion of abuse. 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 FAMILY HISTORY: Significant for a mother [...] Roman M.D. MICHAEL/olivia cc: Bri Valentine M.D. DATABASE DEVELOPER documented in this encounter Plan of Treatment Not on file documented as of this encounter Visit Diagnoses Not on filedocumented in this encounter Care Teams Environmental Field Office Manager Relationship Specialty Start Date End Date Ye Babb OD [facility] [place] [address] [facility] [address] [place] [address] PCP - Ophthalmology 06/29/05 10/29/21 Thom Ovalles MD [facility] [place] [address] [facility] [address] [place] [address] PCP - Orthopaedics Orthopedics 04/08/11 Frw, None PCP - General Family Practice 04/28/11 04/15/17 Bri [place] [address] PCP - Obstetrics/Gynecology toe sewer 05/27/11 1 08/19/14 documented as of this encounter
--- OUTSIDE RECORDS SUMMARY | 2024-05-05 09:10 | XMS_ITS | Encounter Summary ---
Author Organization [place] Address [address] [place] [address] Care Team Providers Care Hassock Maker Name Role Phone Ye Babb Charbel BUTLER Unavailable [phone] Thom Ovalles MD Unavailable [phone] Frw, None Primary Care Provider Unavailabl Bri Rao MD Unavailable [phone] Oralia Lozano Unavailable No Ref-Primary, Physician Primary Care Provider Yasmine Esqueda APRN SENIOR PORTFOLIO MANAGER Unavailable Yasmine Esqueda APRN SENIOR PORTFOLIO MANAGER Unavailable Han Jackson MD Primary Care Provider Ruben Frey MD Unavailable Encounter Details Date Type Department Care Team (Late st Contact Info) Description 07/02/2011 [facility] [place] Inpatient Dept [address] [place] [address] Frw, Inpatient Provider Social History Tobacco Use [...] on filedocumented in this encounter Care Teams Hassock Maker Relationship Specialty Start Date End Date Holley Ye BargerLUKE [facility] [place] [address] [place] [address] PCP - Ophthalmology 06/29/05 10/29/21 Thom Ovalles MD [facility] [place] [address] [place] [address] PCP - Orthopaedics Orthopedics 04/08/11 Frw, None PCP - General Family Practice 04/28/11 04/15/17 [place] [address] PCP - Obstetrics/Gynecology green chain marker 05/27/11 1 08/19/14 Oralia Lozano [facility] [place] [address] [place] [address] PCP - Audiology Audiology 12/15/12 12/15/12 No Ref-Primary, Physician PCP - General 01/31/18 10/22/21 Yasmine Esqueda APRN SENIOR PORTFOLIO MANAGER [address] [place] [address] [place] [id number] PCP - Assigned PCP 02/20/18 10/18/18 Han Jackson MD [facility]5 [facility] [place] [address] PCP - General Family Medicine 10/23/21 Yasmine Esqueda APRN SENIOR PORTFOLIO MANAGER [address] [facility] [place] [address] Assigned PCP 01/21/18 02/15/21 Ruben Frey MD [address] [facility] [address] [place] [address] Assigned Musculoskeletal Provider 04/17/23 documented as of this encounter
--- OUTSIDE RECORDS SUMMARY | 2024-05-05 09:10 | XMS_ITS | Encounter Summary ---
Author Organization [place] Address [address] [place] [address]. [place] [address] Care Team Providers Care Law Instructor Name Role Phone Thom Ovalles MD Unavailable [phone] Han Jackson MD Primary Care Provider Ruben Frey MD Unavailable Encounter Details Date Type Department Care Team (Late st Contact Info) Description 11/12/2023 [facility] Only [facility] [address] 4th [place] [address] Vanessa Fierro PA-C [address] [place] [id number] S/P fusion of sacroiliac joint (Primary Dx) [...] Primary documented in this encounter Care Teams Law Instructor Relationship Specialty Start Date End Date Thom Ovalles MD PCP - Orthopaedics Orthopedics 04/08/11 Han Jackson MD PCP - General Family Medicine 10/23/21 Ruben Frey MD [address] [address] Assigned Musculoskeletal Provider 04/17/23 documented as of this encounter
--- OUTSIDE RECORDS SUMMARY | 2024-05-05 09:10 | XMS_ITS | Encounter Summary ---
Author Organization [place] Address [address] [place] [address] Care Team Providers Care Maternal Child Nurse Name Role Phone Felix Hill MD Primary Care Provider [phone] Gely Taveras MD Unavailable [phone] Ye Babb OD Unavailable [phone] Thom Ovalles MD Unavailable [phone] Frw, None Primary Care Provider Unavailabl Bri Rao MD Unavailable [phone] Oralia Lozano Unavailable No Ref-Primary, Physician Primary Care Provider Yasmine Esqueda APRN TELEPHONE CLERK Unavailable José Miguel-Yasmine Antonio APRN TELEPHONE CLERK Unavailable Han Jackson MD Primary Care Provider Ruben Frey MD Unavailable Encounter Details Date Type Department Care Team (Late st Contact Info) Description 10/22/2010 [facility] [place] Inpatient Dept [address] [place] [address] Frw, Inpatient Provider Social History Tobacco Use [...] on filedocumented in this encounter Care Teams Maternal Child Nurse Relationship Specialty Start Date End Date Felix Hill MD [facility] [place] [address] [place] [address] PCP - General 11/27/08 04/27/11 Gely Taveras MD [facility] [place] [facility] [address] [place] [address] PCP - Obstetrics/Gynecology 02/28/03 1 Ye Babb OD [facility] [place] [address] [place] [address] PCP - Ophthalmology 06/29/05 10/29/21 Thom Ovalles MD [facility] [place] [address] [place] [address] PCP - Orthopaedics Orthopedics 04/08/11 Frw, None PCP - General Family Practice 04/28/11 04/15/17 Bri [place] [address] PCP - Obstetrics/Gynecology patternator 05/27/11 1 08/19/14 Oralia Lozano [facility] [place] [address] [place] [address] PCP - Audiology Audiology 12/15/12 12/15/12 No Ref-Primary, Physician PCP - General 01/31/18 10/22/21 Yasmine Esqueda APRN TELEPHONE CLERK [address] [place] [address] [place] [address] PCP - Assigned PCP 02/20/18 10/18/18 Han Jackson MD [address] [place] [address] [place] [address] PCP - General Family Medicine 10/23/21 Yasmine Esqueda APRN TELEPHONE CLERK [address] [place] [address] [place] [address] Assigned PCP 01/21/18 02/15/21 Ruben Frey MD [facility] [address] [place] [address] Assigned Musculoskeletal Provider 04/17/23 documented as of this encounter
--- OUTSIDE RECORDS SUMMARY | 2024-05-05 09:10 | XMS_ITS | Encounter Summary ---
Author Organization [place] Address [address] [place] [address] Care Team Providers Care Cloth Mercerizer Operator Name Role Phone Ye Babb Charbel BUTLER Unavailable Thom Ovalles MD Unavailable [phone] Frw, None Primary Care Provider Unavailabl e Bri Valentine MD Unavailable [phone] Encounter Details Date Type Department Care Team (Late st Contact Info) Description 08/13/2011 1:35 PM MOISTURE MACHINE TENDER [facility] in [address] [address] Thom Ovalles MD [facility] [address] [place] [id number] Social History Tobacco Use Types Packs/Day Years [...] Thom Ovalles MD - 09/02/2011 10:16 AM MOISTURE MACHINE TENDER PROCEDURE/OPERATIVE REPORT Date of Procedure: 08/13/2011 PREOPERATIVE DIAGNOSES: Right carpal tunnel syndrome. POSTOPERATIVE DIAGNOSES: Right carpal tunnel syndrome. OPERATION: Right mini open carpal tunnel release. SURGEON: Thom Ovalles M.D. CHARGE ACCOUNT IDENTIFICATION CLERK: Leola Armstrong PA-C. ANESTHESIA: Local only. ESTIMATED [...] incised to allow for placement of a Newell elevator. This was placed proximal to distal and the residual distal ligament was incised under direct visualization. The deep palmar arch was identified but not cut. Then I moved proximally on the transverse carpal ligament with the Newell elevator in place again and incised through [...] be placed. She will follow up with Leola Armstrong my PA, in about 7 days for suture removal and wound evaluation. All of her questions were answered and if she has any further concerns prior to that visit she can feel free to contact the clinic at any point in time. Thom Ovalles M.D. DUNCAN/claire cc: TURE MACHINE TENDER documented in this encounter Plan of Treatment Not on file documented as of this encounter Visit Diagnoses Not on filedocumented in this encounter Care Teams Cloth Mercerizer Operator Relationship Specialty Start Date End Date Ye Babb OD [facility] [address] [facility] [address] [place] [address] PCP - Ophthalmology 06/29/05 10/29/21 Thom Ovalles MD [facility] [address] [place] [address] PCP - Orthopaedics Orthopedics 04/08/11 Frw, None PCP - General Family Practice 04/28/11 04/15/17 Bri [place] [address] PCP - Obstetrics/Gynecology intravenous therapy nurse 05/27/11 1 08/19/14 documented as of this encounter
--- OUTSIDE RECORDS SUMMARY | 2024-05-05 09:10 | XMS_ITS | Encounter Summary ---
Author Organization [place] Address [address] [place] [address] Care Team Providers Care Signals Intelligence Superintendent Name Role Phone Felix Hill MD Primary Care Provider [phone] Gely Taveras MD Unavailable [phone] Ye Babb OD Unavailable [phone] Encounter Details Date Type Department Care Team (Late st Contact Info) Description 09/30/2010 8:00 AM [facility] in [facility] [address] [place] [address] Manish Fisher PA-C [place] [address] [place], [place] [id number] Social History Tobacco Use Types Packs/Day Years [...] on filedocumented in this encounter Care Teams Signals Intelligence Superintendent Relationship Specialty Start Date End Date Felix Hill MD [address] [place], [place] [id number] PCP - General 11/27/08 04/27/11 Gely Taveras MD [facility] [address] [facility] [address] PCP - Obstetrics/Gynecology 02/28/03 1 Ye Babb OD [facility] [address] [facility] [address] [place] [address] PCP - Ophthalmology 06/29/05 10/29/21 documented as of this encounter
--- OUTSIDE RECORDS SUMMARY | 2024-05-05 09:10 | XMS_ITS | Encounter Summary ---
Author Organization [place] Address [address] [place] [address]. [place] [address] Care Team Providers Care Matrix Plater Name Role Phone Thom Ovalles MD Unavailable [phone] Han Jackson MD Primary Care Provider Ruben Frey MD Unavailable Reason for Visit * Reason Comments RECHECK POST-OP SPINE - DOS: 01/03/24 Encounter Details Date Type Department Care Team (Late st Contact Info) Description 03/21/2024 2:00 PM CDT Office Visit [facility] [address] [place] [address] Vanessa Fierro, PAJosemanuelC [address] [place] [address] S/P fusion of sacroiliac joint (Primary [...] Progress Notes * Vanessa Fierro PA-C - 03/21/2024 2:00 PM CDT In-Person Visit Spine Surgical Hx: 06/09/2023 - MIS Right SIJ fusion (Karobrano). [Implants: SI-Bone TORQ screws x3]. 01/03/2024 - MIS Left SIJ fusion (Sembrano). [Implants: SI-Bone TORQ screws x3]. I have reviewed and updated the patient's Past Medical History, Social History, Family History and Medication List. ALLERGIES Penicillins and Tramadol Spine Surgery Follow Up REFERRING PHYSICIAN: No ref. provider found PRIMARY CARE PHYSICIAN: Han Jackson Chief Complaint: RECHECK (POST-OP SPINE - DOS: 01/03/24 ) History of Present Illness: Symptom Profile Including: location of symptoms, onset, severity, exacerbating/alleviating factors,previous treatments: Kristie Kirkland is a 48 year old female who presents today for routine 3 month follow up s/p left MIS SI joint fusion (DOS 01/03/[address] Frey). Last seen at 6wk and was doing well, WBAT, incision healed. Today, she is unaccompanied. Overall feels she is doing well. She does still feel symptoms in the left side if she does too much during the day. Her daughter is going to be at their family home in the next few weeks, so they have been doing a lot more activities. She continues to do physical therapy exercises at home. No other complaints or concerns today. Hoping to return to work. SAVANNA Scores: Oswestry (SAVANNA) Questionnaire 03/21/2024 1:19 PM OSWESTRY DISABILITY INDEX Count 8 Sum 9 Oswestry Score (%) 22.5 % S/p right MIS SI fusion (06/09/23): SAVANNA preop 44% 6wk 22% 3mo 20% 6mo 36% S/p left MIS SI fusion (01/03/24): SAVANNA pre-op 36% 6wk 18% 3mo 22.5% Physical Exam: Constitutional - Patient is healthy, [...] word. GI - No abdominal distention. Musculoskeletal - Non-antalgic gait without use of assistive devices. Negative Trendelenburg bilaterally. Full, painless range of motion. Nontender to palpation midline and paraspinals. Mildly tenderto palpation bilateral PSIS.. LOWER EXTREMITY Left Right Hip flexion 4+/5 5/5 Knee flexion 5/5 5/5 Knee extension 4+/5 5/5 Ankle dorsiflexion 5/5 5/5 Ankle plantarflexion 5/5 5/5 Great toe extension 5/5 5/5 Neurologic - Sensation intact to light touch bilaterally. Patellar and Achilles reflexes +2 bilaterally. 0 beats clonus bilaterally. Imaging: I ordered and independently reviewed new radiographs at this clinic visit. The results were discussed with the patient. Findings include: 03/21/2024 XR pelvis inlet/outlet/lateral views: Bilateral SI joint instrumentation is intact withoutevidence of loosening, fracture or migration. Assessment and Plan: Assessment: 48 year old female 1. 10 mos s/p MIS R SIJ fusion (06/09/23) 2. 3 mos s/p MIS L SIJ fusion (01/03/24), doing well. Plan: Reviewed today's XR images with patient which again demonstrate stable instrumentation of bilateralSI joint fusion instrumentation. Recommended continued home exercise program. Can continue to advance activities as tolerated. May take NSAIDs as needed for pain at this point. Follow-up in 3 months for routine 6-month postop. We can get CT of the pelvis 1 year out from the more recent fusion (around December 2024). - Follow up in 3 months (6 months post-op) with repeat XR pelvis inlet/outlet/lateral views. Respectfully, Vanessa morrellkkatalina Ocasio PA-C Orthopaedic Spine Surgery Dept Orthopaedic Surgery, [facility] Dictation Disclaimer: Some of this Note has been completed with voice- recognition dictation software. Although errors are generally corrected real- time, there is the potential for a rare error to be present in the completed chart.' documented in this encounter Plan of Treatment Not on file documented as of this encounter Visit Diagnoses Diagnosis S/P fusion of sacroiliac joint- Primary documented in this encounter Care Teams Matrix Plater Relationship Specialty Start Date End Date Thom Ovalles MD PCP - Orthopaedics Orthopedics 04/08/11 Han Jackson MD PCP - General Family Medicine 10/23/21 Ruben Frey MD [address] [address] Assigned Musculoskeletal Provider 04/17/23 documented as of this encounter
--- OUTSIDE RECORDS SUMMARY | 2024-05-05 09:10 | XMS_ITS | Encounter Summary ---
Author Organization [place] Address [address] [place] [address] Care Team Providers Care Electron Beam Welding Machine Operator Name Role Phone Ye Babb OD Unavailable Thom Ovalles MD Unavailable [phone] No Ref-Primary, Physician Primary Care Provider Han [...] on filedocumented in this encounter Care Teams Electron Beam Welding Machine Operator Relationship Specialty Start Date End Date Ye Babb, OD [facility] [place] [address] [place] [address] PCP - Ophthalmology 06/29/05 10/29/21 Thom Ovalles MD [facility] [address] [facility] [address] [place] [address] PCP - Orthopaedics Orthopedics 04/08/11 No Ref-Primary, Physician PCP - General 01/31/18 10/22/21 Han Jackson MD PCP - General Family Medicine 10/23/21 Ruben Frey MD [address] [place] [address] Assigned Musculoskeletal Provider 04/17/23 documented as of this encounter
--- OUTSIDE RECORDS SUMMARY | 2024-05-05 09:10 | XMS_ITS | Encounter Summary ---
Author Organization [place] Address [address] [place] [address] Care Team Providers Care Consultant [employer]ury [employer]. Vice President [employer] (Ex ) Name Role Phone Thom Ovalles MD Unavailable [phone] Han Jackson MD Primary Care Provider Ruben Frey MD Unavailable Encounter Details Date Type Department Care Team (Latest Contact Info) Description 02/10/2024 Travel Social History Tobacco Use Types Packs/Day [...] on filedocumented in this encounter Care Teams Consultant Luxury And Auto. Vice President [employer] (Ex ) Relationship Specialty Start Date End Date Thom Ovalles MD PCP - Orthopaedics Orthopedics 04/08/11 Han Jackson MD PCP - General Family Medicine 10/23/21 Ruben Frey MD [address] [address] Assigned Musculoskeletal Provider 04/17/23 documented as of this encounter
--- OUTSIDE RECORDS SUMMARY | 2024-05-05 09:10 | XMS_ITS | Encounter Summary ---
Author Organization [place] Address [address] [place] [address]. [place] [address] Care Team Providers Care Riveting Machine Operator Automatic Name Role Phone Thom Ovalles MD Unavailable [phone] Han Jackson MD Primary Care Provider [phone] Ruben Frey MD Unavailable [phone] Encounter Details Date Type Department Care Team (Late st Contact Info) Description 10/26/2023 Telephone [facility] [place] [address] [facility] [address] 4th [place] [address] Ruben Frey MD [facility] [place], [place] [address] Social History Tobacco Use Types Packs/Day Years [...] on filedocumented in this encounter Care Teams Riveting Machine Operator Automatic Relationship Specialty Start Date End Date Thom Ovalles MD PCP - Orthopaedics Orthopedics 04/08/11 Han Jackson MD PCP - General Family Medicine 10/23/21 Ruben Frey MD [address] [place] [address] Assigned Musculoskeletal Provider 04/17/23 documented as of this encounter
--- OUTSIDE RECORDS SUMMARY | 2024-05-05 09:10 | XMS_ITS | Encounter Summary ---
Author Organization [place] Address [address] [place] [address] Care Team Providers Care Pharmaceutical Officer Name Role Phone Thom Ovalles MD Unavailable [phone] Han Jackson MD Primary Care Provider Ruben Frey MD Unavailable Encounter Details Date Type Department Care Team (Latest Contact Info) Description 02/08/2024 Travel Social History Tobacco Use Types Packs/Day [...] on filedocumented in this encounter Care Teams Pharmaceutical Officer Relationship Specialty Start Date End Date Thom Ovalles MD PCP - Orthopaedics Orthopedics 04/08/11 Han Jackson MD PCP - General Family Medicine 10/23/21 Ruben Frey MD [address] [address] Assigned Musculoskeletal Provider 04/17/23 documented as of this encounter
--- OUTSIDE RECORDS SUMMARY | 2024-05-05 09:10 | XMS_ITS | Encounter Summary ---
Author Organization [place] Address [address] [place] [address] Care Team Providers Care Interrelated Special Education Teacher Name Role Phone Ye Babb Charbel OD Unavailable [phone] Thom Ovalles MD Unavailable Frw, None Primary Care Provider Unavailabl Bri Rao MD Unavailable [phone] Oralia Lozano Unavailable No Ref-Primary, Physician Primary Care Provider Yasmine Esqueda APRN BUSINESS DEVELOPMENT ASSOCIATE Unavailable Yasmine Esqueda APRN BUSINESS DEVELOPMENT ASSOCIATE Unavailable Han Jackson MD Primary Care Provider Ruben Frey MD Unavailable Encounter Details Date Type Department Care Team (Late st Contact Info) Description 07/12/2012 MyC Medical Advice [facility] [address] [place] [address] Aaliyah Navarrete, MAYLIN [address] [facility] [address] [place] [address] Social History Tobacco Use Types [...] on filedocumented in this encounter Care Teams Interrelated Special Education Teacher Relationship Specialty Start Date End Date Ye Babb OD [facility] [place] [address] [place] [address] PCP - Ophthalmology 06/29/05 10/29/21 Thom Ovalles MD [facility] [place] [address] [place] [address] PCP - Orthopaedics Orthopedics 04/08/11 Frw, None PCP - General Family Practice 04/28/11 04/15/17 Bri [place] [address] PCP - Obstetrics/Gynecology director of slot operations 05/27/11 1 08/19/14 Oralia Lozano [facility] [place] [address] [place] [address] PCP - Audiology Audiology 12/15/12 12/15/12 No Ref-Primary, Physician PCP - General 01/31/18 10/22/21 Yasmine Esqueda APRN BUSINESS DEVELOPMENT ASSOCIATE [address] [facility] [place] [id number] PCP - Assigned PCP 02/20/18 10/18/18 Han Jackson MD [facility] [place] [address] PCP - General Family Medicine 10/23/21 Yasmine Esqueda APRN BUSINESS DEVELOPMENT ASSOCIATE [facility] [place] [id number] Assigned PCP 01/21/18 02/15/21 Ruben Frey MD [facility] [address] Assigned Musculoskeletal Provider 04/17/23 documented as of this encounter
--- OUTSIDE RECORDS SUMMARY | 2024-05-05 09:10 | XMS_ITS | Encounter Summary ---
Author Organization [place] Address [address] [place] [address] Care Team Providers Care Shiftman Name Role Phone Ye Babb Charbel OD Unavailable [phone] Thom Ovalles MD Unavailable [phone] Frw, None Primary Care Provider Unavailabl e Mya Valentine MD Unavailable [phone] Encounter Details Date Type Department Care Team (Late st Contact Info) Description 07/02/2011 12:29 PM SALES SUPPORT ADVISOR [facility] in [address] [address] Mya [place] [address] Social History Tobacco Use Types Packs/Day Years [...] review the results at her next visit. S SUPPORT ADVISOR * Mya Valentine MD - 07/06/2011 10:29 AM SALES SUPPORT ADVISOR PROCEDURE/OPERATIVE REPORT Date of Procedure: 07/02/11 PREOPERATIVE DIAGNOSES: Menometrorrhagia. Arcuate-shaped uterus. Status post endometrial ablation. POSTOPERATIVE DIAGNOSES: Menometrorrhagia. Arcuate-shaped uterus. Status post endometrial ablation. OPERATION: Laparoscopic supracervical hysterectomy with intraoperative cystoscopy. SURGEON: Dr. Valentine. OPERATIONS RESEARCH DIRECTOR: Dr. Lockwood. ANESTHESIA: General. ESTIMATED BLOOD LOSS: [...] single-toothed tenaculum and uterus sounded and a Train Up A Child Toyslka uterine manipulator was placed. The tenaculum and [...] and transferred to recovery in good condition. Mya Valentine M.D. CHRISTIANO/yeimi cc: S SUPPORT ADVISOR documented in this encounter Plan of Treatment Not on file documented as of this encounter Procedures Procedure Name Priority Date/Time Associated Diagnosis Comments SURGICAL PATHOLOGY EXAM Routine 07/02/2011 4:10 PM SALES SUPPORT ADVISOR documented in this encounter Results * Surgical pathology exam (07/02/2011 4:10 PM SALES SUPPORT ADVISOR) Copath Report Patient Name: KRISTIE KIRKLAND MR#: [id number] Specimen #: [id number] Collected: 07/02/2011 Received: 07/03/2011 Reported: 07/07/2011 16:43 [...] endometrium it is flat, thin, and gonzalez. ??Real Estate Office Supervisor sections in seven blocks. ??Two small apparent [...] two small myomas appear benign. Keenan Meyer MD/[facility] 07/07/2011 TESTING LAB LOCATION: [address] [place] [address] COLLECTION SITE: Client: [facility] Location: [facility] (W) COPATH 07/02/2011 4:10 PM SALES SUPPORT ADVISOR 07/03/2011 8:37 AM SALES SUPPORT ADVISOR Mya Valentine MD [facility] Organization Address City/State/ZIP Co de Phone Number COPATH documented in this encounter Visit Diagnoses Not on filedocumented in this encounter Care Teams Shiftman Relationship Specialty Start Date End Date Ye Babb OD [facility] [place] [address] [place] [address] PCP - Ophthalmology 06/29/05 10/29/21 Thom Ovalles MD [facility] [place] [address] [place] [address] PCP - Orthopaedics Orthopedics 04/08/11 Frw, None PCP - General Family Practice 04/28/11 04/15/17 [place] [address] PCP - Obstetrics/Gynecology meter record clerk 05/27/11 1 08/19/14 documented as of this encounter
--- OUTSIDE RECORDS SUMMARY | 2024-05-05 09:10 | XMS_ITS | Encounter Summary ---
Author Organization [facility] Address [address] [place] [address] Care Team Providers Care Customer Professional Name Role Phone Thom Ovalles MD Unavailable [phone] Han Jackson MD Primary Care Provider Ruben Christianson MD Unavailable [phone] Reason for Visit * Reason Onset Date Comments therapy reports 05/05/2023 Patient is reque sting a call back to confirm when they received therapy notes from [place] Encounter Details Date Type Department Care Team (Late st Contact Info) Description 05/05/2023 [facility] [place] [address] [facility] [address] 4th [place] [address] Ruben Christianson MD [address] [place] [address] therapy reports (Patient is requesting a call back to confirm when they received therapy notes from [place]) Social History Tobacco Use Types Packs/Day Years [...] let them know that PT notes from [place] were received on 05/05/23 and scanned into patient's chart. ATC will notify Vania Levy RN and send message to Prior Auth for follow up. Thom Mckinney ATC * Telephone Encounter - Kay Ontiveros - 05/05/2023 12:51 PM CDT [facility] Phone Message May a detailed message be left on voicemail: yes Reason for Call: Other: Patient is requesting a call back to confirm when they received therapy notes from [place] Action Taken: Message routed to: [facility] abhijit christianson Travel Screening: Not Applicable documented in this encounter Plan of Treatment Not on file documented as of this encounter Visit Diagnoses Not on filedocumented in this encounter Care Teams Customer Professional Relationship Specialty Start Date End Date Thom Ovalles MD PCP - Orthopaedics Orthopedics 04/08/11 Han Jackson MD PCP - General Family Medicine 10/23/21 Ruben Christianson MD [facility] [address] [place] [address] Assigned Musculoskeletal Provider 04/17/23 documented as of this encounter
--- OUTSIDE RECORDS SUMMARY | 2024-05-05 09:10 | XMS_ITS | Encounter Summary ---
Author Organization [facility] Address [address] [place] [address] Care Team Providers Care Waiter/Waitress Economy Class Name Role Phone Gely Taveras MD Unavailable [phone] Ye Babb OD Unavailable [phone] Thom Ovalles MD Unavailable [phone] Frw, None Primary Care Provider Unavailabl Bri Rao MD Unavailable [phone] Oralia Lozano Unavailable No Ref-Primary, Physician Primary Care Provider Yasmine Esqueda APRN DATA MANAGEMENT Unavailable José Miguel-Yasmine Antonio APRN DATA MANAGEMENT Unavailable Han Jackson MD Primary Care Provider Ruben Frey MD Unavailable Encounter Details Date Type Department Care Team (Late st Contact Info) Description 05/01/2011 MyC Medical Advice [facility] in [place] STEAM POWER PLANT OPERATOR [address] [place] [address] Kerry Jackson Social History Tobacco [...] on filedocumented in this encounter Care Teams Waiter/Waitress Economy Class Relationship Specialty Start Date End Date Gely Taveras MD [facility] [place] [facility] [address] [place] [address] PCP - Obstetrics/Gynecology 02/28/03 1 Ye Babb OD [facility] [place] [address] [place] [address] PCP - Ophthalmology 06/29/05 10/29/21 Thom Ovalles MD [facility] [place] [address] [place] [address] PCP - Orthopaedics Orthopedics 04/08/11 Frw, None PCP - General Family Practice 04/28/11 04/15/17 [place] [address] PCP - Obstetrics/Gynecology ep tech 05/27/11 1 08/19/14 Oralia Lozano [facility] [place] [address] [place] [address] PCP - Audiology Audiology 12/15/12 12/15/12 No Ref-Primary, Physician PCP - General 01/31/18 10/22/21 Yasmine Esqueda APRN DATA MANAGEMENT [address] [facility] [place] [address] PCP - Assigned PCP 02/20/18 10/18/18 Han Jackson MD [address] [place] [address] [place] [address] PCP - General Family Medicine 10/23/21 Yasmine Esqueda APRN DATA MANAGEMENT [address] [place] [address] [place] [address] Assigned PCP 01/21/18 02/15/21 Ruben Frey MD [address] [place] [address] Assigned Musculoskeletal Provider 04/17/23 documented as of this encounter
--- OUTSIDE RECORDS SUMMARY | 2024-05-05 09:10 | XMS_ITS | Encounter Summary ---
Author Organization [facility] Address [address] [place] [address] Care Team Providers Care Ground Crew Linesman Name Role Phone eKi BabbSudha BUTLER Unavailable [phone] Thom Ovalles MD Unavailable [phone] Frw, None Primary Care Provider Unavailabl Bri Rao MD Unavailable [phone] Oralia Lozano Unavailable No Ref-Primary, Physician Primary Care Provider Yasmine Esqueda APRN COSTUME DESIGNER Unavailable Yasmine Esqueda APRN COSTUME DESIGNER Unavailable Han Jackson MD Primary Care Provider Ruben Frey MD Unavailable [phone] Encounter Details Date Type Department Care Team (Late st Contact Info) Description 07/18/2011 [facility] in [place] Inpatient Dept [address] [place] [address] Frw, Inpatient Provider Pain following surgery or [...] tender diffusely. ASSESSMENT: SBO PLAN: Per surgery. CARE CONSULTANT * Jason Veliz MD - 07/18/2011 10:04 AM CST ADMISSION HISTORY & PHYSICAL Kristie Kirkland : 1975 MR #: [id number] CC: Abdominal pain and bloating HPI: Kristie [...] ??? 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 Admit 2. General surgery consult and SECTION SUPERVISOR surgery consult. 3. NG as needed 4. NPO 5. IV pain medication and fluid support. Signed Electronically by: JASON VEILZ July 18, 2011 CARE CONSULTANT documented in this encounter Plan of Treatment Not on file documented as of this encounter Visit Diagnoses Diagnosis Pain following surgery or procedure- Primary Other acute postoperative pain documented in this encounter Care Teams Ground Crew Linesman Relationship Specialty Start Date End Date Ye Babb OD [facility] [place] [address] [place] [address] PCP - Ophthalmology 06/29/05 10/29/21 Thom Ovalles MD [facility] [place] [address] [place] [address] PCP - Orthopaedics Orthopedics 04/08/11 Frw, None PCP - General Family Practice 04/28/11 04/15/17 [place] [address] PCP - Obstetrics/Gynecology procurement services manager 05/27/11 1 08/19/14 Oralia Lozano [facility] [place] [address] [place] [address] PCP - Audiology Audiology 12/15/12 12/15/12 No Ref-Primary, Physician PCP - General 01/31/18 10/22/21 Yasmine Esqueda APRN COSTUME DESIGNER [address] [facility] [place] [id number] PCP - Assigned PCP 02/20/18 10/18/18 Han Jackson MD [address] [facility] [place] [address] PCP - General Family Medicine 10/23/21 Yasmine Esqueda APRN COSTUME DESIGNER [address] [facility] [place] [address] Assigned PCP 01/21/18 02/15/21 Ruben Frey MD [address] [facility] [address] [place] [address] Assigned Musculoskeletal Provider 04/17/23 documented as of this encounter
--- OUTSIDE RECORDS SUMMARY | 2024-05-05 09:10 | XMS_ITS | Encounter Summary ---
Author Organization [facility] Address [address] [place] [address] Care Team Providers Care Rose Grader Name Role Phone Felix Hill MD Primary Care Provider [phone] Gely Taveras MD Unavailable [phone] Ye Babb OD Unavailable [phone] Encounter Details Date Type Department Care Team (Late st Contact Info) Description 01/28/2010 6:33 AM CDT [facility] in [address] [address] Bri [place] [address] Social History Tobacco Use Types Packs/Day Years [...] on filedocumented in this encounter Care Teams Rose Grader Relationship Specialty Start Date End Date Felix Hill MD [address] [place], [place] [address] PCP - General 11/27/08 04/27/11 Gely Taveras MD [facility] [address] [facility] [place], [place] [address] PCP - Obstetrics/Gynecology 02/28/03 1 Ye Babb OD [facility] [place] [address] [place], [place] [address] PCP - Ophthalmology 06/29/05 10/29/21 documented as of this encounter
--- OUTSIDE RECORDS SUMMARY | 2024-05-05 09:10 | XMS_ITS | Encounter Summary ---
Author Organization [facility] Address [address] [place] [address] Care Team Providers Care Financial Health Counselor Name Role Phone Ye Babb Charbel OD Unavailable Thom Ovalles MD Unavailable [phone] Frw, None Primary Care Provider Unavailabl Bri Rao MD Unavailable [phone] No Ref-Primary, Physician Primary Care Provider José Miguel-Yasmine Antonio APRN SALVAGE WINDER Unavailable José Miguel-Yasmine Antonio APRN SALVAGE WINDER Unavailable Han Jackson MD Primary Care Provider Ruben Frey MD Unavailable Encounter Details Date Type Department Care Team (Late st Contact Info) Description 08/11/2013 MyC Medical Advice [facility] in [place] SUPERVISOR [employer]ING [address] [place] [address] Feli Pinto MD [facility] [address] [place] [address] Social History Tobacco Use Types [...] on filedocumented in this encounter Care Teams Financial Health Counselor Relationship Specialty Start Date End Date Ye Babb OD [facility] [place] [address] [place] [address] PCP - Ophthalmology 06/29/05 10/29/21 Thom Ovalles MD [facility] [place] [address] [place] [address] PCP - Orthopaedics Orthopedics 04/08/11 Frw, None PCP - General Family Practice 04/28/11 04/15/17 [place] [address] PCP - Obstetrics/Gynecology glue bone crusher 05/27/11 1 08/19/14 No Ref-Primary, Physician PCP - General 01/31/18 10/22/21 José MiguelYasmine Antonio APRN SALVAGE WINDER [address] [place] [address] [place] [address] PCP - Assigned PCP 02/20/18 10/18/18 Han Jackson MD [address] [place] [address] [place] [address] PCP - General Family Medicine 10/23/21 Yasmine Esqueda APRN SALVAGE WINDER [address] [place] [address] [place] [address] Assigned PCP 01/21/18 02/15/21 Ruben Frey MD [address] [address] Assigned Musculoskeletal Provider 04/17/23 documented as of this encounter
--- OUTSIDE RECORDS SUMMARY | 2024-05-05 09:10 | XMS_ITS | Encounter Summary ---
Author Organization [facility] Address [address] [place] [address]. [place] [address] Care Team Providers Care Sleeve Setter Name Role Phone Thom Ovalles MD Unavailable [phone] Han Jackson MD Primary Care Provider Ruben Frey MD Unavailable Encounter Details Date Type Department Care Team (Late st Contact Info) Description 07/01/2023 [facility] Medical Advice [facility] [place] [address] [facility] [address] 4th [place] [address] Ruben Frey MD [facility] [address] [place] [address] Social History Tobacco Use Types [...] on filedocumented in this encounter Care Teams Sleeve Setter Relationship Specialty Start Date End Date Thom Ovalles MD PCP - Orthopaedics Orthopedics 04/08/11 Han Jackson MD PCP - General Family Medicine 10/23/21 Ruben Frey MD [facility] [address] [address] Assigned Musculoskeletal Provider 04/17/23 documented as of this encounter
--- OUTSIDE RECORDS SUMMARY | 2024-05-05 09:10 | XMS_ITS | Encounter Summary ---
Author Organization [place] Address [address] [place] [address]. [place] [address] Care Team Providers Care Store Stocker Name Role Phone Thom Ovalles MD Unavailable [phone] Han Jackson MD Primary Care Provider Ruben Frey MD Unavailable Reason for Visit * Diagnostic Imaging XR (Routine) - Pending Review Specialty Diagnoses / Procedures Referred By Contac t Referred To Contact Radiology. Diagnoses S/P fusion of sacroiliac joint Procedures XR Pelvis G/E 3 Views Ruben Frey MD [address] [place] [address] Referral ID Status Reason Start Date Expiration Date V isits Requested Visits Authorized [id number] Pending Review 01/20/2024 01/19/2025 1 1 Encounter Details Date Type Department Care Team (Latest Contact Info) Description 02/10/2024 2:40 PM CDT Ancillary Procedure [facility] Orthopedic Xray [address] 4[address] [place] [address] Ruben Frey MD [address] [place] [id number] S/P fusion of sacroiliac joint Social History [...] Comments XR PELVIS G/E 3 VIEWS Routine 02/10/2024 2:44 PM CDT S/P fusion of sacroiliac joint documented in this encounter Results * XR Pelvis G/E 3 Views (02/10/2024 2:44 PM CDT) Anatomical Region Laterality Modality Abdomen/Pelvis Computed Radiogr aphy Impressions 02/10/2024 4:22 PM CDT IMPRESSION: Bilateral SI joint fusion instrumentation without complication. BLAZE MEDLEY MD (Joe) Narrative 02/10/2024 4:22 PM CDT EXAM: XR PELVIS G/E 3 VIEWS ??02/10/2024 2:44 PM ?? HISTORY: S/P fusion of sacroiliac joint COMPARISON: 12/07/2023 FINDINGS: Outlet, inlet, and lateral views of the pelvis. 3 fusion devices across the right SI joint.. No evidence of hardware complication Interval placement of 3 fusion devices across the left SI joints. No complication. Mild degenerative changes of the hips. Soft tissues unremarkable. Lower lumbar facet hypertrophy. Procedure Note Blaze Medley DO - 02/10/2024 EXAM: XR PELVIS G/E 3 VIEWS 02/10/2024 2:44 PM HISTORY: S/P fusion of sacroiliac joint COMPARISON: 12/07/2023 FINDINGS: Outlet, inlet, and lateral views of the pelvis. 3 fusion devices across the right SI joint.. No evidence of hardware complication Interval placement of 3 fusion devices across the left SI joints. No complication. Mild degenerative changes of the hips. Soft tissues unremarkable. Lower lumbar facet hypertrophy. IMPRESSION: Bilateral SI joint fusion instrumentation without complication. BLAZE MEDLEY MD (Joe) Ruben Frey MD IMG DIAGNOSTI C IMAGING ORDERABLES documented in this encounter Visit Diagnoses Diagnosis S/P fusion of sacroiliac joint documented in this encounter Care Teams Store Stocker Relationship Specialty Start Date End Date Thom Ovalles MD PCP - Orthopaedics Orthopedics 04/08/11 Han Jackson MD PCP - General Family Medicine 10/23/21 Ruben Frey MD [address] [place] [address] Assigned Musculoskeletal Provider 04/17/23 documented as of this encounter
--- OUTSIDE RECORDS SUMMARY | 2024-05-05 09:10 | XMS_ITS | Encounter Summary ---
Author Organization [facility] Address [address] [place] [address] Care Team Providers Care Venue Coordinator Name Role Phone Gely Taveras MD Unavailable Ye Babb OD Unavailable [phone] Thom Ovalles MD Unavailable [phone] Frw, None Primary Care Provider Unavailabl e Encounter Details Date Type Department Care Team (Late st Contact Info) Description 05/04/2011 9:30 AM T [facility] in [facility] [address] [place] [address] Yudy Colón, PAMax [facility] [address] [facility] [address] [place], [place] [address] Social History Tobacco Use Types Packs/Day Years [...] on filedocumented in this encounter Care Teams Venue Coordinator Relationship Specialty Start Date End Date Gely Taveras MD [facility] [address] [facility] [place] [address] PCP - Obstetrics/Gynecology 02/28/03 1 Ye Babb OD [facility] [place] [address] [facility] [address] [place] [address] PCP - Ophthalmology 06/29/05 10/29/21 Thom Ovalles MD [facility] [place] [address] [facility] [address] [place] [address] PCP - Orthopaedics Orthopedics 04/08/11 Frw, None PCP - General Family Practice 04/28/11 04/15/17 documented as of this encounter
--- OUTSIDE RECORDS SUMMARY | 2024-05-05 09:10 | XMS_ITS | Encounter Summary ---
Author Organization [place] Address [address] [place] [address] Care Team Providers Care Ehs Teacher Name Role Phone Felix Hill MD Primary Care Provider [phone] Gely Taveras MD Unavailable [phone] Ye Babb OD Unavailable [phone] Encounter Details Date Type Department Care Team (Late st Contact Info) Description 10/22/2010 11:46 AM [facility] in [address] [address] Jesse May MD [address] [phone] Social History Tobacco Use Types Packs/Day Years [...] Jesse May MD - 10/22/2010 3:55 PM TIRE MOUNTER PROCEDURE/OPERATIVE REPORT Date of Procedure: 10/22/2010 PREOPERATIVE [...] end of the case. Sylvie Pereira/dann cc: MOUNTER documented in this encounter Plan of Treatment Not on file documented as of this encounter Visit Diagnoses Not on filedocumented in this encounter Care Teams Ehs Teacher Relationship Specialty Start Date End Date Felix Hill MD [facility] [place] [address] [place] [address] PCP - General 11/27/08 04/27/11 Gely Taveras MD [facility] [place] [facility] [address] [facility] [place] [address] PCP - Obstetrics/Gynecology 02/28/03 1 Ye Babb OD [facility] [place] [address] [place] [address] PCP - Ophthalmology 06/29/05 10/29/21 documented as of this encounter
--- OUTSIDE RECORDS SUMMARY | 2024-05-05 09:10 | XMS_ITS | Encounter Summary ---
Author Organization [place] Address [address] [place] [address]. [place] [address] Care Team Providers Care Nursing Informatics Specialist Name Role Phone Thom Ovalles MD Unavailable [phone] Han Jackson MD Primary Care Provider [phone] Ruben Frey MD Unavailable [phone] Reason for Visit * Reason Comments RECHECK POST-OP SPINE - DOS: 01/03/24 Encounter Details Date Type Department Care Team (Late st Contact Info) Description 02/10/2024 3:00 PM CDT Office Visit [facility] [address] 4[address] [place] [address] Ruben Frey MD [address] [place] [address] S/P fusion of sacroiliac joint (Primary Dx) [...] Sign Reading Time Taken Comments Blood Pressure - - Pulse - - Temperature - - Respiratory Rate - - Oxygen Saturation - - Inhaled Oxygen Concentration - - Weight 50.8 kg (112 lb) 02/10/2024 2:43 PM CDT Height 154.9 cm (5' 1) 02/10/2024 2:43 PM CDT Body Mass Index 21.16 02/10/2024 2:43 PM CDT documented in this encounter Progress Notes * Ruben Frey MD - 02/10/2024 3:00 PM CDT In-Person Visit Spine Surgical Hx: 06/09/2023 - MIS Right SIJ fusion (Shante). [Implants: SI-Bone TORQ screws x3]. 01/03/2024 - MIS Left SIJ fusion (Shante). [Implants: SI-Bone TORQ screws x3]. Chief Complaint Patient presents with RECHECK POST-OP SPINE - DOS: 01/03/24 S> 48 year old female, the patient presents for routine postoperative follow-up. She is doing well. Her incisions are healed. She denies any ongoing pain. She is full weightbearing at this time. She feels that her postoperative course is similar to her prior SI joint fusion which has largely been neck success. Oswestry (SAVANNA) Questionnaire 02/08/2024 8:17 AM OSWESTRY DISABILITY INDEX Count 10 Sum 9 Oswestry Score (%) 18 % Visual Analog Pain Scale Back Pain Scale 0-10: 2 (low back pain) Right leg pain: 0 Left leg pain: 0 Neck Pain Scale 0-10: 3 Right arm pain: 0 Left arm pain: 0 PROMIS-10 Scores Global Mental Health Score: (P) 17 Global Physical Health Score: (P) 15 PROMIS TOTAL - SUBSCORES: (P) 32 O> Alert, oriented x 3, cooperative. Not in CP distress. Ht 1.549 m (5' 1) Wt 50.8 kg (112 lb) LMP 11/14/2009 BMI 21.16 kg/m?? Surgical incision(s) well-healed, no sign of infection. Ambulates independently. Grossly neurologically intact. Imaging: X-ray AP lateral x-rays of the pelvis: My personal interpretation, there is no radiographic evidence of implant failure. Postsurgical changes to bilateral SI joints without radiographic evidence of implant loosening. A> 1. 6 mos s/p MIS R SIJ fusion (06/09/23), doing well. 2. 6wks s/p MIS L SIJ fusion (01/03/24) P> Patient is doing well postoperatively. She is happy with her outcome thus far. We discussed beginning physical therapy home exercises. She participated in physical therapy at her last SI joint fusionand therefore she is very familiar with the regiment. She will do this at home. She will follow-up in 3 months for repeat clinical and radiographic evaluation Attestation: I (Dr. Ruben Frey - Spine Surgeon) have personally evaluated patient with Spine Fellow Dr. Martin Adkins, and agree with findings and plan outlined in the note, which I also edited. I discussed at length with the patient/family, explained the nature of spinal condition, and formulated workup and/or treatment plan together. All questions were answered to the best of my ability and to patient's apparent satisfaction. Ruben Frey MD Intermediate School Teacher Orthopaedic Spine Surgery Dept Orthopaedic Surgery, [facility] [phone] office, pager [email or web address] documented in this encounter Plan of Treatment Not on file documented as of this encounter Visit Diagnoses Diagnosis S/P fusion of sacroiliac joint- Primary documented in this encounter Care Teams Nursing Informatics Specialist Relationship Specialty Start Date End Date Thom Ovalles MD PCP - Orthopaedics Orthopedics 04/08/11 Han Jackson MD PCP - General Family Medicine 10/23/21 Ruben Frey MD [address] [facility] [address] [place] [address] Assigned Musculoskeletal Provider 04/17/23 documented as of this encounter
--- OUTSIDE RECORDS SUMMARY | 2024-05-05 09:11 | XMS_ITS | Encounter Summary ---
Author Organization [facility] Address [address] [place] [address] Care Team Providers Care Hydraulic Lift Operator Name Role Phone Felix Hill MD Primary Care Provider Frw, None Primary Care Provider UnavailGely Goodwin MD Unavailable [phone] Ye Babb OD Unavailable [phone] Thom Ovalles MD Unavailable [phone] Frw, None Primary Care Provider UnavailBri Grove MD Unavailable [phone] Oralia Lozano Unavailable No Ref-Primary, Physician Primary Care Provider Yasmine Esqueda APRN DISPENSING OPTICIAN APPRENTICE Unavailable Yasmine Esqueda APRN DISPENSING OPTICIAN APPRENTICE Unavailable Han Jackson MD Primary Care Provider Ruben Frey MD Unavailable Encounter Details Date Type Department Care Team (Late st Contact Info) Description 06/17/2008 [facility] in [facility] [address] [place] [id number] Gely Taveras MD [facility] [address] [place] [address] Social History Tobacco Use Types [...] on filedocumented in this encounter Care Teams Hydraulic Lift Operator Relationship Specialty Start Date End Date Felix Hill MD [facility] [place] [address] [place] [address] PCP - General 11/27/08 04/27/11 Frw, None PCP - General 09/07/00 11/26/08 [facility] MD [facility] [place] [facility] [address] [place] [address] PCP - Obstetrics/Gynecology 02/28/03 1 Ye Babb OD [facility] [place] [address] [place] [address] PCP - Ophthalmology 06/29/05 10/29/21 Thom Ovalles MD [facility] [place] [address] [place] [address] PCP - Orthopaedics Orthopedics 04/08/11 Frw, None PCP - General Family Practice 04/28/11 04/15/17 Bri Valentine [place] [address] PCP - Obstetrics/Gynecology supervisor shuttle preparation 05/27/11 1 08/19/14 Oralia Lozano [facility] [place] [address] [facility] [address] [place] [address] PCP - Audiology Audiology 12/15/12 12/15/12 No Ref-Primary, Physician PCP - General 01/31/18 10/22/21 Yasmine Esqueda APRN DISPENSING OPTICIAN APPRENTICE [address] [facility] [place] [address] PCP - Assigned PCP 02/20/18 10/18/18 Han Jackson MD [facility] [facility] [place] [address] PCP - General Family Medicine 10/23/21 Yasmine Esqueda APRN DISPENSING OPTICIAN APPRENTICE [address] [facility] [place] [address] Assigned PCP 01/21/18 02/15/21 Ruben Frey MD [facility] [facility] [address] [place] [address] Assigned Musculoskeletal Provider 04/17/23 documented as of this encounter
--- OUTSIDE RECORDS SUMMARY | 2024-05-05 09:11 | XMS_ITS | Encounter Summary ---
Author Organization [facility] Address [address] [place] [address] Care Team Providers Care Mortgage Processing Manager Name Role Phone Felix Hill MD Primary Care Provider [phone] Gely Taveras MD Unavailable [phone] Ye Babb OD Unavailable [phone] Encounter Details Date Type Department Care Team (Late st Contact Info) Description 01/02/2009 10:56 AM CDT [facility] in [address] [phone] Jesse May MD [address] [phone] Social History Tobacco Use Types Packs/Day Years [...] end of the case. Jesse May M.D. [facility] cc: documented in this encounter Plan of Treatment Not on file documented as of this encounter Visit Diagnoses Not on filedocumented in this encounter Care Teams Mortgage Processing Manager Relationship Specialty Start Date End Date Felix Hill MD [facility] [place] [address] [place] [address] PCP - General 11/27/08 04/27/11 Gely Taveras MD [facility] [place] [facility] [address] [place] [address] PCP - Obstetrics/Gynecology 02/28/03 1 Ye Babb OD [facility] [place] [address] [place] [address] PCP - Ophthalmology 06/29/05 10/29/21 documented as of this encounter
--- OUTSIDE RECORDS SUMMARY | 2024-05-05 09:11 | XMS_ITS | Encounter Summary ---
Author Organization [facility] Address [address] [place] [address] Care Team Providers Care Superintendent Sales Name Role Phone Felix Hill MD Primary Care Provider [phone] Gely Taveras MD Unavailable [phone] Ye Babb OD Unavailable [phone] Thom Ovalles MD Unavailable [phone] Frw, None Primary Care Provider Unavailabl Bri Rao MD Unavailable [phone] Oralia Lozano Unavailable No Ref-Primary, Physician Primary Care Provider Yasmine Esqueda APRN METAL COATER OPERATOR Unavailable José Miguel-Yasmine Antonio APRN METAL COATER OPERATOR Unavailable Han Jackson MD Primary Care Provider Ruben Frey MD Unavailable Encounter Details Date Type Department Care Team (Late st Contact Info) Description 01/28/2010 [facility] [address] [place] [address] Frw, Inpatient Provider Surgery Aftercare (Primary Dx) [...] surgery documented in this encounter Care Teams Superintendent Sales Relationship Specialty Start Date End Date Felix Hill MD [facility] [place] [address] [place] [address] PCP - General 11/27/08 04/27/11 Gely Taveras MD [facility] [place] [facility] [address] [place] [address] PCP - Obstetrics/Gynecology 02/28/03 1 Ye Babb OD [facility] [address] [place] [address] PCP - Ophthalmology 06/29/05 10/29/21 Thom Ovalles MD [facility] [place] [address] [place] [address] PCP - Orthopaedics Orthopedics 04/08/11 Frw, None PCP - General Family Practice 04/28/11 04/15/17 Bri [place] [address] PCP - Obstetrics/Gynecology manager wellness 05/27/11 1 08/19/14 Oralia Lozano [facility] [place] [address] [place] [address] PCP - Audiology Audiology 12/15/12 12/15/12 No Ref-Primary, Physician PCP - General 01/31/18 10/22/21 Yasmine Esqueda APRN METAL COATER OPERATOR [address] [place] [address] [place] [address] PCP - Assigned PCP 02/20/18 10/18/18 Han Jackson MD [address] [place] [address] [place] [address] PCP - General Family Medicine 10/23/21 Yasmine Esqueda APRN METAL COATER OPERATOR [address] [place] [address] [place] [address] Assigned PCP 01/21/18 02/15/21 Ruben Frey MD [facility] [address] [place] [address] Assigned Musculoskeletal Provider 04/17/23 documented as of this encounter
== END 2024-05-05 09:07 | disposition home or self-care (01) ==
LOC: NFLDREF 09:06
PROVIDERS: PCP Family Medicine; Visit Provider Obstetrics & Gynecology
DX: Z01.419 Encounter for gynecological examination (general) (routine) without abnormal findings (principal); Z13.6 Encounter for screening for cardiovascular disorders
CPT/HCPCS: 80061

== ENCOUNTER 2024-05-29 08:41 | Outpatient (CLI) | payer OTHER, SELFPAY ==
--- OUTSIDE RECORDS SUMMARY | 2024-05-29 08:43 | XMS_ITS | Continuity of Care Document ---
Author Organization [facility] Address [address] [place] [address] Phone Care Team Providers Care Transitional Care Manager Name Role Phone Leticia Anne MD Unavailable [...] Copied on Encounter [facility], [address], [place], [place], [id number], [place] tel:[phone] [facility] No Information 2 Omid Kelly. [facility], [address], [address], [place], [address], [place]. tel:[phone] Office/Outpa tient Visit,Est, Mod [facility], [address], [place], [place], [address], [place] tel:[phone] [facility] Other spondylosis, cervical region 2 Omid Kelly. [facility], [address] [place] [address], [address], [place], [address], [place]. tel: [phone] Referring Provider: Thom M[facility]quez, [facility] [address], [place], [address]. tel:[phone] Office/Outpa tient Visit,Est, Mod [facility], [address], [place], [place], [address], [place] tel:[phone] [facility] Cervicalgia 9 Kina Mcnamara . [facility], [address] [place] [address], [address], [place], [place], [address] , [place]. tel: [phone] Referring Provider: Thom Márquez, [facility] [address], [place], [address]. tel:[phone] Office/Outpa tient Visit,Est, Mod [facility], [address], [place], [address], [place] tel:[phone] [facility] Encounter for other specified surgical aftercare 9 Castanon Anders . [facility], [address] [place] [address], [address], [place], [place], [address] , [place]. tel:[phone] Referring Provider: Thom Márquez, [facility] [address], [place], [address]. tel:[phone] Office/Outpa tient Visit,Est, Mod [facility], [address], [place], [address], [place] tel:[phone] [facility] Encounter for other specified surgical aftercare [phone] [facility] . [facility], [address] [place] [address], [address], [place], [place], [address] , [place]. tel:[phone] Referring Provider: Thom Márquez, [facility] [address], [place], [address]. tel:[phone] Office/Outpa tient Visit,Est, Mod [facility], [address], [place], [place], [address], [place] tel:[phone] [facility] Encounter for other specified surgical aftercare 0 8 [facility] er. [facility], [address], [address], [place], [place], [address] , [place]. [phone] Referring Provider: Thom Márquez, [facility] [address], [place], [address]. tel:[phone] Office/Outpa tient Visit,Est, Mod [facility], [address], [place], [place], [address], [place] tel:[phone] [facility] Encounter for other specified surgical aftercareLow back pain 2 8 [facility] er. [facility], [address], [address], [place], [place], [address] , . [phone] Referring Provider: Thom Márquez, [facility] [address], [place], [address]. tel:[phone] Office/Outpa tient Visit,Est, Mod [facility], [address], [place], [place], [address], [place] tel:[phone] Encounter for other specified surgical aftercare 8 [facility]. [facility], [address], [address], [place], [place], [address] , . [phone] Referring Provider: Thom Márquez, [facility] [address], [place], [address]. tel:[phone] [facility], [address], [place], [address], [place] tel:[phone] [facility] Encounter for other specified surgical aftercare May-3 [facility], [address], [address], [place], [address] , [place]. tel:[phone] Referring Provider: Thom Márquez, [facility] [address], [place], [address]. tel:[phone] [facility], [address], [place], [address], [place] tel:[phone] [facility] Encounter for other specified surgical aftercare May-0 [facility]. [facility], [address], [address], [place], [place], [address] , [place]. [phone] Referring Provider: Thom Márquez, [facility] [address], [place], [address]. tel:[phone] [facility], [address], [place], [place], [address], [place] [phone] [facility] No Information Sep-2 7 Lance Potter. [facility], [address], [place], [facility], [place]. [phone] Referring Provider: Thom Márquez, [facility] [address], [place], [address]. tel:[phone] [facility], [address], [place], [place], [address], [place] tel:[phone] [facility] No Information Sep-2 [facility]. [facility], [address], [address], [place], [address] , [place]. tel:[phone] Referring Provider: Thom Márquez, [facility] [address], [place], [address]. 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 [facility], [address], [address], [place], [place], [address] , [place]. tel:[phone] Referring Provider: Thom Márquez, [facility] [address], [place], [address]. tel:[phone] Office/Outpa tient Visit,Est, Mod [facility], [address], [place], [place], [address], [place] tel:[phone] [facility] Spinal stenosis, cervical regionPseudar throsis after fusion or arthrodesis 7 Castanon Anders er. [facility], [address], [address], [place], [place], [address] , [place]. tel:[phone] Referring Provider: Thom Márquez, [facility] [address], [place], [address]. tel:[phone] Office/Outpa tient Visit,Est, Mod [facility], [address], [place], [place], [address], [place] tel:[phone] [facility] Cervicalgia 7 Kina Mcnamara er. [facility], [address], [address], [place], [place], [address] , [place]. tel:[phone] Referring Provider: Thom Márquez, [facility] [address], [place], [address]. tel:[phone] Office/Outpa tient Visit,Est, Mod [facility], [address], [place], [place], [address], [place] tel:[phone] [facility] Other intervertebra l disc degeneration, lumbar regionArthrod esis statusOverwei ght 5 [facility]. [facility], [address], [address], [place], [place], [address] , [place]. [phone] Referring Provider: Thom Márquez, [facility] [address] [facility] [address], [place], [address]. tel:[phone] Office/Outpa tient Visit,Est, Mod [facility], [address], [place], [place], [address], [place] [phone] [facility] Displacement of intervertebra l disc, site unspecified, without myelopathyOVE RWEIGHTHypert ension, UnspecifiedLu mbar spondylosisLu mbar radiculopathy Shoulder joint painPatient who has had a surgical fusion of a joint 5 Castanon Anders er. [facility], [address], [address], [place], [place], [address] , [place]. [phone] Referring Provider: Thom Márquez, [facility] [address] [facility] [address], [place], [address]. tel:[phone] [facility], [address], [place], [place], [address], [place] tel:[phone] [facility] Patient who has had a surgical fusion of a joint 5 [facility]. [facility], [address], [address], [place], [place], [address] , [place]. [phone] Referring Provider: Pancho Castanon, [facility] [address], [address], [place], [address]. [phone] [facility], [address], [place], [address], [place] [phone] [facility] No Information 4 Castanon Anders er. [facility], [address], [address], [place], [place], [address] , [place]. tel:[phone] Referring Provider: Pancho Castanon [facility] [address], [address], [place], [address]. tel:[phone] Z [facility], [address], [place], [address], [place] tel:[phone] [facility] No Information 4 Kina Anders er. [facility], [address], [address], [place], [place], [address] , [place]. tel:[phone] Referring Provider: Pancho Castanon [facility] [address], [address], [place], [address]. tel:[phone] Pre Op Office/Outpa tient Visit, Z [facility], [address], [place], [address], [place] tel:[phone] [facility] Hypertension, UnspecifiedDi splacement of intervertebra l disc, site unspecified, without myelopathy 4 Kina Mcnamara er. [facility], [address], [address], [place], [place], [address] , [place]. tel:[phone] Referring Provider: Same As Referring. Office/Outpa tient Visit,Est, Mod Z [facility], [address], [place], [address], [place] tel:[phone] [facility] No Information 4 Kina Mcnamara er. [facility], [address], [address], [place], [place], [address] , [place]. tel:[phone] Referring Provider: Pancho Castanon [facility] [address], [address], [place], [address]. tel:[phone] Office/Outpa tient Visit,Est, Mod Z [facility], [address] [facility], [place], [address], [place] tel:[phone] [facility] Neck and right arm pain (chief complaint) No Information Sep-2 9-201 4 Kina Diggsoph er. [facility], [address], [address], [place], [place], [address] , . tel:[phone] Referring Provider: Pancho Castanon, [facility] [address], [address], [place], [address]. tel:[phone] Office/Outpa tient Visit,[facility], [facility] Z [facility], [address], [place], [facility], tel:[phone] [facility] Cervical pain (chief complaint) No Information 4 Kina Diggsoph er. [facility], [address], [address], [place], [place], [address] , [place]. tel:[phone] Referring Provider: Pancho Castanon, [facility] [address], [address], [address]. tel:[phone] Family History Family Member Type Diagnosis Age At Onset Problem (finding) Problem (finding) Payers Payer name Insurance type Covered libertarian ID Authoriza tion(s) [employer] [id number] Social History Type Description Quantity Date [...]
--- OUTSIDE RECORDS SUMMARY | 2024-05-29 08:43 | XMS_ITS | Referral Summary ---
Author Organization [place] Address [address] [place] [address] Care Team Providers Care Historical Manuscripts Curator Name Role Phone Thom Ovalles MD Unavailable [phone] Han Jackson MD Primary Care Provider Ruben Frey MD Unavailable [phone] Encounters Date Type Department Care Team Description 04/21/2024 Telephone [facility] [address] [phone] Vanessa Fierro PA-C 04/21/2024 MyC Medical Advice [facility] [address] [phone] Mychart, [place] 04/19/2024 Telephone [facility] [address] [phone] Vanessa Fierro PA-C 04/19/2024 MyC Medical Advice [facility] [address] [phone] Mychart, [place] 04/12/2024 Telephone [facility] [address] [phone] Vanessa Fierro PA-C 04/12/2024 MyC Medical Advice [facility] [address] [phone] Jay Wolff 03/21/2024 Travel 03/21/2024 1:40 PM CDT Ancillary Procedure [facility] Xray [address] [phone] Vanessa Fierro PA-C S/P fusion of sacroiliac joint 03/21/2024 2:00 PM CDT Office Visit [facility] [address] [phone] Vanessa Fierro PA-C S/P fusion of sacroiliac joint (Primary Dx) 02/29/2024 Orders Only [facility] [address] [phone] Vanessa Fierro PA-C S/P fusion of sacroiliac joint (Primary Dx) from Last 3 Months Allergies Active Allergy [...] of internal left knee prosthesis, initial encounter (H) Take 2 tablets (650 mg) by mouth [...] of internal left knee prosthesis, initial encounter 10/29/2021 Complication of internal knee prosthesis 022 Excessive or frequent menstruation 01/17/2007 Migraine without [...] on file Medical Devices Implanted Type Area Pipe Out Worker Device Identifier Shelf Expiration Date Model / Serial / Lot Imp Spinal Ifuse Torq 10.4dlx93sm Strl Lf 67600e - [id number] Implanted:Qty : 1 on 06/09/2023 by Ruben Frey MD at [facility] Metallic Hardware/An chor Right: Spine Lumbar [employer] [id number] 02/26/2028 [id number] / / [id number] Imp Spinal Ifuse Torq 10.0hpc32ds Strl Lf 78741k - [id number] Implanted:Qty : 1 on 06/09/2023 by Ruben Frey MD at [facility] Metallic Hardware/An chor Right: Iliac Crest [employer] [id number] 12/31/2027 [id number] / / [id number] Imp Spinal Fx Ifuse Torq 10.5lgd12le Strl Lf 93944l - [id number] Implanted:Qty : 1 on 01/03/2024 by SemRuben lozoya MD at [facility] Metallic Hardware/An chor Left: Sacrum [employer] [id number] 12/20/2027 [id number] / / [id number] Imp Spinal Ifuse Torq 10.7oyz07dl Strl Lf 02227k - [id number] Implanted:Qty : 1 on 01/03/2024 by Ruben Frey MD at [facility] Metallic Hardware/An chor Left: Sacrum [employer] [id number] 05/31/2028 [id number] / / [id number] Imp Spinal Ifuse Torq 10.2rdy62lw Strl Lf 87273b - [id number] Implanted:Qty : 1 on 01/03/2024 by Ruben Frey MD at [facility] Metallic Hardware/An chor Left: Sacrum [employer] [id number] 08/18/2028 [id number] / / [id number] Imp Insert Jj Attune Ps Rp Sz3 7mm [id number] - [id number] Implanted:Qty : 1 on 10/28/2021 by Gary Russell MD at [facility] Total Joint Component/I nsert Left: Knee [employer]- [id number] 03/15/2026 [id number] / / [id number] 10.0mm X75mm Ifuse-Torq Implanted:Qty : 1 on 06/09/2023 by Ruben Frey MD at [facility] Right: Sacrum [employer] 02/20/2028 [id number] / / Procedures Procedure Name Priority Date/Time [...] LAB - BEAKER POCT UR LABORATORY POC [facility] Acute Care Lab [address] [facility], [address] [place] [address] * (ABNORMAL) Basic metabolic panel (05/12/2023 12:50 PM CDT) Sodium 137 135 - 145 mmol/L 05/12/2023 1:15 PM CDT [facility] - CORE LAB Comment:Reference intervals for this test were updated on 05/11/2023 to more accurately reflect our healthy population. There may be differences in the flagging of prior results with similar values performed with this method. Interpretation of those prior results can be made in the context of the updated reference intervals. Potassium 3.7 3.4 - 5.3 mmol/L 05/12/2023 1:15 PM CDT [facility] - CORE LAB Chloride 97(L) 98 - 107 mmol/L 05/12/2023 1:15 PM CDT [facility] - CORE LAB Carbon Dioxide (CO2) 29 22 - 29 mmol/L 05/12/2023 1:15 PM CDT [facility] - CORE LAB Anion Gap 11 7 - 15 mmol/L 05/12/2023 1:15 PM CDT [facility] - CORE LAB Urea Nitrogen 12.4 6.0 - 20.0 mg/dL 05/12/2023 1:15 PM CDT [facility] - CORE LAB Creatinine 0.69 0.51 - 0.95 mg/dL 05/12/2023 1:15 PM CDT [facility] - CORE LAB GFR Estimate >90 >60 mL/min/1. 73m2 05/12/2023 1:15 PM CDT [facility] - CORE LAB Calcium 9.3 8.6 - 10.0 mg/dL 05/12/2023 1:15 PM CDT [facility] - CORE LAB Glucose 100(H) 70 - 99 mg/dL 05/12/2023 1:15 PM CDT [facility] - CORE LAB Blood STRUCTURE OF LEFT UPPER LIMB / Unknown Venipuncture / Unknown 05/12/2023 12:50 PM CDT 05/12/2023 12:50 PM CDT Pattie Ovalles APRN TRUSS BUILDER LAB - BLOO D ORDERABLES [facility] - CORE LAB [facility] [place] [address] [facility] 1st Floor [place] [address] * PAP Smear - HIM Patient Reported (08/16/2015) PAP Smear - HIM Patient Reported Negative EXTERNAL LAB 08/16/2015 Narrative EXTERNAL LAB - 08/16/2015 Please abstract the following data from this visit with this patient into the appropriate field in Epic: Pap smear done on this date: Aug 2015 (approximately), by this group: [facility] [place], results were NIL. Patient Reported LABORATORY EXTERNAL LAB External Lab * ABSTRACT HPV-NO CHARGE (08/29/2014) HPV Abstract See Scanned Document [facility] 08/29/2014 Narrative [facility] - 08/29/2014 See Care Every Where - [facility] Provider Outside LAB - HIM EXTERNAL R ESULT [place] [address] [place] [address], [facility] [phone] * COLONOSCOPY (07/12/2012) L.C. Copper Roller Handler Printing PROCEDURES from Last 3 Months or Most Recently Relevant to Health Maintenance Advance Directives For more information, please contact: [phone] * Full Code (Latest Code Status on File) Date Activated Date Inactivated Comments 10/28/2021 1:39 PM 10/29/2021 3:08 PM All basic an d advanced life-sustaining interventions are performed as appropriate Question Answer Comments Code status determined by: Discussion with patie nt/ legal decision maker Care Teams Historical Manuscripts Curator Relationship Specialty Start Date End Date Thom Ovalles MD PCP - Orthopaedics Orthopedics 04/08/11 Han Jackson MD PCP - General Family Medicine 10/23/21 Ruben Frey MD [address] [place] [address] Assigned Musculoskeletal Provider 04/17/23
--- OUTSIDE RECORDS SUMMARY | 2024-05-29 08:43 | XMS_ITS | Encounter Summary ---
Author Organization [facility] Address [address] [place] [address]. [place] [address] Care Team Providers Care Big Data Lead Name Role Phone Thom Ovalles MD Unavailable [phone] Han Jackson MD Primary Care Provider Ruben Frey MD Unavailable Encounter Details Date Type Department Care Team (Late st Contact Info) Description 04/12/2024 Telephone [facility] Orthopedic Clinic [address] 4th [place] [address] Vanessa Fierro PA-C [address] [place] [address] 138185 Social History Tobacco Use Types Packs/Day Years [...] on filedocumented in this encounter Care Teams Big Data Lead Relationship Specialty Start Date End Date Thom Ovalles MD PCP - Orthopaedics Orthopedics 04/08/11 Han Jackson MD PCP - General Family Medicine 10/23/21 Ruben Frey MD [facility] [address] [address] Assigned Musculoskeletal Provider 04/17/23 documented as of this encounter
--- OUTSIDE RECORDS SUMMARY | 2024-05-29 08:43 | XMS_ITS | Encounter Summary ---
Author Organization [facility] Address [address] [place] [address]. [place] [address] Care Team Providers Care Assistant Golf Professional Name Role Phone Thom Ovalles MD Unavailable [phone] Han Jackson MD Primary Care Provider Ruben Frey MD Unavailable Encounter Details Date Type Department Care Team (Late st Contact Info) Description 04/21/2024 [facility] Clinic [address] 4th [place] [address] Charan [place] Social History Tobacco [...] on filedocumented in this encounter Care Teams Assistant Golf Professional Relationship Specialty Start Date End Date Thom Ovalles MD PCP - Orthopaedics Orthopedics 04/08/11 Han Jackson MD PCP - General Family Medicine 10/23/21 Ruben Frey MD [id number] [place] [address] Assigned Musculoskeletal Provider 04/17/23 documented as of this encounter
--- OUTSIDE RECORDS SUMMARY | 2024-05-29 08:43 | XMS_ITS | Clinical Summary ---
Author Organization [place] [facility] Address [address] [place] [address] Care Team Providers Care Hospitality Intern Name Role Phone Thom Ovalles MD Unavailable [phone] Han Jackson MD Primary Care Provider Ruben [...] Type Department Care Team Description 04/21/2024 Telephone [facility] Orth[facility] [address] [phone] Vanessa Fierro PA-C 04/21/2024 MyC Medical Advice [facility] [address] [phone] Mychart, [place] 04/19/2024 Telephone [facility] [address] [phone] Vanessa Fierro PA-C 04/19/2024 MyC Medical Advice [facility] [address] [phone] [facility] [place] 04/12/2024 Telephone [facility] [address] [phone] Vanessa Fierro PA-C 04/12/2024 MyC Medical Advice [facility] [address] [phone] Myccastine, [place] 03/21/2024 2:00 PM CDT Office Visit [facility] [address] [phone] Vanessa Fierro PA-C S/P fusion of sacroiliac joint (Primary Dx) 03/21/2024 1:40 PM CDT Ancillary Procedure [facility] [address] [phone] Vanessa Fierro PAJosemanuelC S/P fusion of sacroiliac joint 03/21/2024 Travel 02/29/2024 Orders Only [facility] [address] [phone] Vanessa Fierro PA-C S/P fusion of sacroiliac joint (Primary Dx) from Last 3 Months Immunizations Name Administration [...] 03/31/2032 03/31/2022, 04/05/2012, 04/14/2002, Additional history exists RSV VACCINE (1 - 1-dose 75+ series) 2048 PHQ-2 (once per calendar year) Completed 12/27/2023, [...] this topic Medical Devices Implanted Type Area Electrician Control Equipment Device Identifier Shelf Expiration Date Model / Serial / Lot Imp Spinal Ifuse Torq 10.3tcr23wb Strl 69181i - [id number] Implanted:Qty : 1 on 06/09/2023 by Ruben Frey MD at [facility] Metallic Hardware/An chor Right: Spine Lumbar [employer] [id number] 02/26/2028 [id number] / / [id number] Imp Spinal Ifuse Torq 10.1ftf67ll Strl Lf 76656g - [id number] Implanted:Qty : 1 on 06/09/2023 by Ruben Frey MD at [facility] Metallic Hardware/An chor Right: Iliac Crest [employer] [id number] 12/31/2027 [id number] / / [id number] Imp Spinal Fx Ifuse Torq 10.1sju22ut Strl Lf 83905w - [id number] Implanted:Qty : 1 on 01/03/2024 by Ruben Frey MD at [facility] Metallic Hardware/An chor Left: Sacrum [employer] [id number] 12/20/2027 [id number] / / [id number] Imp Spinal Ifuse Torq 10.9jxo32od Strl Lf 23707x - [id number] Implanted:Qty : 1 on 01/03/2024 by Ruben Frey MD at [facility] Metallic Hardware/An chor Left: Sacrum [employer] [id number] 05/31/2028 [id number] / / [id number] Imp Spinal Ifuse Torq 10.4kyd17gm Strl Lf 33388f - [id number] Implanted:Qty : 1 on 01/03/2024 by Ruben Frey MD at [facility] Metallic Hardware/An chor Left: Sacrum [employer] [id number] 08/18/2028 [id number] / / [id number] Imp Insert Jj Attune Ps Rp Sz3 7mm [id number] - [id number] Implanted:Qty : 1 on 10/28/2021 by Gary Russell MD at [facility] Total Joint Component/I nsert Left: Knee [employer]- [id number] 03/15/2026 [id number] / / [id number] 10.0mm X75mm Ifuse-Torq Implanted:Qty : 1 on 06/09/2023 by Ruben Frey MD at [facility] Right: Sacrum [employer] 02/20/2028 [id number] / / Procedures Procedure Name Priority Date/Time Associated Diagnosis Comments XR PELVIS G/E 3 VIEWS Routine 03/21/2024 2:39 PM CDT S/P fusion of sacroiliac joint GLUCOSE BY METER Routine 01/03/2024 7:59 AM CDT BASIC METABOLIC PANEL Routine 05/12/2023 12:50 PM CDT Preop examination PAP SMEAR - [facility] PATIENT REPORTED Routine 08/16/2015 ABSTRACT HPV (HIM [...] 01/03/2024 8:07 AM CDT Ruben Frey MD [facility] POCT UR LABORATORY POC [facility] Acute Care Lab [address] [facility], Room [address] [phone] * (ABNORMAL) Basic metabolic panel (05/12/2023 12:50 PM CDT) Sodium 137 135 - 145 mmol/L 05/12/2023 1:15 PM CDT [facility] - CORE LAB Comment:Reference intervals for this test were updated on 05/11/2023 to more accurately reflect our healthy population. There may be differences in the flagging of prior results with similar values performed with this method. Interpretation of those prior results can be made in the context of the updated reference intervals. Potassium 3.7 3.4 - 5.3 mmol/L 05/12/2023 1:15 PM CDT [facility] - CORE LAB Chloride 97(L) 98 - 107 mmol/L 05/12/2023 1:15 PM CDT [facility] - CORE LAB Carbon Dioxide (CO2) 29 22 - 29 mmol/L 05/12/2023 1:15 PM CDT [facility] - CORE LAB Anion Gap 11 7 - 15 mmol/L 05/12/2023 1:15 PM CDT [facility] - CORE LAB Urea Nitrogen 12.4 6.0 - 20.0 mg/dL 05/12/2023 1:15 PM CDT [facility] - CORE LAB Creatinine 0.69 0.51 - 0.95 mg/dL 05/12/2023 1:15 PM CDT [facility] - CORE LAB GFR Estimate >90 >60 mL/min/1. 73m2 05/12/2023 1:15 PM CDT [facility] - CORE LAB Calcium 9.3 8.6 - 10.0 mg/dL 05/12/2023 1:15 PM CDT [facility] - CORE LAB Glucose 100(H) 70 - 99 mg/dL 05/12/2023 1:15 PM CDT [facility] - CORE LAB Blood STRUCTURE OF LEFT UPPER LIMB / Unknown Venipuncture / Unknown 05/12/2023 12:50 PM CDT 05/12/2023 12:50 PM CDT Pattie Ovalles APRN STORE SPECIALIST LAB - BLOO D ORDERABLES [facility] - CORE LAB [facility] Clin[facility] [place] - [address] 1st [place] [address] * PAP Smear - HIM Patient Reported (08/16/2015) PAP Smear - HIM Patient Reported Negative EXTERNAL LAB 08/16/2015 Narrative EXTERNAL LAB - 08/16/2015 Please abstract the following data from this visit with this patient into the appropriate field in Epic: Pap smear done on this date: Aug 2015 (approximately), by this group: [facility] [place], results were NIL. Patient Reported LABORATORY EXTERNAL LAB External Lab * ABSTRACT HPV-NO CHARGE (08/29/2014) HPV Abstract See Scanned Document [facility] 08/29/[address] [facility] - 08/29/2014 See Care Every Where - [facility] Provider Outside LAB - HIM EXTERNAL R ESULT [facility] [address] [id number] [phone] * COLONOSCOPY (07/12/2012) L.C. Ob/Gyn Physician PROCEDURES from Last 3 Months or Most Recently Relevant to Health Maintenance Advance Directives For more information, please contact: [phone] * Full Code (Latest Code Status on File) Date Activated Date Inactivated Comments 10/28/2021 1:39 PM 10/29/2021 3:08 PM All basic an d advanced life-sustaining interventions are performed as appropriate Question Answer Comments Code status determined by: Discussion with triston nt/ legal decision maker Care Teams Hospitality Intern Relationship Specialty Start Date End Date Thom Ovalles MD PCP - Orthopaedics Orthopedics 04/08/11 Han Jackson MD PCP - General Family Medicine 10/23/21 Ruben Frey MD [address] [address] Assigned Musculoskeletal Provider 04/17/23
--- OUTSIDE RECORDS SUMMARY | 2024-05-29 08:43 | XMS_ITS | Encounter Summary ---
Author Organization [employer] Address [address] [place] [address]. [place] [address] Care Team Providers Care Chronic Disease Epidemiologist Name Role Phone Thom Ovalles MD Unavailable [phone] Han Jackson MD Primary Care Provider Ruben Frey MD Unavailable Encounter Details Date Type Department Care Team (Late st Contact Info) Description 04/19/2024 Telephone [facility] Orthopedic Clinic [address] 4th [place] [address] Vanessa Fierro PA-C [address] [place] [address] [id number] Social History Tobacco Use Types Packs/Day Years [...] on filedocumented in this encounter Care Teams Chronic Disease Epidemiologist Relationship Specialty Start Date End Date Thom Ovalles MD PCP - Orthopaedics Orthopedics 04/08/11 Han Jackson MD PCP - General Family Medicine 10/23/21 Ruben Frey MD [facility] [address] [address] Assigned Musculoskeletal Provider 04/17/23 documented as of this encounter
--- OUTSIDE RECORDS SUMMARY | 2024-05-29 08:43 | XMS_ITS | Encounter Summary ---
Author Organization [facility] Address [address] [place] [address]. [place] [address] Care Team Providers Care Hospital Clinic Assistant Name Role Phone Thom Ovalles MD Unavailable [phone] Han Jackson MD Primary Care Provider Ruben Frey MD Unavailable Encounter Details Date Type Department Care Team (Late st Contact Info) Description 04/19/2024 [facility] Orthopedic Clinic [address]th [place] [address] Charan [place] Social History Tobacco [...] on filedocumented in this encounter Care Teams Hospital Clinic Assistant Relationship Specialty Start Date End Date Thom Ovalles MD PCP - Orthopaedics Orthopedics 04/08/11 Han Jackson MD PCP - General Family Medicine 10/23/21 Ruben Frey MD [id number] [place] [address] Assigned Musculoskeletal Provider 04/17/23 documented as of this encounter
--- OUTSIDE RECORDS SUMMARY | 2024-05-29 08:43 | XMS_ITS | Encounter Summary ---
Author Organization [facility] Address [address] [place] [address]. [place] [address] Care Team Providers Care Fixed Wing Aircraft Flight Engineer Name Role Phone Thom Ovalles MD Unavailable [phone] Han Jackson MD Primary Care Provider [phone] Ruben Frey MD Unavailable Encounter Details Date Type Department Care Team (Late st Contact Info) Description 04/21/2024 Telephone [facility] Orthopedic Clinic [address] 4th [place] [address] Vanessa Fierro PA-C [address] [place] [address] [id number] Social History Tobacco Use Types Packs/Day Years [...] on filedocumented in this encounter Care Teams Fixed Wing Aircraft Flight Engineer Relationship Specialty Start Date End Date Thom Ovalles MD PCP - Orthopaedics Orthopedics 04/08/11 Han Jackson MD PCP - General Family Medicine 10/23/21 Ruben Frey MD [address] [address] Assigned Musculoskeletal Provider 04/17/23 documented as of this encounter
--- OUTSIDE RECORDS SUMMARY | 2024-05-29 08:44 | XMS_ITS | Encounter Summary ---
Author Organization [facility] [place] Address [address] [place] [address] Care Team Providers Care Senior Data Mining Analyst Name Role Phone Ye Babb Charbel OD Unavailable Thom Ovalles MD Unavailable Frw, None Primary Care Provider Unavailabl Bri Rao MD Unavailable [phone] No Ref-Primary, Physician Primary Care Provider José Miguel-Yasmine Antonio APRN STRATEGIC DEBRIEFING OFFICER Unavailable José Miguel-Yasmine Antonio APRN STRATEGIC DEBRIEFING OFFICER Unavailable Han Jackson MD Primary Care Provider Ruben Frey MD Unavailable Encounter Details Date Type Department Care Team (Late st Contact Info) Description 08/11/2013 MyC Medical Advice [facility] [place] WATCH CRYSTAL CUTTER [address] [place] [address] Feli Pinto MD [facility] [address] [place] [address] Social History Tobacco Use Types [...] on filedocumented in this encounter Care Teams Senior Data Mining Analyst Relationship Specialty Start Date End Date Ye Babb OD [facility] [place] [address] [place] [address] PCP - Ophthalmology 06/29/05 10/29/21 Thom Ovalles MD [facility] [place] [address] [place] [address] PCP - Orthopaedics Orthopedics 04/08/11 Frw, None PCP - General Family Practice 04/28/11 04/15/17 Bri [place] [address] PCP - Obstetrics/Gynecology stone setter apprentice 05/27/11 1 08/19/14 No Ref-Primary, Physician PCP - General 01/31/18 10/22/21 José MiguelYasmine Antonio APRN STRATEGIC DEBRIEFING OFFICER [address] [place] [address] [place] [address] PCP - Assigned PCP 02/20/18 10/18/18 Han Jackson MD [address] [place] [address] [place] [address] PCP - General Family Medicine 10/23/21 Yasmine Esqueda APRN STRATEGIC DEBRIEFING OFFICER [address] [place] [address] [place] [address] Assigned PCP 01/21/18 02/15/21 Ruben Frey MD [address] [address] Assigned Musculoskeletal Provider 04/17/23 documented as of this encounter
--- OUTSIDE RECORDS SUMMARY | 2024-05-29 08:44 | XMS_ITS | Encounter Summary ---
Author Organization [place] Address [address] [place] [address] Care Team Providers Care Wire Strander Name Role Phone Thom Ovalles MD Unavailable [phone] Han Jackson MD Primary Care Provider Ruben Christianson MD Unavailable [phone] Reason for Visit * Reason Onset Date Comments therapy reports 05/05/2023 Patient is reque sting a call back to confirm when they received therapy notes from [place] Encounter Details Date Type Department Care Team (Late st Contact Info) Description 05/05/2023 [facility] [place] [id number] [facility] [address] 4th [place] [address] Ruben Christianson MD [address] [place] [address] therapy reports (Patient is requesting a call back to confirm when they received therapy notes from [place]) Social History Tobacco Use Types Packs/Day Years [...] let them know that PT notes from [place] were received on 05/05/23 and scanned into patient's chart. ATC will notify Vania Levy RN and send message to Prior Auth for follow up. Thom Mckinney ATC * Telephone Encounter - Kay Ontiveros - 05/05/2023 12:51 PM CDT [facility] Phone Message May a detailed message be left on voicemail: yes Reason for Call: Other: Patient is requesting a call back to confirm when they received therapy notes from [place] Action Taken: Message routed to: [facility] abhijit christianson Travel Screening: Not Applicable documented in this encounter Plan of Treatment Not on file documented as of this encounter Visit Diagnoses Not on filedocumented in this encounter Care Teams Wire Strander Relationship Specialty Start Date End Date Thom Ovalles MD PCP - Orthopaedics Orthopedics 04/08/11 Han Jackson MD PCP - General Family Medicine 10/23/21 Ruben Christianson MD [facility] [address] [place] [address] Assigned Musculoskeletal Provider 04/17/23 documented as of this encounter
--- OUTSIDE RECORDS SUMMARY | 2024-05-29 08:44 | XMS_ITS | Encounter Summary ---
Author Organization [place] Address [address] [place] [address] Care Team Providers Care Warehouse Shift Supervisor Name Role Phone Kei BabbSudha BUTLER Unavailable [phone] Thom Ovalles MD Unavailable [phone] Frw, None Primary Care Provider Unavailabl Bri Rao MD Unavailable Oralia Lozano Unavailable No Ref-Primary, Physician Primary Care Provider Yasmine Esqueda APRN MANAGER MOTOR Unavailable Yasmine Esqueda APRN MANAGER MOTOR Unavailable Han Jackson MD Primary Care Provider Ruben Frey MD Unavailable [phone] Encounter Details Date Type Department Care Team (Late st Contact Info) Description 07/18/2011 [facility] [place] Inpatient Dept [address] [place] [address] Frw, Inpatient Provider Pain following surgery or [...] of this encounter Progress Notes * Jason Maxwell MD - 07/19/2011 1:18 PM CST SUBJECTIVE: Kristie is feeling about the same with nausea and vomiting at times and crampy abdominal pain. OBJECTIVE: BP 117/69 O2 Sat % 99.0% Pulse 60 Resp 16 Temp 98.0 Lungs: clear CVS: RRR no murmur Abd: bowel sounds absent, tender diffusely. ASSESSMENT: SBO PLAN: Per surgery. ITE WORKER * Jason Maxwell MD - 07/18/2011 10:04 AM CST ADMISSION HISTORY & PHYSICAL Kristie Kirkland : 1975 MR #: [id number] CC: Abdominal pain and bloating HPI: Kristie [...] Ketones Urine Low: NEG mg/dL Negative Specific [place] Urine 1.003 - 1.035 1.020 Blood Urine [...] 1. Admit 2. General surgery consult and RACE STEWARD surgery consult. 3. NG as needed 4. NPO 5. IV pain medication and fluid support. Signed Electronically by: JASON MAXWELL July 18, 2011 ITE WORKER documented in this encounter Plan of Treatment Not on file documented as of this encounter Visit Diagnoses Diagnosis Pain following surgery or procedure- Primary Other acute postoperative pain documented in this encounter Care Teams Warehouse Shift Supervisor Relationship Specialty Start Date End Date Ye Babb OD [facility] [place] [address] [place] [address] PCP - Ophthalmology 06/29/05 10/29/21 Thom Ovalles MD [facility] [place] [address] [place] [address] PCP - Orthopaedics Orthopedics 04/08/11 Frw, None PCP - General Family Practice 04/28/11 04/15/17 [place] [address] PCP - Obstetrics/Gynecology water main inspector 05/27/11 1 08/19/14 Oralia Lozano [facility] [place] [address] [place] [address] PCP - Audiology Audiology 12/15/12 12/15/12 No Ref-Primary, Physician PCP - General 01/31/18 10/22/21 Yasmine Esqueda APRN MANAGER MOTOR [address] [facility] [place] [id number] PCP - Assigned PCP 02/20/18 10/18/18 Han Jackson MD [address] [facility] [place] [address] PCP - General Family Medicine 10/23/21 Yasmine Esqueda APRN MANAGER MOTOR [address] [facility] [place] [address] Assigned PCP 01/21/18 02/15/21 Ruben Frey MD [address] [facility] [address] [place] [address] Assigned Musculoskeletal Provider 04/17/23 documented as of this encounter
--- OUTSIDE RECORDS SUMMARY | 2024-05-29 08:44 | XMS_ITS | Encounter Summary ---
Author Organization [place] Address [address] [place] [address] Care Team Providers Care Single Corner Cutter Name Role Phone Thom Ovalles MD Unavailable [phone] Han Jackson MD Primary Care Provider Ruben Frey MD Unavailable Reason for Referral * Diagnostic Imaging XR (Routine) - Pending Review Specialty Diagnoses / Procedures Referred By Contac t Referred To Contact Radiology. Diagnoses S/P fusion of sacroiliac joint Procedures XR Pelvis G/E 3 Views Vanessa Fierro PA-C [address] [place] [address] Referral ID Status Reason Start Date Expiration Date V isits Requested Visits Authorized [id number] Pending Review 02/29/2024 02/28/2025 1 1 Encounter Details Date Type Department Care Team (Late st Contact Info) Description 02/29/2024 Vane Guillory [facility] [address] 4th [place] [address] Vanessa Fierro PA-C [address] [place] [address] [id number] S/P fusion of sacroiliac joint (Primary Dx) [...] joint documented in this encounter Care Teams Single Corner Cutter Relationship Specialty Start Date End Date Thom Ovalles MD PCP - Orthopaedics Orthopedics 04/08/11 Han Jackson MD PCP - General Family Medicine 10/23/21 Ruben Frey MD [address] [place], [place] [address] [place] [address] Assigned Musculoskeletal Provider 04/17/23 documented as of this encounter
--- OUTSIDE RECORDS SUMMARY | 2024-05-29 08:44 | XMS_ITS | Encounter Summary ---
Author Organization [place] Address [address] [place] [address] Care Team Providers Care Negotiator Name Role Phone Ye Babb Charbel BUTLER Unavailable Thom Ovalles MD Unavailable [phone] Frw, None Primary Care Provider Unavailabl e Bri Valentine MD Unavailable [phone] Encounter Details Date Type Department Care Team (Late st Contact Info) Description 08/13/2011 1:35 PM SECRET SERVICE AGENT [facility] in [address] [address] Thom Ovalles MD [facility] [address] [place] [phone] Social History Tobacco Use Types Packs/Day Years [...] Thom Ovalles MD - 09/02/2011 10:16 AM SECRET SERVICE AGENT PROCEDURE/OPERATIVE REPORT Date of Procedure: 08/13/2011 PREOPERATIVE DIAGNOSES: Right carpal tunnel syndrome. POSTOPERATIVE DIAGNOSES: Right carpal tunnel syndrome. OPERATION: Right mini open carpal tunnel release. SURGEON: Thom Ovalles M.D. TIRE MAINTENANCE TECHNICIAN: Leola Armstrong PA-C. ANESTHESIA: Local only. ESTIMATED [...] incised to allow for placement of a Hernshaw elevator. This was placed proximal to distal and the residual distal ligament was incised under direct visualization. The deep palmar arch was identified but not cut. Then I moved proximally on the transverse carpal ligament with the Hernshaw elevator in place again and incised through [...] in time. Thom Ovalles M.D. DUNCAN/claire cc: ET SERVICE AGENT documented in this encounter Plan of Treatment Not on file documented as of this encounter Visit Diagnoses Not on filedocumented in this encounter Care Teams Negotiator Relationship Specialty Start Date End Date Ye Babb OD [facility] [address] [facility] [address] [place] [address] PCP - Ophthalmology 06/29/05 10/29/21 Thom Ovalles MD [facility] [address] [place] [address] PCP - Orthopaedics Orthopedics 04/08/11 Frw, None PCP - General Family Practice 04/28/11 04/15/17 Bri [place] [address] PCP - Obstetrics/Gynecology motor vehicle inspector 05/27/11 1 08/19/14 documented as of this encounter
--- OUTSIDE RECORDS SUMMARY | 2024-05-29 08:44 | XMS_ITS | Encounter Summary ---
Author Organization [place] Address [address] [place] [address] Care Team Providers Care Director Field Services Name Role Phone Felix Hill MD Primary Care Provider [phone] Gely Taveras MD Unavailable [phone] Ye Babb OD Unavailable [phone] Encounter Details Date Type Department Care Team (Late st Contact Info) Description 09/30/2010 8:00 AM [facility] [address] [place] [place] [address] Manish Fisher PA-C [place] [address] [place], [place] [address] Social History Tobacco Use Types Packs/Day Years [...] filedocumented in this encounter Care Teams Director Field Services Relationship Specialty Start Date End Date Felix Hill MD [address] [place], [place] [address] PCP - General 11/27/08 04/27/11 Gely Taveras MD [facility] [address] [place] [address] PCP - Obstetrics/Gynecology 02/28/03 1 Ye Babb OD [facility] [address] [facility] [address] [place] [address] PCP - Ophthalmology 06/29/05 10/29/21 documented as of this encounter
--- OUTSIDE RECORDS SUMMARY | 2024-05-29 08:44 | XMS_ITS | Encounter Summary ---
Author Organization [place] Address [address] [place] [address]. [place] [address] Care Team Providers Care Ornamental Metal Erector Name Role Phone Thom Ovalles MD Unavailable [phone] Han Jackson MD Primary Care Provider Ruben Frey MD Unavailable Encounter Details Date Type Department Care Team (Late st Contact Info) Description 04/12/2024 [facility] [address] 4th [place] [address] [place] Social History Tobacco Use Types Packs/Day Years [...] on filedocumented in this encounter Care Teams Ornamental Metal Erector Relationship Specialty Start Date End Date Thom Ovalles MD PCP - Orthopaedics Orthopedics 04/08/11 Han Jackson MD PCP - General Family Medicine 10/23/21 Ruben Frey MD [id number] [place] [address] Assigned Musculoskeletal Provider 04/17/23 documented as of this encounter
--- OUTSIDE RECORDS SUMMARY | 2024-05-29 08:44 | XMS_ITS | Encounter Summary ---
Author Organization [place] Address [address] [place] [address] Care Team Providers Care Building And Construction Manager Name Role Phone Thom Ovalles MD Unavailable [phone] Han Jackson MD Primary Care Provider Ruben [...] on filedocumented in this encounter Care Teams Building And Construction Manager Relationship Specialty Start Date End Date Thom Ovalles MD PCP - Orthopaedics Orthopedics 04/08/11 Han Jackson MD PCP - General Family Medicine 10/23/21 Ruben Frey MD [address] [address] Assigned Musculoskeletal Provider 04/17/23 documented as of this encounter
--- OUTSIDE RECORDS SUMMARY | 2024-05-29 08:44 | XMS_ITS | Encounter Summary ---
Author Organization [place] Address [address] [place] [address] Care Team Providers Care Land Degradation Analyst Name Role Phone Felix Hill MD Primary Care Provider [phone] Gely Taveras MD Unavailable [phone] Ye Babb OD Unavailable [phone] Thom Ovalles MD Unavailable [phone] Frw, None Primary Care Provider Unavailabl Bri Rao MD Unavailable [phone] Oralia Lozano Unavailable No Ref-Primary, Physician Primary Care Provider Yasmine Esqueda APRN ANALYTICAL RESEARCH CHEMIST Unavailable José Miguel-Yasmine Antonio APRN ANALYTICAL RESEARCH CHEMIST Unavailable Han Jackson MD Primary Care Provider Ruben Frey MD Unavailable Encounter Details Date Type Department Care Team (Late st Contact Info) Description 10/22/2010 [facility] [place] Inpatient Dept [address] [place] [address] Frw, Inpatient Provider Social History Tobacco Use [...] on filedocumented in this encounter Care Teams Land Degradation Analyst Relationship Specialty Start Date End Date Felix Hill MD [facility] [place] [address] [place] [address] PCP - General 11/27/08 04/27/11 Gely Taveras MD [facility] [place] [facility] [address] [place] [address] PCP - Obstetrics/Gynecology 02/28/03 1 Ye Babb OD [facility] [place] [address] [place] [address] PCP - Ophthalmology 06/29/05 10/29/21 Thom Ovalles MD [facility] [place] [address] [place] [address] PCP - Orthopaedics Orthopedics 04/08/11 Frw, None PCP - General Family Practice 04/28/11 04/15/17 Bri [place] [address] PCP - Obstetrics/Gynecology sourcer 05/27/11 1 08/19/14 Oralia Lozano [facility] [place] [address] [place] [address] PCP - Audiology Audiology 12/15/12 12/15/12 No Ref-Primary, Physician PCP - General 01/31/18 10/22/21 Yasmine Esqueda APRN ANALYTICAL RESEARCH CHEMIST [address] [place] [address] [place] [address] PCP - Assigned PCP 02/20/18 10/18/18 Han Jackson MD [address] [place] [address] [place] [address] PCP - General Family Medicine 10/23/21 Yasmine Esqueda APRN ANALYTICAL RESEARCH CHEMIST [address] [place] [address] [place] [address] Assigned PCP 01/21/18 02/15/[address] [facility] [address] [place] [address] Assigned Musculoskeletal Provider 04/17/23 documented as of this encounter
--- OUTSIDE RECORDS SUMMARY | 2024-05-29 08:44 | XMS_ITS | Encounter Summary ---
Author Organization [place] Address [address] [place] [address] Care Team Providers Care Wallet Assembler Name Role Phone Felix Hill MD Primary Care Provider Frw, None Primary Care Provider UnavailGely Goodwin MD Unavailable [phone] Ye Babb OD Unavailable [phone] Thom Ovalles MD Unavailable [phone] Frw, None Primary Care Provider UnavailBri Grove MD Unavailable [phone] Oralia Lozano Unavailable No Ref-Primary, Physician Primary Care Provider Yasmine Esqueda APRN SERVICE DELIVERY DIRECTOR Unavailable Yasmine Esqueda APRN SERVICE DELIVERY DIRECTOR Unavailable Han Jackson MD Primary Care Provider Ruben Frey MD Unavailable [phone] Encounter Details Date Type Department Care Team (Late st Contact Info) Description 06/17/2008 [facility] [address] [place] [address] Gely Taveras MD [facility] [address] [place] [address] Social History Tobacco Use Types [...] on filedocumented in this encounter Care Teams Wallet Assembler Relationship Specialty Start Date End Date Felxi Hill MD [facility] [place] [address] [place] [address] PCP - General 11/27/08 04/27/11 Frw, None PCP - General 09/07/00 11/26/08 Gely Taveras MD [facility] [place] [facility] [address] [place] [address] PCP - Obstetrics/Gynecology 02/28/03 1 Ye Babb OD [facility] [place] [address] [place] [address] PCP - Ophthalmology 06/29/05 10/29/21 Thom Ovalles MD [facility] [place] [address] [place] [address] PCP - Orthopaedics Orthopedics 04/08/11 Frw, None PCP - General Family Practice 04/28/11 04/15/17 Bri [place] [address] PCP - Obstetrics/Gynecology pigs feet cleaner 05/27/11 1 08/19/14 Oralia Lozano [facility] [place] [address] [facility] [address] [place] [address] PCP - Audiology Audiology 12/15/12 12/15/12 No Ref-Primary, Physician PCP - General 01/31/18 10/22/21 Yasmine Esqueda APRN SERVICE DELIVERY DIRECTOR [address] [facility] [place] [address] PCP - Assigned PCP 02/20/18 10/18/18 Han Jackson MD [facility] [place] [address] PCP - General Family Medicine 10/23/21 Yasmine Esqueda APRN SERVICE DELIVERY DIRECTOR [address] [facility] [place] [address] Assigned PCP 01/21/18 02/15/21 Ruben Frey MD [facility] [address] [place] [address] Assigned Musculoskeletal Provider 04/17/23 documented as of this encounter
--- OUTSIDE RECORDS SUMMARY | 2024-05-29 08:44 | XMS_ITS | Encounter Summary ---
Author Organization [place] Address [address] [place] [address] Care Team Providers Care Wood Grinder Operator Name Role Phone Gely Taveras MD Unavailable Ye Babb OD Unavailable Thom Ovalles MD Unavailable Frw, None Primary Care Provider Unavailabl e Encounter Details Date Type Department Care Team (Late st Contact Info) Description 05/04/2011 9:30 AM [facility] [address] [place] [address] Yudy Colón, PAMax [facility] [address] [facility] [address] [place], [place] [address] Social History Tobacco Use Types Packs/Day Years [...] on filedocumented in this encounter Care Teams Wood Grinder Operator Relationship Specialty Start Date End Date Gely Taveras MD [facility] [address] [place] [address] PCP - Obstetrics/Gynecology 02/28/03 1 Ye Babb OD [facility] [address] [facility] [address] [place] [address] PCP - Ophthalmology 06/29/05 10/29/21 Thom Ovalles MD [facility] [place] [address] [facility] [address] [place] [address] PCP - Orthopaedics Orthopedics 04/08/11 Frw, None PCP - General Family Practice 04/28/11 04/15/17 documented as of this encounter
--- OUTSIDE RECORDS SUMMARY | 2024-05-29 08:44 | XMS_ITS | Encounter Summary ---
Author Organization [place] Address [address] [place] [address] Care Team Providers Care Electrical Lineman Name Role Phone Thom Ovalles MD Unavailable [phone] Han Jackson MD Primary Care Provider Ruben Frey MD Unavailable Reason for Visit * Diagnostic Imaging XR (Routine) - Pending Review Specialty Diagnoses / Procedures Referred By Contac t Referred To Contact Radiology. Diagnoses S/P fusion of sacroiliac joint Procedures XR Pelvis G/E 3 Views Vanessa Fierro PA-C [address] [place] [address] Referral ID Status Reason Start Date Expiration Date V isits Requested Visits Authorized [id number] Pending Review 02/29/2024 02/28/2025 1 1 Encounter Details Date Type Department Care Team (Latest Contact Info) Description 03/21/2024 1:40 PM CDT Ancillary Procedure [facility] Orthopedic Xray [address] 4th [place] [address] Vanessa Fierro PA-C [address] [place] [address] S/P fusion of sacroiliac joint Social [...] joint documented in this encounter Care Teams Electrical Lineman Relationship Specialty Start Date End Date Thom Ovalles MD PCP - Orthopaedics Orthopedics 04/08/11 Han Jackson MD PCP - General Family Medicine 10/23/21 Ruben Frey MD [address] [place] [address] Assigned Musculoskeletal Provider 04/17/23 documented as of this encounter
--- OUTSIDE RECORDS SUMMARY | 2024-05-29 08:44 | XMS_ITS | Encounter Summary ---
Author Organization [place] Address [address] [place] [address] Care Team Providers Care Software Sales Name Role Phone Felix Hill MD Primary Care Provider [phone] Gely Taveras MD Unavailable [phone] Ye Babb OD Unavailable [phone] Thom Ovalles MD Unavailable [phone] Frw, None Primary Care Provider Unavailabl Bri Rao MD Unavailable [phone] Oralia Lozano Unavailable No Ref-Primary, Physician Primary Care Provider Yasmine Esqueda APRN ARMHOLE BASTER JUMPBASTING Unavailable José Miguel-Yasmine Antonio APRN ARMHOLE BASTER JUMPBASTING Unavailable Han Jackson MD Primary Care Provider Ruben Frey MD Unavailable Encounter Details Date Type Department Care Team (Late st Contact Info) Description 01/28/2010 [facility] [place] Inpatient Dept [address] [place] [address] Frw, Inpatient Provider Surgery Aftercare (Primary Dx) [...] surgery documented in this encounter Care Teams Software Sales Relationship Specialty Start Date End Date Felix Hill MD [facility] [place] [address] [place] [address] PCP - General 11/27/08 04/27/11 Gely Taveras MD [facility] [place] [facility] [address] [place] [address] PCP - Obstetrics/Gynecology 02/28/03 1 Ye Babb OD [facility] [place] [address] [place] [address] PCP - Ophthalmology 06/29/05 10/29/21 Thom Ovalles MD [facility] [place] [address] [place] [address] PCP - Orthopaedics Orthopedics 04/08/11 Frw, None PCP - General Family Practice 04/28/11 04/15/17 Bri [place] [address] PCP - Obstetrics/Gynecology senior health physics technician 05/27/11 1 08/19/14 Oralia Lozano [facility] [place] [address] [place] [address] PCP - Audiology Audiology 12/15/12 12/15/12 No Ref-Primary, Physician PCP - General 01/31/18 10/22/21 Yasmine Esqueda APRN ARMHOLE BASTER JUMPBASTING [address] [place] [address] [place] [address] PCP - Assigned PCP 02/20/18 10/18/18 Han Jackson MD [address] [place] [address] [place] [address] PCP - General Family Medicine 10/23/21 Yasmine Esqueda APRN ARMHOLE BASTER JUMPBASTING [address] [place] [address] [place] [address] Assigned PCP 01/21/18 02/15/21 Ruben Frey MD [facility] [address] [place] [address] Assigned Musculoskeletal Provider 04/17/23 documented as of this encounter
--- OUTSIDE RECORDS SUMMARY | 2024-05-29 08:44 | XMS_ITS | Encounter Summary ---
Author Organization [place] Address [address] [place] [address] Care Team Providers Care Pipe Maker Name Role Phone Ye Babb Charbel BUTLER Unavailable [phone] Thom Ovalles MD Unavailable [phone] Frw, None Primary Care Provider Unavailabl Bri Rao MD Unavailable [phone] Oralia Lozano Unavailable No Ref-Primary, Physician Primary Care Provider Yasmine Esqueda APRN CUFF STITCHER Unavailable Yasmine Esqueda APRN CUFF STITCHER Unavailable Han Jackson MD Primary Care Provider Ruben Frey MD Unavailable Encounter Details Date Type Department Care Team (Late st Contact Info) Description 07/02/2011 [facility] in [place] Inpatient Dept [address] [place] [address] Frw, Inpatient Provider Social History Tobacco Use [...] on filedocumented in this encounter Care Teams Pipe Maker Relationship Specialty Start Date End Date Holley Ye BargerLUKE [facility] [place] [address] [place] [address] PCP - Ophthalmology 06/29/05 10/29/21 Thom Ovalles MD [facility] [place] [address] [place] [address] PCP - Orthopaedics Orthopedics 04/08/11 Frw, None PCP - General Family Practice 04/28/11 04/15/17 [place] [address] PCP - Obstetrics/Gynecology oncology transplant network manager 05/27/11 1 08/19/14 Oralia Lozano [facility] [place] [address] [place] [address] PCP - Audiology Audiology 12/15/12 12/15/12 No Ref-Primary, Physician PCP - General 01/31/18 10/22/21 Yasmine Esqueda APRN CUFF STITCHER [address] [place] [address] [place] [id number] PCP - Assigned PCP 02/20/18 10/18/18 Han Jackson MD [facility]5 [facility] [place] [address] PCP - General Family Medicine 10/23/21 Yasmine Esqueda APRN CUFF STITCHER [address] [facility] [place] [address] Assigned PCP 01/21/18 02/15/21 Ruben Frey MD [address] [facility] [address] [place] [address] Assigned Musculoskeletal Provider 04/17/23 documented as of this encounter
--- OUTSIDE RECORDS SUMMARY | 2024-05-29 08:44 | XMS_ITS | Encounter Summary ---
Author Organization [place] Address [address] [place] [address] Care Team Providers Care Sales And Training Specialist Name Role Phone Ye Babb Charbel OD Unavailable [phone] Thom Ovalles MD Unavailable Frw, None Primary Care Provider Unavailabl Bri Rao MD Unavailable [phone] Oralia Lozano Unavailable No Ref-Primary, Physician Primary Care Provider Yasmine Esqueda APRN DOUGH CUTTER Unavailable Yasmine Esqueda APRN DOUGH CUTTER Unavailable Han Jackson MD Primary Care Provider Ruben Frey MD Unavailable Encounter Details Date Type Department Care Team (Late st Contact Info) Description 07/12/[address] [facility] [place] [facility] [address] [place] [address] Aaliyah Navarrete, MAYLIN [address] [facility] [address] [place] [address] Social History Tobacco Use Types [...] on filedocumented in this encounter Care Teams Sales And Training Specialist Relationship Specialty Start Date End Date Ye Babb OD [facility] [place] [address] [place] [address] PCP - Ophthalmology 06/29/05 10/29/21 Thom Ovalles MD [facility] [place] [address] [place] [address] PCP - Orthopaedics Orthopedics 04/08/11 Frw, None PCP - General Family Practice 04/28/11 04/15/17 Bri [place] [address] PCP - Obstetrics/Gynecology sales rep 05/27/11 1 08/19/14 Oralia Lozano [facility] [place] [address] [place] [address] PCP - Audiology Audiology 12/15/12 12/15/12 No Ref-Primary, Physician PCP - General 01/31/18 10/22/21 Yasmine Esqueda APRN DOUGH CUTTER [address] [facility] [place] [id number] PCP - Assigned PCP 02/20/18 10/18/18 Han Jackson MD [facility] [place] [address] PCP - General Family Medicine 10/23/21 Yasmine Esqueda APRN DOUGH CUTTER [facility] [place] [id number] Assigned PCP 01/21/18 02/15/21 Ruben Frey MD [facility] [address] Assigned Musculoskeletal Provider 04/17/23 documented as of this encounter
--- OUTSIDE RECORDS SUMMARY | 2024-05-29 08:44 | XMS_ITS | Encounter Summary ---
Author Organization [place] Address [address] [place] [address]. [place] [address] Care Team Providers Care Yoga Teacher Name Role Phone Thom Ovalles MD Unavailable [phone] Han Jackson MD Primary Care Provider Ruben Frey MD Unavailable Reason for Visit * Reason Comments RECHECK POST-OP SPINE - DOS: 01/03/24 Encounter Details Date Type Department Care Team (Late st Contact Info) Description 03/21/2024 2:00 PM CDT Office Visit [facility] [address] [place] [address] Vanessa Fierro, PAJosemanuelC [address] [place] [address] S/P fusion of sacroiliac joint (Primary [...] PA-C Orthopaedic Spine Surgery Dept Orthopaedic Surgery, [facility] Dictation Disclaimer: Some of this Note has [...] Primary documented in this encounter Care Teams Yoga Teacher Relationship Specialty Start Date End Date Thom Ovalles MD PCP - Orthopaedics Orthopedics 04/08/11 Han Jackson MD PCP - General Family Medicine 10/23/21 Ruben Frey MD [address] [address] Assigned Musculoskeletal Provider 04/17/23 documented as of this encounter
--- OUTSIDE RECORDS SUMMARY | 2024-05-29 08:44 | XMS_ITS | Encounter Summary ---
Author Organization [place] Address [address] [place] [address] Care Team Providers Care Gastroenterology Physician Name Role Phone eY Babb OD Unavailable Thom Ovalles MD Unavailable No [...] on filedocumented in this encounter Care Teams Gastroenterology Physician Relationship Specialty Start Date End Date Ye Babb, OD [facility] [place] [address] [place] [address] PCP - Ophthalmology 06/29/05 10/29/21 Thom Ovalles MD [facility] [address] [facility] [address] [place] [address] PCP - Orthopaedics Orthopedics 04/08/11 No Ref-Primary, Physician PCP - General 01/31/18 10/22/21 Han Jackson MD PCP - General Family Medicine 10/23/21 Ruben Frey MD [address] [place] [address] Assigned Musculoskeletal Provider 04/17/23 documented as of this encounter
--- OUTSIDE RECORDS SUMMARY | 2024-05-29 08:44 | XMS_ITS | Encounter Summary ---
Author Organization [place] Address [address] [place] [address] Care Team Providers Care Combination Welder Apprentice Name Role Phone Felix Hill MD Primary Care Provider [phone] Gely Taveras MD Unavailable [phone] Ye Babb OD Unavailable [phone] Encounter Details Date Type Department Care Team (Late st Contact Info) Description 10/22/2010 11:46 AM [facility] in [address] [address] Jesse May MD [address] [phone] Social History Tobacco Use Types Packs/Day Years [...] Jesse May MD - 10/22/2010 3:55 PM CURRICULUM AND ASSESSMENT DIRECTOR PROCEDURE/OPERATIVE REPORT Date of Procedure: 10/22/2010 PREOPERATIVE [...] end of the case. Sylvie Pereira/dann cc: ICULUM AND ASSESSMENT DIRECTOR documented in this encounter Plan of Treatment Not on file documented as of this encounter Visit Diagnoses Not on filedocumented in this encounter Care Teams Combination Welder Apprentice Relationship Specialty Start Date End Date Felix Hill MD [facility] [place] [address] [place] [address] PCP - General 11/27/08 04/27/11 Gely Taveras MD [facility] [place] [facility] [address] [place] [address] PCP - Obstetrics/Gynecology 02/28/03 1 Ye Babb OD [facility] [place] [address] [place] [address] PCP - Ophthalmology 06/29/05 10/29/21 documented as of this encounter
--- OUTSIDE RECORDS SUMMARY | 2024-05-29 08:44 | XMS_ITS | Encounter Summary ---
Author Organization [place] Address [address] [place] [address] Care Team Providers Care Glass Cylinder Flanger Name Role Phone Felix Hill MD Primary Care Provider [phone] Gely Taveras MD Unavailable [phone] Ye Babb OD Unavailable [phone] Encounter Details Date Type Department Care Team (Late st Contact Info) Description 01/02/2009 10:56 AM CDT [facility] in [address] [phone] Jesse May MD [address] [phone] Social History Tobacco Use Types Packs/Day Years [...] of this encounter Progress Notes * Jesse aMy MD - 01/02/2009 2:10 PM CDT PROCEDURE/OPERATIVE [...] on filedocumented in this encounter Care Teams Glass Cylinder Flanger Relationship Specialty Start Date End Date Felix Hill MD [facility] [place] [address] [place] [address] PCP - General 11/27/08 04/27/11 Gely Taveras MD [facility] [place] [facility] [address] [place] [address] PCP - Obstetrics/Gynecology 02/28/03 1 Ye Babb OD [facility] [place] [address] [place] [address] PCP - Ophthalmology 06/29/05 10/29/21 documented as of this encounter
--- OUTSIDE RECORDS SUMMARY | 2024-05-29 08:44 | XMS_ITS | Encounter Summary ---
Author Organization [place] Address [address] [place] [address] Care Team Providers Care Vaccine Key Customer Leader Name Role Phone Felix Hill MD Primary Care Provider [phone] Gely Taveras MD Unavailable [phone] Ye Babb OD Unavailable [phone] Encounter Details Date Type Department Care Team (Late st Contact Info) Description 01/28/2010 6:33 AM CDT [facility] in [address] [address] Bri [place] [address] Social History Tobacco Use Types Packs/Day Years [...] on filedocumented in this encounter Care Teams Vaccine Key Customer Leader Relationship Specialty Start Date End Date Felix Hill MD [address] [place], [place] [address] PCP - General 11/27/08 04/27/11 Gely Taveras MD [facility] [address] [facility] [place], [place] [address] PCP - Obstetrics/Gynecology 02/28/03 1 Ye Babb OD [facility] [place] [address] [place], [place] [address] PCP - Ophthalmology 06/29/05 10/29/21 documented as of this encounter
--- OUTSIDE RECORDS SUMMARY | 2024-05-29 08:44 | XMS_ITS | Encounter Summary ---
Author Organization [place] Address [address] [place] [address]. [place] [address] Care Team Providers Care Operational Trainer Name Role Phone Thom Ovalles MD Unavailable [phone] Han Jackson MD Primary Care Provider Ruben Frey MD Unavailable Encounter Details Date Type Department Care Team (Late st Contact Info) Description 10/26/[address] [facility] [place] [address] [facility] [address] 4th [place] [address] Ruben Frey MD [facility] [place], [place] [address] Social History Tobacco Use Types Packs/Day Years [...] on filedocumented in this encounter Care Teams Operational Trainer Relationship Specialty Start Date End Date Thom Ovalles MD PCP - Orthopaedics Orthopedics 04/08/11 Han Jackson MD PCP - General Family Medicine 10/23/21 Ruben Frey MD [address] [place] [address] Assigned Musculoskeletal Provider 04/17/23 documented as of this encounter
--- OUTSIDE RECORDS SUMMARY | 2024-05-29 08:44 | XMS_ITS | Encounter Summary ---
Author Organization [place] Address [address] [place] [address]. [place] [address] Care Team Providers Care Washroom Cleaner Name Role Phone Thom Ovalles MD Unavailable [phone] Han Jackson MD Primary Care Provider Ruben Frey MD Unavailable Encounter Details Date Type Department Care Team (Late st Contact Info) Description 07/01/2023 [facility] Medical Advice [facility] [place] [address] [address] 4[address] [place] [address] Ruben Frey MD [facility] [place] [address] Social History Tobacco Use Types [...] on filedocumented in this encounter Care Teams Washroom Cleaner Relationship Specialty Start Date End Date Thom Ovalles MD PCP - Orthopaedics Orthopedics 04/08/11 Han Jackson MD PCP - General Family Medicine 10/23/21 Ruben Frey MD [facility] [address] [address] Assigned Musculoskeletal Provider 04/17/23 documented as of this encounter
--- OUTSIDE RECORDS SUMMARY | 2024-05-29 08:44 | XMS_ITS | Encounter Summary ---
Author Organization [place] Address [address] [place] [address] Care Team Providers Care Member Of Parliament Name Role Phone HolleyYe OD Unavailable [phone] Thom Ovalles MD Unavailable Frw, None Primary Care Provider Unavailabl Bri Rao MD Unavailable [phone] Encounter Details Date Type Department Care Team (Late st Contact Info) Description 07/18/2011 5:[address] [facility] in [facility] [address] [place] [address] Daniela Robles MD [address] [place], [place] [address] Social History Tobacco Use Types Packs/Day Years [...] Penicillin. SOCIAL HISTORY: The patient lives in [place]; she is with 3 children ages 13, 12 and 10. She is a nonsmoker. She does use some alcohol socially. 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 FAMILY HISTORY: Reviewed in [place]. REVIEW OF SYSTEMS: Generally the patient has [...] injury. I will wait for the on-call pediatric lpn to see the patient, but I am [...] in the interim spoken with the covering pediatric lpn Dr. Lockwood and spoke with the radiologist on two occasions. In speaking with the radiologist data conversion developer initially, we decided it would be a [...] Herbert M.D. JSS/mp2 cc: Sylvie Dhillon M.D. RONMENTAL SERVICES SPECIALIST * Severino, Rojas Haney - 07/20/2011 1:55 [...] doing better. Rojas Severino M.D. ROBBIE/claire cc: RONMENTAL SERVICES SPECIALIST * Oscar Roman MD - 07/20/2011 1:31 [...] PENICILLIN. SOCIAL HISTORY: The patient lives in [place], she is with 3 children between the ages of 10 and 13. She does not smoke, she does drink alcohol, no suspicion of abuse. 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 FAMILY HISTORY: Significant for a mother with [...] Roman M.D. MICHAEL/olivia cc: Bri Valentine M.D. RONMENTAL SERVICES SPECIALIST documented in this encounter Plan of Treatment Not on file documented as of this encounter Visit Diagnoses Not on filedocumented in this encounter Care Teams Member Of Parliament Relationship Specialty Start Date End Date Ye Babb OD [facility] [place] [address] [facility] [address] [place] [address] PCP - Ophthalmology 06/29/05 10/29/21 Thom Ovalles MD [facility] [place] [address] [facility] [address] [place] [address] PCP - Orthopaedics Orthopedics 04/08/11 Frw, None PCP - General Family Practice 04/28/11 04/15/17 Bri [place] [address] PCP - Obstetrics/Gynecology steel rule die maker 05/27/11 1 08/19/14 documented as of this encounter
--- OUTSIDE RECORDS SUMMARY | 2024-05-29 08:44 | XMS_ITS | Encounter Summary ---
Author Organization [place] Address [address] [place] [address]. [place] [address] Care Team Providers Care Telephoto Installer Name Role Phone Thom Ovalles MD Unavailable [phone] Han Jackson MD Primary Care Provider Ruben Frey MD Unavailable Encounter Details Date Type Department Care Team (Late st Contact Info) Description 11/12/2023 [facility] [address] 4th [place] [address] Vanessa Fierro PA-C [address] [place] [id number] S/P fusion of sacroiliac joint (Primary Dx) [...] Primary documented in this encounter Care Teams Telephoto Installer Relationship Specialty Start Date End Date Thom Ovalles MD PCP - Orthopaedics Orthopedics 04/08/11 Han Jackson MD PCP - General Family Medicine 10/23/21 Ruben Frey MD [address] [address] Assigned Musculoskeletal Provider 04/17/23 documented as of this encounter
--- OUTSIDE RECORDS SUMMARY | 2024-05-29 08:44 | XMS_ITS | Encounter Summary ---
Author Organization [place] Address [address] [place] [address] Care Team Providers Care Engineering Instructor Name Role Phone Ye Babb Charbel OD Unavailable [phone] Thom Ovalles MD Unavailable Frw, None Primary Care Provider Unavailabl e Mya Valentine MD Unavailable [phone] Encounter Details Date Type Department Care Team (Late st Contact Info) Description 07/02/2011 12:29 PM ASSESSMENT TECHNICIAN [facility] in [address] [address] Mya [place] [address] Social History Tobacco Use Types Packs/Day Years [...] review the results at her next visit. SSMENT TECHNICIAN * Mya Valentine MD - 07/06/2011 10:29 AM ASSESSMENT TECHNICIAN PROCEDURE/OPERATIVE REPORT Date of Procedure: 07/02/11 PREOPERATIVE DIAGNOSES: Menometrorrhagia. Arcuate-shaped uterus. Status post endometrial ablation. POSTOPERATIVE DIAGNOSES: Menometrorrhagia. Arcuate-shaped uterus. Status post endometrial ablation. OPERATION: Laparoscopic supracervical hysterectomy with intraoperative cystoscopy. SURGEON: Dr. Valentine. TROLLEY CAR MECHANIC: Dr. Lockwood. ANESTHESIA: General. ESTIMATED BLOOD LOSS: [...] single-toothed tenaculum and uterus sounded and a [employer] uterine manipulator was placed. The tenaculum and [...] good condition. Mya Valentine M.D. CHRISTIANO/yeimi cc: SSMENT TECHNICIAN documented in this encounter Plan of Treatment Not on file documented as of this encounter Procedures Procedure Name Priority Date/Time Associated Diagnosis Comments SURGICAL PATHOLOGY EXAM Routine 07/02/2011 4:10 PM ASSESSMENT TECHNICIAN documented in this encounter Results * Surgical pathology exam (07/02/2011 4:10 PM ASSESSMENT TECHNICIAN) Copath Report Patient Name: KRISTIE KIRKLAND MR#: [id number] Specimen #: [id number] Collected: 07/02/2011 Received: 07/03/2011 Reported: 07/07/2011 16:43 Ordering Phy(s): YMA VALENTINE SPECIMEN(S): Uterus FINAL DIAGNOSIS: Uterus, resected [...] endometrium it is flat, thin, and gonzalez. ??Multiple Punch Press Operator sections in seven blocks. ??Two small apparent [...] two small myomas appear benign. Keenan Meyer MD/[facility] 07/07/2011 TESTING LAB LOCATION: [address] [place] [address] COLLECTION SITE: Client: [facility] Location: [facility] (W) COPATH 07/02/2011 4:10 PM ASSESSMENT TECHNICIAN 07/03/2011 8:37 AM ASSESSMENT TECHNICIAN Mya Valentine MD [facility] Organization Address City/State/ZIP Co de Phone Number COPATH documented in this encounter Visit Diagnoses Not on filedocumented in this encounter Care Teams Engineering Instructor Relationship Specialty Start Date End Date Ye Babb OD [facility] [place] [address] [place] [address] PCP - Ophthalmology 06/29/05 10/29/21 Thom Ovalles MD [facility] [place] [address] [place] [address] PCP - Orthopaedics Orthopedics 04/08/11 Frw, None PCP - General Family Practice 04/28/11 04/15/17 [place] [address] PCP - Obstetrics/Gynecology manufacturing technologist 05/27/11 1 08/19/14 documented as of this encounter
--- OUTSIDE RECORDS SUMMARY | 2024-05-29 08:44 | XMS_ITS | Encounter Summary ---
Author Organization [place] Address [address] [place] [address] Care Team Providers Care Chief Deputy Clerk/Bailiff Name Role Phone Gely Taveras MD Unavailable [phone] Ye Babb OD Unavailable [phone] Thom Ovalles MD Unavailable [phone] Frw, None Primary Care Provider Unavailabl Bri Rao MD Unavailable [phone] Oralia Lozano Unavailable No Ref-Primary, Physician Primary Care Provider Yasmine Esqueda APRN BOOKBINDER APPRENTICE Unavailable José Miguel-Yasmine Antonio APRN BOOKBINDER APPRENTICE Unavailable Han Jackson MD Primary Care Provider Ruben Frey MD Unavailable Encounter Details Date Type Department Care Team (Late st Contact Info) Description 05/01/2011 MyC Medical Advice [facility] in [place] [employer] [place] [address] [place] [address] Kerry Jackson Social History Tobacco [...] filedocumented in this encounter Care Teams Chief Deputy Clerk/Bailiff Relationship Specialty Start Date End Date Gely Taveras MD [facility] [place] [facility] [address] [place] [address] PCP - Obstetrics/Gynecology 02/28/03 1 Ye Babb OD [facility] [place] [address] [place] [address] PCP - Ophthalmology 06/29/05 10/29/21 Thom Ovalles MD [facility] [place] [address] [place] [address] PCP - Orthopaedics Orthopedics 04/08/11 Frw, None PCP - General Family Practice 04/28/11 04/15/17 Bri [place] [address] PCP - Obstetrics/Gynecology commercial trailer truck driver 05/27/11 1 08/19/14 Oralia Lozano [facility] [place] [address] [place] [address] PCP - Audiology Audiology 12/15/12 12/15/12 No Ref-Primary, Physician PCP - General 01/31/18 10/22/21 Yasmine Esqueda APRN BOOKBINDER APPRENTICE [address] [facility] [place] [address] PCP - Assigned PCP 02/20/18 10/18/18 Han Jackson MD [address] [place] [address] [place] [address] PCP - General Family Medicine 10/23/21 Yasmine Esqueda APRN BOOKBINDER APPRENTICE [address] [place] [address] [place] [address] Assigned PCP 01/21/18 02/15/21 Ruben Frey MD [address] [place] [address] Assigned Musculoskeletal Provider 04/17/23 documented as of this encounter
--- NOTE | 2024-05-29 08:45 | CRLHL7_ITS ---
For Patients: As a result of the Cures Act, medical imaging exams and procedure reports are released immediately into your electronic medical record. You may view this report before your referring provider. If you have questions, please contact your health care provider. BILATERAL SCREENING MAMMOGRAM WITH COMPUTER-AIDED DETECTION AND TOMOSYNTHESIS TECHNIQUE: CC and MLO views were obtained. These mammographic images have been obtained using full-field digital technique. These mammographic images were interpreted with the benefit of computer-aided detection. Breast Tomosynthesis was used in this interpretation. COMPARISON FILM: 05/14/23, 05/13/22, 05/06/21. FINDINGS: There are scattered areas of fibroglandular density IMPRESSION: There is no radiographic evidence for malignancy. ASSESSMENT: BI-RADS Category 2: Benign RECOMMENDATION: Routine screening mammogram in 1 year. A lay language report of this examination will be provided to the patient. Han Mathis M.D. Diagnostic Radiologist [email or web address] RAIN/day Transcribed: 1:48 p.mAva bernstein/Dictated by: Han Mathis MD @ 06/05/2024 9:35:00 AM (Electronically Signed)
== END 2024-05-29 08:42 | disposition home or self-care (01) ==
LOC: MAMMO 08:41
PROVIDERS: PCP Family Medicine; Visit Provider Obstetrics & Gynecology
DX: Z12.31 Encounter for screening mammogram for malignant neoplasm of breast (principal)
CPT/HCPCS: 77063; 77067

== ENCOUNTER 2024-07-03 21:05 | Emergency (ER) | payer OTHER, SELFPAY ==
[2024-07-03 21:19] VITALS: BP 133/84; PULSE 80; RESP 18; TEMP 37; O2SAT 99; BMI 22.5
--- NOTE | 2024-07-03 21:28 | CRLHL7_ITS ---
For Patients: As a result of the Century Cures Act, medical imaging exams and procedure reports are released immediately into your electronic medical record. You may view this report before your referring provider. If you have questions, please contact your health care provider. Indication: Trauma. Technique: Left ankle, 3 views. Comparison: None. Findings/Impression: Bones: Acute minimally displaced lateral malleolar fracture (Villa type B). Joint spaces: Ankle mortise appears congruent. Associated joint effusion. Soft tissues: Focal soft tissue swelling about the lateral malleolus. Dictated by Chester Villarreal MD @ 07/03/2024 10:12:46 PM (Electronically Signed)
--- NOTE | 2024-07-03 21:28 | CRLHL7_ITS ---
For Patients: As a result of the Century Cures Act, medical imaging exams and procedure reports are released immediately into your electronic medical record. You may view this report before your referring provider. If you have questions, please contact your health care provider. Indication: Trauma. Technique: Left knee, 2 views. Comparison: None. Findings/Impression: Bones: Alignment is normal. No displaced fractures or bone lesions. Joint spaces: Left knee arthroplasty without hardware complication. Moderate to large joint effusion. Soft tissues: Unremarkable. Dictated by Chester Villarreal MD @ 07/03/2024 10:11:27 PM (Electronically Signed)
[2024-07-03] MEDS: ACETAMINOPHEN 500 MG TABLET 1000 MG PO (21:49)
--- NOTE | 2024-07-03 21:50 | ED_ITS ---
HPI - General Adult General Chief complaint: Extremity Pain/Injury, Lower Stated complaint: fall/left ankle injury Time Seen by Provider: 07/03/24 21:29 Source: patient Mode of arrival: ambulatory Limitations: no limitations History of Present Illness HPI narrative: 48-year-old female with a prior notable history of knee replacement and revision presents to the emergency department for evaluation of left ankle pain. She was trying to get a tub of Yogi decorations down. It seem like her knee gave way which unfortunately it is prone to doing. This caused her to have an inversion injury of the ankle and fall to the ground. She has pain now at the lateral left ankle, indicating at the lateral malleolus. No syncope, no recent illness. No chest pain or shortness of breath. No neurological changes. No prior history of surgery or fracture to that ankle. She is not having any knee pain. Did not try taking any medication to help with symptoms. She cannot bear weight and arrives in crutches. Past medical history notable for hypertension, GERD. Home meds are lisinopril with hydrochlorothiazide, omeprazole and estrogen patch. She also has trazodone p.r.n. for insomnia. Allergies are to tramadol and penicillin both causing rashes. ROS is notable for the musculoskeletal symptoms as above only. Otherwise denies other generalized, cardiovascular, neurological, skin or other musculoskeletal changes. Related Data Home Medications ?Medication ?Instructions ?Recorded ?Confirmed multivitamin 1 tab PO QAM 03/31/22 07/03/24 trazodone 100 mg tablet 100 mg PO QHS PRN 07/03/24 07/03/24 Previous Rx's ?Medication ?Instructions ?Recorded lisinopril 20 1 tab PO QDAY #90 tabs 10/19/23 mg-hydrochlorothiazide 12.5 mg tablet omeprazole 20 mg capsule,delayed 20 mg PO DAILY #90 caps 10/19/23 release sumatriptan succinate 100 mg tablet 100 mg PO Q2H PRN migraine 10/19/23 headache #10 tabs estradiol 0.01% (0.1 mg/gram) 0.5 g vaginal 2XW #42.5 grams 05/05/24 vaginal cream (Estrace) estradiol 0.05 mg/24 hr semiweekly 1 patch transdermal 2XW #8 ea 05/05/24 transdermal patch (Vivelle-Dot) Allergies Allergy/AdvReac Type Severity Reaction Status Date / Time tramadol Allergy Mild Rash Verified 07/03/24 21:24 Penicillins Allergy Unknown Rash Verified 07/03/24 21:24 [facility] Medical History Primary hypertension ?I10 - Essential (primary) hypertension (ICD-10) Insomnia ?G47.00 - Insomnia, unspecified (ICD-10) GERD (gastroesophageal reflux disease) ?K21.9 - Gastro-esophageal reflux disease without esophagitis (ICD-10) Melanocytic nevi of trunk ?D22.5 - Melanocytic nevi of trunk (ICD-10) Defect of lacrimal duct ?H04.9 - Disorder of lacrimal system, unspecified (ICD-10) Mixed incontinence ?N39.46 - Mixed incontinence (ICD-10) Tremor ?R25.1 - Tremor, unspecified (ICD-10) Migraine with aura ?G43.109 - Migraine with aura, not intractable, without status migrainosus (ICD-10) Bradycardia (06/29/14) ?R00.1 - Bradycardia, unspecified (ICD-10) Bilateral carpal tunnel syndrome ?G56.03 - Carpal tunnel syndrome, bilateral upper limbs (ICD-10) Surgical History S/P fusion of sacroiliac joint ?Z98.1 - Arthrodesis status (ICD-10) Status post unilateral salpingo-oophorectomy ?Z90.721 - Acquired absence of ovaries, unilateral (ICD-10) Status post laparoscopic supracervical hysterectomy ?Z90.711 - Acquired absence of uterus with remaining cervical stump (ICD-10) Status post cervical spinal arthrodesis ?Z98.1 - Arthrodesis status (ICD-10) Status post carpal tunnel release ?Z98.890 - Other specified postprocedural states (ICD-10) History of total left knee replacement ?Z96.652 - Presence of left artificial knee joint (ICD-10) History of tonsillectomy ?Z90.89 - Acquired absence of other organs (ICD-10) History of skin surgery ?Z98.890 - Other specified postprocedural states (ICD-10) History of bilateral breast implants ?Z98.82 - Breast implant status (ICD-10) Family History Father Abdominal aortic aneurysm (AAA) Heart disease Throat cancer Stroke High blood pressure Chronic kidney disease High cholesterol Mother Heart disease, Onset Age: 66 High blood pressure High cholesterol Aunt Breast cancer Sister Thyroid disease Other Diabetes Social History Narrative: 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, 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 surgeries She is currently helping with her 's business She exercises 6 days a week She does not smoke She drinks alcohol socially She does not use recreational drugs What is your current living situation?: I presently have a place to live Problems where you live: no known problems In the past 12 months, utilities in danger of being shut off: no In the past 12 mos, have been you worried that your food would run out before you had money to buy more?: never true In the past 12 mos, the food you bought just didn't last and you didn't have money to buy more?: never true Smoking Status: Never smoker How often does anyone, including family, friends and others, physically hurt you : never How often does anyone, including family, friends and others, insult or talk down to you: never How often does anyone, including family, friends and others, threaten you with harm: never How often does anyone, including family, friends and others, scream or curse at you: never Do you think of yourself as: straight/heterosexual Gender Identity: female Are you currently sexually active: Yes In the past 12 months, how many sex partners have you had: one Exam Const: Vital Signs, click to edit/add: Vital Signs - 24 hr 07/03/24 21:19 Temperature 98.6 F Pulse Rate [Pulse Oximeter] 80 Respiratory Rate 18 Blood Pressure [Ri ght Upper Arm] 133/84 Pulse Oximetry 99 Oxygen Delivery Me thod Room Air Documenting provider has reviewed patient's vital signs: yes Common normals: no apparent distress General appearance: cooperative, comfortable and well kempt HENMT: Common normals: normocephalic Head and scalp: normocephalic Face and sinus: normal facial exam Eye: General eye: normal appearance of both eyes Neck & C-Spine: General: normal visual inspection Resp: Common normals: normal respiratory effort Effort & inspection: able to speak in complete sentences Cardio: Other: Regular rate and rhythm when palpated at left dorsalis pedis. Extremity: Other: Left knee appears normal without deformity. No point bony tenderness. Left ankle with swelling at the lateral malleolus. Tenderness to flexion, extension inversion and eversion. Mild effusion. No bruising. No tenderness to palp ation of proximal foot or toes. Psych: Common normals: speech normal Appearance: well kempt Activity/motor behavior: appropriate eye contact Speech: normal speech Mood and affect: euthymic mood Skin: Common normals: no rashes or lesions noted General skin exam: no rashes or lesions noted Course Course ED Course: 48-year-old female with inversion ankle injury with swelling at lateral malleolus suspicious to us for fibular fracture. Will give Tylenol 1000 mg p.o. x1 and await x-ray findings. No signs of neurovascular injury. Reevaluation(s) Reevaluation #1: Counseled patient on x-ray findings. Distal fibula fracture without significant displacement or deformity noted on x-ray. The knee shows an effusion which she says is chronic but no evidence of abnormality otherwise. Counseled patient that this will need orthopedic follow-up. She will take Tylenol and/or ibuprofen as needed for pain. Small supply of oxycodone will be given. Try to use sparingly. Okay to use [id number] sleep aids. She will need follow- up with Ortho. They are not available to schedule appointment this time of night, she will schedule this herself and contact number is given. It is okay if she prefers to schedule with her existing orthopedist as well. Typical alarm symptoms reviewed as indications to come back to the ED. Cam walker boot, crutches. See discharge instructions. Vital Signs Vital signs: Initial Vital Signs Temperature 98.6 F 07/03/24 21:19 Temperature Source Temporal Artery Scan 07/03/24 21:19 Pulse Rate 80 07/03/24 21:19 Respiratory Rate 18 07/03/24 21:19 Blood Pressure 133/84 07/03/24 21:19 Blood Pressure Mean 100 07/03/24 21:19 Blood Pressure Position Sitting 07/03/24 21:19 Pulse Oximetry 99 07/03/24 21:19 Oxygen Delivery Method Room Air 07/03/24 21:19 Vital Signs Temperature 98.6 F 07/03/24 21:19 Pulse Rate 80 07/03/24 21:19 Respiratory Rate 18 07/03/24 21:19 Blood Pressure 133/84 07/03/24 21:19 Pulse Oximetry 99 07/03/24 21:19 Oxygen Delivery Method Room Air 07/03/24 21:19 Temperature 98.6 F 07/03/24 21:19 Pulse Rate 80 07/03/24 21:19 Respiratory Rate 18 07/03/24 21:19 Blood Pressure 133/84 07/03/24 21:19 Pulse Oximetry 99 07/03/24 21:19 Oxygen Delivery Method Room Air 07/03/24 21:19 Medications Administered Medications: Discontinued Medications Generic Name Dose Route Start Last Admin Trade Name Freq PRN Reason Stop Dose Admin Acetaminophen 1,000 mg 07/03/24 21:45 07/03/24 21:49 Acetaminophen 500 Mg Tablet PO 07/03/24 21:46 1,000 mg ONCE ONE Administration Medical Decision Making Imaging Data XR ankle left: Attestation: I have reviewed the pertinent imaging results. My impression: Minimally displaced fibular fracture, looks like a small spiral fracture. Small effusion. Radiologist's impression: Findings/Impression: Bones: Acute minimally displaced lateral malleolar fracture (Villa type B). Joint spaces: Ankle mortise appears congruent. Associated joint effusion. Soft tissues: Focal soft tissue swelling about the lateral malleolus. Dictated by Chester Villarreal MD @ 07/03/2024 10:12:46 PM Left knee x-ray: Attestation: I have reviewed the pertinent imaging results. My impression: Normal appearing knee x-ray status post replacement Radiologist's impression: Findings/Impression: Bones: Alignment is normal. No displaced fractures or bone lesions. Joint spaces: Left knee arthroplasty without hardware complication. Moderate to large joint effusion. Soft tissues: Unremarkable. Dictated by Chester Villarreal MD @ 07/03/2024 10:11:27 PM Discharge Plan Discharge Clinical Impression: Closed fracture of distal end of left fibula Patient Disposition: Home w/ Parent or Adult Condition: Stable Instructions: Ankle Fracture (DC) Additional Instructions: As we discussed, you have a fracture of the fibula. This is the nonweightbearing bone in the ankle and of the two, it is a much better scenario. You are allowed to walk on this though it will be quite painful and we recommend crutches for the next couple of weeks. He may wean to 1 crutches soon as it is tolerable. For pain. I recommend Tylenol 1000 mg every 6 hours and or ibuprofen 600 mg every 6 hours. I will give you a small supply of oxycodone to use if the pain is severe. But you may also use [id number] sleep aids like Unisom, Tylenol p.m. and melatonin as needed. You do need to follow-up with orthopedics regarding this fracture in 1-2 weeks. I know that you do have a previous relationship with an orthopedic provider, you are welcome to schedule through them. If you choose to use our providers, the number to call is [phone] to schedule the appointment. If you have severe pain, numbness or tingling or inability to move the foot, significant swelling or pain in the calf, you should seek sooner re-evaluation. Activity Level: Light activity and Use Crutches Discharge Diet: Regular Prescriptions: No Action estradiol [Vivelle-Dot] 0.05 mg/24 hr patch semiweekly 1 patch transdermal 2XW Qty: 8 1RF Rx Instructions: apply 1 patch for 3 days alternating with 1 patch for 4 days each week for 3 wks per 4-wk cycle estradiol [Estrace] 0.01 % (0.1 mg/gram) cream 0.5 g vaginal 2XW Qty: 42.5 3RF Rx Instructions: Use nightly for 2 weeks, then twice weekly. May apply with finger. multivitamin Tablet 1 tab PO QAM trazodone 100 mg tablet 100 mg PO QHS PRN lisinopril-hydrochlorothiazide 20-12.5 mg tablet 1 tab PO QDAY Qty: 90 3RF omeprazole 20 mg capsule,delayed release(DR/EC) 20 mg PO DAILY Qty: 90 3RF sumatriptan succinate 100 mg tablet 100 mg PO Q2H PRN (Reason: migraine headache) Qty: 10 5RF Rx Instructions: ONE TAB AT ONSET OF HEADACHE, MAY REPEAT ONCE IN 2 HRS, MAX 200 MG/24 HRS Follow Up/Referrals: Han Jackson MD [Primary Care Provider] - Stand Alone Forms: MyHealth Info Instructions
--- OUTSIDE RECORDS SUMMARY | 2024-07-03 21:53 | XMS_ITS | Encounter Summary ---
Author Organization [facility] Address [address] [place] [address]. [place] [address] Care Team Providers Care Sticker Hand Name Role Phone Thom Ovalles MD Unavailable [phone] Han Jackson MD Primary Care Provider [phone] Ruben Frey MD Unavailable Encounter Details Date Type Department Care Team (Late st Contact Info) Description 04/19/2024 Telephone [facility] [address] [place] [phone] Vanessa Fierro PA-C [address] [place] [id number] Social History Tobacco Use Types Packs/Day [...] School Help Needed Not on file 05/11 Comments No Sex and Gender Information Value Date Recorded Sex Assigned at Not on file Legal Sex Female 4:14 AM GAME PRODUCER Gender Identity Not on file Sexual Orientation Not on file 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 Not on file Not on file Not on file Not on file Not on file Not on file Not on file documented as of this encounter Miscellaneous Notes * Telephone Encounter - Alessandra Jarquin - 04/19/2024 10:12 AM CDT Left Voicemail (2nd Attempt) and Sent Mychart (2nd Attempt) for the patient to call back and schedule the following: Appointment type: POST OP MSK Provider: Vanessa Fierro Return date: 06/27/24 Reschedule to Next Available MAX attempts made to schedule documented in this encounter Plan of Treatment Upcoming Encounters Date Type Department Care Team (Late st Contact Info) Description 07/04/2024 1:40 PM GAME PRODUCER Ancillary Procedure [facility] [address] [phone] Vanessa Fierro PA-C [address] [place] [address] [phone] 07/04/2024 2:00 PM GAME PRODUCER Office Visit [facility] [address] [phone] Vanessa Fierro PA-C [address] [place] [phone] documented as of this encounter Visit Diagnoses Not on filedocumented in this encounter Care Teams Sticker Hand Relationship Specialty Start Date End Date Thom Ovalles MD PCP - Orthopaedics Orthopedics 04/08/11 Han Jackson MD PCP - General Family Medicine 10/23/21 Ruben Frey MD [facility] [place] [id number] Assigned Musculoskeletal Provider 04/17/23 documented as of this encounter
--- OUTSIDE RECORDS SUMMARY | 2024-07-03 21:53 | XMS_ITS | Encounter Summary ---
Author Organization [facility] Address [address] [place] [id number] Care Team Providers Care Continuous Dryout Operator Helper Name Role Phone HolleyYe OD Unavailable [phone] Thom Ovalles MD Unavailable [phone] Frw, None Primary Care Provider Unavailabl Bri Rao MD Unavailable Oralia Lozano Unavailable No Ref-Primary, Physician Primary Care Provider Yasmine Esqueda APRN EXPELLER WORKER Unavailable Yasmine Esqueda APRN EXPELLER WORKER Unavailable Han Jackson MD Primary Care Provider Ruben Frey MD Unavailable Encounter Details Date Type Department Care Team (Late st Contact Info) Description 07/18/2011 [facility] [place] Inpatient Dept [address] [place] [address] Frw, Inpatient Provider Pain following surgery or procedure (Primary Dx) Social History Tobacco Use Types Packs/Day Years Used Date Smoking Tobacco: Never Smokeless Tobacco: Never Comments:no second hand smok e at home or work, 01/01/05 Alcohol Use Standard Drinks/Week Comments Yes 0 (1 standard drink = 0.6 oz pur e alcohol) 3-4 wk Comments No Sex and Gender Information Value Date Recorded Sex Assigned at Not on file Legal Sex Female 4:14 AM CAPACITY MANAGEMENT SPECIALIST Gender Identity Not on file Sexual Orientation Not on file 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 ASSESSMENT: SBO PLAN: Per surgery. CITY MANAGEMENT SPECIALIST * Jason Veliz MD - 07/18/2011 10:04 AM CST ADMISSION HISTORY & PHYSICAL Kristie Kirkland : 1975 MR #: [id number] CC: Abdominal pain and bloating HPI: Kristie [...] ??? Hc knee scope,med/lat menisectomy 10/22/10 LT C lap, supracervial hysterectomy, <250g 07/02/11 Current [...] and speech normal DIAGNOSTICS: Component Latest Ref [facility] 07/18/2011 07/18/2011 07/18/2011 2:50 AM 2:51 AM 2:51 AM Color Urine Yellow Appearance Urine Clear Glucose Urine Low: NEG mg/dL Negative Bilirubin Urine Low: NEG Negative Ketones Urine Low: NEG mg/dL Negative Specific [place] Urine 1.003 - 1.035 1.020 Blood Urine [...] - 250 U/L 51 Component Latest Ref [facility] 07/18/2011 2:51 AM WBC 4.0 - 11.0 [...] - 0.03 10e9/L 0.0 Component Latest Ref Rn 07/18/2011 2:51 AM Sodium 133 - 144 [...] 1. Admit 2. General surgery consult and COMPLIANCE ASSOCIATE surgery consult. 3. NG as needed 4. NPO 5. IV pain medication and fluid support. Signed Electronically by: JASON VELIZ July 18, 2011 CITY MANAGEMENT SPECIALIST documented in this encounter Plan of Treatment Upcoming Encounters Date Type Department Care Team (Late st Contact Info) Description 07/04/2024 1:40 PM CAPACITY MANAGEMENT SPECIALIST Ancillary Procedure [facility] [address] [phone] Vanessa Fierro, PA-C [address] [place] [address] [phone] 07/04/2024 2:00 PM CAPACITY MANAGEMENT SPECIALIST Office Visit [facility] [address] [phone] Vanessa Fieror PAJosemanuelC [address] [place] [address] [phone] documented as of this encounter Visit Diagnoses Diagnosis Pain following surgery or procedure- Primary Other acute postoperative pain documented in this encounter Care Teams Continuous Dryout Operator Helper Relationship Specialty Start Date End Date Ye Babb OD [facility] [address] [place] [id number] PCP - Ophthalmology 06/29/05 10/29/21 Thom Ovalles MD [facility] [place] [address] [place] [address] PCP - Orthopaedics Orthopedics 04/08/11 Frw, None PCP - General Family Practice 04/28/11 04/15/17 [place] [address] PCP - Obstetrics/Gynecology life support technician 05/27/11 1 08/19/14 Oralia Lozano [facility] [place] [address] [place] [address] PCP - Audiology Audiology 12/15/12 12/15/12 No Ref-Primary, Physician PCP - General 01/31/18 10/22/21 Yasmine Esqueda APRN EXPELLER WORKER [address] [place] [address] [place] [id number] PCP - Assigned PCP 02/20/18 10/18/18 Han Jackson MD [address] [place] [address] [place] [id number] PCP - General Family Medicine 10/23/21 Yasmine Esqueda APRN EXPELLER WORKER [address] [place] [address] [place] [address] Assigned PCP 01/21/18 02/15/21 Ruben Frey MD [facility] [place] [address] Assigned Musculoskeletal Provider 04/17/23 documented as of this encounter
--- OUTSIDE RECORDS SUMMARY | 2024-07-03 21:53 | XMS_ITS | Continuity of Care Document ---
Author Organization [facility] Address [address] [place] [address] Phone Care Team Providers Care Computer Assembler Name Role Phone Leticia Anne MD Unavailable [...] Copied on Encounter [facility], [address], [place], [place], [address], [place] tel:[phone] [facility] No Information 2 Omid Kelly. [facility], [address], [address], [place], [address], [place]. tel:[phone] Office/Outpa tient Visit,Est, Mod [facility], [address], [place], [place], [address], [place] tel:[phone] [facility] Other spondylosis, cervical region 2 Omid Kelly. [facility], [address] [place] [address], [address], [place], [address], [place]. tel: [phone] Referring Provider: Thom Márquez, [facility] [address], [place], [address]. tel:[phone] Office/Outpa tient Visit,Est, Mod [facility], [address], [place], [place], [address], [place] tel:[phone] [facility] Cervicalgia 9 Kina Mcnamara . [facility], [address] [place] [address], [address], [place], [place], [address] , [place]. tel: [phone] Referring Provider: Thom Márquez, [facility] [address], [place], [address]. tel:[phone] Office/Outpa tient Visit,Est, Mod [facility], [address], [place], [address], [place] tel:[phone] [facility] Encounter for other specified surgical aftercare 9 Castanon Anders . [facility], [address] [place] [address], [address], [place], [place], [address] , [place]. tel:[phone] Referring Provider: Thom Márquez, [facility] [address], [place], [address]. tel:[phone] Office/Outpa tient Visit,Est, Mod [facility], [address], [place], [address], [place] tel:[phone] [facility] Encounter for other specified surgical aftercare 0 [phone] 8 [facility] . [facility], [address] [place] [address], [address], [place], [place], [address] , [place]. tel:[phone] Referring Provider: Thom Márquez, [facility] [address], [place], [address]. tel:[phone] Office/Outpa tient Visit,Est, Mod [facility], [address], [place], [place], [address], [place] tel:[phone] [facility] - [facility] Encounter for other specified surgical aftercare 0 8 [facility] er. [facility], [address], [address], [place], [place], [address] , [place]. [phone] Referring Provider: Thom Márquez, [facility] [address], [place], [address]. tel:[phone] Office/Outpa tient Visit,Est, Mod [facility], [address], [place], [place], [address], [place] tel:[phone] [facility] - [facility] Encounter for other specified surgical aftercareLow back pain 2 8 [facility] er. [facility], [address], [address], [place], [place], [address] , . [phone] Referring Provider: Thom Márquez, [facility] [address], [place], [address]. tel:[phone] Office/Outpa tient Visit,Est, Mod [facility], [address], [place], [place], [address], [place] tel:[phone] [facility] Encounter for other specified surgical aftercare 8 [facility]. [facility], [address], [address], [place], [place], [address] , . [phone] Referring Provider: Thom Márquez, [facility] [address], [place], [address]. tel:[phone] [facility], [address], [place], [address], [place] tel:[phone] [facility] Encounter for other specified surgical aftercare May-3 [facility], [address], [address], [place], [address] , [place]. tel:[phone] Referring Provider: Thom Márquez, [facility] [address], [place], [address]. tel:[phone] [facility], [address], [place], [address], [place] tel:[phone] [facility] Encounter for other specified surgical aftercare May-0 [facility]. [facility], [address], [address], [place], [place], [address] , [place]. [phone] Referring Provider: Thom Márquez, [facility] [address], [place], [address]. tel:[phone] [facility], [address], [place], [place], [address], [place] [phone] [facility] No Information Sep-2 7 Lance Potter. [facility], [address] [facility] [address], [place], [facility], [place]. [phone] Referring Provider: Thom Márquez, [facility] [address], [place], [address]. tel:[phone] [facility], [address], [place], [place], [address], [place] tel:[phone] [facility] No Information Sep-2 [facility]. [facility], [address], [address], [place], [address] , [place]. tel:[phone] Referring Provider: Thom Márquez, [facility] [address], [place], [address]. 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 [facility], [address], [address], [place], [place], [address] , [place]. tel:[phone] Referring Provider: Thom Márquez, [facility] [address], [place], [address]. tel:[phone] Office/Outpa tient Visit,Est, Mod [facility], [address], [place], [place], [address], [place] tel:[phone] [facility] Spinal stenosis, cervical regionPseudar throsis after fusion or arthrodesis 7 Castanon Anders er. [facility], [address], [address], [place], [place], [address] , [place]. tel:[phone] Referring Provider: Thom Márquez, [facility] [address], [place], [address]. tel:[phone] Office/Outpa tient Visit,Est, Mod [facility], [address], [place], [place], [address], [place] tel:[phone] [facility] Cervicalgia 7 Kina Mcnamara er. [facility], [address], [address], [place], [place], [address] , [place]. tel:[phone] Referring Provider: Thom Márquez, [facility] [address], [place], [address]. tel:[phone] Office/Outpa tient Visit,Est, Mod [facility], [address], [place], [place], [address], [place] tel:[phone] [facility] Other intervertebra l disc degeneration, lumbar regionArthrod esis statusOverwei ght 5 [facility]. [facility], [address], [address], [place], [place], [address] , [place]. [phone] Referring Provider: Thom Márquez, [facility] [address], [place], [address]. tel:[phone] Office/Outpa tient Visit,Est, Mod [facility], [address], [place], [place], [address], [place] [phone] [facility] Displacement of intervertebra l disc, site unspecified, without myelopathyOVE RWEIGHTHypert ension, UnspecifiedLu mbar spondylosisLu mbar radiculopathy Shoulder joint painPatient who has had a surgical fusion of a joint 5 Castanon Anders er. [facility], [address], [address], [place], [place], [address] , [place]. [phone] Referring Provider: Thom Márquez, [facility] [address] [facility] [address], [place], [address]. tel:[phone] [facility], [address], [place], [place], [address], [place] tel:[phone] [facility] - [facility] Patient who has had a surgical fusion of a joint 5 [facility]. [facility], [address], [address], [place], [place], [address] , [place]. [phone] Referring Provider: Pancho Castanon, [facility] [address], [address], [place], [address]. [phone] [facility], [address], [place], [address], [place] [phone] [facility] No Information 4 Castanon Anders er. [facility], [address], [address], [place], [place], [address] , [place]. tel:[phone] Referring Provider: Pancho Castanon [facility] [address], [address], [place], [address]. tel:[phone] Z [facility], [address], [place], [address], [place] tel:[phone] [facility] No Information 4 Kina Anders er. [facility], [address], [address], [place], [place], [address] , [place]. tel:[phone] Referring Provider: Pancho Castanon [facility] [address], [address], [place], [address]. tel:[phone] Pre Op Office/Outpa tient Visit, Z [facility], [address], [place], [address], [place] tel:[phone] [facility] Hypertension, UnspecifiedDi splacement of intervertebra l disc, site unspecified, without myelopathy 4 Kina Mcnamara er. [facility], [address], [address], [place], [place], [address] , [place]. tel:[phone] Referring Provider: Same As Referring. Office/Outpa tient Visit,Est, Mod Z [facility], [address], [place], [address], [place] tel:[phone] [facility] No Information 4 Kina Mcnamara er. [facility], [address], [address], [place], [place], [address] , [place]. tel:[phone] Referring Provider: Pancho Castanon [facility] [address], [address], [place], [address]. tel:[phone] Office/Outpa tient Visit,Est, Mod Z [facility], [address] [facility], [place], [address], [place] tel:[phone] [facility] Neck and right arm pain (chief complaint) No Information Sep-2 9-201 4 Kina Diggsoph er. [facility], [address], [address], [place], [place], [address] , . tel:[phone] Referring Provider: Pancho Castanon, [facility] [address], [address], [place], [address]. tel:[phone] Office/Outpa tient Visit,[facility], [address], [place], [place], [facility], tel:[phone] [facility] - [facility] Cervical pain (chief complaint) No Information 4 Kina Diggsoph er. [facility], [address], [place], [place], [address] , [place]. tel:[phone] Referring Provider: Pancho Castanon, [facility] [address], [address], [place], [address]. tel:[phone] Family History Family Member Type Diagnosis Age At Onset Problem (finding) Problem (finding) Payers Payer name Insurance type Covered libertarian ID Authoriza tion(s) [employer] [id number] Social History Type Description Quantity Date [...]
--- OUTSIDE RECORDS SUMMARY | 2024-07-03 21:53 | XMS_ITS | Encounter Summary ---
Author Organization [facility] Address [address] [place] [address] Care Team Providers Care Customer Solutions Coordinator Name Role Phone Thom Ovalles MD Unavailable [phone] Han Jackson MD Primary Care Provider Ruben Frey MD Unavailable [phone] Reason for Referral * Diagnostic Imaging XR (Routine) - Pending Review Specialty Diagnoses / Procedures Referred By Contac t Referred To Contact Radiology. Diagnoses S/P fusion of sacroiliac joint Procedures XR Pelvis G/E 3 Views Vanessa Fierro PA-C [address] [place] [address] Phone: tel: fax: Referral ID Status Reason Start Date Expiration Date V isits Requested Visits Authorized [id number] Pending Review 06/28/2024 06/28/2025 1 1 EDORING SUPERVISOR Encounter Details Date Type Department Care Team (Late st Contact Info) Description 06/28/2024 [facility] [address] [place] [address] Vanessa Fierro PA-C [address] [place] [phone] S/P fusion of sacroiliac joint (Primary Dx) [...] on file Legal Sex Female 4:14 AM STEVEDORING SUPERVISOR Gender Identity Not on file Sexual Orientation Not on file 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 Industry 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 Job End Date 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 Not on file Not on file Not on file Not on file Not on file Not on file Not on file documented as of this encounter Plan of Treatment Upcoming Encounters Date Type Department Care Team (Late st Contact Info) Description 07/04/2024 1:40 PM STEVEDORING SUPERVISOR Ancillary Procedure [facility] Orthopedic Xray [address] [phone] Vanessa Fierro PA-C [address] [place] [phone] 07/04/2024 2:00 PM STEVEDORING SUPERVISOR Office Visit [facility] [address] [phone] Vanessa Fierro PAMax [address] [place] [phone] Scheduled Orders Name Type Priority Associated Diagnoses Orde r Schedule XR Pelvis G/E 3 Views Imaging Routine S/P fusion of sacroiliac joint Expected: 06/28/2024 (Approximate), Expires: 07/28/2024 documented as of this encounter Visit Diagnoses Diagnosis S/P fusion of sacroiliac joint- Primary documented in this encounter Care Teams Customer Solutions Coordinator Relationship Specialty Start Date End Date Thom Ovalles MD PCP - Orthopaedics Orthopedics 04/08/11 Han Jackson MD PCP - General Family Medicine 10/23/21 Ruben Frey MD [address] [address] Assigned Musculoskeletal Provider 04/17/23 documented as of this encounter
--- OUTSIDE RECORDS SUMMARY | 2024-07-03 21:53 | XMS_ITS | Encounter Summary ---
Author Organization [facility] Address [address] [place] [address] Care Team Providers Care Creative Services Manager Name Role Phone HolleyYe OD Unavailable [phone] Thom Ovalles MD Unavailable [phone] Frw, None Primary Care Provider Unavailabl Bri Rao MD Unavailable [phone] Oralia Lozano Unavailable No Ref-Primary, Physician Primary Care Provider Yasmine Esqueda APRN GARMENT ALTERATION EXAMINER Unavailable Yasmine Esqueda APRN GARMENT ALTERATION EXAMINER Unavailable Han Jackson MD Primary Care Provider Ruben Frey MD Unavailable Encounter Details Date Type Department Care Team (Late st Contact Info) Description 07/02/2011 [facility] [place] Inpatient Dept [address] [place] [address] Frw, Inpatient Provider Social History Tobacco Use [...] on file Legal Sex Female 4:14 AM AFTER SCHOOL COORDINATOR Gender Identity Not on file Sexual Orientation Not on file 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 Industry 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 Job End 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 Not on file Not on file Not on file Not on file Not on file Not on file Not on file documented as of this encounter Plan of Treatment Upcoming Encounters Date Type Department Care Team (Late st Contact Info) Description 07/04/2024 1:40 PM AFTER SCHOOL COORDINATOR Ancillary Procedure [facility] Orthopedic Xray [address] [phone] Vanessa Fierro, PA-C [address] [place] [phone] 07/04/2024 2:00 PM AFTER SCHOOL COORDINATOR Office Visit [facility] [address] [phone] Vanessa Fierro PAJosemanuelC [address] [place] [phone] documented as of this encounter Visit Diagnoses Not on filedocumented in this encounter Care Teams Creative Services Manager Relationship Specialty Start Date End Date Ye Babb OD [facility] [place] [address] [place] [address] PCP - Ophthalmology 06/29/05 10/29/21 Thom Ovalles MD [facility] [place] [address] [place] [address] PCP - Orthopaedics Orthopedics 04/08/11 Frw, None PCP - General Family Practice 04/28/11 04/15/17 [place] [address] PCP - Obstetrics/Gynecology detail drafter 05/27/11 1 08/19/14 Oralia Lozano [facility] [place] [address] [place] [address] PCP - Audiology Audiology 12/15/12 12/15/12 No Ref-Primary, Physician PCP - General 01/31/18 10/22/21 Yasmine Esqueda APRN GARMENT ALTERATION EXAMINER [address] [place] [address] [place] [address] PCP - Assigned PCP 02/20/18 10/18/18 Han Jackson MD [address] [place] [address] [place] [address] PCP - General Family Medicine 10/23/21 Yasmine Esqueda APRN GARMENT ALTERATION EXAMINER [address] [place] [address] [place] [address] Assigned PCP 01/21/18 02/15/21 Ruben Frey MD [facility] [place] [address] Assigned Musculoskeletal Provider 04/17/23 documented as of this encounter
--- OUTSIDE RECORDS SUMMARY | 2024-07-03 21:53 | XMS_ITS | Encounter Summary ---
Author Organization [facility] Address [address] [place] [address]. [place] [address] Care Team Providers Care Touch Up Edger Name Role Phone Thom Ovalles MD Unavailable [phone] Han Jackson MD Primary Care Provider [phone] Ruben Frey MD Unavailable Encounter Details Date Type Department Care Team (Late st Contact Info) Description 10/26/2023 Telephone [facility] [place] [address] [place] [address] Ruben Frey MD [address] [place] [address] Social History Tobacco Use Types [...] on file Legal Sex Female 4:14 AM TAX SERVICES INTERN Gender Identity Not on file Sexual Orientation Not on file Occupation Industry 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 Job End Date 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 Not on file Not on file Not on file Not on file Not on file Not on file Not on file documented as of this encounter Plan of Treatment Upcoming Encounters Date Type Department Care Team (Late st Contact Info) Description 07/04/2024 1:40 PM TAX SERVICES INTERN Ancillary Procedure [facility] Orth[facility] Xray [address] [phone] Vanessa Fierro PA-C [address] [place] [phone] 07/04/2024 2:00 PM TAX SERVICES INTERN Office Visit [facility] [address] [phone] Vanessa Fierro PA-C [address] [place] [address] documented as of this encounter Visit Diagnoses Not on filedocumented in this encounter Care Teams Touch Up Edger Relationship Specialty Start Date End Date Thom Ovalles MD PCP - Orthopaedics Orthopedics 04/08/11 Han Jackson MD PCP - General Family Medicine 10/23/21 Ruben Frey MD [facility] [address] [place], [place] [address] Assigned Musculoskeletal Provider 04/17/23 documented as of this encounter
--- OUTSIDE RECORDS SUMMARY | 2024-07-03 21:53 | XMS_ITS | Encounter Summary ---
Author Organization [place] Address [address] [place] [address] Care Team Providers Care Dermatology Specialist Name Role Phone HolleyYe OD Unavailable Thom Ovalles MD Unavailable [phone] Frw, None Primary Care Provider Unavailabl e Mya Valentine MD Unavailable [phone] Encounter Details Date Type Department Care Team (Late st Contact Info) Description 07/02/2011 12:29 PM ACADEMIC PROGRAM SPECIALIST [facility] in [address] [address] Mya [place] [address] Social History Tobacco Use Types Packs/Day Years Used Date Smoking Tobacco: Never Smokeless Tobacco: Never Comments:no second hand smok e at home or work, 01/01/05 Alcohol Use Standard Drinks/Week Comments Yes 0 (1 standard drink = 0.6 oz pur e alcohol) 3-4 wk Comments No Sex and Gender Information Value Date Recorded Sex Assigned at Not on file Legal Sex Female 4:14 AM ACADEMIC PROGRAM SPECIALIST Gender Identity Not on file Sexual Orientation Not on file 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 EMIC PROGRAM SPECIALIST * Mya Valentine MD - 07/06/2011 10:29 AM ACADEMIC PROGRAM SPECIALIST PROCEDURE/OPERATIVE REPORT Date of Procedure: 07/02/11 PREOPERATIVE DIAGNOSES: Menometrorrhagia. Arcuate-shaped uterus. Status post endometrial ablation. POSTOPERATIVE DIAGNOSES: Menometrorrhagia. Arcuate-shaped uterus. Status post endometrial ablation. OPERATION: Laparoscopic supracervical hysterectomy with intraoperative cystoscopy. SURGEON: Dr. Valentine. PHP ARCHITECT: Dr. Lockwood. ANESTHESIA: General. ESTIMATED BLOOD LOSS: [...] single-toothed tenaculum and uterus sounded and a [employer] uterine manipulator was placed. The tenaculum and [...] good condition. Mya Valentine M.D. CHRISTIANO/yeimi cc: EMIC PROGRAM SPECIALIST documented in this encounter Plan of Treatment Upcoming Encounters Date Type Department Care Team (Late st Contact Info) Description 07/04/2024 1:40 PM ACADEMIC PROGRAM SPECIALIST Ancillary Procedure [facility] Orthopedic Xray [address] [place] [address] Vanessa Fierro, STONE [address] [place] [phone] 07/04/2024 2:00 PM ACADEMIC PROGRAM SPECIALIST Office Visit [facility] [address] [place] [address] Vanessa Fierro PA-C [address] [place] [address] documented as of this encounter Procedures Procedure Name Priority Date/Time Associated Diagnosis Comments SURGICAL PATHOLOGY EXAM Routine 07/02/2011 4:10 PM ACADEMIC PROGRAM SPECIALIST documented in this encounter Results * Surgical pathology exam (07/02/2011 4:10 PM ACADEMIC PROGRAM SPECIALIST) Copath Report Patient Name: KRISTIE KIRKLAND MR#: [id number] Specimen #: [id number] Collected: 07/02/2011 Received: 07/03/2011 Reported: 07/07/2011 16:43 Ordering Phy(s): MYA VALENTINE SPECIMEN(S): Uterus FINAL DIAGNOSIS: Uterus, resected tissue: - Cervix: Not identified. - Endometrium: Benign inactive-weakly proliferative endometrium. - Myometrium: Intramural leiomyomas. - Benign fallopian tubes, one with an endometrial lining. Electronically signed out by: Keenan Meyer M.D. CLINICAL HISTORY: Specimen, uterus, menorrhagia. GROSS: The container is labeled with the patient's name, medical record number, date of , and is designated as uterus. The 71 gm specimen is multiple irregular morcellated fragments of gonzalez tissue aggregated to approximately 80 x 50 x 20 mm. Two portions of cylindrical tissue attached to gonzalez tissue appear to be proximal fallopian tubes. The tissues range from about 10 mm up to a maximum of 95 x 15 x 15 mm. No cervix is identified. Sections of the two fallopian tubes are in blocks 1 and 2. The tissues are serially sectioned and where there appears to be endometrium it is flat, thin, and gonzalez. Pay Station Collector sections in seven blocks. Two small apparent myomas that are considered intramural by default are submitted in block 7. (Keenan Meyer MD/aneta 07/06/2011) MICROSCOPIC: Slide 1 shows fallopian tube, and almost all of the lining is endometrium, and the lumen is somewhat dilated. These features can be seen with previous interruption. Slide 2 shows fallopian tube with a dilated lumen, and most of the lining appears tubal. There are focal small papillary structures, and these features can also be seen with previous interruption. Atypical features are not identified. The endometrium is inactive to weakly proliferative with no evidence of hyperplasia or malignancy. The myometrium shows focal endometrium, but I think this may represent intrauterine fallopian tube, and not adenomyosis. The two small myomas appear benign. Keenan Meyer MD/[facility] 07/07/2011 TESTING LAB LOCATION: [facility] [address] [facility] [address] [place] [address] COLLECTION SITE: Client: [facility] Location: [facility] (W) COPATH 07/02/2011 4:10 PM ACADEMIC PROGRAM SPECIALIST 07/03/2011 8:37 AM ACADEMIC PROGRAM SPECIALIST us Mya Valentine MD LAB - [facility] Final Result Performing Organization Address City/State/[facility] Co de Phone Number COPATH documented in this encounter Visit Diagnoses Not on filedocumented in this encounter Care Teams Dermatology Specialist Relationship Specialty Start Date End Date Ye Babb OD [facility] [address] [facility] [address] [place] [address] PCP - Ophthalmology 06/29/05 10/29/21 Thom Ovalles MD [facility] [address] [facility] [address] [place] [address] PCP - Orthopaedics Orthopedics 04/08/11 Frw, None PCP - General Family Practice 04/28/11 04/15/17 [place] [address] PCP - Obstetrics/Gynecology adjunct faculty instructor 05/27/11 1 08/19/14 documented as of this encounter
--- OUTSIDE RECORDS SUMMARY | 2024-07-03 21:53 | XMS_ITS | Encounter Summary ---
Author Organization [place] Address [address] [place] [address]. [place] [address] Care Team Providers Care Clamper Name Role Phone Thom Ovalles MD Unavailable [phone] Han Jackson MD Primary Care Provider Ruben Frey MD Unavailable Encounter Details Date Type Department Care Team (Late st Contact Info) Description 07/01/2023 [facility] Advice [facility] [place] [address] [facility] [address] 4th [place] [address] Ruben Frey MD [address] [place] [address] Social History Tobacco Use Types [...] on file Legal Sex Female 4:14 AM NUCLEAR WASTE MANAGEMENT ENGINEER Gender Identity Not on file Sexual Orientation Not on file Occupation Industry 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 Job End 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 Not on file Not on file Not on file Not on file Not on file Not on file Not on file documented as of this encounter Plan of Treatment Upcoming Encounters Date Type Department Care Team (Late st Contact Info) Description 07/04/2024 1:40 PM NUCLEAR WASTE MANAGEMENT ENGINEER Ancillary Procedure [facility] Orthopedic Xray [address] [phone] Vanessa Fierro PA-C [address] [place] [address] [phone] 07/04/2024 2:00 PM NUCLEAR WASTE MANAGEMENT ENGINEER Office Visit [facility] Clinic [address] [address] Vanessa Fierro PA-C [address] [place] [address] 855605 documented as of this encounter Visit Diagnoses Not on filedocumented in this encounter Care Teams Clamper Relationship Specialty Start Date End Date Thom Ovalles MD PCP - Orthopaedics Orthopedics 04/08/11 Han [place] MD PCP - General Family Medicine 10/23/21 Ruben Frey MD [facility] [address] [place] [address] [id number] Assigned Musculoskeletal Provider 04/17/23 documented as of this encounter
--- OUTSIDE RECORDS SUMMARY | 2024-07-03 21:53 | XMS_ITS | Encounter Summary ---
Author Organization [place] Address [address] [place] [address] Care Team Providers Care Cable Repairer Name Role Phone Thom Ovalles MD Unavailable Han Jackson MD Primary Care Provider Ruben Frey MD Unavailable Reason for Visit * Reason Onset Date Comments Appointment 06/27/2024 Encounter Details Date Type Department Care Team (Late st Contact Info) Description 06/27/[address] 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 She just looking to reschedule her apt that was canceled with Vanessa. Apt rescheduled to 07/04 with Vanessa. Pt will call with other questions or concerns. -LESIA Emery- [facility] ER HELPER * Telephone Encounter - Cami Broussard - 06/27/2024 8:18 AM CST Order(s): Other: Reason for requested: SI joint fusion was cancelled on her. She was not contacted to reschedule. Now rescheduled to 09/12. Can you help her get in sooner? Date needed: gee Provider name: Dr. Frey. Could we send this information to you in [place] or would you prefer to receive a phone call?: Patient would prefer a phone call Okay to leave a detailed message?: Yes at Cell number on file: Telephone Information: ER HELPER documented in this encounter Plan of Treatment Upcoming Encounters Date Type Department Care Team (Late st Contact Info) Description 07/04/2024 1:40 PM MOLDER HELPER Ancillary Procedure [facility] Orthopedic Xray [address] [address] Vanessa Fierro PA-C [address] [place] [address] [phone] 07/04/2024 2:00 PM MOLDER HELPER Office Visit [facility] [address] [phone] Vanessa Fierro PA-C [address] [place] [address] 012885 documented as of this encounter Visit Diagnoses Not on filedocumented in this encounter Care Teams Cable Repairer Relationship Specialty Start Date End Date Thom Ovalles MD PCP - Orthopaedics Orthopedics 04/08/11 Han [place] MD PCP - General Family Medicine 10/23/21 Ruben Frey MD [address] [address] Assigned Musculoskeletal Provider 04/17/23 documented as of this encounter
--- OUTSIDE RECORDS SUMMARY | 2024-07-03 21:53 | XMS_ITS | Encounter Summary ---
Author Organization [place] Address [address] [place] [address] Care Team Providers Care Hydroelectric Production Manager Name Role Phone Ye Babb Charbel OD Unavailable Thom Ovalles MD Unavailable [phone] Frw, None Primary Care Provider UnavailBri Grove MD Unavailable No Ref-Primary, Physician Primary Care Provider José Miguel-Yasmine Antonio APRN DIRECTOR RECREATION Unavailable José Miguel-Yasmine Antonio APRN DIRECTOR RECREATION Unavailable Han [place] MD Primary Care Provider [phone] Ruben Frey MD Unavailable Encounter Details Date Type Department Care Team (Late st Contact Info) Description 08/11/[address] [facility] [place] WATCH HAIRSPRING ASSEMBLER [address] [place] [address] Feli Pinto MD [facility] [address] [place] [address] Social History Tobacco Use Types Packs/Day Years Used Date Smoking Tobacco: Never Smokeless Tobacco: Never Comments:no second hand smok e at home or work, 01/01/05 Alcohol Use Standard Drinks/Week Comments Yes 0 (1 standard drink = 0.6 oz pur e alcohol) rare Comments No Sex and Gender Information Value Date Recorded Sex Assigned at Not on file Legal Sex Female 4:14 AM FOUNTAIN MANAGER Gender Identity Not on file Sexual Orientation Not on file 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 file Not on file Not on file Not on file Not on file Not on file Not on file documented as of this encounter Plan of Treatment Upcoming Encounters Date Type Department Care Team (Late st Contact Info) Description 07/04/2024 1:40 PM FOUNTAIN MANAGER Ancillary Procedure M [facility] Orthopedic Xray [address] [phone] Vanessa Fierro, PA-C [address] [place] [address] [phone] 07/04/2024 2:00 PM FOUNTAIN MANAGER Office Visit [facility] Orthopedic Clinic [address] [phone] Vanessa Fierro, PAJosemanuelC [address] [place] [address] documented as of this encounter Visit Diagnoses Not on filedocumented in this encounter Care Teams Hydroelectric Production Manager Relationship Specialty Start Date End Date Ye Babb OD [facility] [place] [address] [place] [address] PCP - Ophthalmology 06/29/05 10/29/21 Thom Ovalles MD [facility] [place] [address] [place] [address] PCP - Orthopaedics Orthopedics 04/08/11 Frw, None PCP - General Family Practice 04/28/11 04/15/17 Bri Valentine [place] [address] PCP - Obstetrics/Gynecology load out supervisor 05/27/11 1 08/19/14 No Ref-Primary, Physician PCP - General 01/31/18 10/22/21 Yasmine Esqueda APRN DIRECTOR RECREATION [address] [place] [address] SERAF[place] LOWE [address] PCP - Assigned PCP 02/20/18 10/18/18 Han Jackson MD [address] [place] [address] [place] [address] PCP - General Family Medicine 10/23/21 Yasmine Esqueda APRN DIRECTOR RECREATION [address] [place] [address] [place] [address] Assigned PCP 01/21/18 02/15/21 Ruben Frey MD [facility] [place] [address] [place] [address] Assigned Musculoskeletal Provider 04/17/23 documented as of this encounter
--- OUTSIDE RECORDS SUMMARY | 2024-07-03 21:53 | XMS_ITS | Encounter Summary ---
Author Organization [place] Address [address] [place] [address]. [place] [address] Care Team Providers Care Bridge Repairer Name Role Phone Thom Ovalles MD Unavailable [phone] Han [place] MD Primary Care Provider Ruben Frey MD Unavailable Encounter Details Date Type Department Care Team (Late st Contact Info) Description 04/12/[address] 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 Not on file Not on file Not on file Not on file Not on file Not on file Not on file documented as of this encounter Miscellaneous Notes * Telephone Encounter - Alexia hKan - 04/12/2024 8:09 AM CDT Left Voicemail (1st Attempt) and Sent Mychart (1st Attempt) for the patient to call back and reschedule the following: Appointment type: Return surgical spine Provider: Vanessa Fierro Return date: 06/27 r/s to next available documented in this encounter Plan of Treatment Upcoming Encounters Date Type Department Care Team (Late st Contact Info) Description 07/04/2024 1:40 PM MOLDER SWEEP Ancillary Procedure [facility] Orthopedic Xray [address] [phone] Vanessa Fierro PA-C [address] [place] [address] [phone] 07/04/2024 2:00 PM MOLDER SWEEP Office Visit [facility] [address] [phone] Vanessa Fierro PA-C [address] [place] [address] [phone] documented as of this encounter Visit Diagnoses Not on filedocumented in this encounter Care Teams Bridge Repairer Relationship Specialty Start Date End Date Thom Ovalles MD PCP - Orthopaedics Orthopedics 04/08/11 Han [place] MD PCP - General Family Medicine 10/23/21 Ruben Frey MD [facility] [address] [place] [address] Assigned Musculoskeletal Provider 04/17/23 documented as of this encounter
--- OUTSIDE RECORDS SUMMARY | 2024-07-03 21:53 | XMS_ITS | Encounter Summary ---
Author Organization [place] Address [address] [place] [address]. [place] [address] Care Team Providers Care Ferry Terminal Agent Name Role Phone Thom Ovalles MD Unavailable [phone] Han [place] MD Primary Care Provider Ruben Frey MD Unavailable Encounter Details Date Type Department Care Team (Late st Contact Info) Description 04/12/2024 [facility] [address] 4th [place] [address] [facility] Social History Tobacco Use Types Packs/Day Years [...] on file Legal Sex Female 4:14 AM SECONDARY SOCIAL STUDIES TEACHER Gender Identity Not on file Sexual Orientation Not on file 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 on file Not on file Not on file Not on file Not on file Not on file Not on file documented as of this encounter Plan of Treatment Upcoming Encounters Date Type Department Care Team (Late st Contact Info) Description 07/04/2024 1:40 PM SECONDARY SOCIAL STUDIES TEACHER Ancillary Procedure M [facility] Orthopedic Xray [address] [phone] Vanessa Fierro PA-C [address] [place] [phone] 07/04/2024 2:00 PM SECONDARY SOCIAL STUDIES TEACHER Office Visit [facility] Clinic [address] [phone] Vanessa Fierro PA-C [address] [place] [address] [phone] documented as of this encounter Visit Diagnoses Not on filedocumented in this encounter Care Teams Ferry Terminal Agent Relationship Specialty Start Date End Date Thom Ovalles MD PCP - Orthopaedics Orthopedics 04/08/11 Han [place] MD PCP - General Family Medicine 10/23/21 Ruben Frey MD [address] [address] Assigned Musculoskeletal Provider 04/17/23 documented as of this encounter
--- OUTSIDE RECORDS SUMMARY | 2024-07-03 21:53 | XMS_ITS | Encounter Summary ---
Author Organization [place] Address [address] [place] [address] Care Team Providers Care Marketing Project Manager Name Role Phone Thom Ovalles MD Unavailable [phone] Han [place] MD Primary Care Provider [phone] Ruben Christianson MD Unavailable [phone] Reason for Visit * Reason Onset Date Comments therapy reports 05/05/2023 Patient is reque sting a call back to confirm when they received therapy notes from [place] Encounter Details Date Type Department Care Team (Late st Contact Info) Description 05/05/2023 Telephone [facility] [place] [address] [facility] [address] 4th [place] [address] Ruben Christianson MD [address] [place] [address] therapy reports (Patient is requesting a call back to confirm when they received therapy notes from [place]) Social History Tobacco Use Types Packs/Day Years Used Date Smoking Tobacco: Never Smokeless Tobacco: Never Comments:no second hand smok e at home or work, 01/01/05 Alcohol Use Standard Drinks/Week Comments Yes 0 (1 standard drink = 0.6 oz pur e alcohol) 3-4 wk PHQ-2 Answer Date Recorded PHQ-2 Score 0 04/27/2023 Comments No Sex and Gender Information Value Date Recorded Sex Assigned at Not on file Legal Sex Female 4:14 AM TOW CAR DRIVER Gender Identity Not on file Sexual Orientation Not on file 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 No / Unsure 04/29/2023 7:43 AM CDT documented as of this encounter Miscellaneous Notes * Telephone Encounter - Thom Mckinney ATC - 05/07/2023 12:58 PM CDT ATC returned patient call to let them know that PT notes from [facility] were received on 05/05/23 and scanned into patient's chart. ATC will notify Vania Levy RN and send message to Prior [employer] for follow up. Thom Mckinney ATC * Telephone Encounter - Kay Ontiveros - 05/05/2023 12:51 PM CDT [facility] Phone Message May a detailed message be left on voicemail: yes Reason for Call: Other: Patient is requesting a call back to confirm when they received therapy notes from [place] Action Taken: Message routed to: [facility] abhijit christianson Travel Screening: Not Applicable documented in this encounter Plan of Treatment Upcoming Encounters Date Type Department Care Team (Late st Contact Info) Description 07/04/2024 1:40 PM TOW CAR DRIVER Ancillary Procedure [facility] Orthopedic Xray [address] [phone] Vanessa Fierro PA-C [address] [place] [address] [phone] 07/04/2024 2:00 PM TOW CAR DRIVER Office Visit [facility] [address] [phone] Vanessa Fierro PA-C [address] [place] [address] documented as of this encounter Visit Diagnoses Not on filedocumented in this encounter Care Teams Marketing Project Manager Relationship Specialty Start Date End Date Thom Ovalles MD PCP - Orthopaedics Orthopedics 04/08/11 Han [place] MD PCP - General Family Medicine 10/23/21 Ruben Christianson MD [address] [place] [address] [address] [place] [address] Assigned Musculoskeletal Provider 04/17/23 documented as of this encounter
--- OUTSIDE RECORDS SUMMARY | 2024-07-03 21:53 | XMS_ITS | Encounter Summary ---
Author Organization [place] Address [address] [place] [address] Care Team Providers Care Server Programmer Name Role Phone Gely Taveras MD Unavailable [phone] Ye Babb OD Unavailable [phone] Thom Ovalles MD Unavailable [phone] Frw, None Primary Care Provider Unavailabl Bri Rao MD Unavailable [phone] Oralia Lozano Unavailable No Ref-Primary, Physician Primary Care Provider Yasmine Esqueda APRN PRE KINDERGARTEN TEACHER Unavailable José Miguel-Yasmine Antonio APRN PRE KINDERGARTEN TEACHER Unavailable Han Jackson MD Primary Care Provider Ruben Frey MD Unavailable Encounter Details Date Type Department Care Team (Late st Contact Info) Description 05/01/2011 MyC Medical Advice [facility] in [place] SEMICONDUCTOR DEVELOPMENT TECHNICIAN [address] [place] [address] Kerry Jackson Social History Tobacco [...] on file Legal Sex Female 4:14 AM BIAS BINDING FOLDER Gender Identity Not on file Sexual Orientation Not on file 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 Not on file Not on file Not on file Not on file Not on file Not on file documented as of this encounter Plan of Treatment Upcoming Encounters Date Type Department Care Team (Late st Contact Info) Description 07/04/2024 1:40 PM BIAS BINDING FOLDER Ancillary Procedure [facility] Orthopedic Xray [address] [phone] Vanessa Fierro, PA-C [address] [place] [phone] 07/04/2024 2:00 PM BIAS BINDING FOLDER Office Visit [facility] [address] [phone] Vanessa Fierro PA-C [address] [place] [address] documented as of this encounter Visit Diagnoses Not on filedocumented in this encounter Care Teams Server Programmer Relationship Specialty Start Date End Date Gely Taveras MD [facility] [address] [place] [address] PCP - Obstetrics/Gynecology 02/28/03 1 Ye Babb OD [facility] [place] [address] [place] [address] PCP - Ophthalmology 06/29/05 10/29/21 Thom Ovalles MD [facility] [address] [place] [address] PCP - Orthopaedics Orthopedics 04/08/11 Frw, None PCP - General Family Practice 04/28/11 04/15/17 Bri [place] [address] PCP - Obstetrics/Gynecology lumber racker 05/27/11 1 08/19/14 Oralia Lozano [facility] [place] [address] [place] [address] PCP - Audiology Audiology 12/15/12 12/15/12 No Ref-Primary, Physician PCP - General 01/31/18 10/22/21 Yasmine Esqueda APRN PRE KINDERGARTEN TEACHER [address] [place] [address] [place]OW[place] [address] PCP - Assigned PCP 02/20/18 10/18/18 Han Jackson MD [address] [place] [address] [place] [address] PCP - General Family Medicine 10/23/21 Yasmine Esqueda APRN PRE KINDERGARTEN TEACHER [address] [place] [address] [place] [address] Assigned PCP 01/21/18 02/15/21 Ruben Frey MD [address] [place] [address] Assigned Musculoskeletal Provider 04/17/23 documented as of this encounter
--- OUTSIDE RECORDS SUMMARY | 2024-07-03 21:53 | XMS_ITS | Encounter Summary ---
Author Organization [place] Address [address] [place] [address] Care Team Providers Care Flat Finisher Name Role Phone Gely Taveras MD Unavailable [phone] Ye Babb OD Unavailable Thom Ovalles MD Unavailable Frw, None Primary Care Provider Unavailabl e Encounter Details Date Type Department Care Team (Late Contact Info) Description 05/04/2011 9:30 AM T [facility] in [facility] [address] [place] [address] Yudy Colón, PAJosemanuelC [facility] 701 [facility] [address] [place], [place] [id number] Social History Tobacco Use Types Packs/Day Years Used Date Smoking Tobacco: Never Smokeless Tobacco: Never Comments:no second hand smok e at home or work, 01/01/05 Alcohol Use Standard Drinks/Week Comments Yes 0 (1 standard drink = 0.6 oz pur e alcohol) 3-4 wk Comments No Sex and Gender Information Value Date Recorded Sex Assigned at Not on file Legal Sex Female 4:14 AM PHARMACY AIDE Gender Identity Not on file Sexual Orientation [...] Department Care Team (Late Contact Info) Description 07/04/2024 1:40 PM PHARMACY AIDE Ancillary Procedure [facility] Orthopedic Xray [address] [phone] Vanessa Fierro PA-C [address] [place] [address] [phone] 07/04/2024 2:00 PM PHARMACY AIDE Office Visit [facility] [address] [phone] Vanessa Fierro, PAMax [address] [place] [address] [phone] documented as of this encounter Visit Diagnoses Not on filedocumented in this encounter Care Teams Flat Finisher Relationship Specialty Start Date End Date Gely Taveras MD [facility] [address] [place] [address] PCP - Obstetrics/Gynecology 02/28/03 1 Ye Babb OD [facility] [address] [place] [address] PCP - Ophthalmology 06/29/05 10/29/21 Thom Ovalles MD [facility] [address] [place] [address] PCP - Orthopaedics Orthopedics 04/08/11 Frw, None PCP - General Family Practice 04/28/11 04/15/17 documented as of this encounter
--- OUTSIDE RECORDS SUMMARY | 2024-07-03 21:53 | XMS_ITS | Encounter Summary ---
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 Not on file Not on file Not on file Not on file Not on file Not on file documented as of this encounter Plan of Treatment Upcoming Encounters Date Type Department Care Team (Late st Contact Info) Description 07/04/2024 1:40 PM CANVAS MARKER Ancillary Procedure [facility] Orthopedic Xray [address] [phone] Vanessa Fierro PA-C [address] [place] [address] [phone] 07/04/2024 2:00 PM CANVAS MARKER Office Visit [facility] Orth[facility] Clinic [address] [phone] Vanessa Fierro PA-C [address] [place] [address] documented as of this encounter Visit Diagnoses Not on filedocumented in this encounter Care Teams Financial Coach Relationship Specialty Start Date End Date Ye Babb OD [facility] [address] [place] [address] PCP - Ophthalmology 06/29/05 10/29/21 Thom Ovalles MD [facility] [address] [place] [address] PCP - Orthopaedics Orthopedics 04/08/11 No Ref-Primary, Physician PCP - General 01/31/18 10/22/21 Han [place] MD PCP - General Family Medicine 10/23/21 Ruben Frey MD [id number] [place], [place] 28[address] Assigned Musculoskeletal Provider 04/17/23 documented as of this encounter
--- OUTSIDE RECORDS SUMMARY | 2024-07-03 21:53 | XMS_ITS | Encounter Summary ---
Author Organization [place] Address [address] [place] [address]. [place] [address] Care Team Providers Care Spray Gun Repairer Name Role Phone Thom Ovalles MD Unavailable [phone] Han [place] MD Primary Care Provider [phone] Ruben Frey MD Unavailable Encounter Details Date Type Department Care Team (Late st Contact Info) Description 04/21/2024 [facility] Orth[facility] Clinic [address] 4[address] [place] [address] [facility] Social History Tobacco Use Types Packs/Day [...] on file Legal Sex Female 4:14 AM WOOD SCIENCE PROFESSOR Gender Identity Not on file Sexual Orientation Not on file 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 on 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 Not on file Not on file Not on file Not on file Not on file Not on file documented as of this encounter Plan of Treatment Upcoming Encounters Date Type Department Care Team (Late st Contact Info) Description 07/04/2024 1:40 PM WOOD SCIENCE PROFESSOR Ancillary Procedure [facility] Orthopedic Xray [address] [phone] Vanessa Fierro PA-C [address] [place] [address] [phone] 07/04/2024 2:00 PM WOOD SCIENCE PROFESSOR Office Visit [facility] [address] [phone] Vanessa Fierro PA-C [address] [place] [address] [phone] documented as of this encounter Visit Diagnoses Not on filedocumented in this encounter Care Teams Spray Gun Repairer Relationship Specialty Start Date End Date Thom Ovalles MD PCP - Orthopaedics Orthopedics 04/08/11 Han [place] MD PCP - General Family Medicine 10/23/21 Ruben Frey MD [address] [address] Assigned Musculoskeletal Provider 04/17/23 documented as of this encounter
--- OUTSIDE RECORDS SUMMARY | 2024-07-03 21:53 | XMS_ITS | Encounter Summary ---
Author Organization [place] Address [address] [place] [address]. [place] [address] Care Team Providers Care Information Management Manager Name Role Phone Thom Ovalles MD Unavailable [phone] Han [place] MD Primary Care Provider Ruben Frey MD Unavailable Encounter Details Date Type Department Care Team (Late st Contact Info) Description 11/12/2023 [facility] Only [facility] Orthopedic Clinic [address] [place] [address] Vanessa Fierro, PAJosemanuelC [address] [place] [address] S/P fusion of sacroiliac joint (Primary [...] on file Legal Sex Female 4:14 AM OUTREACH COORDINATOR Gender Identity Not on file Sexual [...] st Contact Info) Description 07/04/2024 1:40 PM OUTREACH COORDINATOR Ancillary Procedure [facility] Orthopedic Xray [address] [phone] Vanessa Fierro PA-C [address] [place] [phone] 07/04/2024 2:00 PM OUTREACH COORDINATOR Office Visit [facility] Orth[facility] Clinic [address] [phone] Vanessa Fierro PA-C [address] [place] [address] [phone] documented as of this encounter Visit Diagnoses Diagnosis S/P fusion of sacroiliac joint- Primary documented in this encounter Care Teams Information Management Manager Relationship Specialty Start Date End Date Thom Ovalles MD PCP - Orthopaedics Orthopedics 04/08/11 Han [place] MD PCP - General Family Medicine 10/23/21 Ruben Frey MD [address] [place] [address] Assigned Musculoskeletal Provider 04/17/23 documented as of this encounter
--- OUTSIDE RECORDS SUMMARY | 2024-07-03 21:53 | XMS_ITS | Encounter Summary ---
Author Organization [place] Address [address] [place] [address]. [place] [address] Care Team Providers Care Automotive Parts Manager Name Role Phone Thom Ovalles MD Unavailable [phone] Han [place] MD Primary Care Provider Ruben Frey MD Unavailable [phone] Encounter Details Date Type Department Care Team (Late st Contact Info) Description 04/21/2024 Telephone [facility] Orthopedic Clinic [address] [place] [address] Vanessa Fierro PA-C [address] [place] [address] Social History Tobacco Use Types Packs/Day [...] on file Legal Sex Female 4:14 AM MERCERIZING RANGE CONTROLLER Gender Identity Not on file Sexual Orientation Not on file Occupation Industry 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 Unable to LVM. Sent Mychart (2nd Attempt) for the patient to call back and schedule the following: Appointment type: POST OP SPINE Provider: Vanessa Fierro Return date: Next Available MAX attempts reached to schedule documented in this encounter Plan of Treatment Upcoming Encounters Date Type Department Care Team (Late st Contact Info) Description 07/04/2024 1:40 PM MERCERIZING RANGE CONTROLLER Ancillary Procedure [facility] Orthopedic Xray [address] [phone] Vanessa Fierro PAMax [address] [place] [address] 07/04/2024 2:00 PM MERCERIZING RANGE CONTROLLER Office Visit [facility] Clinic [address] [phone] Vanessa Fierro, PAMax [address] [place] [address] [phone] documented as of this encounter Visit Diagnoses Not on filedocumented in this encounter Care Teams Automotive Parts Manager Relationship Specialty Start Date End Date Thom Ovalles MD PCP - Orthopaedics Orthopedics 04/08/11 Han [place] MD PCP - General Family Medicine 10/23/21 Ruben Frey MD [facility] [place] [address] 012984 Assigned Musculoskeletal Provider 04/17/23 documented as of this encounter
--- OUTSIDE RECORDS SUMMARY | 2024-07-03 21:53 | XMS_ITS | Referral Summary ---
Author Organization [facility] Address [address] [place] [address] Care Team Providers Care Eating Disorder Specialist Name Role Phone Thom Ovalles MD Unavailable Han Jackson MD Primary Care Provider [phone] Ruben Frey MD Unavailable Encounters Date Type Department Care Team Description 06/28/[address] [facility] [address] [phone] Vanessa Fierro PAJosemanuelC S/P fusion of sacroiliac joint (Primary Dx) 06/27/[address] [facility] [address] [phone] Ruben Frey MD Appointment 04/21/[address] [facility] [address] [phone] Vanessa Fierro PA-C 04/21/[address] [facility] [address] [phone] Jay Wolff 04/19/[address] [facility] [address] [phone] Vanessa Fierro PAJosemanuelC 04/19/[address] [facility] [address] [place] [phone] [facility] 04/12/2024 Telephone [facility] [address] [place] [phone] Vanessa Fierro PA-C 04/12/[address] [facility] [address] [place] [phone] [facility] from Last 3 Months Allergies Active Allergy Reactions Criticality Noted Date Comments Penicillins Rash Medium 03/23/2003 Tramadol Rash Low 10/02/2021 Medications SUMAtriptan (IMITREX) 100 MG tablet Take 1 tablet by mouth at onset of headache Active Multiple Vitamins-Minera ls (MULTIVITAMIN PO) Take 1 tablet by mouth every morning Active omeprazole 20 MG tablet Take 20 mg by mouth every morning Active acetaminophen (TYLENOL) 325 MG tabletIndicatio ns:Instability of internal left knee prosthesis, initial encounter (H) Take 2 tablets (650 mg) by mouth every 4 hours as needed for other (mild pain) 100 tablet 2 Active clindamycin (CLEOCIN) 300 MG capsule Take 300 mg by mouth as needed (FOR DENTAL PROCEDURE'S) 3 Active lisinopril (ZESTRIL) 20 MG tablet Take 20 mg by mouth every morning Active traZODone (DESYREL) 100 MG tablet Take 100 mg by mouth nightly as needed for sleep 4 Active acetaminophen (TYLENOL) 325 MG tabletIndicatio ns:Sacroiliac joint pain Take 2 tablets (650 mg) by mouth every 4 hours as needed for mild pain 50 tablet 4 Active oxyCODONE (ROXICODONE) 5 MG tabletIndicatio ns:Sacroiliac joint pain Take 1-2 tablets (5-10 mg) by mouth every 4 hours as needed for moderate to severe pain 20 tablet 4 Active senna-docusate (SENOKOT-S/SARATH COLACE) 8.6-50 MG tabletIndicatio ns:Sacroiliac joint pain Take 1-2 tablets by mouth 2 times daily 30 tablet 4 Active ondansetron (ZOFRAN ODT) 4 MG ODT tabIndications: Sacroiliac joint pain Take 1 tablet (4 mg) by mouth every 8 hours as needed for nausea 4 tablet 4 Active neomycin-polymi myranda-dexAMETHaso ne (MAXITROL) 0.1 % ophthalmic suspensionIndic ations:Postoper ative eye state Please instill one drop into the operative eye(s) four times daily until the bottle is finished. 5 mL 4 Active erythromycin (ROMYCIN) 5 MG/GM ophthalmic ointmentIndicat ions:Postoperat rosa eye state Apply antibiotic ointment to all sutures three times a day, and 1/2 inch strip into the operated eye(s) at night. Use until follow up. 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 Problem list name updated by automated process. Provider to review Premenstrual tension syndrome 04/30/2003 Overview (05/16/2015): Problem list name updated by automated process. 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 on file Not on file Not on file Not on file Not on file Not on file Not on file Last Filed Vital Signs Vital Sign Reading Time Taken Comments Blood Pressure 133/85 01/03/2024 3:15 PM CDT Pulse 81 01/03/2024 1:30 PM CDT Temperature 36.5 C (97.7 F) 01/03/2024 3:15 PM CDT Respiratory Rate 14 01/03/2024 3:15 PM CDT Oxygen Saturation 95% 01/03/2024 3:15 PM CDT Inhaled Oxygen Concentration - - Weight 50.8 kg (112 lb) 02/10/2024 2:43 PM CDT Height 154.9 cm (5' 1) 02/10/2024 2:43 PM CDT Body Mass Index 21.16 02/10/2024 2:43 PM CDT Plan of Treatment Upcoming Encounters Date Type Department Care Team (Late st Contact Info) Description 07/04/2024 1:40 PM FIBER ARTIST Ancillary Procedure [facility] [address] [phone] Vanessa Fierro, PAMax [address] [place] [address] [phone] 07/04/2024 2:00 PM FIBER ARTIST Office [facility] [address] [phone] Vanessa Fierro, PA-C [address] [place] [address] [phone] Medical Devices Implanted Type Area [employer] Systems Administrator Device Identifier Shelf Expiration Date Model / Serial / Lot Imp Spinal Ifuse Torq 10.2hey25wk Strl [id number] - [id number] Implanted:Qty : 1 on 06/09/2023 by Ruben Frey MD at [facility] Metallic Hardware/An chor Right: Spine Lumbar [employer] [id number] 02/26/2028 [id number] / / [id number] Imp Spinal Ifuse Torq 10.8rhx37cx Strl Lf 68572y - [id number] Implanted:Qty : 1 on 06/09/2023 by Ruben Frey MD at [facility] Metallic Hardware/An chor Right: Iliac Crest [employer] [id number] 12/31/2027 [id number] / / [id number] Imp Spinal Fx Ifuse Torq 10.1gvr43em Strl Lf 35086o - [id number] Implanted:Qty : 1 on 01/03/2024 by Ruben Frey MD at [facility] Metallic Hardware/An chor Left: Sacrum [employer] [id number] 12/20/2027 [id number] / / [id number] Imp Spinal Ifuse Torq 10.8ekf44wm Strl Lf [id number] - [id number] Implanted:Qty : 1 on 01/03/2024 by Ruben Frey MD at [facility] Metallic Hardware/An chor Left: Sacrum [employer] [id number] 05/31/2028 [id number] / / [id number] Imp Spinal Ifuse Torq 10.8tcn53ny Strl Lf [id number] - [id number] Implanted:Qty : 1 on 01/03/2024 by Ruben Frey MD at [facility] Metallic Hardware/An chor Left: Sacrum [employer] [id number] 08/18/2028 [id number] / / [id number] Imp Insert Jj Attune Ps Rp Sz3 7mm [id number] - [id number] Implanted:Qty : 1 on 10/28/2021 by Gary Russell MD at [facility] Total Joint Component/I nsert Left: Knee [employer]- [id number] 03/15/2026 [id number] / / [id number] 10.0mm X75mm Ifuse-Torq Implanted:Qty : 1 on 06/09/2023 by Ruben Frey MD at [facility] Right: Sacrum [employer] 02/20/2028 [id number] / / Procedures Procedure Name Priority Date/Time Associated Diagnosis Comments CELL COUNT WITH DIFFERENTIAL FLUID Routine 06/06/2024 8:17 AM CDT Pain in left knee ANAEROBIC BACTERIAL CULTURE ROUTINE Routine 06/06/2024 8:17 AM CDT Pain in left knee AEROBIC BACTERIAL CULTURE ROUTINE Routine 06/06/2024 8:17 AM CDT Pain in left knee DIFERENTIAL BODY FLUID Routine 06/06/2024 8:17 AM CDT Pain in left knee CELL COUNT BODY FLUID Routine 06/06/2024 8:17 AM CDT Pain in left knee CRYSTAL ID SYNOVIAL FLUID Routine 06/06/2024 8:17 AM CDT Pain in left knee GLUCOSE BY METER Routine 01/03/2024 7:59 AM CDT BASIC METABOLIC PANEL Routine 05/12/2023 12:50 PM CDT Preop examination PAP SMEAR - [facility] PATIENT REPORTED Routine 08/16/2015 ABSTRACT HPV ([facility] EXTERNAL RESULT) Routine 08/29/2014 COLONOSCOPY Routine 07/12/2012 from Last 3 Months or Most Recently Relevant to Health Maintenance Results * Differential Body Fluid (06/06/2024 8:17 AM CDT) % Neutrophils YUE 06/06/2024 2:55 PM CDT [facility] Comment:Cells too damaged, u nable to do differential. % Lymphocytes YUE 06/06/2024 2:55 PM CDT [facility] Comment:Cells too damaged, u nable to do differential. % Monocyte/Macroph ages YUE 06/06/2024 2:55 PM CDT [facility] Comment:Cells too damaged, u nable to do differential. % Eosinophils YUE 06/06/2024 2:55 PM CDT [facility] Comment:Cells too damaged, u nable to do differential. % Basophils YUE 06/06/2024 2:55 PM CDT [facility] Comment:Cells too damaged, u nable to do differential. Synovial fluid TOPOGRAPHY UNKNOWN / Unknown Non-blood Collection / Unknown 06/06/2024 8:17 AM CDT 06/06/2024 10:03 AM CDT Narrative [facility] - 06/06/2024 2:55 PM CDT Cells too damaged, unable to do differential. Too many smudged cells. No reference ranges have been established. This result should be interpreted in the context of the patient's clinical condition and compared to simultaneous measurement in the patient's blood. us Gary Russell MD LAB - BODY FLUIDS ORDERABLE S Final Result [facility] [place] [facility] [address] [facility], [address] [phone] * (ABNORMAL) Cell Count Body Fluid (06/06/2024 8:17 AM CDT) Color Yellow Colorless, Yellow YUE 06/06/2024 2:53 PM CDT [facility] Clarity Hazy(A) Clear YUE 06/06/2024 2:53 PM CDT [facility] Cell Count Fluid Source Knee, Left YUE 06/06/2024 2:53 PM CDT [facility] Total Nucleated Cells 561 /uL YUE 06/06/2024 2:53 PM CDT [facility] Synovial fluid TOPOGRAPHY UNKNOWN / Unknown Non-blood Collection / Unknown 06/06/2024 8:17 AM CDT 06/06/2024 10:03 AM CDT Narrative [facility] - 06/06/2024 2:53 PM CDT No reference ranges have been established. This result should be interpreted in the context of the patient's clinical condition and compared to simultaneous measurement in the patient's blood. us Gary Russell MD LAB - BODY FLUIDS ORDERABLE S Final Result [facility] [place] [facility] [address] [facility], [address] [place] [phone] [address] * Synovial fluid Aerobic Bacterial Culture Routine (06/06/2024 8:17 AM CDT) Culture No Growth 06/11/2024 6:19 AM CDT [facility] Gram Stain Result No organisms seen 06/11/2024 6:19 AM CDT [facility] Gram Stain Result No white blood cells seen 06/11/2024 6:19 AM CDT [facility] Synovial fluid STRUCTURE OF LEFT KNEE REGION / Unknown Non-blood Collection / Unknown 06/06/2024 8:17 AM CDT 06/06/2024 10:01 AM CDT us Gary Russell MD LAB - MICRO GENERAL ORDERAB LES Final Result Performing Organization Address City/[facility] [address]/ZIP Co de Phone Number [facility] Inf. Diseases Diag. Lab [address] [facility], [address] [place] [address] * Crystal ID Synovial Fluid (06/06/2024 8:17 AM CDT) Crystals Analysis No clinically significant crystals seen. No clinically significant crystals seen. YUE 06/06/2024 1:17 PM CDT [facility] Synovial fluid STRUCTURE OF LEFT KNEE REGION / Unknown Non-blood Collection / Unknown 06/06/2024 8:17 AM CDT 06/06/2024 10:02 AM CDT us Gary Russell MD LAB - BODY FLUIDS ORDERABLE S Final Result [facility] [place] [facility] [address] [facility], [address] [place] [address] * Anaerobic Bacterial Culture Routine (06/06/2024 8:17 AM CDT) Culture No anaerobic organisms isolated YUE 06/20/2024 7:52 AM FIBER ARTIST [facility] Synovial fluid STRUCTURE OF LEFT KNEE REGION / Unknown Non-blood Collection / Unknown 06/06/2024 8:17 AM CDT 06/06/2024 10:02 AM CDT Narrative [facility] - 06/20/2024 7:52 AM FIBER ARTIST This specimen was not received in an anaerobic transport container, thus the absence or quantity of anaerobic organisms in this culture may not be indirect sales representative of the anaerobic organisms present in the specimen. us Gary Russell MD LAB - MICRO GENERAL ORDERAB LES Final Result [facility] Inf. Diseases Diag. Lab [address] [facility], [address] [place] [address] * Glucose by meter (01/03/2024 7:59 AM CDT) GLUCOSE BY METER POCT 97 70 - 99 mg/dL 01/03/2024 8:07 AM CDT [facility] P[facility] Blood, Capillary BLOOD SPECIMEN / Unknown 01/03/2024 7:59 AM CDT 01/03/2024 8:07 AM CDT us Ruben Frey MD LAB - BEAKER POCT Fin al Result [facility] P[facility] Lab [address] [facility], [address] [place] [address] * (ABNORMAL) Basic metabolic panel (05/12/2023 12:50 PM CDT) Sodium 137 135 - 145 mmol/L 05/12/2023 1:15 PM CDT [facility] Comment:Reference intervals for this test were updated on 05/11/2023 to more accurately reflect our healthy population. There may be differences in the flagging of prior results with similar values performed with this method. Interpretation of those prior results can be made in the context of the updated reference intervals. Potassium 3.7 3.4 - 5.3 mmol/L 05/12/2023 1:15 PM CDT [facility] Chloride 97(L) 98 - 107 mmol/L 05/12/2023 1:15 PM CDT [facility] Carbon Dioxide (CO2) 29 22 - 29 mmol/L 05/12/2023 1:15 PM CDT [facility] Anion Gap 11 7 - 15 mmol/L 05/12/2023 1:15 PM CDT [facility] Urea Nitrogen 12.4 6.0 - 20.0 mg/dL 05/12/2023 1:15 PM CDT [facility] Creatinine 0.69 0.51 - 0.95 mg/dL 05/12/2023 1:15 PM CDT [facility] GFR Estimate >90 >60 mL/min/1. 73m2 05/12/2023 1:15 PM CDT [facility] Calcium 9.3 8.6 - 10.0 mg/dL 05/12/2023 1:15 PM CDT [facility] Glucose 100(H) 70 - 99 mg/dL 05/12/2023 1:15 PM CDT [facility] Blood STRUCTURE OF LEFT UPPER LIMB / Unknown Venipuncture / Unknown 05/12/2023 12:50 PM CDT 05/12/2023 12:50 PM CDT us Pattie Ovalles APRN OCCUPATIONAL THERAPY SPECIALIST LAB - BLOOD ORDERA BLES Final Result [facility] [address] [facility] 1st [place] [address] * PAP Smear - HIM Patient Reported (08/16/2015) PAP Smear - HIM Patient Reported Negative EXTERNAL LAB 08/16/2015 Narrative EXTERNAL LAB - 08/16/2015 Please abstract the following data from this visit with this patient into the appropriate field in Epic: Pap smear done on this date: Aug 2015 (approximately), by this group: [facility], results were NIL. us Patient Reported LABORATORY Final Result EXTERNAL LAB External Lab * ABSTRACT HPV-NO CHARGE (08/29/2014) HPV Abstract See Scanned Document [facility] 08/29/2014 Narrative [facility] - 08/29/2014 See Care Every Where - [facility] us Provider Outside LAB - HIM EXTERNAL RESULT Final Result [facility] [address] [place] [address], [facility] [phone] * COLONOSCOPY (07/12/2012) us L.C. Salvage Inspector PROCEDURES Final Result from Last 3 Months or Most Recently Relevant to Health Maintenance Insurance [facility] INDIVIDUAL FAMILY PLANS [facility] INDIV[employer]UAL FAMILY PLANS Advance Directives For more information, please contact: [phone] * Full Code (Latest Code Status on File) Date Activated Date Inactivated Comments 10/28/2021 1:39 PM 10/29/2021 3:08 PM All basic an d advanced life-sustaining interventions are performed as appropriate Question Answer Comments Code status determined by: Discussion with patie nt/ legal decision maker Care Teams Eating Disorder Specialist Relationship Specialty Start Date End Date Thom Ovalles MD PCP - Orthopaedics Orthopedics 04/08/11 Han Jackson MD PCP - General Family Medicine 10/23/21 Ruben Frey MD [address] [place] [address] Assigned Musculoskeletal Provider 04/17/23
--- OUTSIDE RECORDS SUMMARY | 2024-07-03 21:53 | XMS_ITS | Encounter Summary ---
Author Organization [facility] Address [address] [place] [address] Care Team Providers Care Streetcar Dispatcher Name Role Phone Ye Babb OD Unavailable Thom Ovalles MD Unavailable [phone] Frw, None Primary Care Provider Unavailabl Bri Rao MD Unavailable [phone] Encounter Details Date Type Department Care Team (Late st Contact Info) Description 07/18/2011 5:00 AM [facility] [address] [place] [phone] Daniela Robles MD [address] [place], [place] [phone] Social History Tobacco Use Types Packs/Day Years Used Date Smoking Tobacco: Never Smokeless Tobacco: Never Comments:no second hand smok e at home or work, 01/01/05 Alcohol Use Standard Drinks/Week Comments Yes 0 (1 standard drink = 0.6 oz pur e alcohol) 3-4 wk Comments No Sex and Gender Information Value Date Recorded Sex Assigned at Not on file Legal Sex Female 4:14 AM MEDIA LIBRARIAN Gender Identity Not on file Sexual Orientation Not on file 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 SOCIAL HISTORY: The patient lives in [place]; she is with 3 children ages 13, 12 and 10. She is a nonsmoker. She does use some alcohol socially. 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 FAMILY HISTORY: Reviewed in [place] REVIEW OF SYSTEMS: Generally the patient has [...] injury. I will wait for the on-call fine grader to see the patient, but I am [...] in the interim spoken with the covering fine grader Dr. Lockwood and spoke with the radiologist on two occasions. In speaking with the radiologist contracts intern initially, we decided it would be a [...] Herbert M.D. JSS/mp2 cc: Sylvie Dhillon M.D. A LIBRARIAN A LIBRARIAN A LIBRARIAN * Rojas Severino - 07/20/2011 1:55 PM CSTPROGRESS NOTES DATE [...] doing better. Rojas Severino M.D. ROBBIE/claire cc: A LIBRARIAN * Oscar Roman MD - 07/20/2011 1:31 [...] PENICILLIN. SOCIAL HISTORY: The patient lives in [place], she is with 3 children between the ages of 10 and 13. She does not smoke, she does drink alcohol, no suspicion of abuse. 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 FAMILY HISTORY: Significant for a mother with [...] Roman M.D. MICHAEL/olivia cc: Bri Valentine M.D. A LIBRARIAN documented in this encounter Plan of Treatment Upcoming Encounters Date Type Department Care Team (Late st Contact Info) Description 07/04/2024 1:40 PM MEDIA LIBRARIAN Ancillary Procedure [facility] Orthopedic Xray [address] [phone] Vanessa Fierro, PA-C [address] [place] [address] 07/04/2024 2:00 PM MEDIA LIBRARIAN Office Visit [facility] [address] [phone] Vanessa Fierro PAJosemanuelC [address] [place] [address] [phone] documented as of this encounter Visit Diagnoses Not on filedocumented in this encounter Care Teams Streetcar Dispatcher Relationship Specialty Start Date End Date Ye Babb OD [facility] [address] [place] [address] PCP - Ophthalmology 06/29/05 10/29/21 Thom Ovalles MD [facility] [address] [place] [address] PCP - Orthopaedics Orthopedics 04/08/11 Frw, None PCP - General Family Practice 04/28/11 04/15/17 [place] [address] PCP - Obstetrics/Gynecology foreclosure specialist 05/27/11 1 08/19/14 documented as of this encounter
--- OUTSIDE RECORDS SUMMARY | 2024-07-03 21:53 | XMS_ITS | Encounter Summary ---
Author Organization [facility] Address [address] [place] [address]. [place] [address] Care Team Providers Care Intelligence Consultant Name Role Phone Thom Ovalles MD Unavailable [phone] Han Jackson MD Primary Care Provider Ruben Frey MD Unavailable Encounter Details Date Type Department Care Team (Late st Contact Info) Description 04/19/2024 [facility] [address] [place] [address] [facility] Social History Tobacco Use Types Packs/Day [...] on file Legal Sex Female 4:14 AM WELT RANDER Gender Identity Not on file Sexual Orientation Not on file 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 Industry 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 Job 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 on file Not on file Not on file Not on file Not on file Not on file Not on file documented as of this encounter Plan of Treatment Upcoming Encounters Date Type Department Care Team (Late st Contact Info) Description 07/04/2024 1:40 PM WELT RANDER Ancillary Procedure [facility] Orth[facility] Xray [address] [phone] Vanessa Fierro PA-C [address] [place] [address] [phone] 07/04/2024 2:00 PM WELT RANDER Office Visit [facility] [address] [phone] Vanessa Fierro PA-C [address] [place] [phone] documented as of this encounter Visit Diagnoses Not on filedocumented in this encounter Care Teams Intelligence Consultant Relationship Specialty Start Date End Date Thom Ovalles MD PCP - Orthopaedics Orthopedics 04/08/11 Han Jackson MD PCP - General Family Medicine 10/23/21 Ruben Frey MD [address] [address] Assigned Musculoskeletal Provider 04/17/23 documented as of this encounter
--- OUTSIDE RECORDS SUMMARY | 2024-07-03 21:53 | XMS_ITS | Encounter Summary ---
Author Organization [place] Address [address] [place] [address] Care Team Providers Care City Supervisor Name Role Phone Holley Ye M OD Unavailable [phone] Thom Ovalles MD Unavailable [phone] Frw, None Primary Care Provider Unavailabl Bri Rao MD Unavailable [phone] Oralia Lozano Unavailable No Ref-Primary, Physician Primary Care Provider Yasmine Esqueda APRN DIRECTOR OF INDIVIDUAL GIVING Unavailable Yasmine Esqueda APRN DIRECTOR OF INDIVIDUAL GIVING Unavailable Han Jackson MD Primary Care Provider Ruben Frey MD Unavailable Encounter Details Date Type Department Care Team (Late st Contact Info) Description 07/12/2012 MyC Medical Advice [facility] [address] [place] [address] Aaliyah Navarrete, MAYLIN [address] [facility] [address] [place] [address] Social History Tobacco Use Types [...] on file Legal Sex Female 4:14 AM MANUAL PLATE FILLER Gender Identity Not on file Sexual Orientation Not on file 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 Not on file Not on file Not on file Not on file Not on file Not on file Not on file documented as of this encounter Plan of Treatment Upcoming Encounters Date Type Department Care Team (Late st Contact Info) Description 07/04/2024 1:40 PM MANUAL PLATE FILLER Ancillary Procedure M [facility] Orthopedic Xray [address] [phone] Vanessa Fierro, PA-C [address] [place] [address] 07/04/2024 2:00 PM MANUAL PLATE FILLER Office Visit [facility] [address] [phone] Vanessa Fierro, PA-C [address] [place] [address] documented as of this encounter Visit Diagnoses Not on filedocumented in this encounter Care Teams City Supervisor Relationship Specialty Start Date End Date Ye Babb OD [facility] [place] [address] [place] [address] PCP - Ophthalmology 06/29/05 10/29/21 Thom Ovalles MD [facility] [place] [address] [place] [address] PCP - Orthopaedics Orthopedics 04/08/11 Frw, None PCP - General Family Practice 04/28/11 04/15/17 Bri [place] [address] PCP - Obstetrics/Gynecology applications support analyst 05/27/11 1 08/19/14 Oralia Lozano [facility] [place] [address] [place] [address] PCP - Audiology Audiology 12/15/12 12/15/12 No Ref-Primary, Physician PCP - General 01/31/18 10/22/21 Yasmine Esqueda APRN DIRECTOR OF INDIVIDUAL GIVING [address] [facility] [place] [address] PCP - Assigned PCP 02/20/18 10/18/18 Han Jackson MD [facility] [facility] [place] [address] PCP - General Family Medicine 10/23/21 Yasmine Esqueda APRN DIRECTOR OF INDIVIDUAL GIVING [facility] [place] [address] Assigned PCP 01/21/18 02/15/21 Ruben Frey MD [facility] [place] [address] Assigned Musculoskeletal Provider 04/17/23 documented as of this encounter
--- OUTSIDE RECORDS SUMMARY | 2024-07-03 21:53 | XMS_ITS | Clinical Summary ---
Author Organization [place] Address [address] [place] [address] Care Team Providers Care Virtual Assistant Name Role Phone Thom Ovalles MD Unavailable Han Jackson MD Primary Care Provider [phone] Ruben Frey MD Unavailable Allergies Active Allergy [...] Department Care Team Description 06/28/2024 Orders Only [facility] [address] 4th [place] [address] Vanessa Fierro, PAJosemanuelC S/P fusion of sacroiliac joint (Primary Dx) 06/27/2024 Telephone [facility] [address] [phone] Ruben Frey MD Appointment 04/21/2024 Telephone [facility] [address] [phone] Vanessa Fierro PA-C 04/21/2024 [facility] Medical Advice [facility] [address] [phone] [place] 04/19/2024 Telephone [facility] [address] [phone] Vanessa Fierro PA-C 04/19/2024 MyC Medical Advice [facility] [address] [phone] [place] 04/12/[address] [phone] Vanessa Fierro PA-C 04/12/2024 MyC Medical Advice [address] [phone] [facility] Mon[facility] Immunizations Name Administration [...] on file Legal Sex Female 4:14 AM SPRAYER INSECTICIDE Gender Identity Not on file Sexual Orientation Not on file 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 Not on [...] st Contact Info) Description 07/04/2024 1:40 PM SPRAYER INSECTICIDE Ancillary Procedure [facility] Orthopedic Xray [address] 4th [place] [address] Vanessa Fierro, PAJosemanuelC [address] [place] [address] 07/04/2024 2:00 PM SPRAYER INSECTICIDE Office Visit [facility] [place] [address] [facility] [address] 4th [place] [address] Vanessa Fierro PAJosemanuelC [address] [place] [address] Health Maintenance Due Date Last Done Comments [...] 04/17, 10/29/2021, Additional history exists DTAP/TDAP/TD IMMUNIZATION (5 - Td or Tdap) 05/05/2034 05/05/2024, 03/31/2022, 04/05/2012, Additional history exists RSV VACCINE (1 - [...] this topic Medical Devices Implanted Type Area Mixer Wet Pour Device Identifier Shelf Expiration Date Model / Serial / Lot Imp Spinal Ifuse Torq [id number] Strl Lf 44863p - [id number] Implanted:Qty : 1 on 06/09/2023 by Ruben Frey MD at [facility] Metallic Hardware/An chor Right: Spine Lumbar [employer] [id number] 02/26/2028 [id number] / / [id number] Imp Spinal Ifuse Torq 10.6epi83rq Strl Lf 83747e - [id number] Implanted:Qty : 1 on 06/09/2023 by Ruben Frey MD at [facility] Metallic Hardware/An chor Right: Iliac Crest [employer] [id number] 12/31/2027 [id number] / / [id number] Imp Spinal Fx Ifuse Torq 10.3xbi25lh Strl Lf 56051b - [id number] Implanted:Qty : 1 on 01/03/2024 by Ruben Frey MD at [facility] Metallic Hardware/An chor Left: Sacrum [employer] [id number] 12/20/2027 10390U / / [id number] Imp Spinal Ifuse Torq 10.7cwp97oo Strl Lf 45085w - [id number] Implanted:Qty : 1 on 01/03/2024 by Ruben Frey MD at [facility] Metallic Hardware/An chor Left: Sacrum [employer] [id number] 05/31/2028 [id number] / / [id number] Imp Spinal Ifuse Torq 10.4jav48nl Strl Lf 70180q - [id number] Implanted:Qty : 1 on 01/03/2024 by Ruben Frey MD at [facility] Metallic Hardware/An chor Left: Sacrum [employer] [id number] 08/18/2028 [id number] / / [id number] Imp Insert Jj Attune Ps Rp Sz3 7mm [id number] - [id number] Implanted:Qty : 1 on 10/28/2021 by Gary Russell MD at [facility] Total Joint Component/I nsert Left: Knee [employer]- [id number] 03/15/2026 [id number] / / [id number] 10.0mm X75mm Ifuse-Torq Implanted:Qty : 1 on 06/09/2023 by Ruben Frey MD at [facility] Right: Sacrum [employer] 02/20/2028 [id number] / / Procedures Procedure Name Priority Date/Time [...] Differential Body Fluid (06/06/2024 8:17 AM CDT) Pathologist [facility] % Neutrophils YUE 06/06/2024 2:55 PM CDT [...] FLUIDS ORDERABLE S Final Result [facility] [place] Core Lab 500 [facility], Room [address] [place] [phone] * (ABNORMAL) Cell Count Body Fluid (06/06/2024 8:17 AM CDT) Color Yellow Colorless, Yellow YUE 06/06/2024 2:53 PM CDT [facility] Clarity Hazy(A) Clear YUE 06/06/2024 2:53 PM CDT [facility] Cell Count Fluid Source Knee, Left YUE 06/06/2024 2:53 PM CDT [facility] Total Nucleated Cells 561 /uL YUE [...] to simultaneous measurement in the patient's blood. Gary Russell MD LAB - BODY FLUIDS ORDERABLE S Final Result Performing Organization Address City/[facility]/ZIP Co de Phone Number [facility] [place] [facility] Lab 500 [facility], Room [address] LABORATORY [address] [place] [address] * Synovial fluid Aerobic Bacterial Culture Routine [...] 8:17 AM CDT 06/06/2024 10:01 AM CDT Gary Russell MD LAB - MICRO GENERAL ORDERAB LES Final Result [facility] Inf. Diseases Diag. Lab 500 [facility], Room [address] [place] [phone] * Crystal ID Synovial Fluid (06/06/2024 8:17 AM CDT) Crystals Analysis No clinically significant crystals seen. No clinically significant crystals seen. YUE 06/06/2024 1:17 PM CDT [facility] Synovial fluid STRUCTURE OF LEFT KNEE REGION / Unknown Non-blood Collection / Unknown 06/06/2024 8:17 AM CDT 06/06/2024 10:02 AM CDT Gary Russell MD LAB - BODY FLUIDS ORDERABLE S Final Result [facility] [place] Core Lab 500 [facility], Room 3-580 [place] [phone] * Anaerobic Bacterial Culture Routine (06/06/2024 8:17 AM CDT) Culture No anaerobic organisms isolated YUE 06/20/2024 7:52 AM SPRAYER INSECTICIDE [facility] Synovial fluid STRUCTURE OF LEFT KNEE REGION / Unknown Non-blood Collection / Unknown 06/06/2024 8:17 AM CDT 06/06/2024 10:02 AM CDT Narrative [facility] - 06/20/2024 7:52 AM SPRAYER INSECTICIDE This specimen was not received in an anaerobic transport container, thus the absence or quantity of anaerobic organisms in this culture may not be sales support representative of the anaerobic organisms present in the specimen. Gary Russell MD LAB - MICRO GENERAL ORDERAB LES Final Result [facility] Inf. Diseases Diag. Lab 500 [facility], Room [address]297 [place] [phone] * Glucose by meter (01/03/2024 7:59 AM CDT) GLUCOSE BY METER POCT 97 70 - 99 mg/dL 01/03/2024 8:07 AM CDT [facility] POC Blood, Capillary BLOOD SPECIMEN / Unknown 01/03/2024 7:59 AM CDT 01/03/2024 8:07 AM CDT Ruben Frey MD LAB - BEAKER POCT James samuels Result UR LABORATORY POC [facility] Acute [facility] Lab [address] [facility], Room [address] [place] [address] * (ABNORMAL) Basic metabolic panel (05/12/2023 12:50 PM CDT) Sodium 137 135 - 145 mmol/L 05/12/2023 1:15 PM CDT [facility] - CORE LAB Comment:Reference intervals for this test were updated on 05/11/2023 to more accurately reflect our healthy population. There may be differences in the flagging of prior results with similar values performed with this method. Interpretation of those prior results can be made in the context of the updated reference intervals. Potassium 3.7 3.4 - 5.3 mmol/L 05/12/2023 1:15 PM CDT [facility] - CORE LAB Chloride 97(L) 98 - 107 mmol/L 05/12/2023 1:15 PM CDT [facility] - CORE LAB Carbon Dioxide (CO2) 29 22 - 29 mmol/L 05/12/2023 1:15 PM CDT [facility] - CORE LAB Anion Gap 11 7 - 15 mmol/L 05/12/2023 1:15 PM CDT [facility] - CORE LAB Urea Nitrogen 12.4 6.0 - 20.0 mg/dL 05/12/2023 1:15 PM CDT [facility] - CORE LAB Creatinine 0.69 0.51 - 0.95 mg/dL 05/12/2023 1:15 PM CDT [facility] - CORE LAB GFR Estimate >90 >60 mL/min/1. 73m2 05/12/2023 1:15 PM CDT [facility] - CORE LAB Calcium 9.3 8.6 - 10.0 mg/dL 05/12/2023 1:15 PM CDT [facility] - CORE LAB Glucose 100(H) 70 - 99 mg/dL 05/12/2023 1:15 PM CDT [facility] - CORE LAB Blood STRUCTURE OF LEFT UPPER LIMB / Unknown Venipuncture / Unknown 05/12/2023 12:50 PM CDT 05/12/2023 12:50 PM CDT us Pattie Ovalles UNDERGRADUATE INTERN DIRECTOR INPATIENT HEADACHE PROGRAM LAB - BLOOD ORDERA BLES Final Result [facility] - CORE LAB [facility] - [address] 1st [place] [address] * PAP Smear - HIM Patient Reported (08/16/2015) PAP Smear - HIM Patient Reported Negative EXTERNAL LAB 08/16/2015 Narrative EXTERNAL LAB - 08/16/2015 Please abstract the following data from this visit with this patient into the appropriate field in Epic: Pap smear done on this date: Aug 2015 (approximately), by this group: [facility], results were NIL. us Patient Reported LABORATORY Final Result EXTERNAL LAB External Lab * ABSTRACT HPV-NO CHARGE (08/29/2014) HPV Abstract See Scanned Document [facility] 08/29/2014 Narrative [facility] - 08/29/2014 See Care Every Where - [facility] us Provider Outside LAB - HIM EXTERNAL RESULT Final Result [facility] [address] [place] [address], [facility] [phone] * COLONOSCOPY (07/12/2012) us L.C. Sheetmetal Trades Worker PROCEDURES Final Result from Last 3 Months or Most Recently Relevant to Health Maintenance Insurance [facility] INDIVIDUAL FAMILY PLANS [facility] INDIVIDUAL FAMILY PLANS Advance Directives For more information, please contact: [phone] * Full Code (Latest Code Status on File) Date Activated Date Inactivated Comments 10/28/2021 1:39 PM 10/29/2021 3:08 PM All basic an d advanced life-sustaining interventions are performed as appropriate Question Answer Comments Code status determined by: Discussion with patie nt/ legal decision maker Care Teams Virtual Assistant Relationship Specialty Start Date End Date Thom Ovalles MD PCP - Orthopaedics Orthopedics 04/08/11 Han Jackson MD PCP - General Family Medicine 10/23/21 Ruben Frey MD [address] [address] Assigned Musculoskeletal Provider 04/17/23
--- OUTSIDE RECORDS SUMMARY | 2024-07-03 21:54 | XMS_ITS | Encounter Summary ---
Author Organization [place] Address [address] [place] [address] Care Team Providers Care Excavation Laborer Name Role Phone Felix Hill MD Primary Care Provider [phone] Gely Taveras MD Unavailable [phone] Ye Babb OD Unavailable [phone] Encounter Details Date Type Department Care Team (Late st Contact Info) Description 01/28/2010 6:[address] 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 [...] st Contact Info) Description 07/04/2024 1:40 PM TEACHER ADVENTURE EDUCATION Ancillary Procedure M [facility] Orthopedic Xray [address] [phone] Vanessa Fierro PA-C [address] [place] [phone] 07/04/2024 2:00 PM TEACHER ADVENTURE EDUCATION Office Visit M [facility] Clinic [address] [phone] Vanessa Fierro PA-C [address] [place] [address] [phone] documented as of this encounter Visit Diagnoses Not on filedocumented in this encounter Care Teams Excavation Laborer Relationship Specialty Start Date End Date Felix Hill MD [facility] [place] [address] [place] [address] PCP - General 11/27/08 04/27/11 Gely Taveras MD [facility] [address] [place] [address] PCP - Obstetrics/Gynecology 02/28/03 1 Ye Babb OD [facility] [place] [address] [place] [address] PCP - Ophthalmology 06/29/05 10/29/21 documented as of this encounter
--- OUTSIDE RECORDS SUMMARY | 2024-07-03 21:54 | XMS_ITS | Encounter Summary ---
Author Organization [place] Address [address] [place] [address] Care Team Providers Care Flue Blower Name Role Phone Felix Hill MD Primary Care Provider [phone] Gely Taveras MD Unavailable [phone] Ye Babb OD Unavailable [phone] Encounter Details Date Type Department Care Team (Late st Contact Info) Description 01/02/2009 10:56 AM CDT [facility] in [address] [phone] Jesse May MD [address] [phone] Social History Tobacco Use Types Packs/Day Years Used Date Smoking Tobacco: Never Smokeless Tobacco: Never Comments:no second hand smok e at home or work, 01/01/05 Alcohol Use Standard Drinks/Week Comments Yes 0 (1 standard drink = 0.6 oz pur e alcohol) 3-4 wk Comments No Sex and Gender Information Value Date Recorded Sex Assigned at Not on file Legal Sex Female 4:14 AM FIELD COORDINATOR Gender Identity Not on file Sexual Orientation Not on file 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 on file Not [...] st Contact Info) Description 07/04/2024 1:40 PM FIELD COORDINATOR Ancillary Procedure [facility] Orthopedic Xray [address] [phone] Vanessa Fierro PA-C [address] [place] [phone] 07/04/2024 2:00 PM FIELD COORDINATOR Office Visit [facility] Clinic [address] [phone] Vanessa Fierro, PAMax [address] [place] [address] documented as of this encounter Visit Diagnoses Not on filedocumented in this encounter Care Teams Flue Blower Relationship Specialty Start Date End Date Felix Hill MD [facility] [address] [facility] [address] [place] [address] PCP - General 11/27/08 04/27/11 Gely Taveras MD [facility] [address] [place] [address] PCP - Obstetrics/Gynecology 02/28/03 1 Ye Babb OD [facility] [place] [address] [place] [address] PCP - Ophthalmology 06/29/05 10/29/21 documented as of this encounter
--- OUTSIDE RECORDS SUMMARY | 2024-07-03 21:54 | XMS_ITS | Encounter Summary ---
Author Organization [place] Address [address] [place] [address] Care Team Providers Care Pipe Bending Machine Operator Name Role Phone Felix Hill MD Primary Care Provider [phone] Gely Taveras MD Unavailable [phone] Ye Babb OD Unavailable [phone] Encounter Details Date Type Department Care Team (Late st Contact Info) Description 09/30/2010 8:00 AM [facility] in [facility] [address] [place] [address] Manish Fisher PA-C [place] [address] [facility] [address] [place] [address] Social History Tobacco Use Types [...] on file Legal Sex Female 4:14 AM AGRICULTURAL ADVISER Gender Identity Not on file Sexual Orientation Not on file 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 on 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 Not on file Not on file Not on file Not on file Not on file Not on file documented as of this encounter Plan of Treatment Upcoming Encounters Date Type Department Care Team (Late st Contact Info) Description 07/04/2024 1:40 PM AGRICULTURAL ADVISER Ancillary Procedure M [facility] Orthopedic Xray [address] [phone] Vanessa Fierro PA-C [address] [place] [phone] 07/04/2024 2:00 PM AGRICULTURAL ADVISER Office Visit M [facility] Orth[facility] Clinic [address] [phone] Vanessa Fierro PA-C [address] [place] [place] [address] [phone] documented as of this encounter Visit Diagnoses Not on filedocumented in this encounter Care Teams Pipe Bending Machine Operator Relationship Specialty Start Date End Date Felix Hill MD [facility] [address] [place] [address] PCP - General 11/27/08 04/27/11 Gely Taveras MD [facility] [address] [place] [address] PCP - Obstetrics/Gynecology 02/28/03 1 Ye Babb OD [facility] [address] [place] [address] PCP - Ophthalmology 06/29/05 10/29/21 documented as of this encounter
--- OUTSIDE RECORDS SUMMARY | 2024-07-03 21:54 | XMS_ITS | Encounter Summary ---
Author Organization [place] Address [address] [place] [address] Care Team Providers Care Rn Bariatric Name Role Phone Felix Hill MD Primary Care Provider [phone] Gely Taveras MD Unavailable [phone] Ye Babb OD Unavailable [phone] Thom Ovalles MD Unavailable [phone] Frw, None Primary Care Provider UnavailBri Grove MD Unavailable [phone] Oralia Lozano Unavailable No Ref-Primary, Physician Primary Care Provider Yasmine Esqueda APRN SPA SUPERVISOR Unavailable José Miguel-Yasmine Antonio APRN SPA SUPERVISOR Unavailable Han Jackson MD Primary Care Provider Ruben Frey MD Unavailable Encounter Details Date Type Department Care Team (Late st Contact Info) Description 01/28/2010 [facility] in [place] Inpatient Dept [address] [place] [address] Frw, Inpatient Provider Surgery Aftercare (Primary Dx) [...] on file Legal Sex Female 4:14 AM FRUIT PRESS OPERATOR Gender Identity Not on file Sexual Orientation Not on file 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 Orthopedic Clinic [address] [phone] Vanessa Fierro, PA-C [address] [place] [address] [phone] documented as of this encounter Visit Diagnoses Diagnosis Surgery aftercare- Primary Other specified aftercare following surgery documented in this encounter Care Teams Rn Bariatric Relationship Specialty Start Date End Date Felix Hill MD [address] [facility] [address] [place] [address] PCP - General 11/27/08 04/27/11 Gely Taveras MD [facility] MED [facility] [address] [place] [address] PCP - Obstetrics/Gynecology 02/28/03 1 Ye Babb OD [facility] [place] [address] [place] [address] PCP - Ophthalmology 06/29/05 10/29/21 Thom Ovalles MD [facility] [place] [address] [place] [address] PCP - Orthopaedics Orthopedics 04/08/11 Frw, None PCP - General Family Practice 04/28/11 04/15/17 Bri [place] [address] PCP - Obstetrics/Gynecology mutuel machine operator 05/27/11 1 08/19/14 Oralia Lozano [facility] [place] [address] [place] [address] PCP - Audiology Audiology 12/15/12 12/15/12 No Ref-Primary, Physician PCP - General 01/31/18 10/22/21 Yasmine Esqueda APRN SPA SUPERVISOR [address] [place] [address] [place] [address] PCP - Assigned PCP 02/20/18 10/18/18 Han Jackson MD [address] [place] [address] [place] [address] PCP - General Family Medicine 10/23/21 Yasmine Esqueda APRN SPA SUPERVISOR [facility] [place] [address] Assigned PCP 01/21/18 02/15/21 Ruben Frey MD [address] [facility] [address] [place] [address] Assigned Musculoskeletal Provider 04/17/23 documented as of this encounter
--- OUTSIDE RECORDS SUMMARY | 2024-07-03 21:54 | XMS_ITS | Encounter Summary ---
Author Organization [facility] Address [address] [place] [address] Care Team Providers Care Drop Forge Hand Name Role Phone Felix Hill MD Primary Care Provider [phone] Gely Taveras MD Unavailable [phone] Ye Babb OD Unavailable [phone] Encounter Details Date Type Department Care Team (Late st Contact Info) Description 10/22/2010 11:46 AM RN IMAGING [facility] in [address] [phone] Jesse May MD [address] [phone] Social History Tobacco Use Types Packs/Day Years Used Date Smoking Tobacco: Never Smokeless Tobacco: Never Comments:no second hand smok e at home or work, 01/01/05 Alcohol Use Standard Drinks/Week Comments Yes 0 (1 standard drink = 0.6 oz pur e alcohol) 3-4 wk Comments No Sex and Gender Information Value Date Recorded Sex Assigned at Not on file Legal Sex Female 4:14 AM RN IMAGING Gender Identity Not on file Sexual Orientation Not on file 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 Jesse May M.D. H/dann cc: IMAGING documented in this encounter Plan of Treatment Upcoming Encounters Date Type Department Care Team (Late st Contact Info) Description 07/04/2024 1:40 PM RN IMAGING Ancillary Procedure M [facility] Orthopedic Xray [address] [phone] Vanessa Fierro PA-C [address] [place] [address] [phone] 07/04/2024 2:00 PM RN IMAGING Office Visit [facility] [address] [phone] Vanessa Fierro PAJosemanuelC [address] [place] [address] [phone] documented as of this encounter Visit Diagnoses Not on filedocumented in this encounter Care Teams Drop Forge Hand Relationship Specialty Start Date End Date Felix Hill MD [facility] [place] [address] [place] [address] PCP - General 11/27/08 04/27/11 Gely Taveras MD [facility] [address] [place] [address] PCP - Obstetrics/Gynecology 02/28/03 1 Ye Babb OD [facility] [place] [address] [place] [address] PCP - Ophthalmology 06/29/05 10/29/21 documented as of this encounter
--- OUTSIDE RECORDS SUMMARY | 2024-07-03 21:54 | XMS_ITS | Encounter Summary ---
Author Organization [facility] Address [address] [place] [address] Care Team Providers Care Nick Setter Name Role Phone Felix Hill MD Primary Care Provider [phone] Gely Taveras MD Unavailable [phone] Ye Babb OD Unavailable [phone] Thom Ovalles MD Unavailable [phone] Frw, None Primary Care Provider Unavailabl Bri Rao MD Unavailable [phone] Oralia Lozano Unavailable No Ref-Primary, Physician Primary Care Provider Yasmine Esqueda APRN OUTCOMES ANALYST Unavailable José Miguel-Yasmine Antonio APRN OUTCOMES ANALYST Unavailable Han Jackson MD Primary Care Provider Ruben Frey MD Unavailable Encounter Details Date Type Department Care Team (Late st Contact Info) Description 10/22/2010 [facility] [place] Inpatient Dept [address] [place] [address] Frw, Inpatient Provider Social History Tobacco Use [...] on file Legal Sex Female 4:14 AM MANAGER COMPENSATION Gender Identity Not on file Sexual Orientation [...] st Contact Info) Description 07/04/2024 1:40 PM MANAGER COMPENSATION Ancillary Procedure M [facility] Orthopedic Xray [address] [phone] Vanessa Fierro, PA-C [address] [place] [address] [phone] 07/04/2024 2:00 PM MANAGER COMPENSATION Office Visit [facility] [address] [phone] Vanessa Fierro, PA-C [address] [place] [address] [phone] documented as of this encounter Visit Diagnoses Not on filedocumented in this encounter Care Teams Nick Setter Relationship Specialty Start Date End Date Felix Hill MD [facility] [place] [address] [place] [address] PCP - General 11/27/08 04/27/11 Gely Taveras MD [facility] [address] [place] [address] PCP - Obstetrics/Gynecology 02/28/03 1 Ye Babb OD [facility] [place] [address] [place] [address] PCP - Ophthalmology 06/29/05 10/29/21 Thom Ovalles MD [facility] [place] [address] [place] [address] PCP - Orthopaedics Orthopedics 04/08/11 Frw, None PCP - General Family Practice 04/28/11 04/15/17 Bri [place] [address] PCP - Obstetrics/Gynecology fire marshal refinery 05/27/11 1 08/19/14 Oralia Lozano [facility] [place] [address] [place] [address] PCP - Audiology Audiology 12/15/12 12/15/12 No Ref-Primary, Physician PCP - General 01/31/18 10/22/21 Yasmine Esqueda APRN OUTCOMES ANALYST [address] [place] [address] [place] [address] PCP - Assigned PCP 02/20/18 10/18/18 Han Jackson MD [address] [place] [address] [place] [address] PCP - General Family Medicine 10/23/21 Yasmine Esqueda APRN OUTCOMES ANALYST [address] [place] [address] [place] [address] Assigned PCP 01/21/18 02/15/21 Ruben Frey MD [facility] [address] [place] [address] Assigned Musculoskeletal Provider 04/17/23 documented as of this encounter
--- OUTSIDE RECORDS SUMMARY | 2024-07-03 21:54 | XMS_ITS | Encounter Summary ---
Author Organization [place] Address [address] [place] [address] Care Team Providers Care System Administrator Name Role Phone Felix Hill MD Primary Care Provider [phone] Frw, None Primary Care Provider UnavailGely Goodwin MD Unavailable [phone] Ye Babb OD Unavailable [phone] Thom Ovalles MD Unavailable Frw, None Primary Care Provider UnavailBri Grove MD Unavailable [phone] Oralia Lozano Unavailable No Ref-Primary, Physician Primary Care Provider Yasmine Esqueda APRN LEVEE SUPERINTENDENT Unavailable Yasmine Esqueda APRN LEVEE SUPERINTENDENT Unavailable Han Jackson MD Primary Care Provider Ruben Frey MD Unavailable Encounter Details Date Type Department Care Team (Late st Contact Info) Description 06/17/2008 [facility] [address] [place] [address] Gely Taveras MD [facility] [address] [place] [address] Social History Tobacco Use Types [...] on file Legal Sex Female 4:14 AM INTERLOCKING INSTALLER Gender Identity Not on file Sexual Orientation Not on file 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 Orthopedic Xray [address] [phone] Vanessa Fierro, PA-C [address] [place] [address] 07/04/2024 2:00 PM INTERLOCKING INSTALLER Office Visit [facility] [address] [phone] Vanessa Fierro, PA-C [address] [place] [address] documented as of this encounter Visit Diagnoses Not on filedocumented in this encounter Care Teams System Administrator Relationship Specialty Start Date End Date Felix Hill MD [facility] [address] [facility] [address] [place] [address] PCP - General 11/27/08 04/27/11 Frw, None PCP - General 09/07/00 11/26/08 Gely Taveras MD [facility] [address] [place] [address] PCP - Obstetrics/Gynecology 02/28/03 [address] [facility] [place] [address] [place] [address] PCP - Ophthalmology 06/29/05 10/29/[address] [facility] [place] [address] [place] [address] PCP - Orthopaedics Orthopedics 04/08/11 Frw, None PCP - General Family Practice 04/28/11 04/15/17 [place] [address] PCP - Obstetrics/Gynecology morgue technician 05/27/11 1 08/19/[address] [facility] [place] [address] [place] [address] PCP - Audiology Audiology 12/15/12 12/15/12 No Ref-Primary, Physician PCP - General 01/31/18 10/22/21 Yasmine Esqueda APRN LEVEE SUPERINTENDENT [address] [place] [address] [place] [address] PCP - Assigned PCP 02/20/18 10/18/18 Han Jackson MD [facility] [place] [address] PCP - General Family Medicine 10/23/21 Yasmine Esqueda APRN LEVEE SUPERINTENDENT [address] [facility] [place] [address] Assigned PCP 01/21/18 02/15/21 Ruben Frey MD [address] [facility] [address] [place] [address] Assigned Musculoskeletal Provider 04/17/23 documented as of this encounter
== END 2024-07-03 22:53 | disposition home or self-care (01) ==
PROVIDERS: Emergency Provider Family Medicine; PCP Family Medicine
DX: S82.832A Other fracture of upper and lower end of left fibula, initial encounter for closed fracture (principal); X50.1XXA Overexertion from prolonged static or awkward postures, initial encounter
CPT/HCPCS: 73560; 73610; 99283; A9270

== ENCOUNTER 2024-07-11 10:45 | Outpatient (CLI) | payer OTHER, SELFPAY ==
--- OUTSIDE RECORDS SUMMARY | 2024-07-11 10:48 | XMS_ITS | Encounter Summary ---
Author Organization [facility] Address [address] [place] [address] Care Team Providers Care Master Fisher Name Role Phone Thom Ovalles MD Unavailable [phone] Han Jackson MD Primary Care Provider Ruben Frey MD Unavailable [phone] Reason for Referral * Diagnostic Imaging XR (Routine) - Pending Review Specialty Diagnoses / Procedures Referred By Contac t Referred To Contact Radiology. Diagnoses S/P fusion of sacroiliac joint Procedures XR Pelvis G/E 3 Views Vanessa Fierro PA-C [address] [place] [address] Phone: tel: fax: Referral ID Status Reason Start Date Expiration Date V isits Requested Visits Authorized [id number] Pending Review 06/28/2024 06/28/2025 1 1 LOPER ARCHITECT Encounter Details Date Type Department Care Team (Late st Contact Info) Description 06/28/2024 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 Not on file Not on file Not on file Not on file Not on file Not on file Not on file documented as of this encounter Plan of Treatment Upcoming Encounters Date Type Department Care Team ([facility] st Contact Info) Description 07/25/2024 2:30 PM DEVELOPER ARCHITECT Office Visit [facility] Orthopedic Clinic [address] [place] [phone] Vanessa Fierro PA-C [address] [place] [address] Scheduled Orders Name Type Priority Associated Diagnoses Orde r Schedule XR Pelvis G/E 3 Views Imaging Routine S/P fusion of sacroiliac joint Expected: 06/28/2024 (Approximate), Expires: 07/28/2024 documented as of this encounter Visit Diagnoses Diagnosis S/P fusion of sacroiliac joint- Primary documented in this encounter Care Teams Master Fisher Relationship Specialty Start Date End Date Thom Ovalles MD PCP - Orthopaedics Orthopedics 04/08/11 Han Jackson MD PCP - General Family Medicine 10/23/21 Ruben Frey MD [address] [address] Assigned Musculoskeletal Provider 04/17/23 documented as of this encounter
--- OUTSIDE RECORDS SUMMARY | 2024-07-11 10:48 | XMS_ITS | Referral Summary ---
Author Organization [place] Address [address] [place] [address] Care Team Providers Care Customer Service Professional Name Role Phone Thom Ovalles MD Unavailable [phone] Han Jackson MD Primary Care Provider Ruben Frey MD Unavailable Encounters Date Type Department Care Team Description 07/04/2024 Telephone [facility] [address] [phone] Vanessa Fierro PA-C Appointment 06/28/2024 Orders Only [facility] [address] [phone] Vanessa Fierro PA-C S/P fusion of sacroiliac joint (Primary Dx) 06/27/2024 Telephone [facility] [address] [phone] Ruben Frey MD Appointment 04/21/2024 Telephone [facility] [address] [phone] Vanessa Fierro PA-C 04/21/2024 MyC Medical Advice [facility] [address] [phone] Jay Wolff 04/19/2024 Telephone [facility] [address] [phone] Vanessa Fierro PA-C 04/19/2024 MyC Medical Advice [facility] [address] [phone] [place] 04/12/2024 Telephone [facility] [address] [phone] Vanessa Fierro PA-C 04/12/2024 Margaret Medical Advice [facility] [address] [phone] [facility] [place] from Last 3 Months Allergies Active Allergy [...] on file Legal Sex Female 4:14 AM ETL MANAGER Gender Identity Not on file Sexual [...] Care Team (Late st Contact Info) Description 07/25/2024 2:30 PM ETL MANAGER Office Visit [facility] [address] [place] [address] Vanessa Fierro PA-C [address] [place] [address] 277[address] Medical Devices Implanted Type Area Professor Of Forestry Device Identifier Shelf Expiration Date Model / Serial / Lot Imp Spinal Ifuse Torq [id number] Strl Lf 84921p - [id number] Implanted:Qty : 1 on 06/09/2023 by Ruben Frey MD at [facility] Metallic Hardware/An chor Right: Spine Lumbar [employer] [id number] 02/26/2028 [id number] / / [id number] Imp Spinal Ifuse Torq 10.7vdu28mc Strl Lf 88158m - [id number] Implanted:Qty : 1 on 06/09/2023 by Ruben Frey MD at [facility] Metallic Hardware/An chor Right: Iliac Crest [employer] [id number] 12/31/2027 [id number] / / [id number] Imp Spinal Fx Ifuse Torq [id number] Strl Lf 51359z - [id number] Implanted:Qty : 1 on 01/03/2024 by Ruben Frey MD at [facility] Metallic Hardware/An chor Left: Sacrum [employer] [id number] 12/20/2027 [id number] / / [id number] Imp Spinal Ifuse Torq 10.7cwr86wz Strl Lf 49713y - [id number] Implanted:Qty : 1 on 01/03/2024 by Ruben Frey MD at [facility] Metallic Hardware/An chor Left: Sacrum [employer] [id number] 05/31/2028 [id number] / / [id number] Imp Spinal Ifuse Torq 10.6lyz73cg Strl Lf 42915t - [id number] Implanted:Qty : 1 on 01/03/2024 by Ruben Frey MD at [facility] Metallic Hardware/An chor Left: Sacrum [employer] [id number] 08/18/2028 [id number] / / [id number] Imp Insert Jj Attune Ps Rp Sz3 7mm [id number] - [id number] Implanted:Qty : 1 on 10/28/2021 by Gary Russell MD at [facility] Total Joint Component/I nsert Left: Knee [employer]- [id number] 03/15/2026 [id number] / / [id number] 10.0mm X75mm Ifuse-Torq Implanted:Qty : 1 on 06/09/2023 by Ruben Frey MD at [facility] Right: Sacrum [employer] 02/20/2028 [id number] / / Procedures Procedure Name Priority Date/Time [...] FLUIDS ORDERABLE S Final Result [facility] Core Lab [address] [facility], Room [address] [phone] * (ABNORMAL) Cell Count Body Fluid (06/06/2024 8:17 AM CDT) Color Yellow Colorless, Yellow YUE 06/06/2024 2:53 PM CDT [facility] Clarity Hazy(A) Clear YUE 06/06/2024 2:53 PM CDT [facility] Cell Count Fluid Source Knee, Left YUE 06/06/2024 2:53 PM CDT [facility] Total Nucleated Cells 561 /uL YUE [...] FLUIDS ORDERABLE S Final Result [facility] [place] Core Lab [address] [facility], [address] [place] [address] [address] * Synovial fluid Aerobic Bacterial Culture [...] ORDERAB LES Final Result [facility] Inf. Diseases Diag. Lab [address] [facility], [address] [place] [address] * Crystal ID Synovial Fluid (06/06/2024 [...] FLUIDS ORDERABLE S Final Result [facility] [place] Core Lab [address] [facility], [address] [place] [address] * Anaerobic Bacterial Culture Routine (06/06/2024 8:17 AM CDT) Culture No anaerobic organisms isolated YUE 06/20/2024 7:52 AM ETL MANAGER [facility] Synovial fluid STRUCTURE OF LEFT KNEE REGION / Unknown Non-blood Collection / Unknown 06/06/2024 8:17 AM CDT 06/06/2024 10:02 AM CDT Narrative [facility] - 06/20/2024 7:52 AM ETL MANAGER This specimen was not received in an anaerobic transport container, thus the absence or quantity of anaerobic organisms in this culture may not be retail representative of the anaerobic organisms present in the specimen. us Gary Russell MD LAB - MICRO GENERAL ORDERAB LES Final Result [facility] Inf. Diseases Diag. Lab [address] [facility], [address] [place] [address] * Glucose by meter (01/03/2024 7:59 AM CDT) GLUCOSE BY METER POCT 97 70 - 99 mg/dL 01/03/2024 8:07 AM CDT [facility] POC Blood, Capillary BLOOD SPECIMEN / Unknown 01/03/2024 7:59 AM CDT 01/03/2024 8:07 AM CDT us Ruben Frey MD LAB - BEAKER POCT Fin al Result [facility] POC [facility] Acute Care Lab [address] [facility], [address] [place] [address] * (ABNORMAL) Basic metabolic panel (05/12/2023 12:50 PM CDT) Sodium 137 135 - 145 mmol/L 05/12/2023 1:15 PM CDT [facility] Comment:Reference intervals for this test were updated on 05/11/2023 to more accurately reflect our healthy population. There may be differences in the flagging of prior results with similar values performed with this method. Interpretation of those prior results can be made in the context of the updated reference intervals. Potassium 3.7 3.4 - 5.3 mmol/L 05/12/2023 1:15 PM CDT [facility] Chloride 97(L) 98 - 107 mmol/L 05/12/2023 1:15 PM CDT [facility] Carbon Dioxide (CO2) 29 22 - 29 mmol/L 05/12/2023 1:15 PM CDT [facility] Anion Gap 11 7 - 15 mmol/L 05/12/2023 1:15 PM CDT [facility] Urea Nitrogen 12.4 6.0 - 20.0 mg/dL 05/12/2023 1:15 PM CDT [facility] Creatinine 0.69 0.51 - 0.95 mg/dL 05/12/2023 1:15 PM CDT [facility] GFR Estimate >90 >60 mL/min/1. 73m2 05/12/2023 1:15 PM CDT [facility] Calcium 9.3 8.6 - 10.0 mg/dL 05/12/2023 1:15 PM CDT [facility] Glucose 100(H) 70 - 99 mg/dL 05/12/2023 1:15 PM CDT [facility] Blood STRUCTURE OF LEFT UPPER LIMB / Unknown Venipuncture / Unknown 05/12/2023 12:50 PM CDT 05/12/2023 12:50 PM CDT Pattie Ovalles APRN ASSESSMENT EXPERT LAB - BLOOD ORDERA BLES Final Result [facility] [place] [address] [facility] 1st [place] [address] * PAP Smear - HIM Patient Reported (08/16/2015) PAP Smear - HIM Patient Reported Negative EXTERNAL LAB 08/16/2015 Narrative EXTERNAL LAB - 08/16/2015 Please abstract the following data from this visit with this patient into the appropriate field in [facility]: Pap smear done on this date: Aug 2015 (approximately), by this group: [facility] [place], results were NIL. us Patient Reported LABORATORY Final Result EXTERNAL LAB External Lab * ABSTRACT HPV-NO CHARGE (08/29/2014) HPV Abstract See Scanned Document [facility] 08/29/2014 Narrative [facility] - 08/29/2014 See Care Every Where - [facility] us Provider Outside LAB - HIM EXTERNAL RESULT Final Result [place] [id number] [address] [phone] * COLONOSCOPY (07/12/2012) us L.C. Management Advisor PROCEDURES Final Result from Last 3 Months or Most Recently Relevant to Health Maintenance Insurance [facility] INDIVIDUAL FAMILY PLANS [facility] INDIVIDUAL FAMILY PLANS Advance Directives For more information, please contact: [phone] * Full Code (Latest Code Status on File) Date Activated Date Inactivated Comments 10/28/2021 1:39 PM 10/29/2021 3:08 PM All basic an d advanced life-sustaining interventions are performed as appropriate Question Answer Comments Code status determined by: Discussion with patie nt/ legal decision maker Care Teams Customer Service Professional Relationship Specialty Start Date End Date Thom Ovalles MD PCP - Orthopaedics Orthopedics 04/08/11 Han Jackson MD PCP - General Family Medicine 10/23/21 Ruben Frey MD [address] [place] [address] Assigned Musculoskeletal Provider 04/17/23
--- OUTSIDE RECORDS SUMMARY | 2024-07-11 10:48 | XMS_ITS | Clinical Summary ---
Author Organization [facility] Address [address] [place] [address] Care Team Providers Care Gas Attendant Name Role Phone Thom Ovalles MD Unavailable Han Jackson MD Primary Care Provider [phone] Ruben Frey MD Unavailable Allergies Active Allergy [...] Type Department Care Team Description 07/04/2024 Telephone [facility] Orthopedic [address] 4th [place] [address] Vanessa Fierro PA-C Appointment 06/28/2024 Orders Only M [facility] [address] [phone] Vanessa Fierro PA-C S/P fusion of sacroiliac joint (Primary Dx) 06/27/2024 Telephone [facility] [address] [phone] Ruben Frey MD Appointment 04/21/2024 [facility] [address] [phone] Vanessa Fierro PA-C 04/21/2024 MyC Medical Advice [facility] [address] [phone] [facility] 04/19/2024 [facility] [address] [phone] Vanessa Fierro PA-C 04/19/2024 MyC Medical Advice [facility] [address] [phone] [facility] 04/12/2024 [facility] [address] [phone] Vanessa Fierro PA-C 04/12/2024 MyC Medical Advice [facility] [address] [phone] [facility] from Last 3 Months Immunizations Name Administration [...] on file Legal Sex Female 4:14 AM REGIONAL CRA Gender Identity Not on file Sexual Orientation Not on file 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 on file [...] st Contact Info) Description 07/25/2024 2:30 PM REGIONAL CRA Office Visit [facility] [address] [phone] Vanessa Fierro PA-C [address] [place], [place] [phone] Health Maintenance Due Date Last Done Comments ADVANCE CARE PLANNING 1973 ANNUAL REVIEW OF HM ORDERS 1973 CT COLONOGRAPHY 1973 FIT 1973 FLEX SIG 1973 MAMMO SCREENING 1973 MIGRAINE ACTION PLAN 1973 sDNA (Cologuard) 1973 HIV SCREENING 1988 HEPATITIS C SCREENING 12/25/1991 HEPATITIS B IMMUNIZATION (1 of 3 - 19+ 3-dose series) 1992 LIPID 2013 YEARLY PREVENTIVE VISIT 03/30/2020 03/30/20, 03/30/2018, 07/18/2013, Additional history exists HPV TEST 08/16/2020 08/29/2014 PAP 08/16/2020 08/16/2015, 08/16, 08/29/2014, Additional history exists COLONOSCOPY 07/12/2022 07/12/2012 COLORECTAL CANCER SCREENING 07/12/2022 ZOSTER IMMUNIZATION (1 of 2) 12/25/2023 COVID-19 Vaccine (2023- season) 2024 2020, 11/28/2020 INFLUENZA VACCINE (#1) 2024 09/30/2018 BMP 05/12/2024 [...] on patient's age to complete this topic Pneumococcal Vaccine: Pediatrics (0 to 5 Years) and At-Risk Patients (6 to 64 Years) Aged Out No longer eligible based on patient's age to complete this topic RSV MONOCLONAL ANTIBODY Aged Out No l onger eligible based on patient's age to complete this topic Medical Devices Implanted Type Area Topology Professor Device Identifier Shelf Expiration Date Model / Serial / Lot Imp Spinal Ifuse Torq [id number] Strl Lf 27410e - [id number] Implanted:Qty : 1 on 06/09/2023 by Ruben Frey MD at [facility] Metallic Hardware/An chor Right: Spine Lumbar [employer] [id number] 02/26/2028 [id number] / / [id number] Imp Spinal Ifuse Torq [id number] Strl Lf 09178x - [id number] Implanted:Qty : 1 on 06/09/2023 by Ruben Frey MD at [facility] Metallic Hardware/An chor Right: Iliac Crest [employer] [id number] 12/31/2027 [id number] / / [id number] Imp Spinal Fx Ifuse Torq [id number] Strl Lf 49748e - [id number] Implanted:Qty : 1 on 01/03/2024 by Ruben Frey MD at [facility] Metallic Hardware/An chor Left: Sacrum [employer] [id number] 12/20/2027 [id number] / / [id number] Imp Spinal Ifuse Torq 10.5tjn28bw Strl Lf 49915j - [id number] Implanted:Qty : 1 on 01/03/2024 by Ruben Frey MD at [facility] Metallic Hardware/An chor Left: Sacrum [employer] [id number] 05/31/2028 [id number] / / [id number] Imp Spinal Ifuse Torq 10.0wia12sh Strl Lf 52063g - [id number] Implanted:Qty : 1 on 01/03/2024 by Ruben Frey MD at [facility] Metallic Hardware/An chor Left: Sacrum [employer] [id number] 08/18/2028 [id number] / / [id number] Imp Insert Jj Attune Ps Rp Sz3 7mm [id number] - [id number] Implanted:Qty : 1 on 10/28/2021 by Gary Russell MD at [facility] Total Joint Component/I nsert Left: Knee [employer]- [id number] 03/15/2026 [id number] / / [id number] 10.0mm X75mm Ifuse-Torq Implanted:Qty : 1 on 06/09/2023 by Ruben Frey MD at [facility] Right: Sacrum [employer] 02/20/2028 [id number] / / Procedures Procedure Name Priority Date/Time [...] FLUIDS ORDERABLE S Final Result [facility] [place] Core Lab [address] [facility] [address], [address] [place] [address], [facility] * (ABNORMAL) Cell Count Body Fluid (06/06/2024 8:17 AM CDT) Color Yellow Colorless, Yellow YUE 06/06/2024 2:53 PM CDT [facility] Clarity Hazy(A) Clear YUE 06/06/2024 2:53 PM CDT [facility] Cell Count Fluid Source Knee, Left YUE 06/06/2024 2:53 PM CDT [facility] Total Nucleated Cells 561 /uL YUE [...] ORDERABLE S Final Result Performing Organization Address City/[facility]/ZIP Co de Phone Number [facility] [place] Core Lab [address] [facility], [address] [place] [address] [address] [place] [address] * Synovial fluid Aerobic Bacterial Culture Routine (06/06/2024 8:17 AM CDT) Pathologist [facility] Culture No Growth 06/11/2024 6:19 AM CDT [...] ORDERAB LES Final Result [facility] Inf. Diseases Diag. Lab [address] [facility], [address] [place] [address] * Crystal ID Synovial Fluid (06/06/2024 [...] ORDERABLE S Final Result Performing Organization Address City/[facility] Co de Phone Number [facility] [place] Core Lab [address] [facility], [address] [place] [phone] * Anaerobic Bacterial Culture Routine (06/06/2024 8:17 AM CDT) Culture No anaerobic organisms isolated YUE 06/20/2024 7:52 AM REGIONAL CRA [facility] Synovial fluid STRUCTURE OF LEFT KNEE REGION / Unknown Non-blood Collection / Unknown 06/06/2024 8:17 AM CDT 06/06/2024 10:02 AM CDT Narrative [facility] - 06/20/2024 7:52 AM REGIONAL CRA This specimen was not received in an anaerobic transport container, thus the absence or quantity of anaerobic organisms in this culture may not be sales representative womens health of the anaerobic organisms present in the specimen. us Gary Russell MD LAB - MICRO GENERAL ORDERAB LES Final Result Performing Organization Address City/[facility]/ZIP Co de Phone Number [facility] Inf. Diseases Diag. Lab [address] [facility], [address] [place] [address] * Glucose by meter (01/03/2024 7:59 AM CDT) GLUCOSE BY METER POCT 97 70 - 99 mg/dL 01/03/2024 8:07 AM CDT [facility] POC Blood, Capillary BLOOD SPECIMEN / Unknown 01/03/2024 7:59 AM CDT 01/03/2024 8:07 AM CDT us Ruben Frey MD LAB - BEAKER POCT James al Result [facility] POC [facility] Acute [facility] Lab [address] [facility], [address] [place] [address], [facility] * (ABNORMAL) Basic metabolic panel (05/12/2023 12:50 PM CDT) Pathologist [facility] Sodium 137 135 - 145 mmol/L 05/12/2023 1:15 PM CDT [facility] Comment:Reference intervals for this test were updated on 05/11/2023 to more accurately reflect our healthy population. There may be differences in the flagging of prior results with similar values performed with this method. Interpretation of those prior results can be made in the context of the updated reference intervals. Potassium 3.7 3.4 - 5.3 mmol/L 05/12/2023 1:15 PM CDT [facility] Chloride 97(L) 98 - 107 mmol/L 05/12/2023 1:15 PM CDT [facility] Carbon Dioxide (CO2) 29 22 - 29 mmol/L 05/12/2023 1:15 PM CDT [facility] Anion Gap 11 7 - 15 mmol/L 05/12/2023 1:15 PM CDT [facility] Urea Nitrogen 12.4 6.0 - 20.0 mg/dL 05/12/2023 1:15 PM CDT [facility] Creatinine 0.69 0.51 - 0.95 mg/dL 05/12/2023 1:15 PM CDT [facility] GFR Estimate >90 >60 mL/min/1. 73m2 05/12/2023 1:15 PM CDT [facility] Calcium 9.3 8.6 - 10.0 mg/dL 05/12/2023 1:15 PM CDT [facility] Glucose 100(H) 70 - 99 mg/dL 05/12/2023 1:15 PM CDT [facility] Blood STRUCTURE OF LEFT UPPER LIMB / Unknown Venipuncture / Unknown 05/12/2023 12:50 PM CDT 05/12/2023 12:50 PM CDT us Pattiezenon Martinez Josr MANAGEMENT INSTRUCTOR PLANT INSPECTOR LAB - BLOOD ORDERA BLES Final Result [facility] [address] [place] [address] 1st Floor [place] [address] * PAP Smear - HIM Patient Reported (08/16/2015) PAP Smear - HIM Patient Reported Negative EXTERNAL LAB 08/16/2015 Narrative EXTERNAL LAB - 08/16/2015 Please abstract the following data from this visit with this patient into the appropriate field in Epic: Pap smear done on this date: Aug 2015 (approximately), by this group: [facility], results were NIL. us Patient Reported LABORATORY Final Result EXTERNAL LAB External Lab * ABSTRACT HPV-NO CHARGE (08/29/2014) HPV Abstract See Scanned Document [facility] 08/29/2014 Narrative [facility] - 08/29/2014 See Care Every Where - [facility] us Provider Outside LAB - HIM EXTERNAL RESULT Final Result [address] [address], [facility] [phone] * COLONOSCOPY (07/12/2012) us L.C. Realtime Reporter PROCEDURES Final Result from Last 3 Months or Most Recently Relevant to Health Maintenance Insurance [facility] [employer] [facility] [employer] [facility] Advance Directives For more information, please contact: [phone] * Full Code (Latest Code Status on File) Date Activated Date Inactivated Comments 10/28/2021 1:39 PM 10/29/2021 3:08 PM All basic an d advanced life-sustaining interventions are performed as appropriate Question Answer Comments Code status determined by: Discussion with patie nt/ legal decision maker Care Teams Gas Attendant Relationship Specialty Start Date End Date Thom Ovalles MD PCP - Orthopaedics Orthopedics 04/08/11 Han Jackson MD PCP - General Family Medicine 10/23/21 Ruben Frey MD [address] [address] Assigned Musculoskeletal Provider 04/17/23
--- OUTSIDE RECORDS SUMMARY | 2024-07-11 10:48 | XMS_ITS | Encounter Summary ---
Author Organization [facility] Address [address] [place] [address]. [place] [address] Care Team Providers Care Poultry Sexer Name Role Phone Thom Ovalles MD Unavailable [phone] Han Jackson MD Primary Care Provider Ruben Frey MD Unavailable Encounter Details Date Type Department Care Team (Late st Contact Info) Description 04/21/2024 Telephone [facility] [address] 4th [place] [address] Vanessa Fierro PA-C [address] [place] [address] Social History Tobacco Use Types Packs/Day [...] on file Legal Sex Female 4:14 AM DIRECTOR OF SERVICES Gender Identity Not on file Sexual Orientation [...] st Contact Info) Description 07/25/2024 2:30 PM DIRECTOR OF SERVICES Office Visit [facility] [address] [place] [phone] Vanessa Fierro, PA-C [address] [place] [phone] documented as of this encounter Visit Diagnoses Not on filedocumented in this encounter Care Teams Poultry Sexer Relationship Specialty Start Date End Date Thom Ovalles MD PCP - Orthopaedics Orthopedics 04/08/11 Han Jackson MD PCP - General Family Medicine 10/23/21 Ruben Frey MD [address] [place] [phone] Assigned Musculoskeletal Provider 04/17/23 documented as of this encounter
--- OUTSIDE RECORDS SUMMARY | 2024-07-11 10:48 | XMS_ITS | Encounter Summary ---
Author Organization [facility] Address [address] [place] [address] Care Team Providers Care Centrex Radio Operator Name Role Phone Thom Ovalles MD Unavailable [phone] Han Jackson MD Primary Care Provider Ruben Frey MD Unavailable [phone] Reason for Visit * Reason Onset Date Comments Appointment 07/04/2024 Encounter Details Date Type Department Care Team (Late st Contact Info) Description 07/04/2024 Telephone [facility] [address] [place] [phone] Vanessa Fierro, PA-C [address] [place] [address] Appointment Social History Tobacco Use Types Packs/Day [...] on file Legal Sex Female 4:14 AM FACTORY FOCUS TECHNICIAN Gender Identity Not on file Sexual Orientation Not on file 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 Industry 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 Yes Additional comments: needs sooner then 09/12 Could we send this [facility] to you [facility] or would you prefer to receive a phone call?: Patient would prefer a phone call Okay to leave a detailed message?: No at Cell number on file: Telephone Information: ORY FOCUS TECHNICIAN documented in this encounter Plan of Treatment Upcoming Encounters Date Type Department Care Team (Late st Contact Info) Description 07/25/2024 2:30 PM FACTORY FOCUS TECHNICIAN Office Visit [facility] [address] [place] [phone] Vanessa Fierro, PA-C [address] [place] [phone] documented as of this encounter Visit Diagnoses Not on filedocumented in this encounter Care Teams Centrex Radio Operator Relationship Specialty Start Date End Date Thom Ovalles MD PCP - Orthopaedics Orthopedics 04/08/11 Han Jackson MD PCP - General Family Medicine 10/23/21 Ruben Frey MD [id number] [place] [address] Assigned Musculoskeletal Provider 04/17/23 documented as of this encounter
--- OUTSIDE RECORDS SUMMARY | 2024-07-11 10:48 | XMS_ITS | Encounter Summary ---
Author Organization [facility] Address [address] [place] [address] Care Team Providers Care Communications Professional Name Role Phone Thom Ovalles MD Unavailable [phone] Han Jackson MD Primary Care Provider Ruben Frey MD Unavailable Reason for Visit * Reason Onset Date Comments Appointment 06/27/2024 Encounter Details Date Type Department Care Team (Late st Contact Info) Description 06/27/2024 Telephone [facility] [place] [address] [facility] [address] 4th [place] [address] Ruben Frey MD [address] [place] [address] Appointment Social History Tobacco Use [...] on file Legal Sex Female 4: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 -LESIA Emery- CSC Orthopedics ATRONICS TECHNOLOGIST * Telephone Encounter - Cami Broussard - 06/27/2024 8:18 AM CST Order(s): Other: Reason for requested: SI joint fusion was cancelled on her. She was not contacted to reschedule. Now rescheduled to 09/12. Can you help her get in sooner? Date needed: [facility] Provider name: Dr. Frey. Could we send this information to you in [employer] or would you prefer to receive a phone call?: Patient would prefer a phone call Okay to leave a detailed message?: Yes at Cell number on file: Telephone Information: ATRONICS TECHNOLOGIST documented in this encounter Plan of Treatment Upcoming Encounters Date Type Department Care Team (Late st Contact Info) Description 07/25/2024 2:30 PM MECHATRONICS TECHNOLOGIST Office Visit [facility] [address] [place] [address] Vanessa Fierro PA-C [address] [place] [phone] documented as of this encounter Visit Diagnoses Not on filedocumented in this encounter Care Teams Communications Professional Relationship Specialty Start Date End Date Thom Ovalles MD PCP - Orthopaedics Orthopedics 04/08/11 Han Jackson MD PCP - General Family Medicine 10/23/21 Ruben Frey MD [id number] [place] [address] Assigned Musculoskeletal Provider 04/17/23 documented as of this encounter
--- OUTSIDE RECORDS SUMMARY | 2024-07-11 10:48 | XMS_ITS | Continuity of Care Document ---
Author Organization [facility] Address [address] [place] [address] Phone Care Team Providers Care Adding Machine Servicer Name Role Phone Leticia Anne MD Unavailable [...] Copied on Encounter [facility], [address], [place], [place], [address], [place] tel:[phone] [facility] No Information 2 Omid Kelly. [facility], [address], [address], [place], [address], [place]. tel:[phone] Office/Outpa tient Visit,Est, Mod [facility], [address], [place], [place], [address], [place] tel:[phone] [facility] Other spondylosis, cervical region 2 Omid Kelly. [facility] [place], [address] [place] [address], [address], [place], [address], [place]. tel: [phone] Referring Provider: Thom Márquez, [facility] [address], [place], [address]. tel:[phone] Office/Outpa tient Visit,Est, Mod [facility], [address], [place], [place], [address], [place] tel:[phone] [facility] Cervicalgia 9 Kina Mcnamara . [facility] [place], [address] [place] [address], [address], [place], [place], [address] , [place]. tel: [phone] Referring Provider: Thom Márquez, [facility] [address], [place], [address]. tel:[phone] Office/Outpa tient Visit,Est, Mod [facility], [address], [place], [address], [place] tel:[phone] [facility] Encounter for other specified surgical aftercare 9 Castanon Anders . [facility] [place], [address] [place] [address], [address], [place], [place], [address] , [place]. tel:[phone] Referring Provider: Thom Márquez, [facility] [address], [place], [address]. tel:[phone] Office/Outpa tient Visit,Est, Mod [facility], [address], [place], [address], [place] tel:[phone] [facility] Encounter for other specified surgical aftercare [phone] [facility] . [facility] [place], [address] [place] [address], [address], [place], [place], [address] , [place]. tel:[phone] Referring Provider: Thom Márquez, [facility] [address], [place], [address]. tel:[phone] Office/Outpa tient Visit,Est, Mod [facility], [address], [place], [place], [address], [place] tel:[phone] [facility] Encounter for other specified surgical aftercare 0 8 [facility] er. [facility] [place], [address], [address], [place], [place], [address] , [place]. [phone] Referring Provider: Thom Márquez, [facility] [address], [place], [address]. tel:[phone] Office/Outpa tient Visit,Est, Mod [facility], [address], [place], [place], [address], [place] tel:[phone] [facility] Encounter for other specified surgical aftercareLow back pain 2 8 [facility] er. [facility] [place], [address], [address], [place], [place], [address] , . [phone] Referring Provider: Thom Márquez, [facility] [address], [place], [address]. tel:[phone] Office/Outpa tient Visit,Est, Mod [facility], [address], [place], [place], [address], [place] tel:[phone] [facility] Encounter for other specified surgical aftercare 8 [facility]. [facility] [place], [address], [address], [place], [place], [address] , . [phone] Referring Provider: Thom Márquez, [facility] [address], [place], [address]. tel:[phone] [facility], [address], [place], [address], [place] tel:[phone] [facility] Encounter for other specified surgical aftercare [facility]3 [facility] [place], [address], [address], [place], [address] , [place]. tel:[phone] Referring Provider: Thom Márquez, [facility] [address], [place], [address]. tel:[phone] [facility], [address], [place], [address], [place] tel:[phone] [facility] Encounter for other specified surgical aftercare May-0 [facility]. [facility], [address], [address], [place], [place], [address] , [place]. [phone] Referring Provider: Thom Márquez, [facility] [address], [place], [address]. tel:[phone] [facility], [address], [place], [place], [address], [place] [phone] [facility] No Information Sep-2 7 Lance Potter. [facility] [place], [address] [facility] [address], [place], [facility], [place]. [phone] Referring Provider: Thom Márquez, [facility] [address], [place], [address]. tel:[phone] [facility], [address], [place], [place], [address], [place] tel:[phone] [facility] No Information Sep-2 [facility]. [facility] [place], [address], [address], [place], [address] , [place]. tel:[phone] Referring Provider: Thom Márquez, [facility] [address], [place], [address]. 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 [facility] [place], [address], [address], [place], [place], [address] , [place]. tel:[phone] Referring Provider: Thom Márquez, [facility] [address], [place], [address]. tel:[phone] Office/Outpa tient Visit,Est, Mod [facility], [address], [place], [place], [address], [place] tel:[phone] [facility] Spinal stenosis, cervical regionPseudar throsis after fusion or arthrodesis 7 Castanon Anders er. [facility] [place], [address], [address], [place], [place], [address] , [place]. tel:[phone] Referring Provider: Thom Márquez, [facility] [address], [place], [address]. tel:[phone] Office/Outpa tient Visit,Est, Mod [facility], [address], [place], [place], [address], [place] tel:[phone] [facility] Cervicalgia 7 Kina Mcnamara er. [facility] [place], [address], [address], [place], [place], [address] , [place]. tel:[phone] Referring Provider: Thom Márquez, [facility] [address], [place], [address]. tel:[phone] Office/Outpa tient Visit,Est, Mod [facility], [address], [place], [place], [address], [place] tel:[phone] [facility] Other intervertebra l disc degeneration, lumbar regionArthrod esis statusOverwei ght 5 [facility]. [facility], [address], [address], [place], [place], [address] , [place]. [phone] Referring Provider: hTom Márquez, [facility] [address] [facility] [address], [place], [address]. tel:[phone] Office/Outpa tient Visit,Est, Mod [facility], [address], [place], [place], [address], [place] [phone] [facility] Displacement of intervertebra l disc, site unspecified, without myelopathyOVE RWEIGHTHypert ension, UnspecifiedLu mbar spondylosisLu mbar radiculopathy Shoulder joint painPatient who has had a surgical fusion of a joint 5 Castanon Anders er. [facility] [place], [address], [address], [place], [place], [address] , [place]. [phone] Referring Provider: Thom Márquez, [facility] [address] [facility] [address], [place], [address]. tel:[phone] [facility], [address], [place], [place], [address], [place] tel:[phone] [facility] Patient who has had a surgical fusion of a joint 5 [facility]. [facility] [place], [address], [address], [place], [place], [address] , [place]. [phone] Referring Provider: Pancho Castanon, [facility] [address], [address], [place], [address]. [phone] [facility], [address], [place], [address], [place] [phone] [facility] No Information 4 Castanon Anders er. [facility] [place], [address], [address], [place], [place], [address] , [place]. tel:[phone] Referring Provider: Pancho Castanon [facility] [address], [address], [place], [address]. tel:[phone] Z [facility], [address], [place], [address], [place] tel:[phone] [facility] No Information 4 Kina Anders er. [facility], [address], [address], [place], [place], [address] , [place]. tel:[phone] Referring Provider: Pancho Castanon [facility] [address], [address], [place], [address]. tel:[phone] Pre Op Office/Outpa tient Visit, Z [facility], [address], [place], [address], [place] tel:[phone] [facility] Hypertension, UnspecifiedDi splacement of intervertebra l disc, site unspecified, without myelopathy 4 Kina Mcnamara er. [facility], [address], [address], [place], [place], [address] , [place]. tel:[phone] Referring Provider: Same As Referring. Office/Outpa tient Visit,Est, Mod Z [facility], [address], [place], [address], [place] tel:[phone] [facility] No Information 4 Kina Mcnamara er. [facility], [address], [address], [place], [place], [address] , [place]. tel:[phone] Referring Provider: Pancho Castanon [facility] [address], [address], [place], [address]. tel:[phone] Office/Outpa tient Visit,Est, Mod Z [facility], [address] [facility], [place], [address], [place] tel:[phone] [facility] Neck and right arm pain (chief complaint) No Information Sep-2 9-201 4 Kina Diggsoph er. [facility], [address], [address], [place], [place], [address] , . tel:[phone] Referring Provider: Pancho Castanon, [facility] [address], [address], [place], [address]. tel:[phone] Office/Outpa tient Visit,[facility], [facility] Z [facility], [address], [place], [place], [facility], tel:[phone] [facility] Cervical pain (chief complaint) No Information 4 Kina Diggsoph er. [facility] [place], [address], [address], [place], [place], [address] , [place]. tel:[phone] Referring Provider: Pancho Castanon, [facility] [address], [address], [place], [address]. tel:[phone] Family History Family Member Type Diagnosis Age At Onset Problem (finding) Problem (finding) Payers Payer name Insurance type Covered constitution party ID Authoriza tion(s) [employer] Individual [employer] Family [employer] [id number] Social History Type Description Quantity Date [...]
--- OUTSIDE RECORDS SUMMARY | 2024-07-11 10:49 | XMS_ITS | Encounter Summary ---
Author Organization [facility] Address [address] [place] [address] Care Team Providers Care Product Safety Technical Assistant Name Role Phone Felix Hill MD Primary Care Provider [phone] Frw, None Primary Care Provider UnavailGely Goodwin MD Unavailable [phone] Ye Babb OD Unavailable [phone] Thom Ovalles MD Unavailable [phone] Frw, None Primary Care Provider UnavailBri Grove MD Unavailable [phone] Oralia Lozano Unavailable No Ref-Primary, Physician Primary Care Provider Yasmine Esqueda APRN NEON SIGN SERVICER Unavailable Yasmine Esqueda APRN NEON SIGN SERVICER Unavailable Han Jackson MD Primary Care Provider Ruben Frey MD Unavailable Encounter Details Date Type Department Care Team (Late st Contact Info) Description 06/17/2008 [facility] [address] [place] [address] Gely Taveras MD [facility] [address] [place] [address] Social History Tobacco Use Types [...] on file Legal Sex Female 4:14 AM STRUCTURAL ENGINEERING PROJECT MANAGER Gender Identity Not on file Sexual Orientation Not on file 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 Industry 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 Job 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 Date 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 Not on file Not on file Not on file Not on file Not on file Not on file Not on file documented as of this encounter Plan of Treatment Upcoming Encounters Date Type Department Care Team (Late st Contact Info) Description 07/25/2024 2:30 PM STRUCTURAL ENGINEERING PROJECT MANAGER Office Visit [facility]opedic [address] [phone] Vanessa Fierro PA-C [address] [place] [address] documented as of this encounter Visit Diagnoses Not on filedocumented in this encounter Care Teams Product Safety Technical Assistant Relationship Specialty Start Date End Date Felix Hill MD [facility] [place] [address] [place] [address] PCP - General 11/27/08 04/27/11 Frw, None PCP - General 09/07/00 11/26/08 Gely Taveras MD [facility] [address] [place] [address] PCP - Obstetrics/Gynecology 02/28/03 1 Ye Babb OD [facility] [place] [address] [place] [address] PCP - Ophthalmology 06/29/05 10/29/21 Thom Ovalles MD [facility] [place] [address] [place] [address] PCP - Orthopaedics Orthopedics 04/08/11 Frw, None PCP - General Family Practice 04/28/11 04/15/17 Bri [place] [address] PCP - Obstetrics/Gynecology mainframe programmer analyst 05/27/11 1 08/19/14 Oralia Lozano [facility] [place] [address] [place] [address] PCP - Audiology Audiology 12/15/12 12/15/12 No Ref-Primary, Physician PCP - General 01/31/18 10/22/21 Yasmine Esqueda APRN NEON SIGN SERVICER [address] [place] [address] [place] [id number] PCP - Assigned PCP 02/20/18 10/18/18 Han Jackson MD [address] [place] [address] [place] [address] PCP - General Family Medicine 10/23/21 Yasmine Esqueda APRN NEON SIGN SERVICER [address] [place] [address] [place] [address] Assigned PCP 01/21/18 02/15/21 Ruben Frey MD [facility] [address] [place] [address] Assigned Musculoskeletal Provider 04/17/23 documented as of this encounter
--- OUTSIDE RECORDS SUMMARY | 2024-07-11 10:49 | XMS_ITS | Encounter Summary ---
Author Organization [facility] Address [address] [place] [address] Care Team Providers Care Tool/Die Maker Name Role Phone Felix Hill MD Primary Care Provider [phone] Gely Taveras MD Unavailable [phone] Ye Babb OD Unavailable [phone] Encounter Details Date Type Department Care Team (Late st Contact Info) Description 09/30/2010 8:[address] 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 Not on file Not on file Not on file Not on file Not on file Not on file Not on file documented as of this encounter Plan of Treatment Upcoming Encounters Date Type Department Care Team (Late st Contact Info) Description 07/25/2024 2:30 PM GUEST RELATIONS COORDINATOR Office Visit [facility] [address] [place] [phone] Vanessa Fierro PAJosemanuelC [address] [place] [address] documented as of this encounter Visit Diagnoses Not on filedocumented in this encounter Care Teams Tool/Die Maker Relationship Specialty Start Date End Date Felix Hill MD [facility] [place] [address] [place] [address] PCP - General 11/27/08 04/27/11 Gely Taveras MD [facility] [address] [place] [address] PCP - Obstetrics/Gynecology 02/28/03 1 Ye Babb OD [facility] [place] [address] [place] [address] PCP - Ophthalmology 06/29/05 10/29/21 documented as of this encounter
--- OUTSIDE RECORDS SUMMARY | 2024-07-11 10:49 | XMS_ITS | Encounter Summary ---
Author Organization [facility] Address [address] [place] [address] Care Team Providers Care Administrative Support Manager Name Role Phone Felix Hill MD Primary Care Provider [phone] Gely Taveras MD Unavailable [phone] Ye Babb OD Unavailable [phone] Thom Ovalles MD Unavailable [phone] Frw, None Primary Care Provider UnavailBri Grove MD Unavailable [phone] Oralia Lozano Unavailable No Ref-Primary, Physician Primary Care Provider Yasmine Esqueda APRN ENGINEERING SPECIALIST Unavailable José Miguel-Yasmine Antonio APRN ENGINEERING SPECIALIST Unavailable Han Jackson MD Primary Care Provider Ruben Frey MD Unavailable Encounter Details Date Type Department Care Team (Late st Contact Info) Description 01/28/2010 [facility] [place] Inpatient Dept [address] [place] [address] Frw, Inpatient Provider Surgery Aftercare (Primary Dx) [...] on file Legal Sex Female 4:14 AM DETAILER Gender Identity Not on file Sexual Orientation Not on file 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 on 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 Not on file Not on file Not on file Not on file Not on file Not on file documented as of this encounter Plan of Treatment Upcoming Encounters Date Type Department Care Team (Late st Contact Info) Description 07/25/2024 2:30 PM DETAILER Office Visit [facility] [address] [place] [phone] Vanessa Fierro, PA-C [address] [place] [address] documented as of this encounter Visit Diagnoses Diagnosis Surgery aftercare- Primary Other specified aftercare following surgery documented in this encounter Care Teams Administrative Support Manager Relationship Specialty Start Date End Date Felix Hill MD [facility] [place] [address] [place] [address] PCP - General 11/27/08 04/27/11 Gely Taveras MD [facility] [address] [place] [address] PCP - Obstetrics/Gynecology 02/28/03 1 Ye Babb OD [facility] [place] [address] [place] [address] PCP - Ophthalmology 06/29/05 10/29/21 Thom Ovalles MD [facility] [place] [address] [place] [address] PCP - Orthopaedics Orthopedics 04/08/11 Frw, None PCP - General Family Practice 04/28/11 04/15/17 Bri [place] [address] PCP - Obstetrics/Gynecology atomic spectroscopist 05/27/11 1 08/19/14 Oralia Lozano [facility] [place] [address] [place] [address] PCP - Audiology Audiology 12/15/12 12/15/12 No Ref-Primary, Physician PCP - General 01/31/18 10/22/21 Yasmine Esqueda APRN ENGINEERING SPECIALIST [address] [place] [address] [place] [address] PCP - Assigned PCP 02/20/18 10/18/18 Han Jackson MD [address] [place] [address] [place] [address] PCP - General Family Medicine 10/23/21 Yasmine Esqueda APRN ENGINEERING SPECIALIST [address] [place] [address] [place] [address] Assigned PCP 01/21/18 02/15/21 Ruben Frey MD [facility] [address] [place] [address] Assigned Musculoskeletal Provider 04/17/23 documented as of this encounter
--- OUTSIDE RECORDS SUMMARY | 2024-07-11 10:49 | XMS_ITS | Encounter Summary ---
Author Organization [facility] Address [address] [place] [address] Care Team Providers Care Crack Off Person Name Role Phone Ye Babb OD Unavailable [phone] Thom Ovalles MD Unavailable [phone] Frw, None Primary Care Provider Unavailabl Bri Rao MD Unavailable [phone] Encounter Details Date Type Department Care Team (Late st Contact Info) Description 07/18/2011 5:00 AM [facility] in [facility] [address] [place] [phone] Daniela Robles MD [address] [place], [place] [phone] Social History Tobacco Use Types Packs/Day Years Used Date Smoking Tobacco: Never Smokeless Tobacco: Never Comments:no second hand smok e at home or work, 01/01/05 Alcohol Use Standard Drinks/Week Comments Yes 0 (1 standard drink = 0.6 oz pur e alcohol) 3-4 wk Comments No Sex and Gender Information Value Date Recorded Sex Assigned at Not on file Legal Sex Female 4:14 AM ENVIRONMENTAL HEALTH SAFETY ENGINEER Gender Identity Not on file Sexual [...] Penicillin. SOCIAL HISTORY: The patient lives in [place]; she is with 3 children ages 13, 12 and 10. She is a nonsmoker. She does use some alcohol socially. 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 FAMILY HISTORY: Reviewed in [facility]. REVIEW OF SYSTEMS: Generally the patient has [...] injury. I will wait for the on-call certified pathology assistant to see the patient, but I am [...] in the interim spoken with the covering certified pathology assistant Dr. Lockwood and spoke with the radiologist on two occasions. In speaking with the radiologist men's furnishings salesperson initially, we decided it would be a [...] M.D. JSS/mp2 cc: Sylvie Dhillon M.D. RONMENTAL HEALTH SAFETY ENGINEER RONMENTAL HEALTH SAFETY ENGINEER RONMENTAL HEALTH SAFETY ENGINEER * Rojas Severino - 07/20/2011 1:55 PM [...] home when she is doing better. Rojas Severion M.D. ROBBIE/claire cc: RONMENTAL HEALTH SAFETY ENGINEER * Oscar Roman MD - 07/20/2011 1:31 [...] PENICILLIN. SOCIAL HISTORY: The patient lives in [place], she is with 3 children between the ages of 10 and 13. She does not smoke, she does drink alcohol, no suspicion of abuse. 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 FAMILY HISTORY: Significant for a [...] M.D. MICHAEL/olivia cc: Bri Valentine M.D. RONMENTAL HEALTH SAFETY ENGINEER documented in this encounter Plan of Treatment Upcoming Encounters Date Type Department Care Team (Late st Contact Info) Description 07/25/2024 2:30 PM ENVIRONMENTAL HEALTH SAFETY ENGINEER Office Visit [facility] Orthopedic [address] [place] [phone] Vanessa Fierro, PA-C [address] [place] [address] documented as of this encounter Visit Diagnoses Not on filedocumented in this encounter Care Teams Crack Off Person Relationship Specialty Start Date End Date Ye Babb OD [facility] [place] [address] [place] [address] PCP - Ophthalmology 06/29/05 10/29/21 Thom Ovalles MD [facility] [place] [address] [place] [address] PCP - Orthopaedics Orthopedics 04/08/11 Frw, None PCP - General Family Practice 04/28/11 04/15/17 Bri [place] [address] PCP - Obstetrics/Gynecology magistrate assistant 05/27/11 1 08/19/14 documented as of this encounter
--- OUTSIDE RECORDS SUMMARY | 2024-07-11 10:49 | XMS_ITS | Encounter Summary ---
Author Organization [place] Address [address] [place] [address] Care Team Providers Care Manager Emergency Department Name Role Phone Felix Hill MD Primary Care Provider [phone] Gely Taveras MD Unavailable [phone] Ye Babb OD Unavailable [phone] Encounter Details Date Type Department Care Team (Late st Contact Info) Description 01/02/2009 10:56 AM CDT [facility] in [address] [phone] Jesse May MD [address] [phone] Social History Tobacco Use Types Packs/Day Years Used Date Smoking Tobacco: Never Smokeless Tobacco: Never Comments:no second hand smok e at home or work, 01/01/05 Alcohol Use Standard Drinks/Week Comments Yes 0 (1 standard drink = 0.6 oz pur e alcohol) 3-4 wk Comments No Sex and Gender Information Value Date Recorded Sex Assigned at Not on file Legal Sex Female 4:14 AM SENIOR MARKETING COORDINATOR Gender Identity Not on file Sexual [...] st Contact Info) Description 07/25/2024 2:30 PM SENIOR MARKETING COORDINATOR Office Visit [facility] [address] [phone] Vanessa Fierro PA-C [address] [place] [address] documented as of this encounter Visit Diagnoses Not on filedocumented in this encounter Care Teams Manager Emergency Department Relationship Specialty Start Date End Date Felix Hill MD [facility] [address] [place] [address] PCP - General 11/27/08 04/27/[address] [facility] [address] [place] [address] PCP - Obstetrics/Gynecology 02/28/03 1 Ye Babb OD [facility] [address] [employer] [address] [place] [address] PCP - Ophthalmology 06/29/05 10/29/21 documented as of this encounter
--- OUTSIDE RECORDS SUMMARY | 2024-07-11 10:49 | XMS_ITS | Encounter Summary ---
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 [place] [address] [place] [address] PCP - Ophthalmology 06/29/05 10/29/21 Thom Ovalles MD [facility] [place] [address] [place] [address] PCP - Orthopaedics Orthopedics 04/08/11 No Ref-Primary, Physician PCP - General 01/31/18 10/22/21 Han Jackson MD PCP - General Family Medicine 10/23/21 Ruben Frey MD [facility] [address] [place] [address] Assigned Musculoskeletal Provider 04/17/23 documented as of this encounter
--- OUTSIDE RECORDS SUMMARY | 2024-07-11 10:49 | XMS_ITS | Encounter Summary ---
Author Organization [place] Address [address] [place] [address] Care Team Providers Care Soa Integration Architect Name Role Phone Gely Taveras MD Unavailable [phone] Ye Babb OD Unavailable Thom Ovalles MD Unavailable [phone] Frw, None Primary Care Provider Unavailabl e Encounter Details Date Type Department Care Team (Late Contact Info) Description 05/04/2011 9:[address] [facility] [address] [place] [address] Yudy Colón, PAJosemanuelC [facility] [address] [facility] [address] [place], [place] [phone] Social History Tobacco Use Types Packs/Day Years Used Date Smoking Tobacco: Never Smokeless Tobacco: Never Comments:no second hand smok e at home or work, 01/01/05 Alcohol Use Standard Drinks/Week Comments Yes 0 (1 standard drink = 0.6 oz pur e alcohol) 3-4 wk Comments No Sex and Gender Information Value Date Recorded Sex Assigned at Not on file Legal Sex Female 4:14 AM TRACK SERVICE PERSON Gender Identity Not on file Sexual Orientation Not on file 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 Not on file Not on file Not on file Not on file Not on file Not on file Not on file documented as of this encounter Plan of Treatment Upcoming Encounters Date Type Department Care Team (Late Contact Info) Description 07/25/2024 2:30 PM TRACK SERVICE PERSON Office Visit [facility] Orthopedic [address] [place] [phone] Vanessa Fierro, PA-Jai [address] [place] [address] documented as of this encounter Visit Diagnoses Not on filedocumented in this encounter Care Teams Soa Integration Architect Relationship Specialty Start Date End Date Gely Taveras MD [facility] [address] [place] [address] PCP - Obstetrics/Gynecology 02/28/03 1 Ye Babb OD [facility] [address] [place] [address] PCP - Ophthalmology 06/29/05 10/29/21 Thom Ovalles MD [facility] [address] [place] [address] PCP - Orthopaedics Orthopedics 04/08/11 Frw, None PCP - General Family Practice 04/28/11 04/15/17 documented as of this encounter
--- OUTSIDE RECORDS SUMMARY | 2024-07-11 10:49 | XMS_ITS | Encounter Summary ---
Author Organization [place] Address [address] [place] [address] Care Team Providers Care Manager Pool Name Role Phone Thom Ovalles MD Unavailable [phone] Han Jackson MD Primary Care Provider Ruben Christianson MD Unavailable Reason for Visit * Reason Onset Date Comments therapy reports 05/05/2023 Patient is reque sting a call back to confirm when they received therapy notes from [place] Encounter Details Date Type Department Care Team (Late st Contact Info) Description 05/05/2023 Telephone [facility] [place] [phone] [facility] [address] 4th [place] [address] Ruben Christianson MD [address] [place] [address] therapy reports (Patient is requesting a call back to confirm when they received therapy notes from [place]) Social History Tobacco Use Types Packs/Day Years [...] on file Legal Sex Female 4:14 AM VFX ARTIST Gender Identity Not on file Sexual Orientation Not on file 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 ATC will notify Vania Levy RN and send message to Prior Auth for follow up. Thom Mckinney ATC * Telephone Encounter - Kay Ontiveros - 05/05/2023 12:51 PM CDT [facility] Call Center Phone Message May a detailed message be left on voicemail: yes Reason for Call: Other: Patient is requesting a call back to confirm when they received therapy notes from [place] Action Taken: Message routed to: [facility] abhijit christianson Travel Screening: Not Applicable documented in this encounter Plan of Treatment Upcoming Encounters Date Type Department Care Team (Late st Contact Info) Description 07/25/2024 2:30 PM VFX ARTIST Office Visit [facility] [address] [place] [address] Vanessa Fierro PA-C [address] [place] [address] documented as of this encounter Visit Diagnoses Not on filedocumented in this encounter Care Teams Manager Pool Relationship Specialty Start Date End Date Thom Ovalles MD PCP - Orthopaedics Orthopedics 04/08/11 Han Jackson MD PCP - General Family Medicine 10/23/21 Ruben Christianson MD [address] [address] Assigned Musculoskeletal Provider 04/17/23 documented as of this encounter
--- OUTSIDE RECORDS SUMMARY | 2024-07-11 10:49 | XMS_ITS | Encounter Summary ---
Author Organization [place] Address [address] [place] [address]. [place] [address] Care Team Providers Care Handle Lathe Operator Name Role Phone Thom Ovalles MD Unavailable [phone] Han Jackson MD Primary Care Provider Ruben Frey MD Unavailable Encounter Details Date Type Department Care Team (Late st Contact Info) Description 04/21/2024 [facility] [address] 4th [place] [address] 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 Not on file Not on file Not on file Not on file Not on file Not on file documented as of this encounter Plan of Treatment Upcoming Encounters Date Type Department Care Team (Late st Contact Info) Description 07/25/2024 2:30 PM INDUSTRIAL AUTOMATION SPECIALIST Office Visit [facility] [place] [address] [facility] 4th [place] [phone] Vanessa Fierro PA-C [address] [place] [address] documented as of this encounter Visit Diagnoses Not on filedocumented in this encounter Care Teams Handle Lathe Operator Relationship Specialty Start Date End Date Thom Ovalles MD PCP - Orthopaedics Orthopedics 04/08/11 Han Jackson MD PCP - General Family Medicine 10/23/21 Ruben Frey MD [address] [place] [address] [address] [place] [address] Assigned Musculoskeletal Provider 04/17/23 documented as of this encounter
--- OUTSIDE RECORDS SUMMARY | 2024-07-11 10:49 | XMS_ITS | Encounter Summary ---
Author Organization [place] Address [address] [place] [address] Care Team Providers Care Terry Cloth Cutter Hand Name Role Phone Felix Hill MD Primary Care Provider [phone] Gely Taveras MD Unavailable [phone] Ye Babb OD Unavailable [phone] Thom Ovalles MD Unavailable [phone] Frw, None Primary Care Provider Unavailabl Bri Rao MD Unavailable [phone] Oralia Lozano Unavailable No Ref-Primary, Physician Primary Care Provider Yasmine Esqueda APRN SENIOR PROGRAM PLANNER Unavailable José Miguel-Yasmine Antonio APRN SENIOR PROGRAM PLANNER Unavailable Han Jackson MD Primary Care Provider [phone] Ruben Frey MD Unavailable Encounter Details Date Type Department Care Team (Late st Contact Info) Description 10/22/2010 [facility] [place] Inpatient Dept [address] [place] [address] Frw, Inpatient Provider Social History Tobacco Use [...] on file Legal Sex Female 4:14 AM STUDENT FINANCIAL SERVICES COUNSELOR Gender Identity Not on file Sexual Orientation Not on file 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 Not on file Not on file Not on file Not on file Not on file Not on file Not on file documented as of this encounter Plan of Treatment Upcoming Encounters Date Type Department Care Team (Late st Contact Info) Description 07/25/2024 2:30 PM STUDENT FINANCIAL SERVICES COUNSELOR Office Visit [facility] [address] [place] [phone] Vanessa Fierro PA-C [address] [place] [phone] documented as of this encounter Visit Diagnoses Not on filedocumented in this encounter Care Teams Terry Cloth Cutter Hand Relationship Specialty Start Date End Date Felix Hill MD [facility] [place] [address] [place] [address] PCP - General 11/27/08 04/27/11 Gely Taveras MD [facility] [place] [facility] [address] [place] [address] PCP - Obstetrics/Gynecology 02/28/03 1 Ye Babb OD [facility] [place] [address] [place] [address] PCP - Ophthalmology 06/29/05 10/29/21 Thom Ovalles MD [facility] [place] [address] [place] [address] PCP - Orthopaedics Orthopedics 04/08/11 Frw, None PCP - General Family Practice 04/28/11 04/15/17 Bri [place] [address] PCP - Obstetrics/Gynecology plant senior manager 05/27/11 1 08/19/14 Oralia Lozano [facility] [place] [address] [place] [address] PCP - Audiology Audiology 12/15/12 12/15/12 No Ref-Primary, Physician PCP - General 01/31/18 10/22/21 Yasmine Esqueda APRN SENIOR PROGRAM PLANNER [address] [place] [address] [place] [address] PCP - Assigned PCP 02/20/18 10/18/18 Han Jackson MD [address] [place] [address] [place] [address] PCP - General Family Medicine 10/23/21 Yasmine Esqueda APRN SENIOR PROGRAM PLANNER [address] [place] [address] [place] [address] Assigned PCP 01/21/18 02/15/21 Ruben Frey MD [facility] [place] [address] Assigned Musculoskeletal Provider 04/17/23 documented as of this encounter
--- OUTSIDE RECORDS SUMMARY | 2024-07-11 10:49 | XMS_ITS | Encounter Summary ---
Author Organization [place] Address [address] [place] [address]. [place] [address] Care Team Providers Care Metal Coater Operator Name Role Phone Thom Ovalles MD Unavailable [phone] Han Jackson MD Primary Care Provider Ruben Frey MD Unavailable Encounter Details Date Type Department Care Team (Late st Contact Info) Description 04/12/2024 Telephone [facility] [address] 4th [place] [address] Vanessa Fierro PA-C [address] [place] [address] Social History Tobacco Use Types Packs/Day [...] on file Legal Sex Female 4:14 AM WING MAILER MACHINE OPERATOR Gender Identity Not on file Sexual [...] st Contact Info) Description 07/25/2024 2:30 PM WING MAILER MACHINE OPERATOR Office Visit [facility] [address] 4th [place] [phone] Vanessa Fierro, PA-C [address] [place] [phone] documented as of this encounter Visit Diagnoses Not on filedocumented in this encounter Care Teams Metal Coater Operator Relationship Specialty Start Date End Date Thom Ovalles MD PCP - Orthopaedics Orthopedics 04/08/11 Han Jackson MD PCP - General Family Medicine 10/23/21 Ruben Frey MD [facility] [address] [place], [place] [address] Assigned Musculoskeletal Provider 04/17/23 documented as of this encounter
--- OUTSIDE RECORDS SUMMARY | 2024-07-11 10:49 | XMS_ITS | Encounter Summary ---
Author Organization [place] Address [address] [place] [address] Care Team Providers Care T Rail Turner Name Role Phone HolleyYe OD Unavailable Thom Ovalles MD Unavailable Frw, None Primary Care Provider Unavailabl e Mya Valentine MD Unavailable [phone] Encounter Details Date Type Department Care Team (Late st Contact Info) Description 07/02/2011 12:29 PM BILLING ADJUDICATOR [facility] in [address] [address] My[place] [address] Social History Tobacco Use Types Packs/Day Years Used Date Smoking Tobacco: Never Smokeless Tobacco: Never Comments:no second hand smok e at home or work, 01/01/05 Alcohol Use Standard Drinks/Week Comments Yes 0 (1 standard drink = 0.6 oz pur e alcohol) 3-4 wk Comments No Sex and Gender Information Value Date Recorded Sex Assigned at Not on file Legal Sex Female 4:14 AM BILLING ADJUDICATOR Gender Identity Not on file Sexual Orientation Not on file Occupation Industry 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 ING ADJUDICATOR * Mya Valentine MD - 07/06/2011 10:29 AM BILLING ADJUDICATOR PROCEDURE/OPERATIVE REPORT Date of Procedure: 07/02/11 PREOPERATIVE DIAGNOSES: Menometrorrhagia. Arcuate-shaped uterus. Status post endometrial ablation. POSTOPERATIVE DIAGNOSES: Menometrorrhagia. Arcuate-shaped uterus. Status post endometrial ablation. OPERATION: Laparoscopic supracervical hysterectomy with intraoperative cystoscopy. SURGEON: Dr. Valentine. CLINICAL APPLICATION MANAGER: Dr. Lockwood. ANESTHESIA: General. ESTIMATED BLOOD LOSS: [...] single-toothed tenaculum and uterus sounded and a Twenty Jeans uterine manipulator was placed. The tenaculum and [...] good condition. Mya Valentine M.D. CHRISTIANO/yeimi cc: ING ADJUDICATOR documented in this encounter Plan of Treatment Upcoming Encounters Date Type Department Care Team (Late st Contact Info) Description 07/25/2024 2:30 PM BILLING ADJUDICATOR Office Visit [facility] Orthopedic [address] [place] [address] Vanessa Fierro PA-C [address] [place] [address] documented as of this encounter Procedures Procedure Name Priority Date/Time Associated Diagnosis Comments SURGICAL PATHOLOGY EXAM Routine 07/02/2011 4:10 PM BILLING ADJUDICATOR documented in this encounter Results * Surgical pathology exam (07/02/2011 4:10 PM BILLING ADJUDICATOR) Copath Report Patient Name: KRISTIE KIRKLAND MR#: [id number] Specimen #: [id number] Collected: 07/02/2011 Received: 07/03/2011 Reported: 07/07/2011 16:43 [...] endometrium it is flat, thin, and gonzalez. Tree And Shrub Worker sections in seven blocks. Two small apparent [...] The two small myomas appear benign. Keenan Meyer, MD/tvh 07/07/2011 TESTING LAB LOCATION: [facility] [address] [place] [address] [place] [address] COLLECTION SITE: Client: [facility] Location: [facility] (W) COPATH 07/02/2011 4:10 PM BILLING ADJUDICATOR 07/03/2011 8:37 AM BILLING ADJUDICATOR us Mya [place] - MARCIA Final Result COPATH documented in this encounter Visit Diagnoses Not on filedocumented in this encounter Care Teams T Rail Turner Relationship Specialty Start Date End Date Ye Babb OD [facility] [address] [place] [address] PCP - Ophthalmology 06/29/05 10/29/21 Thom Ovalles MD [facility] [address] [place] [address] PCP - Orthopaedics Orthopedics 04/08/11 Frw, None PCP - General Family Practice 04/28/11 04/15/17 [place] [address] PCP - Obstetrics/Gynecology front office coordinator 05/27/11 1 08/19/14 documented as of this encounter
--- OUTSIDE RECORDS SUMMARY | 2024-07-11 10:49 | XMS_ITS | Encounter Summary ---
Author Organization [place] Address [address] [place] [address]. [place] [address] Care Team Providers Care Security Support Analyst Name Role Phone Thom Ovalles MD Unavailable [phone] Han Jackson MD Primary Care Provider Ruben Frey MD Unavailable Encounter Details Date Type Department Care Team (Late st Contact Info) Description 04/12/2024 [facility] [address] 4th [place] [address] 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 on file Not on file Not on file Not on file Not on file Not on file Not on file documented as of this encounter Plan of Treatment Upcoming Encounters Date Type Department Care Team (Late st Contact Info) Description 07/25/2024 2:30 PM HAND I CUTTER Office Visit [facility] [place] [address] [facility] 4th [place] [phone] Vanessa Fierro PA-C [address] [place] [address] documented as of this encounter Visit Diagnoses Not on filedocumented in this encounter Care Teams Security Support Analyst Relationship Specialty Start Date End Date Thom Ovalles MD PCP - Orthopaedics Orthopedics 04/08/11 Han Jackson MD PCP - General Family Medicine 10/23/21 Ruben Frey MD [address] [place] [address] [address] [place] [address] Assigned Musculoskeletal Provider 04/17/23 documented as of this encounter
--- OUTSIDE RECORDS SUMMARY | 2024-07-11 10:49 | XMS_ITS | Encounter Summary ---
Author Organization [place] Address [address] [place] [address] Care Team Providers Care Stubber Name Role Phone Felix Hill MD Primary Care Provider [phone] Gely Taveras MD Unavailable [phone] Ye Babb OD Unavailable [phone] Encounter Details Date Type Department Care Team (Late st Contact Info) Description 01/28/2010 6:33 AM CDT [facility] in [address] [address] Bri [place] [address] Social History Tobacco Use Types Packs/Day Years Used Date Smoking Tobacco: Never Smokeless Tobacco: Never Comments:no second hand smok e at home or work, 01/01/05 Alcohol Use Standard Drinks/Week Comments Yes 0 (1 standard drink = 0.6 oz pur e alcohol) 3-4 wk Comments No Sex and Gender Information Value Date Recorded Sex Assigned at Not on file Legal Sex Female 4:14 AM DOOR LINER HELPER Gender Identity Not on file Sexual Orientation Not on file 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 Industry 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 Job 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 Not on [...] st Contact Info) Description 07/25/2024 2:30 PM DOOR LINER HELPER Office Visit [facility] [address] [place] [phone] Vanessa Fierro PA-C [address] [place] [address] documented as of this encounter Visit Diagnoses Not on filedocumented in this encounter Care Teams Stubber Relationship Specialty Start Date End Date Felix Hill MD [facility] [place] [address] [place] [address] PCP - General 11/27/08 04/27/11 Gely Taveras MD [facility] [address] [place] [address] PCP - Obstetrics/Gynecology 02/28/03 1 Ye Babb OD [facility] [address] [place] [address] PCP - Ophthalmology 06/29/05 10/29/21 documented as of this encounter
--- OUTSIDE RECORDS SUMMARY | 2024-07-11 10:49 | XMS_ITS | Encounter Summary ---
Author Organization [facility] [place] Address [address] [place] [address]. [place] [address] Care Team Providers Care Mis Manager Name Role Phone Thom Ovalles MD Unavailable [phone] Han Jackson MD Primary Care Provider Ruben Frey MD Unavailable [phone] Encounter Details Date Type Department Care Team (Late st Contact Info) Description 07/01/2023 [facility] [facility] [place] [address] 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 on file Not on file Not on file Not on file Not on file Not on file Not on file documented as of this encounter Plan of Treatment Upcoming Encounters Date Type Department Care Team (Late st Contact Info) Description 07/25/2024 2:30 PM PSYCHOLOGY CLINICIAN Office Visit [facility] [place] [address] [place] [address] 4th [place] [address] Vanessa Fierro, PAJosemanuelC [address] [place], [place] [address] documented as of this encounter Visit Diagnoses Not on filedocumented in this encounter Care Teams Mis Manager Relationship Specialty Start Date End Date Thom Ovalles MD PCP - Orthopaedics Orthopedics 04/08/11 Han Jackson MD PCP - General Family Medicine 10/23/21 Ruben Frey MD [address] [place] [address] Assigned Musculoskeletal Provider 04/17/23 documented as of this encounter
--- OUTSIDE RECORDS SUMMARY | 2024-07-11 10:49 | XMS_ITS | Encounter Summary ---
Author Organization [place] Address [address] [place] [address] Care Team Providers Care Buffing And Polishing Wheel Repairer Name Role Phone HolleyYe OD Unavailable [phone] Thom Ovalles MD Unavailable [phone] Frw, None Primary Care Provider Unavailabl Bri Rao MD Unavailable [phone] Oralia Lozano Unavailable No Ref-Primary, Physician Primary Care Provider Yasmine Esqueda APRN POPCORN ATTENDANT Unavailable Yasmine Esqueda APRN POPCORN ATTENDANT Unavailable Han Jackson MD Primary Care Provider Ruben Frey MD Unavailable Encounter Details Date Type Department Care Team (Late st Contact Info) Description 07/18/2011 [facility] in [place] Inpatient Dept [address] [place] [address] Frw, Inpatient Provider Pain following surgery or [...] on file Legal Sex Female 4:14 AM PICCOLO MECHANIC Gender Identity Not on file Sexual Orientation Not on file 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 ASSESSMENT: SBO PLAN: Per surgery. OLO MECHANIC * Jason Veliz MD - 07/18/2011 10:04 AM CST ADMISSION HISTORY & PHYSICAL Kristie Kirkland : 1975 MR #: [id number] CC: Abdominal pain and bloating HPI: Kristie [...] and speech normal DIAGNOSTICS: Component Latest Ref [facility] 07/18/2011 07/18/2011 07/18/2011 2:50 AM 2:51 AM 2:51 AM Color Urine Yellow Appearance Urine Clear Glucose Urine Low: NEG mg/dL Negative Bilirubin Urine Low: NEG Negative Ketones Urine Low: NEG mg/dL Negative Specific [place] Urine 1.003 - 1.035 1.020 Blood Urine [...] - 250 U/L 51 Component Latest Ref [facility] 07/18/2011 2:51 AM WBC 4.0 - 11.0 [...] 1. Admit 2. General surgery consult and COATING AND BAKING OPERATOR surgery consult. 3. NG as needed 4. NPO 5. IV pain medication and fluid support. Signed Electronically by: JASON VELIZ July 18, 2011 OLO MECHANIC documented in this encounter Plan of Treatment Upcoming Encounters Date Type Department Care Team (Late st Contact Info) Description 07/25/2024 2:30 PM PICCOLO MECHANIC Office Visit [facility] [address] 4th [place] [phone] Vanessa Fierro PAMax [address] [place] [address] documented as of this encounter Visit Diagnoses Diagnosis Pain following surgery or procedure- Primary Other acute postoperative pain documented in this encounter Care Teams Buffing And Polishing Wheel Repairer Relationship Specialty Start Date End Date Ye Babb OD [facility] [place] [address] [place] [address] PCP - Ophthalmology 06/29/05 10/29/[address] [facility] [place] [address] [place] [address] PCP - Orthopaedics Orthopedics 04/08/11 Frw, None PCP - General Family Practice 04/28/11 04/15/17 Bri [place] [address] PCP - Obstetrics/Gynecology general foreman 05/27/11 1 08/19/[address] [facility] [place] [address] [place] [address] PCP - Audiology Audiology 12/15/12 12/15/12 No Ref-Primary, Physician PCP - General 01/31/18 10/22/21 Yasmine Esqueda APRN POPCORN ATTENDANT [address] [place] [address] [place] [address] PCP - Assigned PCP 02/20/18 10/18/18 Han Jackson MD [address] [place] [address] [place] [address] PCP - General Family Medicine 10/23/21 Yasmine Esqueda APRN POPCORN ATTENDANT [address] [place] [address] [place] [address] Assigned PCP 01/21/18 02/15/21 Ruben Frey MD [address] [place] [address] [address] [place] [address] Assigned Musculoskeletal Provider 04/17/23 documented as of this encounter
--- OUTSIDE RECORDS SUMMARY | 2024-07-11 10:49 | XMS_ITS | Encounter Summary ---
Author Organization [facility] Address [address] [place] [address] Care Team Providers Care Petroleum Transport Driver Name Role Phone Gely Taveras MD Unavailable [phone] Ye Babb OD Unavailable [phone] Thom Ovalels MD Unavailable [phone] Frw, None Primary Care Provider Unavailabl Bri Rao MD Unavailable [phone] Oralia Lozano Unavailable No Ref-Primary, Physician Primary Care Provider Yasmine Esqueda APRN SENIOR SYSTEMS ANALYST Unavailable José Miguel-Yasmine Antonio APRN SENIOR SYSTEMS ANALYST Unavailable Han Jackson MD Primary Care Provider [phone] Ruben Frey MD Unavailable Encounter Details Date Type Department Care Team (Late st Contact Info) Description 05/01/2011 [facility] Medical Advice [facility] in [place] BOOT TRIMMER [address] [place] [address] Kerry Jackson Social History Tobacco [...] on file Legal Sex Female 4:14 AM DRAGLINE ENGINEER Gender Identity Not on file Sexual Orientation Not on file 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 file Not on file Not on file Not on file Not on file Not on file Not on file documented as of this encounter Plan of Treatment Upcoming Encounters Date Type Department Care Team (Late st Contact Info) Description 07/25/2024 2:30 PM DRAGLINE ENGINEER Office Visit [facility] [address] 4th [place] [phone] Vanessa Fierro PAJosemanuelC [address] [place] [phone] documented as of this encounter Visit Diagnoses Not on filedocumented in this encounter Care Teams Petroleum Transport Driver Relationship Specialty Start Date End Date Gely aTveras MD [facility] [address] [place] [address] PCP - Obstetrics/Gynecology 02/28/03 1 Ye Babb OD [facility] [place] [address] [place] [address] PCP - Ophthalmology 06/29/05 10/29/21 Thom Ovalles MD [facility] [place] [address] [place] [address] PCP - Orthopaedics Orthopedics 04/08/11 Frw, None PCP - General Family Practice 04/28/11 04/15/17 Bri [place] [address] PCP - Obstetrics/Gynecology plumbing mechanic 05/27/11 1 08/19/14 Oralia Lozano [facility] [place] [address] [facility] [address] [place] [address] PCP - Audiology Audiology 12/15/12 12/15/12 No Ref-Primary, Physician PCP - General 01/31/18 10/22/21 Yasmine Esqueda APRN SENIOR SYSTEMS ANALYST [facility] [place] [address] PCP - Assigned PCP 02/20/18 10/18/18 Hna Jackson MD [address] [place] [place] [address] [place] [address] PCP - General Family Medicine 10/23/21 Yasmine Esqueda APRN SENIOR SYSTEMS ANALYST [address] [place] [address] [place] [address] Assigned PCP 01/21/18 02/15/21 Ruben Frey MD [facility] [place] [address] Assigned Musculoskeletal Provider 04/17/23 documented as of this encounter
--- OUTSIDE RECORDS SUMMARY | 2024-07-11 10:49 | XMS_ITS | Encounter Summary ---
Author Organization [place] Address [address] [place] [address]. [place] [address] Care Team Providers Care Lugger Name Role Phone Thom Ovalles MD Unavailable [phone] Han Jackson MD Primary Care Provider Ruben Frey MD Unavailable [phone] Encounter Details Date Type Department Care Team (Late st Contact Info) Description 11/12/2023 [facility] Only 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 Orthopedic Clinic [address] 4th [place] [phone] Vanessa Fierro, PA-C [address] [place] [phone] documented as of this encounter Visit Diagnoses Diagnosis S/P fusion of sacroiliac joint- Primary documented in this encounter Care Teams Lugger Relationship Specialty Start Date End Date Thom Ovalles MD PCP - Orthopaedics Orthopedics 04/08/11 Han Jackson MD PCP - General Family Medicine 10/23/21 Ruben Frey MD [facility] [address] [facility] [address] [place], [place] [address] Assigned Musculoskeletal Provider 04/17/23 documented as of this encounter
--- OUTSIDE RECORDS SUMMARY | 2024-07-11 10:49 | XMS_ITS | Encounter Summary ---
Author Organization [facility] Address [address] [place] [address]. [place] [address] Care Team Providers Care Finance Mgr Name Role Phone Thom Ovalles MD Unavailable [phone] Han Jackson MD Primary Care Provider Ruben Frey MD Unavailable Encounter Details Date Type Department Care Team (Late st Contact Info) Description 04/19/2024 [facility] [address] 4th [place] [address] [facility] Social History Tobacco Use Types Packs/Day [...] on file Legal Sex Female 4:14 AM REPAIRER SWITCHGEAR Gender Identity Not on file Sexual Orientation Not on file 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 on 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 Not on file Not on file Not on file Not on file Not on file Not on file documented as of this encounter Plan of Treatment Upcoming Encounters Date Type Department Care Team (Late st Contact Info) Description 07/25/2024 2:30 PM REPAIRER SWITCHGEAR Office Visit [facility] [place] [address] [facility] 4th [place] [phone] Vanessa Fierro PA-C [address] [place] [address] documented as of this encounter Visit Diagnoses Not on filedocumented in this encounter Care Teams Finance Mgr Relationship Specialty Start Date End Date Thom Ovalles MD PCP - Orthopaedics Orthopedics 04/08/11 Han Jackson MD PCP - General Family Medicine 10/23/21 Ruben Frey MD [address] [place] [address] [address] [place] [address] Assigned Musculoskeletal Provider 04/17/23 documented as of this encounter
--- OUTSIDE RECORDS SUMMARY | 2024-07-11 10:49 | XMS_ITS | Encounter Summary ---
Author Organization [facility] Address [address] [place] [address]. [place] [address] Care Team Providers Care Flight Security Specialist Name Role Phone Thom Ovalles MD Unavailable [phone] Han Jackson MD Primary Care Provider Ruben Frey MD Unavailable Encounter Details Date Type Department Care Team (Late st Contact Info) Description 04/19/2024 Telephone [facility] Orthopedic Clinic [address] 4th [place] [address] Vanessa Fierro PA-C [address] [place] [address] Social History Tobacco Use Types Packs/Day [...] on file Legal Sex Female 4:14 AM YOUTH MINISTRY DIRECTOR Gender Identity Not on file Sexual Orientation Not on file 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 Not on file [...] st Contact Info) Description 07/25/2024 2:30 PM YOUTH MINISTRY DIRECTOR Office Visit [facility] Orthopedic Clinic [address] 4th [place] [phone] Vanessa Fierro, PA-C [address] [place] [phone] documented as of this encounter Visit Diagnoses Not on filedocumented in this encounter Care Teams Flight Security Specialist Relationship Specialty Start Date End Date Thom Ovlales MD PCP - Orthopaedics Orthopedics 04/08/11 Han Jackson MD PCP - General Family Medicine 10/23/21 Ruben Frey MD [facility] [place] [address] [place] [address] Assigned Musculoskeletal Provider 04/17/23 documented as of this encounter
--- OUTSIDE RECORDS SUMMARY | 2024-07-11 10:49 | XMS_ITS | Encounter Summary ---
Author Organization [place] Address [address] [place] [address]. [place] [address] Care Team Providers Care Brand Ambassador Name Role Phone Thom Ovalles MD Unavailable [phone] Han Jackson MD Primary Care Provider Ruben Frey MD Unavailable Encounter Details Date Type Department Care Team (Late st Contact Info) Description 10/26/2023 Telephone [facility] Orthopedic [facility] [place] [address] [facility] [address] 4th [place] [address] Ruben Frey MD [address] [place] [address] Social History Tobacco Use Types [...] on file Legal Sex Female 4:14 AM CODING ASSISTANT Gender Identity Not on file Sexual Orientation [...] st Contact Info) Description 07/25/2024 2:30 PM CODING ASSISTANT Office Visit [facility] Orthopedic [address] 4th [place] [phone] Vanessa Fierro, PA-C [address] [place], [place] [address] documented as of this encounter Visit Diagnoses Not on filedocumented in this encounter Care Teams Brand Ambassador Relationship Specialty Start Date End Date Thmo Ovalles MD PCP - Orthopaedics Orthopedics 04/08/11 Han Jackson MD PCP - General Family Medicine 10/23/21 Ruben Frey MD [address] [place] [address] Assigned Musculoskeletal Provider 04/17/23 documented as of this encounter
--- OUTSIDE RECORDS SUMMARY | 2024-07-11 10:49 | XMS_ITS | Encounter Summary ---
Author Organization [place] Address [address] [place] [address] Care Team Providers Care Brass Instrument Repair Technician Name Role Phone Ye Babb Charbel OD Unavailable Thom Ovalles MD Unavailable Frw, None Primary Care Provider UnavailBri Grove MD Unavailable [phone] No Ref-Primary, Physician Primary Care Provider José Miguel-Yasmine Antonio APRN DISTRIBUTION CENTER MANAGER Unavailable José Miguel-Yasmine Antonio APRN DISTRIBUTION CENTER MANAGER Unavailable Han Jackson MD Primary Care Provider [phone] Ruben Frey MD Unavailable Encounter Details Date Type Department Care Team (Late st Contact Info) Description 08/11/2013 My[facility] Medical Advice [facility] in [place] MANAGER CLIENT SUPPORT [address] [place] [address] Feli Pinto MD 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 Not on file Not on file Not on file Not on file Not on file Not on file documented as of this encounter Plan of Treatment Upcoming Encounters Date Type Department Care Team (Late st Contact Info) Description 07/25/2024 2:30 PM NURSE TRANSITIONAL Office Visit [facility] [address] 4th [place] [phone] Vanessa Fierro PA-C [address] [place] [phone] documented as of this encounter Visit Diagnoses Not on filedocumented in this encounter Care Teams Brass Instrument Repair Technician Relationship Specialty Start Date End Date Ye Babb OD [facility] [place] [address] [place] [address] PCP - Ophthalmology 06/29/05 10/29/21 Thom Ovalles MD [facility] [place] [address] [place] [address] PCP - Orthopaedics Orthopedics 04/08/11 Frw, None PCP - General Family Practice 04/28/11 04/15/17 Bri [place] [address] PCP - Obstetrics/Gynecology hammersmith helper 05/27/11 1 08/19/14 No Ref-Primary, Physician PCP - General 01/31/18 10/22/21 Yasmine Esqueda APRN DISTRIBUTION CENTER MANAGER [address] [place] [address] DR [place] [address] PCP - Assigned PCP 02/20/18 10/18/18 Han Jackson MD [address] [place] [address] [place] [address] PCP - General Family Medicine 10/23/21 Yasmine Esqueda APRN DISTRIBUTION CENTER MANAGER [address] [place] [address] [place] [address] Assigned PCP 01/21/18 02/15/21 Ruben Frey MD [address] [place] [address] [address] [place] [address] Assigned Musculoskeletal Provider 04/17/23 documented as of this encounter
--- OUTSIDE RECORDS SUMMARY | 2024-07-11 10:49 | XMS_ITS | Encounter Summary ---
Author Organization [place] Address [address] [place] [address] Care Team Providers Care Parts Counter Clerk Name Role Phone Holley Ye M OD Unavailable [phone] Thom Ovalles MD Unavailable [phone] Frw, None Primary Care Provider Unavailabl Bri Rao MD Unavailable [phone] Oralia Lozano Unavailable No Ref-Primary, Physician Primary Care Provider Yasmine Esqueda APRN SILVER DESIGNER Unavailable Yasmine Esqueda APRN SILVER DESIGNER Unavailable Han Jackson MD Primary Care Provider [phone] Ruben Frey MD Unavailable [phone] Encounter Details Date Type Department Care Team (Late st Contact Info) Description 07/12/2012 MyC Medical Advice [facility] [place] Family Practice [address] [place] [address] Aaliyah Navarrete, MAYLIN [address] [facility] [address] [place] [address] Social History Tobacco Use Types [...] Legal Sex Female 4:14 AM DIRECTOR OF SALES MARKETING Gender Identity Not on file Sexual Orientation Not on file 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 [place] [address] [place] [address] PCP - Ophthalmology 06/29/05 10/29/[address] [facility] [place] [address] [place] [address] PCP - Orthopaedics Orthopedics 04/08/11 Frw, None PCP - General Family Practice 04/28/11 04/15/17 Bri [place] [address] PCP - Obstetrics/Gynecology assembly instructions writer 05/27/11 1 08/19/[address] [facility] [place] [address] [place] [address] PCP - Audiology Audiology 12/15/12 12/15/12 No Ref-Primary, Physician PCP - General 01/31/18 10/22/21 Yasmine Esqueda APRN SILVER DESIGNER [address] [place] [address] [place] [address] PCP - Assigned PCP 02/20/18 10/18/18 Han Jackson MD [address] [place] [address] [place] [address] PCP - General Family Medicine 10/23/21 Yasmine Esqueda APRN SILVER DESIGNER [address] [place] [address] [place] [address] Assigned PCP 01/21/18 02/15/21 Ruben Frey MD [facility] [address] [place] [address] Assigned Musculoskeletal Provider 04/17/23 documented as of this encounter
--- OUTSIDE RECORDS SUMMARY | 2024-07-11 10:49 | XMS_ITS | Encounter Summary ---
Author Organization [place] Address [address] [place] [address] Care Team Providers Care Certified Professional Midwife Name Role Phone Holley Ye M OD Unavailable [phone] Thom Ovalles MD Unavailable Frw, None Primary Care Provider Unavailabl Bri Rao MD Unavailable [phone] Encounter Details Date Type Department Care Team (Late st Contact Info) Description 08/13/2011 1:35 PM WARDROBE SPECIALTY WORKER [facility] in [facility] [address] [place] [address] Thom Ovalles MD [facility] [address] [place] [address] Social History Tobacco Use Types Packs/Day Years Used Date Smoking Tobacco: Never Smokeless Tobacco: Never Comments:no second hand smok e at home or work, 01/01/05 Alcohol Use Standard Drinks/Week Comments Yes 0 (1 standard drink = 0.6 oz pur e alcohol) 3-4 wk Comments No Sex and Gender Information Value Date Recorded Sex Assigned at Not on file Legal Sex Female 4:14 AM WARDROBE SPECIALTY WORKER Gender Identity Not on file Sexual Orientation Not on file 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 POSTOPERATIVE DIAGNOSES: Right carpal tunnel syndrome. OPERATION: Right mini open carpal tunnel release. SURGEON: Thom Ovalles M.D. SPECIAL EFFECTS ARTIST: Leola Armstrong PA-C. ANESTHESIA: Local only. ESTIMATED [...] incised to allow for placement of a Paris elevator. This was placed proximal to distal and the residual distal ligament was incised under direct visualization. The deep palmar arch was identified but not cut. Then I moved proximally on the transverse carpal ligament with the Paris elevator in place again and incised through [...] in time. Thom Ovalles M.D. DUNCAN/claire cc: ROBE SPECIALTY WORKER documented in this encounter Plan of Treatment Upcoming Encounters Date Type Department Care Team (Late st Contact Info) Description 07/25/2024 2:30 PM WARDROBE SPECIALTY WORKER Office Visit [facility] [address] [phone] Vanessa Fierro PA-Jai [address] [place] [address] documented as of this encounter Visit Diagnoses Not on filedocumented in this encounter Care Teams Certified Professional Midwife Relationship Specialty Start Date End Date Ye Babb OD [facility] [address] [place] [address] [address] [place] [address] PCP - Ophthalmology 06/29/05 10/29/21 Thom Ovalles MD [facility] [place] [facility] [address] [place] [address] PCP - Orthopaedics Orthopedics 04/08/11 Frw, None PCP - General Family Practice 04/28/11 04/15/17 Bri [place] [address] PCP - Obstetrics/Gynecology city magistrate 05/27/11 1 08/19/14 documented as of this encounter
--- OUTSIDE RECORDS SUMMARY | 2024-07-11 10:49 | XMS_ITS | Encounter Summary ---
Author Organization [facility] Address [address] [place] [address] Care Team Providers Care Transfer Controller Name Role Phone Felix Hill MD Primary Care Provider [phone] Gely Taveras MD Unavailable [phone] Ye Babb OD Unavailable [phone] Encounter Details Date Type Department Care Team (Late st Contact Info) Description 10/22/2010 11:46 AM ST[facility]NER AND SHACKLER [facility] in [address] [phone] Jesse May MD [address] [phone] Social History Tobacco Use Types Packs/Day Years Used Date Smoking Tobacco: Never Smokeless Tobacco: Never Comments:no second hand smok e at home or work, 01/01/05 Alcohol Use Standard Drinks/Week Comments Yes 0 (1 standard drink = 0.6 oz pur e alcohol) 3-4 wk Comments No Sex and Gender Information Value Date Recorded Sex Assigned at Not on file Legal Sex Female 4:14 AM STUNNER AND SHACKLER Gender Identity Not on file Sexual Orientation Not on file 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 Jesse May M.D. [facility] cc: [facility]ER [facility]ACKLER documented in this encounter Plan of Treatment Upcoming Encounters Date Type Department Care Team (Late st Contact Info) Description 07/25/2024 2:30 PM [facility]NER AND [facility]ACKL[facility] Office Visit [facility] [address] [place] [phone] Vanessa Fierro PA-C [address] [place] [phone] documented as of this encounter Visit Diagnoses Not on filedocumented in this encounter Care Teams Transfer Controller Relationship Specialty Start Date End Date Felix Hill MD [facility] [address] [place] [address] PCP - General 11/27/08 04/27/11 Gely Taveras MD [facility] [address] [place] [address] PCP - Obstetrics/Gynecology 02/28/03 1 Ye Babb OD [facility] [address] [facility] [address] [place] [address] PCP - Ophthalmology 06/29/05 10/29/21 documented as of this encounter
--- OUTSIDE RECORDS SUMMARY | 2024-07-11 10:49 | XMS_ITS | Encounter Summary ---
Author Organization [facility] Address [address] [place] [id number] Care Team Providers Care Insole Tacker Name Role Phone HolleyYe OD Unavailable [phone] Thom Ovalles MD Unavailable [phone] Frw, None Primary Care Provider Unavailabl Bri Rao MD Unavailable [phone] Oralia Lozano Unavailable No Ref-Primary, Physician Primary Care Provider Yasmine Esqueda APRN ENTRY LEVEL MECHANICAL ENGINEER Unavailable Yasmine Esqueda APRN ENTRY LEVEL MECHANICAL ENGINEER Unavailable Han Jackson MD Primary Care Provider Ruben Frey MD Unavailable Encounter Details Date Type Department Care Team (Late st Contact Info) Description 07/02/2011 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 Not on file Not on file Not on file Not on file Not on file Not on file Not on file documented as of this encounter Plan of Treatment Upcoming Encounters Date Type Department Care Team (Late st Contact Info) Description 07/25/2024 2:30 PM STARCHER AND TENTER RANGE FEEDER Office Visit [facility] [address] [place] [phone] Vanessa Fierro [employer] [address] [place] [phone] documented as of this encounter Visit Diagnoses Not on filedocumented in this encounter Care Teams Insole Tacker Relationship Specialty Start Date End Date Ye Babb OD [facility] [place] [address] [place] [address] PCP - Ophthalmology 06/29/05 10/29/21 Thom Ovalles MD [facility] [place] [address] [place] [address] PCP - Orthopaedics Orthopedics 04/08/11 Frw, None PCP - General Family Practice 04/28/11 04/15/17 [place] [address] PCP - Obstetrics/Gynecology steel rule die maker 05/27/11 1 08/19/14 Oralia Lozano [facility] [place] [address] [place] [address] PCP - Audiology Audiology 12/15/12 12/15/12 No Ref-Primary, Physician PCP - General 01/31/18 10/22/21 Yasmine Esqueda APRN ENTRY LEVEL MECHANICAL ENGINEER [address] [place] [address] [place] [address] PCP - Assigned PCP 02/20/18 10/18/18 Han Jackson MD [address] [place] [address] [place] [address] PCP - General Family Medicine 10/23/21 Yasmine Esqueda APRN ENTRY LEVEL MECHANICAL ENGINEER [address] [place] [address] [place] [address] Assigned PCP 01/21/18 02/15/21 Ruben Frey MD [address] [place] [address] [address] [place] [address] Assigned Musculoskeletal Provider 04/17/23 documented as of this encounter
== END 2024-07-11 10:46 | disposition home or self-care (01) ==
LOC: NFLDREF 10:46
PROVIDERS: PCP Family Medicine; Visit Provider Family Medicine
DX: I10 Essential (primary) hypertension (principal); Z01.818 Encounter for other preprocedural examination
CPT/HCPCS: 80048

== ENCOUNTER 2024-09-25 10:43 | Outpatient (CLI) | payer OTHER, SELFPAY | END 2024-09-25 10:44 | disposition home or self-care (01) | LOC: NFLDREF 10:43 | PROVIDERS: PCP Family Medicine; Visit Provider Family Medicine | DX: I10 Essential (primary) hypertension (principal) | CPT/HCPCS: 80048 ==

== ENCOUNTER 2024-12-04 08:22 | Outpatient (CLI) | payer OTHER, SELFPAY | END 2024-12-04 08:23 | disposition home or self-care (01) | LOC: NFLDREF 08:23 | PROVIDERS: PCP Family Medicine; Visit Provider Family Medicine | DX: I10 Essential (primary) hypertension (principal); Z01.818 Encounter for other preprocedural examination | CPT/HCPCS: 80048 ==

== ENCOUNTER 2025-03-14 09:49 | Outpatient (CLI) | payer OTHER, SELFPAY | END 2025-03-14 09:50 | disposition home or self-care (01) | LOC: NFLDREF 09:50 | PROVIDERS: PCP Family Medicine; Visit Provider Family Medicine | DX: E87.1 Hypo-osmolality and hyponatremia (principal) | CPT/HCPCS: 80048 ==

== ENCOUNTER 2025-05-03 13:45 | Outpatient (CLI) | payer OTHER, SELFPAY ==
[2025-05-03 17:25] LABS: Hematocrit* 36.9 % (33.0-51.0); Hemoglobin* 12.2 gm/dL (12.0-16.0); Immature Granulocytes Abs Auto 0.01 K/uL (0.00-0.30); Immature Granulocytes Pct Auto 0.2 %; Mean Corpuscular HGB Conc 33 gm/dL (32-36); Mean Corpuscular Hemoglobin 29 pg (26-34); Mean Corpuscular Volume 86 fL (80-100); RDW Coefficient of Variation % 14.4 % (11.5-15.5); Red Blood Count* 4.27 m/uL (4.00-5.20); White Blood Count* 5.92 K/uL (4.50-11.00)
[2025-05-03 17:37] LABS: Chloride* 91 mmol/L (96-114); Sodium* 129 mmol/L (135-149)
[2025-05-03 17:38] LABS: Potassium* 4.0 mmol/L (3.6-5.1)
[2025-05-03 17:40] LABS: Blood Urea Nitrogen* 20 mg/dL (7-30); Creatinine* 0.7 mg/dL (0.5-1.5); Estimated Glomerular Filt Rate 105 ml/min
[2025-05-03 17:41] LABS: Anion Gap 9 mEq/L (7-15); Calcium* 10.1 mg/dL (8.4-10.6); Carbon Dioxide* 29 mmol/L (20-32); Glucose* 103 mg/dL (60-115)
[2025-05-03 17:49] LABS: Lymphocytes Absolute Auto 1.00 K/uL (0.90-2.90)
[2025-05-03 17:50] LABS: Slide Review Reflex No
== END 2025-05-03 13:46 | disposition home or self-care (01) ==
LOC: NPINS 13:47
PROVIDERS: PCP Family Medicine; Visit Provider Nurse Practitioner Adult Health
DX: Z01.818 Encounter for other preprocedural examination (principal)
CPT/HCPCS: 80048; 85025

== ENCOUNTER 2025-06-07 08:21 | Outpatient (CLI) | payer OTHER, SELFPAY | END 2025-06-07 08:22 | disposition home or self-care (01) | PROVIDERS: PCP Family Medicine; Visit Provider Family Medicine | DX: R25.2 Cramp and spasm (principal); E87.1 Hypo-osmolality and hyponatremia | CPT/HCPCS: 80048; 83735 ==

== ENCOUNTER 2025-06-26 09:00 | Outpatient (CLI) | payer OTHER, SELFPAY ==
--- NOTE | 2025-06-26 09:15 | CRLHL7_ITS ---
For Patients: As a result of the Century Cures Act, medical imaging exams and procedure reports are released immediately into your electronic medical record. You may view this report before your referring provider. If you have questions, please contact your health care provider. INDICATION: BILATERAL SCREENING MAMMOGRAM, ASYMPTOMATIC 49 Y/O FEMALE COMPARISON: 05/19/2024, 05/14/2023, 05/13/2022 TECHNIQUE: Digital mammogram in CC and MLO projections including computer-aided detection (CAD) and tomosynthesis. BREAST COMPOSITION: There are scattered areas of fibroglandular density. FINDINGS: No suspicious findings. ASSESSMENT: BI-RADS 1 Negative RECOMMENDATION: Annual screening mammogram. A lay language report of this examination will be provided to the patient. Dictated by: Han Mathis MD @ 06/26/2025 11:25:09 (Electronically Signed)
== END 2025-06-26 09:01 | disposition home or self-care (01) ==
LOC: MAMMO 09:00
PROVIDERS: PCP Family Medicine; Visit Provider Obstetrics & Gynecology
DX: Z12.31 Encounter for screening mammogram for malignant neoplasm of breast (principal)
CPT/HCPCS: 77063; 77067

== ENCOUNTER 2025-07-02 08:06 | Outpatient (CLI) | payer OTHER, SELFPAY ==
--- NOTE | 2025-07-02 08:15 | CRLHL7_ITS ---
For Patients: As a result of the Century Cures Act, medical imaging exams and procedure reports are released immediately into your electronic medical record. You may view this report before your referring provider. If you have questions, please contact your health care provider. INDICATION: Lower quadrant pain COMPARISON: None. TECHNIQUE: 2D parmar-scale and color Doppler images were acquired of the pelvis using a transabdominal and transvaginal approach. Transvaginal imaging performed to better visualize the left ovary. Spectral Doppler evaluation of the left ovary performed. FINDINGS: Uterus is absent. Cervical cuff intact. The right ovary is absent and the left ovary measures 2.4 x 1.0 x 2.2 cm. The left ovary demonstrate normal arterial and venous blood flow on color Doppler analysis. There are no suspicious fluid collections within the cul-de-sac. Normal spectral Doppler evaluation of the left ovary. IMPRESSION: Normal left ovary. No torsion or excess pelvic free fluid. Dictated by Han Mathis MD @ 07/02/2025 9:38:13 AM (Electronically Signed)
== END 2025-07-02 08:07 | disposition home or self-care (01) ==
LOC: US 08:07
PROVIDERS: PCP Family Medicine; Visit Provider Obstetrics & Gynecology
DX: R10.9 Unspecified abdominal pain (principal)
CPT/HCPCS: 76830; 76856; 93976